=== PATIENT | female | born 1980 | race Caucasian/White ===

== ENCOUNTER 2018-07-27 07:30 | Outpatient (RCR) | payer MEDICARE, MEDICAID, SELFPAY ==
--- NOTE | 2018-05-10 16:03 | PT.OIE ---
Current Diagnoses Radiculopathy, site unspecified (05/05/18) Pain in left arm (05/05/18) Provider Visit Care Team Role Provider Type MYRNA Meeks Family Provider Advanced Practioner Clinician Primary Care Provider Specialty: Family Practice Address: [address] [place] [address], [id number] Email: [email or web address] Sarmiento Attending Provider Advanced Practioner Clinician Specialty: [facility] Practice Address: [address] [place] [address], [id number] Email: Physical Therapy Initial Evaluation PT-OP-A Visit Information Start: 05/05/18 07:25 Freq: Status: Active Protocol: Document 05/05/18 13:00 AMB (Rec: 05/07/18 07:21 AMB [email or web address]) Out-Patient Physical Therapy Visit Information Visit Information Visit Type Initial Evaluation Visit Start Time 13:00 Visit Stop Time 13:45 Total Visit Minutes 45 Visit Number 1 Evaluation Information Evaluation Date 05/17/18 PT-OP-B Current Condition Start: 05/05/18 07:25 Freq: Status: Active Protocol: Document 05/05/18 13:00 AMB (Rec: 05/05/18 13:58 AMB [id number]) Current Condition History of Current Condition Onset Date January 2018 History of Current Condition The patient reports left anterior and posterior upper arm pain that can radiate into the forearm. She is unsure exactly what causes it, but notices it most with sleeping and walking. She thinks that holding the arm into elbow flexion exacerbates the symptoms, it usually takes a few minutes for the symptoms to start. She is right hand dominant. Prior Treatments and Tests None per her report Developmental History Developmental History The patient was kicked by a horse as a young child and broke her arm but she is unsure which arm. Prior Functional Status Baseline Function- ADL's Independent Baseline Function- Mobility Independent Baseline Function- Work/School The patient does not work and lives with her mother, she does not drive. Current Functional Impairments (Reported) Functional Limitations- ADL's Difficulty sleeping - pain wakes her up but she is able to get back to sleep Personal Factors Other Personal Factors That May Effect Developmental disability Therapy/Recovery PT-OP-C Subjective Start: 05/05/18 07:25 Freq: Status: Active Protocol: Document 05/05/18 13:00 AMB (Rec: 05/10/18 06:46 AMB [email or web address]) OP-PT Subjective Patient Comments Patient Comments The patient denies any falls, or traumatic events in January when the pain started, but she is unable to sleep on her left side currently. She states the pain has been about the same. Patient Questionnaires Quick Dash- Upper Extremity Quick Dash UE Score 25 Quick Dash UE Impairment 20 to 39% Impaired (Score 20- 39) OP-PT Pain Assessment Pain Assessment Grid Paper Pain Assessment Grid Completed Yes Location Left Arm Intensity 4 Scale Used Numeric (1 - 10) Description Aching PT-OP-F Manual Assessment Start: 05/05/18 07:25 Freq: Status: Active Protocol: Document 05/05/18 13:00 AMB (Rec: 05/10/18 07:14 AMB [email or web address]) Manual Assessments Joint Mobility Assessment Joint Mobility Assessment Slightly hypermobile throughout UEs, tender to touch at distal bicep and medial and lateral epicondyles , denies tenderness at cervical spine PT-OP-J Posture/Palpation/Skin Start: 05/05/18 07:25 Freq: Status: Active Protocol: Document 05/05/18 13:00 AMB (Rec: 05/10/18 07:14 AMB [email or web address]) Posture Evaluation Comments Posture Comments Forward head, forward shoulders PT-OP-K Range of Motion Start: 05/05/18 07:25 Freq: Status: Active Protocol: Document 05/05/18 13:00 AMB (Rec: 05/10/18 07:09 AMB [email or web address]) Cervical Spine Range of Motion Cervical Spine Active Percentage Testing Position Sitting Comments all WFL no pain noted Elbow/Forearm Range of Motion Elbow/Forearm Measured in Degrees Left Active Elbow/Forearm ROM WFL Yes ROM Testing Position Sitting PT-OP-L Special Tests Start: 05/05/18 07:25 Freq: Status: Active Protocol: Document 05/05/18 13:00 AMB (Rec: 05/10/18 07:00 AMB [email or web address]) Special Tests Cervical Spine Special Tests Spurling's Test Test Results negative bilateral Shoulder Special Tests Empty Can Test Results positive for mild pain but not her pain Walker Stephen Impingement Test Results negative Elbow Special Tests Lateral Epicondylitis Extended Test Results mild reproduction of symptoms Comments resisted wrist extension with elbow flexion Vascular Special Tests Alyssa Test Test Results positive for pain Comments no n/t, but did reproduce pain PT-OP-M Strength Start: 05/05/18 07:25 Freq: Status: Active Protocol: Document 05/05/18 13:00 AMB (Rec: 05/10/18 07:08 AMB [email or web address]) Shoulder Strength Shoulder Manual Muscle Testing Right Flexion 4 Good Extension 4 Good Abduction (C5) 4 Good External Rotation 4 Good Internal Rotation 4 Good Left Flexion 4- Good- Extension 4- Good- Adduction 4- Good- External Rotation 4 Good Internal Rotation 4 Good Elbow/Forearm Strength Elbow and Forearm Manual Muscle Testing Right Flexion (C6) 4 Good Extension (C7) 4 Good Pronation 4 Good Supination 4 Good Left Flexion (C6) 4 Good Extension (C7) 4 Good Pronation 4- Good- Supination 4- Good- Hand Medical Coordinator Pesticide Use/Pinch Strength Hand Dominance Hand Dominance Right Hand Strength Right Medical Coordinator Pesticide Use (lbs) 43 Comments average Left Medical Coordinator Pesticide Use (lbs) 32 Comments average PT-OP-Q Treatments Start: 05/05/18 07:25 Freq: Status: Active Protocol: Document 05/05/18 13:00 AMB (Rec: 05/10/18 06:54 AMB [email or web address]) Therapeutic Exercises Standing Exercises 3 Standing Exercise Name triceps extension t band Equipment Used #2 latex free Reps/Minutes 10 2 Standing Exercise Name biceps curl t band Equipment Used #2 latex free Reps/Minutes 10 1 Standing Exercise Name rows t band Resistance #2 latex free Reps/Minutes 10 PT-OP-T Assessment and Plan Start: 05/05/18 07:25 Freq: Status: Active Protocol: Document 05/05/18 13:00 AMB (Rec: 05/10/18 07:27 AMB [email or web address]) Physical Therapy Assessment Rehab Potential Rehabilitation Potential Good Evaluation Complexity Number of Personal Factors/Comorbidities 1-2 Number of Body Systems Impaired 4 or More Clinical Presentation at Evaluation Evolving Impairments Impairments Functional Activities Pain Posture Strength Goals 3 Impairment Gait Undraped Artist Model Goal (LTG) The patient will walk with her mother for 30 minutes with appropriate arm swing without arm pain. 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 STG Duration 4 weeks Usp Goal (LTG) The patient will lift a bag of groceries without pain. LTG Duration 10 weeks 1 Impairment Sleep Short Term Goal (STG) The patient will sleep through the night without being woken secondary to her arm pain. STG Duration 4 weeks Usp Goal (LTG) The patient will be able to sleep on her left side without pain. LTG Duration 10 weeks Assessment Summary Assessment The patient presents with generalized pain throughout her left elbow. Pain is worst with elbow flexion, sleeping, and walking. Unable to reproduce pain with cervical ROM or testing. The patient is generally weak bilaterally, but worse on the left, full range of motion, generally hypermobile. She will benefit from stabilization exercises, and further evaluation based on her progression of her generalized pain. Physical Therapy Plan Frequency and Duration Frequency of Treatment 1x/Week Duration of Treatment 10 weeks Plan of Care Start Date 05/05/18 Plan of Care End Date 07/14/18 Therapeutic Interventions Therapeutic Interventions Aquatic Therapy Home Exercise Program Joint Mobilizations Manual Therapy Neuromuscular Re-education Self-Care/Home Management Soft Tissue Mobilization Taping Therapeutic Activities Therapeutic Exercises Modalities Cold Pack/Ice Massage Electric Stimulation Hot Packs Ultrasound Next Visit Focus/Plan Next Note Type Treatment Note Please Sign and Return: I have reviewed this Plan of Care and certify that the skilled therapy services above are required to meet the patient?s needs. Physician Signature Date Printed Name and Credentials Clinical Instructor Signature Printed Name and Credentials
--- NOTE | 2018-05-10 16:04 | PT.OPPOC ---
Current Diagnoses Radiculopathy, site unspecified (05/05/18) Pain in left arm (05/05/18) Provider Visit Care Team Role Provider Type MYRNA Meeks Family Provider Advanced Practioner Clinician Primary Care Provider Specialty: [facility] Practice Address: [address] [place] [address], [phone] Email: [email or web address] RODRÍGUEZ Sarmiento Attending Provider Advanced Practioner Clinician Specialty: [facility] Practice Address: [address] [place] [address], [phone] Email: Plan Of Care PT-OP-T Assessment and Plan Start: 05/05/18 07:25 Freq: Status: Active Protocol: Document 05/05/18 13:00 AMB (Rec: 05/10/18 07:27 AMB [email or web address]) Physical Therapy Assessment Rehab Potential Rehabilitation Potential Good Evaluation Complexity Number of Personal Factors/Comorbidities 1-2 Number of Body Systems Impaired 4 or More Clinical Presentation at Evaluation Evolving Impairments Impairments Functional Activities Pain Posture Strength Goals 3 Impairment Gait Garden Equipment Mechanic Goal (LTG) The patient will walk with her mother for 30 minutes with appropriate arm swing without arm pain. 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 STG Duration 4 weeks Garden Equipment Mechanic Goal (LTG) The patient will lift a bag of groceries without pain. LTG Duration 10 weeks 1 Impairment Sleep Short Term Goal (STG) The patient will sleep through the night without being woken secondary to her arm pain. STG Duration 4 weeks Garden Equipment Mechanic Goal (LTG) The patient will be able to sleep on her left side without pain. LTG Duration 10 weeks Assessment Summary Assessment The patient presents with generalized pain throughout her left elbow. Pain is worst with elbow flexion, sleeping, and walking. Unable to reproduce pain with cervical ROM or testing. The patient is generally weak bilaterally, but worse on the left, full range of motion, generally hypermobile. She will benefit from stabilization exercises, and further evaluation based on her progression of her generalized pain. Physical Therapy Plan Frequency and Duration Frequency of Treatment 1x/Week Duration of Treatment 10 weeks Plan of Care Start Date 05/05/18 Plan of Care End Date 07/14/18 Therapeutic Interventions Therapeutic Interventions Aquatic Therapy Home Exercise Program Joint Mobilizations Manual Therapy Neuromuscular Re-education Self-Care/Home Management Soft Tissue Mobilization Taping Therapeutic Activities Therapeutic Exercises Modalities Cold Pack/Ice Massage Electric Stimulation Hot Packs Ultrasound Next Visit Focus/Plan Next Note Type Treatment Note Plan of Care Dates Plan of Care Start Date 05/05/18 Plan of Care End Date 07/14/18 Please Sign and Return: I have reviewed this Plan of Care and certify that the skilled therapy services above are required to meet the patient?s needs. Physician Signature Date Printed Name and Credentials Clinical Instructor Signature Printed Name and Credentials
--- NOTE | 2018-05-28 14:50 | PT.OTN ---
Current Diagnoses Radiculopathy, site unspecified (05/28/18) Physical Therapy Treatment Note PT-OP-A Visit Information Start: 05/05/18 07:25 Freq: Status: Active Protocol: Document 05/28/18 11:15 AMB (Rec: 05/28/18 11:26 AMB [email or web address]) Out-Patient Physical Therapy Visit Information Visit Information Visit Type Treatment Note Visit Start Time 11:15 Visit Stop Time 12:00 Visit Number 2 Evaluation Information Evaluation Date 05/17/18 PT-OP-B Current Condition Start: 05/05/18 07:25 Freq: Status: Active Protocol: Document 05/05/18 13:00 AMB (Rec: 05/05/18 13:58 AMB [id number]) Current Condition History of Current Condition Onset Date January 2018 History of Current Condition The patient reports left anterior and posterior upper arm pain that can radiate into the forearm. She is unsure exactly what causes it, but notices it most with sleeping and walking. She thinks that holding the arm into elbow flexion exacerbates the symptoms, it usually takes a few minutes for the symptoms to start. She is right hand dominant. Prior Treatments and Tests None per her report Developmental History Developmental History The patient was kicked by a horse as a young child and broke her arm but she is unsure which arm. Prior Functional Status Baseline Function- ADL's Independent Baseline Function- Mobility Independent Baseline Function- Work/School The patient does not work and lives with her mother, she does not drive. Current Functional Impairments (Reported) Functional Limitations- ADL's Difficulty sleeping - pain wakes her up but she is able to get back to sleep Personal Factors Other Personal Factors That May Effect Developmental disability Therapy/Recovery PT-OP-C Subjective Start: 05/05/18 07:25 Freq: Status: Active Protocol: Document 05/28/18 11:15 AMB (Rec: 05/28/18 11:26 AMB [id number]) OP-PT Subjective Patient Comments Patient Comments The patient reports sx about the same, she is doing her exercises. PT-OP-F Manual Assessment Start: 05/05/18 07:25 Freq: Status: Active Protocol: Document 05/05/18 13:00 AMB (Rec: 05/10/18 07:14 AMB [email or web address]) Manual Assessments Joint Mobility Assessment Joint Mobility Assessment Slightly hypermobile throughout UEs, tender to touch at distal bicep and medial and lateral epicondyles , denies tenderness at cervical spine PT-OP-J Posture/Palpation/Skin Start: 05/05/18 07:25 Freq: Status: Active Protocol: Document 05/05/18 13:00 AMB (Rec: 05/10/18 07:14 AMB [email or web address]) Posture Evaluation Comments Posture Comments Forward head, forward shoulders PT-OP-K Range of Motion Start: 05/05/18 07:25 Freq: Status: Active Protocol: Document 05/05/18 13:00 AMB (Rec: 05/10/18 07:09 AMB [email or web address]) Cervical Spine Range of Motion Cervical Spine Active Percentage Testing Position Sitting Comments all WFL no pain noted Elbow/Forearm Range of Motion Elbow/Forearm Measured in Degrees Left Active Elbow/Forearm ROM WFL Yes ROM Testing Position Sitting PT-OP-L Special Tests Start: 05/05/18 07:25 Freq: Status: Active Protocol: Document 05/05/18 13:00 AMB (Rec: 05/10/18 07:00 AMB [email or web address]) Special Tests Cervical Spine Special Tests Spurling's Test Test Results negative bilateral Shoulder Special Tests Empty Can Test Results positive for mild pain but not her pain Walker Stephen Impingement Test Results negative Elbow Special Tests Lateral Epicondylitis Extended Test Results mild reproduction of symptoms Comments resisted wrist extension with elbow flexion Vascular Special Tests Alyssa Test Test Results positive for pain Comments no n/t, but did reproduce pain PT-OP-M Strength Start: 05/05/18 07:25 Freq: Status: Active Protocol: Document 05/05/18 13:00 AMB (Rec: 05/10/18 07:08 AMB [email or web address]) Shoulder Strength Shoulder Manual Muscle Testing Right Flexion 4 Good Extension 4 Good Abduction (C5) 4 Good External Rotation 4 Good Internal Rotation 4 Good Left Flexion 4- Good- Extension 4- Good- Adduction 4- Good- External Rotation 4 Good Internal Rotation 4 Good Elbow/Forearm Strength Elbow and Forearm Manual Muscle Testing Right Flexion (C6) 4 Good Extension (C7) 4 Good Pronation 4 Good Supination 4 Good Left Flexion (C6) 4 Good Extension (C7) 4 Good Pronation 4- Good- Supination 4- Good- Hand Medical Device Engineer/Pinch Strength Hand Dominance Hand Dominance Right Hand Strength Right Medical Device Engineer (lbs) 43 Comments average Left Medical Device Engineer (lbs) 32 Comments average PT-OP-Q Treatments Start: 05/05/18 07:25 Freq: Status: Active Protocol: Document 05/28/18 11:15 AMB (Rec: 05/28/18 14:50 AMB [email or web address]) Cardio Equipment Upper Body Ergometer (UBE) Duration (Minutes) 5 RPM 60 Other fwd bwd Therapeutic Exercises Supine Exercises 1 Supine Exercise Name tricep press Resistance 3# Reps/Minutes 2x10 Standing Exercises 6 Standing Exercise Name corner pec stretch Reps/Minutes 30x4 5 Standing Exercise Name IR t band Side left Resistance #3 Reps/Minutes 2x12 4 Standing Exercise Name ER t band Side left Resistance #3 Reps/Minutes 2x10 1 Standing Exercise Name rows t band Resistance #2 latex free Reps/Minutes 10 Manual Therapy Treatment Soft Tissue Mobilization 1 Body Location anterior shoulder into upper arm Mobilization Type Myofascial Release Rolling Nerve Glides 1 Nerve ulnar Details supine Body Position Hooklying Reps/Duration 15x5 PT-OP-T Assessment and Plan Start: 05/05/18 07:25 Freq: Status: Active Protocol: Document 05/28/18 11:15 AMB (Rec: 05/28/18 13:01 AMB [email or web address]) Physical Therapy Assessment Assessment Summary Assessment Pt tolerated exercises well, with some increase in pain with shoulder external rotation and pectoral and wrist stretching. Physical Therapy Plan Next Visit Focus/Plan Next Note Type Treatment Note Next Visit Plan Reassess pain, progress shoulder and elbow function
--- NOTE | 2018-06-04 14:47 | PT.OTN ---
Current Diagnoses Radiculopathy, site unspecified (06/04/18) Physical Therapy Treatment Note PT-OP-A Visit Information Start: 05/05/18 07:25 Freq: Status: Active Protocol: Document 06/04/18 09:45 AMB (Rec: 06/04/18 14:44 AMB [email or web address]) Out-Patient Physical Therapy Visit Information Visit Information Visit Type Treatment Note Visit Start Time 09:45 Visit Stop Time 10:30 Total Visit Minutes 45 Visit Number 3 Evaluation Information Evaluation Date 05/17/18 PT-OP-B Current Condition Start: 05/05/18 07:25 Freq: Status: Active Protocol: Document 05/05/18 13:00 AMB (Rec: 05/05/18 13:58 AMB [id number]) Current Condition History of Current Condition Onset Date January 2018 History of Current Condition The patient reports left anterior and posterior upper arm pain that can radiate into the forearm. She is unsure exactly what causes it, but notices it most with sleeping and walking. She thinks that holding the arm into elbow flexion exacerbates the symptoms, it usually takes a few minutes for the symptoms to start. She is right hand dominant. Prior Treatments and Tests None per her report Developmental History Developmental History The patient was kicked by a horse as a young child and broke her arm but she is unsure which arm. Prior Functional Status Baseline Function- ADL's Independent Baseline Function- Mobility Independent Baseline Function- Work/School The patient does not work and lives with her mother, she does not drive. Current Functional Impairments (Reported) Functional Limitations- ADL's Difficulty sleeping - pain wakes her up but she is able to get back to sleep Personal Factors Other Personal Factors That May Effect Developmental disability Therapy/Recovery PT-OP-C Subjective Start: 05/05/18 07:25 Freq: Status: Active Protocol: Document 06/04/18 09:45 AMB (Rec: 06/04/18 14:44 AMB [email or web address]) OP-PT Subjective Patient Comments Patient Comments Pt reports she is feeling better with walking, but she is noticing pain with putting her elbow on the table, mostly the medial elbow. PT-OP-F Manual Assessment Start: 05/05/18 07:25 Freq: Status: Active Protocol: Document 05/05/18 13:00 AMB (Rec: 05/10/18 07:14 AMB [email or web address]) Manual Assessments Joint Mobility Assessment Joint Mobility Assessment Slightly hypermobile throughout UEs, tender to touch at distal bicep and medial and lateral epicondyles , denies tenderness at cervical spine PT-OP-J Posture/Palpation/Skin Start: 05/05/18 07:25 Freq: Status: Active Protocol: Document 05/05/18 13:00 AMB (Rec: 05/10/18 07:14 AMB [email or web address]) Posture Evaluation Comments Posture Comments Forward head, forward shoulders PT-OP-K Range of Motion Start: 05/05/18 07:25 Freq: Status: Active Protocol: Document 05/05/18 13:00 AMB (Rec: 05/10/18 07:09 AMB [email or web address]) Cervical Spine Range of Motion Cervical Spine Active Percentage Testing Position Sitting Comments all WFL no pain noted Elbow/Forearm Range of Motion Elbow/Forearm Measured in Degrees Left Active Elbow/Forearm ROM WFL Yes ROM Testing Position Sitting PT-OP-L Special Tests Start: 05/05/18 07:25 Freq: Status: Active Protocol: Document 05/05/18 13:00 AMB (Rec: 05/10/18 07:00 AMB [email or web address]) Special Tests Cervical Spine Special Tests Spurling's Test Test Results negative bilateral Shoulder Special Tests Empty Can Test Results positive for mild pain but not her pain Walker Stephen Impingement Test Results negative Elbow Special Tests Lateral Epicondylitis Extended Test Results mild reproduction of symptoms Comments resisted wrist extension with elbow flexion Vascular Special Tests Alyssa Test Test Results positive for pain Comments no n/t, but did reproduce pain PT-OP-M Strength Start: 05/05/18 07:25 Freq: Status: Active Protocol: Document 05/05/18 13:00 AMB (Rec: 05/10/18 07:08 AMB [email or web address]) Shoulder Strength Shoulder Manual Muscle Testing Right Flexion 4 Good Extension 4 Good Abduction (C5) 4 Good External Rotation 4 Good Internal Rotation 4 Good Left Flexion 4- Good- Extension 4- Good- Adduction 4- Good- External Rotation 4 Good Internal Rotation 4 Good Elbow/Forearm Strength Elbow and Forearm Manual Muscle Testing Right Flexion (C6) 4 Good Extension (C7) 4 Good Pronation 4 Good Supination 4 Good Left Flexion (C6) 4 Good Extension (C7) 4 Good Pronation 4- Good- Supination 4- Good- Hand Hematologist/Pinch Strength Hand Dominance Hand Dominance Right Hand Strength Right Hematologist (lbs) 43 Comments average Left Hematologist (lbs) 32 Comments average PT-OP-Q Treatments Start: 05/05/18 07:25 Freq: Status: Active Protocol: Document 06/04/18 09:45 AMB (Rec: 06/04/18 14:44 AMB [email or web address]) Therapeutic Exercises Sitting Exercises 3 Sitting Exercise Name forearm pron/sup Resistance 2# Reps/Minutes 2x10 2 Sitting Exercise Name wrist extensor stretch Reps/Minutes 30x2 1 Sitting Exercise Name wrist flexor stretch Reps/Minutes 30x2 Standing Exercises 9 Standing Exercise Name body blade shoulder flexion Comments exacerbated sx after 2 min 8 Standing Exercise Name shoulder flexion Resistance 2# Reps/Minutes 2x10 Comments shoulder height 7 Standing Exercise Name scaption Reps/Minutes 2# Comments 2x10 Manual Therapy Treatment Soft Tissue Mobilization 2 Body Location medial elbow Mobilization Type Myofascial Release Intensity/Depth Moderate Body Position Supine Taping 1 Body Location medial elbow Type of Tape Kinesio Tape Comments with instruction in skin care PT-OP-R Modalities Start: 05/05/18 07:25 Freq: Status: Active Protocol: Document 06/04/18 09:45 AMB (Rec: 06/04/18 14:46 AMB [email or web address]) Ultrasound Therapy Treatment Left Elbow Treatment Duration (minutes) 7 Patient Position Supine Coupling Medium Ultrasound Gel Frequency Setting (mHz) 1 Mode Setting Continuous Intensity Setting (w/cm2) 1.3 PT-OP-T Assessment and Plan Start: 05/05/18 07:25 Freq: Status: Active Protocol: Document 06/04/18 09:45 AMB (Rec: 06/04/18 14:44 AMB [email or web address]) Physical Therapy Assessment Assessment Summary Assessment More localized sx today, encouraged pt to avoid positions that compress cubital tunnel as much as possible. Physical Therapy Plan Next Visit Focus/Plan Next Note Type Treatment Note Next Visit Plan Progress elbow/forearm function
--- NOTE | 2018-06-09 16:04 | PT.OTN ---
Current Diagnoses Radiculopathy, site unspecified (06/09/18) Physical Therapy Treatment Note PT-OP-A Visit Information Start: 05/05/18 07:25 Freq: Status: Active Protocol: Document 06/09/18 09:00 AMB (Rec: 06/09/18 10:16 AMB [email or web address]) Out-Patient Physical Therapy Visit Information Visit Information Visit Type Treatment Note Visit Start Time 09:00 Visit Stop Time 09:45 Total Visit Minutes 45 Visit Number 4 Evaluation Information Evaluation Date 05/17/18 PT-OP-B Current Condition Start: 05/05/18 07:25 Freq: Status: Active Protocol: Document 05/05/18 13:00 AMB (Rec: 05/05/18 13:58 AMB [id number]) Current Condition History of Current Condition Onset Date January 2018 History of Current Condition The patient reports left anterior and posterior upper arm pain that can radiate into the forearm. She is unsure exactly what causes it, but notices it most with sleeping and walking. She thinks that holding the arm into elbow flexion exacerbates the symptoms, it usually takes a few minutes for the symptoms to start. She is right hand dominant. Prior Treatments and Tests None per her report Developmental History Developmental History The patient was kicked by a horse as a young child and broke her arm but she is unsure which arm. Prior Functional Status Baseline Function- ADL's Independent Baseline Function- Mobility Independent Baseline Function- Work/School The patient does not work and lives with her mother, she does not drive. Current Functional Impairments (Reported) Functional Limitations- ADL's Difficulty sleeping - pain wakes her up but she is able to get back to sleep Personal Factors Other Personal Factors That May Effect Developmental disability Therapy/Recovery PT-OP-C Subjective Start: 05/05/18 07:25 Freq: Status: Active Protocol: Document 06/09/18 09:00 AMB (Rec: 06/09/18 10:16 AMB [email or web address]) OP-PT Subjective Patient Comments Patient Comments Pt reports she is feeling slightly better, but continues to have sx with sleeping on the arm. PT-OP-F Manual Assessment Start: 05/05/18 07:25 Freq: Status: Active Protocol: Document 05/05/18 13:00 AMB (Rec: 05/10/18 07:14 AMB [email or web address]) Manual Assessments Joint Mobility Assessment Joint Mobility Assessment Slightly hypermobile throughout UEs, tender to touch at distal bicep and medial and lateral epicondyles , denies tenderness at cervical spine PT-OP-J Posture/Palpation/Skin Start: 05/05/18 07:25 Freq: Status: Active Protocol: Document 05/05/18 13:00 AMB (Rec: 05/10/18 07:14 AMB [email or web address]) Posture Evaluation Comments Posture Comments Forward head, forward shoulders PT-OP-K Range of Motion Start: 05/05/18 07:25 Freq: Status: Active Protocol: Document 05/05/18 13:00 AMB (Rec: 05/10/18 07:09 AMB [email or web address]) Cervical Spine Range of Motion Cervical Spine Active Percentage Testing Position Sitting Comments all WFL no pain noted Elbow/Forearm Range of Motion Elbow/Forearm Measured in Degrees Left Active Elbow/Forearm ROM WFL Yes ROM Testing Position Sitting PT-OP-L Special Tests Start: 05/05/18 07:25 Freq: Status: Active Protocol: Document 05/05/18 13:00 AMB (Rec: 05/10/18 07:00 AMB [email or web address]) Special Tests Cervical Spine Special Tests Spurling's Test Test Results negative bilateral Shoulder Special Tests Empty Can Test Results positive for mild pain but not her pain Walker Stephen Impingement Test Results negative Elbow Special Tests Lateral Epicondylitis Extended Test Results mild reproduction of symptoms Comments resisted wrist extension with elbow flexion Vascular Special Tests Alyssa Test Test Results positive for pain Comments no n/t, but did reproduce pain PT-OP-M Strength Start: 05/05/18 07:25 Freq: Status: Active Protocol: Document 05/05/18 13:00 AMB (Rec: 05/10/18 07:08 AMB [email or web address]) Shoulder Strength Shoulder Manual Muscle Testing Right Flexion 4 Good Extension 4 Good Abduction (C5) 4 Good External Rotation 4 Good Internal Rotation 4 Good Left Flexion 4- Good- Extension 4- Good- Adduction 4- Good- External Rotation 4 Good Internal Rotation 4 Good Elbow/Forearm Strength Elbow and Forearm Manual Muscle Testing Right Flexion (C6) 4 Good Extension (C7) 4 Good Pronation 4 Good Supination 4 Good Left Flexion (C6) 4 Good Extension (C7) 4 Good Pronation 4- Good- Supination 4- Good- Hand Tool Or Die Drawing Checker/Pinch Strength Hand Dominance Hand Dominance Right Hand Strength Right Tool Or Die Drawing Checker (lbs) 43 Comments average Left Tool Or Die Drawing Checker (lbs) 32 Comments average PT-OP-Q Treatments Start: 05/05/18 07:25 Freq: Status: Active Protocol: Document 06/09/18 09:00 AMB (Rec: 06/09/18 16:02 AMB [email or web address]) Therapeutic Exercises Supine Exercises 1 Supine Exercise Name tricep press Resistance 3# Reps/Minutes 2x10 Sitting Exercises 3 Sitting Exercise Name forearm pron/sup Resistance 2# Reps/Minutes 2x10 2 Sitting Exercise Name wrist extensor stretch Reps/Minutes 30x2 1 Sitting Exercise Name wrist flexor stretch Reps/Minutes 30x2 Standing Exercises 8 Standing Exercise Name shoulder flexion Resistance 2# Reps/Minutes 2x10 Comments shoulder height 7 Standing Exercise Name scaption Reps/Minutes 2# Comments 2x10 6 Standing Exercise Name corner pec stretch Reps/Minutes 30x4 Manual Therapy Treatment Soft Tissue Mobilization 2 Body Location medial elbow Mobilization Type Myofascial Release Intensity/Depth Moderate Body Position Supine Nerve Glides 1 Nerve ulnar Details supine Body Position Hooklying Reps/Duration 15x5 PT-OP-R Modalities Start: 05/05/18 07:25 Freq: Status: Active Protocol: Document 06/09/18 09:00 AMB (Rec: 06/09/18 16:02 AMB [email or web address]) Ultrasound Therapy Treatment Left Elbow Treatment Duration (minutes) 7 Patient Position Supine Coupling Medium Ultrasound Gel Frequency Setting (mHz) 1 Mode Setting Continuous Intensity Setting (w/cm2) 1.3 PT-OP-T Assessment and Plan Start: 05/05/18 07:25 Freq: Status: Active Protocol: Document 06/09/18 09:00 AMB (Rec: 06/09/18 16:02 AMB [email or web address]) Physical Therapy Assessment Goals 3 Impairment Gait Long-Term Goal (LTG) The patient will walk with her mother for 30 minutes with appropriate arm swing without arm pain. LTG Duration 10 weeks 2 Impairment Strength Short Term Goal (STG) The patient will improve her seo team lead strength bilaterally to 50#. STG Duration 4 weeks Long-Term Goal (LTG) The patient will lift a bag of groceries without pain. LTG Duration 10 weeks 1 Impairment Sleep Short Term Goal (STG) The patient will sleep through the night without being woken secondary to her arm pain. STG Duration 4 weeks Long-Term Goal (LTG) The patient will be able to sleep on her left side without pain. LTG Duration 10 weeks Assessment Summary Assessment Pt without sx during manual therapy or ther ex, but pt did report nerve discomfort with tricep press at home (standing ) so gave her the supine variation. Physical Therapy Plan Frequency and Duration Frequency of Treatment 1x/Week Duration of Treatment 10 weeks Plan of Care Start Date 05/05/18 Plan of Care End Date 07/14/18 Next Visit Focus/Plan Next Note Type Treatment Note Next Visit Plan Progress elbow/forearm function
--- NOTE | 2018-06-16 12:55 | PT.OTN ---
Current Diagnoses Radiculopathy, site unspecified (06/16/18) Physical Therapy Treatment Note PT-OP-A Visit Information Start: 05/05/18 07:25 Freq: Status: Active Protocol: Document 06/16/18 09:00 AMB (Rec: 06/16/18 09:45 AMB [email or web address]) Out-Patient Physical Therapy Visit Information Visit Information Visit Type Treatment Note Visit Start Time 09:00 Visit Stop Time 09:45 Total Visit Minutes 45 Visit Number 5 PT-OP-B Current Condition Start: 05/05/18 07:25 Freq: Status: Active Protocol: Document 05/05/18 13:00 AMB (Rec: 05/05/18 13:58 AMB [id number]) Current Condition History of Current Condition Onset Date January 2018 History of Current Condition The patient reports left anterior and posterior upper arm pain that can radiate into the forearm. She is unsure exactly what causes it, but notices it most with sleeping and walking. She thinks that holding the arm into elbow flexion exacerbates the symptoms, it usually takes a few minutes for the symptoms to start. She is right hand dominant. Prior Treatments and Tests None per her report Developmental History Developmental History The patient was kicked by a horse as a young child and broke her arm but she is unsure which arm. Prior Functional Status Baseline Function- ADL's Independent Baseline Function- Mobility Independent Baseline Function- Work/School The patient does not work and lives with her mother, she does not drive. Current Functional Impairments (Reported) Functional Limitations- ADL's Difficulty sleeping - pain wakes her up but she is able to get back to sleep Personal Factors Other Personal Factors That May Effect Developmental disability Therapy/Recovery PT-OP-C Subjective Start: 05/05/18 07:25 Freq: Status: Active Protocol: Document 06/16/18 08:15 AMB (Rec: 06/16/18 12:07 AMB [email or web address]) OP-PT Subjective Patient Comments Patient Comments The patient reports that sitting is getting less painful with her back. She did sustain a fall (tripped over a mat on the floor) and hit her R shoulder on the cabinet, so now sleeping is even worse because she is a side sleeper and it hurts to sleep on the L hip and now the R shoulder. Her dizziness continues, seeing PCP next week. PT-OP-F Manual Assessment Start: 05/05/18 07:25 Freq: Status: Active Protocol: Document 05/05/18 13:00 AMB (Rec: 05/10/18 07:14 AMB [email or web address]) Manual Assessments Joint Mobility Assessment Joint Mobility Assessment Slightly hypermobile throughout UEs, tender to touch at distal bicep and medial and lateral epicondyles , denies tenderness at cervical spine PT-OP-J Posture/Palpation/Skin Start: 05/05/18 07:25 Freq: Status: Active Protocol: Document 05/05/18 13:00 AMB (Rec: 05/10/18 07:14 AMB [email or web address]) Posture Evaluation Comments Posture Comments Forward head, forward shoulders PT-OP-K Range of Motion Start: 05/05/18 07:25 Freq: Status: Active Protocol: Document 05/05/18 13:00 AMB (Rec: 05/10/18 07:09 AMB [email or web address]) Cervical Spine Range of Motion Cervical Spine Active Percentage Testing Position Sitting Comments all WFL no pain noted Elbow/Forearm Range of Motion Elbow/Forearm Measured in Degrees Left Active Elbow/Forearm ROM WFL Yes ROM Testing Position Sitting PT-OP-L Special Tests Start: 05/05/18 07:25 Freq: Status: Active Protocol: Document 05/05/18 13:00 AMB (Rec: 05/10/18 07:00 AMB [email or web address]) Special Tests Cervical Spine Special Tests Spurling's Test Test Results negative bilateral Shoulder Special Tests Empty Can Test Results positive for mild pain but not her pain Walker Stephen Impingement Test Results negative Elbow Special Tests Lateral Epicondylitis Extended Test Results mild reproduction of symptoms Comments resisted wrist extension with elbow flexion Vascular Special Tests Alyssa Test Test Results positive for pain Comments no n/t, but did reproduce pain PT-OP-M Strength Start: 05/05/18 07:25 Freq: Status: Active Protocol: Document 05/05/18 13:00 AMB (Rec: 05/10/18 07:08 AMB [email or web address]) Shoulder Strength Shoulder Manual Muscle Testing Right Flexion 4 Good Extension 4 Good Abduction (C5) 4 Good External Rotation 4 Good Internal Rotation 4 Good Left Flexion 4- Good- Extension 4- Good- Adduction 4- Good- External Rotation 4 Good Internal Rotation 4 Good Elbow/Forearm Strength Elbow and Forearm Manual Muscle Testing Right Flexion (C6) 4 Good Extension (C7) 4 Good Pronation 4 Good Supination 4 Good Left Flexion (C6) 4 Good Extension (C7) 4 Good Pronation 4- Good- Supination 4- Good- Hand Radio Communications Superintendent/Pinch Strength Hand Dominance Hand Dominance Right Hand Strength Right Radio Communications Superintendent (lbs) 43 Comments average Left Radio Communications Superintendent (lbs) 32 Comments average PT-OP-Q Treatments Start: 05/05/18 07:25 Freq: Status: Active Protocol: Document 06/16/18 09:00 AMB (Rec: 06/16/18 12:54 AMB [email or web address]) Cardio Equipment Upper Body Ergometer (UBE) Duration (Minutes) 5 RPM 60 Other fwd bwd Manual Therapy Treatment Soft Tissue Mobilization 2 Body Location medial elbow Mobilization Type Myofascial Release Intensity/Depth Moderate Body Position Supine Taping 1 Body Location medial elbow Type of Tape Kinesio Tape Comments with instruction in skin care, 2 Is, 2Ys Nerve Glides 1 Nerve ulnar Body Position Sitting Reps/Duration 7 options x 10 ea PT-OP-R Modalities Start: 05/05/18 07:25 Freq: Status: Active Protocol: Document 06/09/18 09:00 AMB (Rec: 06/09/18 16:02 AMB [email or web address]) Ultrasound Therapy Treatment Left Elbow Treatment Duration (minutes) 7 Patient Position Supine Coupling Medium Ultrasound Gel Frequency Setting (mHz) 1 Mode Setting Continuous Intensity Setting (w/cm2) 1.3 PT-OP-T Assessment and Plan Start: 05/05/18 07:25 Freq: Status: Active Protocol: Document 06/16/18 09:00 AMB (Rec: 06/16/18 12:50 AMB [email or web address]) Physical Therapy Assessment Assessment Summary Assessment The patient reports a plateau in progress (2 nights this past week has woken up with forearm/elbow pain). Ulnar nerve exercises did not exacerbate pain too much during the session. Physical Therapy Plan Next Visit Focus/Plan Next Note Type Treatment Note Next Visit Plan Follow up on ulnar nerve mobilizations at home
--- NOTE | 2018-06-24 16:17 | PT.OTN ---
Current Diagnoses Radiculopathy, site unspecified (06/24/18) Physical Therapy Treatment Note PT-OP-A Visit Information Start: 05/05/18 07:25 Freq: Status: Active Protocol: Document 06/24/18 09:45 AMB (Rec: 06/24/18 16:16 AMB [email or web address]) Out-Patient Physical Therapy Visit Information Visit Information Visit Type Treatment Note Visit Start Time 09:00 Visit Stop Time 09:45 Total Visit Minutes 45 Visit Number 6 Evaluation Information Evaluation Date 05/17/18 PT-OP-B Current Condition Start: 05/05/18 07:25 Freq: Status: Active Protocol: Document 05/05/18 13:00 AMB (Rec: 05/05/18 13:58 AMB [id number]) Current Condition History of Current Condition Onset Date January 2018 History of Current Condition The patient reports left anterior and posterior upper arm pain that can radiate into the forearm. She is unsure exactly what causes it, but notices it most with sleeping and walking. She thinks that holding the arm into elbow flexion exacerbates the symptoms, it usually takes a few minutes for the symptoms to start. She is right hand dominant. Prior Treatments and Tests None per her report Developmental History Developmental History The patient was kicked by a horse as a young child and broke her arm but she is unsure which arm. Prior Functional Status Baseline Function- ADL's Independent Baseline Function- Mobility Independent Baseline Function- Work/School The patient does not work and lives with her mother, she does not drive. Current Functional Impairments (Reported) Functional Limitations- ADL's Difficulty sleeping - pain wakes her up but she is able to get back to sleep Personal Factors Other Personal Factors That May Effect Developmental disability Therapy/Recovery PT-OP-C Subjective Start: 05/05/18 07:25 Freq: Status: Active Protocol: Document 06/24/18 09:45 AMB (Rec: 06/24/18 16:16 AMB [email or web address]) OP-PT Subjective Patient Comments Patient Comments Pt reports she continues to get elbow pain at night, when she is sleeping on the arm. She is woken up by the pain a few times a week. PT-OP-F Manual Assessment Start: 05/05/18 07:25 Freq: Status: Active Protocol: Document 05/05/18 13:00 AMB (Rec: 05/10/18 07:14 AMB [email or web address]) Manual Assessments Joint Mobility Assessment Joint Mobility Assessment Slightly hypermobile throughout UEs, tender to touch at distal bicep and medial and lateral epicondyles , denies tenderness at cervical spine PT-OP-J Posture/Palpation/Skin Start: 05/05/18 07:25 Freq: Status: Active Protocol: Document 05/05/18 13:00 AMB (Rec: 05/10/18 07:14 AMB [email or web address]) Posture Evaluation Comments Posture Comments Forward head, forward shoulders PT-OP-K Range of Motion Start: 05/05/18 07:25 Freq: Status: Active Protocol: Document 05/05/18 13:00 AMB (Rec: 05/10/18 07:09 AMB [email or web address]) Cervical Spine Range of Motion Cervical Spine Active Percentage Testing Position Sitting Comments all WFL no pain noted Elbow/Forearm Range of Motion Elbow/Forearm Measured in Degrees Left Active Elbow/Forearm ROM WFL Yes ROM Testing Position Sitting PT-OP-L Special Tests Start: 05/05/18 07:25 Freq: Status: Active Protocol: Document 05/05/18 13:00 AMB (Rec: 05/10/18 07:00 AMB [email or web address]) Special Tests Cervical Spine Special Tests Spurling's Test Test Results negative bilateral Shoulder Special Tests Empty Can Test Results positive for mild pain but not her pain Walker Stephen Impingement Test Results negative Elbow Special Tests Lateral Epicondylitis Extended Test Results mild reproduction of symptoms Comments resisted wrist extension with elbow flexion Vascular Special Tests Alyssa Test Test Results positive for pain Comments no n/t, but did reproduce pain PT-OP-M Strength Start: 05/05/18 07:25 Freq: Status: Active Protocol: Document 05/05/18 13:00 AMB (Rec: 05/10/18 07:08 AMB [email or web address]) Shoulder Strength Shoulder Manual Muscle Testing Right Flexion 4 Good Extension 4 Good Abduction (C5) 4 Good External Rotation 4 Good Internal Rotation 4 Good Left Flexion 4- Good- Extension 4- Good- Adduction 4- Good- External Rotation 4 Good Internal Rotation 4 Good Elbow/Forearm Strength Elbow and Forearm Manual Muscle Testing Right Flexion (C6) 4 Good Extension (C7) 4 Good Pronation 4 Good Supination 4 Good Left Flexion (C6) 4 Good Extension (C7) 4 Good Pronation 4- Good- Supination 4- Good- Hand [employer] [facility]/Pinch Strength Hand Dominance Hand Dominance Right Hand Strength Right [facility] (lbs) 43 Comments average Left [facility] (lbs) 32 Comments average PT-OP-Q Treatments Start: 05/05/18 07:25 Freq: Status: Active Protocol: Document 06/24/18 09:45 AMB (Rec: 06/24/18 16:16 AMB [email or web address]) Therapeutic Exercises Sitting Exercises 2 Sitting Exercise Name wrist extensor stretch Reps/Minutes 30x2 1 Sitting Exercise Name wrist flexor stretch Reps/Minutes 30x2 Manual Therapy Treatment Soft Tissue Mobilization 2 Body Location medial/ lateral elbow Mobilization Type Myofascial Release Intensity/Depth Moderate Body Position Supine Nerve Glides 1 Nerve ulnar Body Position Sitting Reps/Duration 7 options x 5 ea PT-OP-R Modalities Start: 05/05/18 07:25 Freq: Status: Active Protocol: Document 06/24/18 09:45 AMB (Rec: 06/24/18 16:16 AMB [email or web address]) Ultrasound Therapy Treatment Left Elbow Treatment Duration (minutes) 7 Patient Position Supine Coupling Medium Ultrasound Gel Frequency Setting (mHz) 1 Mode Setting Continuous Intensity Setting (w/cm2) 1.3 PT-OP-T Assessment and Plan Start: 05/05/18 07:25 Freq: Status: Active Protocol: Document 06/24/18 09:45 AMB (Rec: 06/24/18 16:16 AMB [email or web address]) Physical Therapy Assessment Assessment Summary Assessment Pt noted more lateral elbow pain today, not going down the arm as much. Physical Therapy Plan Frequency and Duration Frequency of Treatment 1x/Week Duration of Treatment 10 weeks Plan of Care Start Date 05/05/18 Plan of Care End Date 07/14/18 Next Visit Focus/Plan Next Note Type Treatment Note Next Visit Plan Follow up with more lateral symptoms
--- NOTE | 2018-06-30 16:25 | PT.OTN ---
Current Diagnoses Radiculopathy, site unspecified (06/30/18) Physical Therapy Treatment Note PT-OP-A Visit Information Start: 05/05/18 07:25 Freq: Status: Active Protocol: Document 06/30/18 07:30 AMB (Rec: 06/30/18 07:36 AMB [id number]) Out-Patient Physical Therapy Visit Information Visit Information Visit Type Treatment Note Visit Start Time 09:00 Visit Stop Time 09:45 Total Visit Minutes 45 Visit Number 6 Evaluation Information Evaluation Date 05/17/18 PT-OP-B Current Condition Start: 05/05/18 07:25 Freq: Status: Active Protocol: Document 05/05/18 13:00 AMB (Rec: 05/05/18 13:58 AMB [id number]) Current Condition History of Current Condition Onset Date January 2018 History of Current Condition The patient reports left anterior and posterior upper arm pain that can radiate into the forearm. She is unsure exactly what causes it, but notices it most with sleeping and walking. She thinks that holding the arm into elbow flexion exacerbates the symptoms, it usually takes a few minutes for the symptoms to start. She is right hand dominant. Prior Treatments and Tests None per her report Developmental History Developmental History The patient was kicked by a horse as a young child and broke her arm but she is unsure which arm. Prior Functional Status Baseline Function- ADL's Independent Baseline Function- Mobility Independent Baseline Function- Work/School The patient does not work and lives with her mother, she does not drive. Current Functional Impairments (Reported) Functional Limitations- ADL's Difficulty sleeping - pain wakes her up but she is able to get back to sleep Personal Factors Other Personal Factors That May Effect Developmental disability Therapy/Recovery PT-OP-C Subjective Start: 05/05/18 07:25 Freq: Status: Active Protocol: Document 06/30/18 07:30 AMB (Rec: 06/30/18 07:36 AMB [id number]) OP-PT Subjective Patient Comments Patient Comments Pt noting both medial and lateral elbow pain now. PT-OP-F Manual Assessment Start: 05/05/18 07:25 Freq: Status: Active Protocol: Document 05/05/18 13:00 AMB (Rec: 05/10/18 07:14 AMB [email or web address]) Manual Assessments Joint Mobility Assessment Joint Mobility Assessment Slightly hypermobile throughout UEs, tender to touch at distal bicep and medial and lateral epicondyles , denies tenderness at cervical spine PT-OP-J Posture/Palpation/Skin Start: 05/05/18 07:25 Freq: Status: Active Protocol: Document 05/05/18 13:00 AMB (Rec: 05/10/18 07:14 AMB [email or web address]) Posture Evaluation Comments Posture Comments Forward head, forward shoulders PT-OP-K Range of Motion Start: 05/05/18 07:25 Freq: Status: Active Protocol: Document 05/05/18 13:00 AMB (Rec: 05/10/18 07:09 AMB [email or web address]) Cervical Spine Range of Motion Cervical Spine Active Percentage Testing Position Sitting Comments all WFL no pain noted Elbow/Forearm Range of Motion Elbow/Forearm Measured in Degrees Left Active Elbow/Forearm ROM WFL Yes ROM Testing Position Sitting PT-OP-L Special Tests Start: 05/05/18 07:25 Freq: Status: Active Protocol: Document 05/05/18 13:00 AMB (Rec: 05/10/18 07:00 AMB [email or web address]) Special Tests Cervical Spine Special Tests Spurling's Test Test Results negative bilateral Shoulder Special Tests Empty Can Test Results positive for mild pain but not her pain Walker Stephen Impingement Test Results negative Elbow Special Tests Lateral Epicondylitis Extended Test Results mild reproduction of symptoms Comments resisted wrist extension with elbow flexion Vascular Special Tests Alyssa Test Test Results positive for pain Comments no n/t, but did reproduce pain PT-OP-M Strength Start: 05/05/18 07:25 Freq: Status: Active Protocol: Document 05/05/18 13:00 AMB (Rec: 05/10/18 07:08 AMB [email or web address]) Shoulder Strength Shoulder Manual Muscle Testing Right Flexion 4 Good Extension 4 Good Abduction (C5) 4 Good External Rotation 4 Good Internal Rotation 4 Good Left Flexion 4- Good- Extension 4- Good- Adduction 4- Good- External Rotation 4 Good Internal Rotation 4 Good Elbow/Forearm Strength Elbow and Forearm Manual Muscle Testing Right Flexion (C6) 4 Good Extension (C7) 4 Good Pronation 4 Good Supination 4 Good Left Flexion (C6) 4 Good Extension (C7) 4 Good Pronation 4- Good- Supination 4- Good- Hand Assessment Consultant/Pinch Strength Hand Dominance Hand Dominance Right Hand Strength Right Assessment Consultant (lbs) 43 Comments average Left Assessment Consultant (lbs) 32 Comments average PT-OP-Q Treatments Start: 05/05/18 07:25 Freq: Status: Active Protocol: Document 06/30/18 07:30 AMB (Rec: 06/30/18 09:05 AMB [id number]) Cardio Equipment Upper Body Ergometer (UBE) Duration (Minutes) 6 RPM 60 Other fwd bwd Therapeutic Exercises Prone Exercises 1 Prone Exercise Name quadruped weightbearing Reps/Minutes 2 min Sitting Exercises 4 Sitting Exercise Name wrist extension Resistance 2# Comments 2x10 2 Sitting Exercise Name wrist extensor stretch Reps/Minutes 30x2 Standing Exercises 10 Standing Exercise Name wall pushup Reps/Minutes 10 Manual Therapy Treatment Soft Tissue Mobilization 2 Body Location lateral elbow Mobilization Type Myofascial Release Intensity/Depth Moderate Body Position Supine Joint Mobilizations 2 Joint radioulnar Direction AP, PA Grade II PT-OP-R Modalities Start: 05/05/18 07:25 Freq: Status: Active Protocol: Document 06/30/18 07:30 AMB (Rec: 06/30/18 16:18 AMB [email or web address]) Ultrasound Therapy Treatment Left Elbow Treatment Duration (minutes) 7 Patient Position Supine Coupling Medium Ultrasound Gel Frequency Setting (mHz) 1 Mode Setting Continuous Intensity Setting (w/cm2) 1.3 PT-OP-T Assessment and Plan Start: 05/05/18 07:25 Freq: Status: Active Protocol: Document 06/30/18 07:30 AMB (Rec: 06/30/18 16:18 AMB [email or web address]) Physical Therapy Assessment Assessment Summary Assessment Pt tolerated weightbearing more, pain is beginning to centralize over lateral elbow rather than the whole arm. Physical Therapy Plan Next Visit Focus/Plan Next Note Type Treatment Note Next Visit Plan Progress weightbearing activities
--- NOTE | 2018-07-05 13:37 | PT.OTN ---
Current Diagnoses Radiculopathy, site unspecified (07/05/18) Physical Therapy Treatment Note PT-OP-A Visit Information Start: 05/05/18 07:25 Freq: Status: Active Protocol: Document 07/05/18 08:15 AMB (Rec: 07/05/18 08:23 AMB [id number]) Out-Patient Physical Therapy Visit Information Visit Information Visit Type Treatment Note Visit Start Time 08:15 Visit Stop Time 09:00 Total Visit Minutes 45 Visit Number 8 Evaluation Information Evaluation Date 05/17/18 PT-OP-B Current Condition Start: 05/05/18 07:25 Freq: Status: Active Protocol: Document 05/05/18 13:00 AMB (Rec: 05/05/18 13:58 AMB [id number]) Current Condition History of Current Condition Onset Date January 2018 History of Current Condition The patient reports left anterior and posterior upper arm pain that can radiate into the forearm. She is unsure exactly what causes it, but notices it most with sleeping and walking. She thinks that holding the arm into elbow flexion exacerbates the symptoms, it usually takes a few minutes for the symptoms to start. She is right hand dominant. Prior Treatments and Tests None per her report Developmental History Developmental History The patient was kicked by a horse as a young child and broke her arm but she is unsure which arm. Prior Functional Status Baseline Function- ADL's Independent Baseline Function- Mobility Independent Baseline Function- Work/School The patient does not work and lives with her mother, she does not drive. Current Functional Impairments (Reported) Functional Limitations- ADL's Difficulty sleeping - pain wakes her up but she is able to get back to sleep Personal Factors Other Personal Factors That May Effect Developmental disability Therapy/Recovery PT-OP-C Subjective Start: 05/05/18 07:25 Freq: Status: Active Protocol: Document 07/05/18 08:15 AMB (Rec: 07/05/18 08:23 AMB [id number]) OP-PT Subjective Patient Comments Patient Comments The patient reports the arm has not been hurting as much in the day, but is still bothersome at night. PT-OP-F Manual Assessment Start: 05/05/18 07:25 Freq: Status: Active Protocol: Document 05/05/18 13:00 AMB (Rec: 05/10/18 07:14 AMB [email or web address]) Manual Assessments Joint Mobility Assessment Joint Mobility Assessment Slightly hypermobile throughout UEs, tender to touch at distal bicep and medial and lateral epicondyles , denies tenderness at cervical spine PT-OP-J Posture/Palpation/Skin Start: 05/05/18 07:25 Freq: Status: Active Protocol: Document 05/05/18 13:00 AMB (Rec: 05/10/18 07:14 AMB [email or web address]) Posture Evaluation Comments Posture Comments Forward head, forward shoulders PT-OP-K Range of Motion Start: 05/05/18 07:25 Freq: Status: Active Protocol: Document 05/05/18 13:00 AMB (Rec: 05/10/18 07:09 AMB [email or web address]) Cervical Spine Range of Motion Cervical Spine Active Percentage Testing Position Sitting Comments all WFL no pain noted Elbow/Forearm Range of Motion Elbow/Forearm Measured in Degrees Left Active Elbow/Forearm ROM WFL Yes ROM Testing Position Sitting PT-OP-L Special Tests Start: 05/05/18 07:25 Freq: Status: Active Protocol: Document 05/05/18 13:00 AMB (Rec: 05/10/18 07:00 AMB [email or web address]) Special Tests Cervical Spine Special Tests Spurling's Test Test Results negative bilateral Shoulder Special Tests Empty Can Test Results positive for mild pain but not her pain Walker Stephen Impingement Test Results negative Elbow Special Tests Lateral Epicondylitis Extended Test Results mild reproduction of symptoms Comments resisted wrist extension with elbow flexion Vascular Special Tests Alyssa Test Test Results positive for pain Comments no n/t, but did reproduce pain PT-OP-M Strength Start: 05/05/18 07:25 Freq: Status: Active Protocol: Document 05/05/18 13:00 AMB (Rec: 05/10/18 07:08 AMB [email or web address]) Shoulder Strength Shoulder Manual Muscle Testing Right Flexion 4 Good Extension 4 Good Abduction (C5) 4 Good External Rotation 4 Good Internal Rotation 4 Good Left Flexion 4- Good- Extension 4- Good- Adduction 4- Good- External Rotation 4 Good Internal Rotation 4 Good Elbow/Forearm Strength Elbow and Forearm Manual Muscle Testing Right Flexion (C6) 4 Good Extension (C7) 4 Good Pronation 4 Good Supination 4 Good Left Flexion (C6) 4 Good Extension (C7) 4 Good Pronation 4- Good- Supination 4- Good- Hand Psychologist Research Assistant/Pinch Strength Hand Dominance Hand Dominance Right Hand Strength Right Psychologist Research Assistant (lbs) 43 Comments average Left Psychologist Research Assistant (lbs) 32 Comments average PT-OP-Q Treatments Start: 05/05/18 07:25 Freq: Status: Active Protocol: Document 07/05/18 08:15 AMB (Rec: 07/05/18 13:36 AMB [email or web address]) Cardio Equipment Upper Body Ergometer (UBE) Duration (Minutes) 6 RPM 60 Other fwd bwd Therapeutic Exercises Prone Exercises 2 Prone Exercise Name elizabeth pose Reps/Minutes 30x2 1 Prone Exercise Name quadruped weightbearing Reps/Minutes 2 min Sitting Exercises 3 Sitting Exercise Name forearm pron/sup Resistance 2# Reps/Minutes 2x10 2 Sitting Exercise Name wrist extensor stretch Reps/Minutes 30x2 Standing Exercises 10 Standing Exercise Name wall pushup Reps/Minutes 10 Manual Therapy Treatment Soft Tissue Mobilization 2 Body Location lateral elbow Mobilization Type Myofascial Release Intensity/Depth Moderate Body Position Supine Joint Mobilizations 2 Joint radioulnar Direction AP, PA Grade II PT-OP-R Modalities Start: 05/05/18 07:25 Freq: Status: Active Protocol: Document 07/05/18 08:15 AMB (Rec: 07/05/18 13:36 AMB [email or web address]) Hot Pack/Cold Pack Treatment Cold Pack Location elbow L Patient Position Supine Treatment Duration (minutes) 5 PT-OP-T Assessment and Plan Start: 05/05/18 07:25 Freq: Status: Active Protocol: Document 07/05/18 08:15 AMB (Rec: 07/05/18 13:36 AMB [email or web address]) Physical Therapy Assessment Goals 3 Impairment Gait Agricultural Service Worker Goal (LTG) The patient will walk with her mother for 30 minutes with appropriate arm swing without arm pain. LTG Duration 10 weeks 2 Impairment Strength Short Term Goal (STG) The patient will improve her cleat feeder strength bilaterally to 50#. STG Duration 4 weeks Shelter Goal (LTG) The patient will lift a bag of groceries without pain. LTG Duration 10 weeks 1 Impairment Sleep Short Term Goal (STG) The patient will sleep through the night without being woken secondary to her arm pain. STG Duration 4 weeks Agricultural Service Worker Goal (LTG) The patient will be able to sleep on her left side without pain. LTG Duration 10 weeks Assessment Summary Assessment lateral elbow pain only today Physical Therapy Plan Frequency and Duration Frequency of Treatment 1x/Week Duration of Treatment 10 weeks Plan of Care Start Date 05/05/18 Plan of Care End Date 07/14/18 Next Visit Focus/Plan Next Note Type Treatment Note Next Visit Plan Follow up on HEP
--- NOTE | 2018-07-14 10:12 | PT.OTN ---
Current Diagnoses Radiculopathy, site unspecified (07/14/18) Physical Therapy Treatment Note PT-OP-A Visit Information Start: 05/05/18 07:25 Freq: Status: Active Protocol: Document 07/14/18 09:00 AMB (Rec: 07/14/18 09:16 AMB [id number]) Out-Patient Physical Therapy Visit Information Visit Information Visit Type Progress Note Visit Start Time 09:00 Visit Stop Time 09:45 Total Visit Minutes 45 Visit Number 9 Evaluation Information Evaluation Date 05/17/18 PT-OP-B Current Condition Start: 05/05/18 07:25 Freq: Status: Active Protocol: Document 05/05/18 13:00 AMB (Rec: 05/05/18 13:58 AMB [id number]) Current Condition History of Current Condition Onset Date January 2018 History of Current Condition The patient reports left anterior and posterior upper arm pain that can radiate into the forearm. She is unsure exactly what causes it, but notices it most with sleeping and walking. She thinks that holding the arm into elbow flexion exacerbates the symptoms, it usually takes a few minutes for the symptoms to start. She is right hand dominant. Prior Treatments and Tests None per her report Developmental History Developmental History The patient was kicked by a horse as a young child and broke her arm but she is unsure which arm. Prior Functional Status Baseline Function- ADL's Independent Baseline Function- Mobility Independent Baseline Function- Work/School The patient does not work and lives with her mother, she does not drive. Current Functional Impairments (Reported) Functional Limitations- ADL's Difficulty sleeping - pain wakes her up but she is able to get back to sleep Personal Factors Other Personal Factors That May Effect Developmental disability Therapy/Recovery PT-OP-C Subjective Start: 05/05/18 07:25 Freq: Status: Active Protocol: Document 07/14/18 09:00 AMB (Rec: 07/14/18 09:16 AMB [id number]) OP-PT Subjective Patient Comments Patient Comments The patient reports last night her arm was really hurting PT-OP-F Manual Assessment Start: 05/05/18 07:25 Freq: Status: Active Protocol: Document 05/05/18 13:00 AMB (Rec: 05/10/18 07:14 AMB [email or web address]) Manual Assessments Joint Mobility Assessment Joint Mobility Assessment Slightly hypermobile throughout UEs, tender to touch at distal bicep and medial and lateral epicondyles , denies tenderness at cervical spine PT-OP-J Posture/Palpation/Skin Start: 05/05/18 07:25 Freq: Status: Active Protocol: Document 05/05/18 13:00 AMB (Rec: 05/10/18 07:14 AMB [email or web address]) Posture Evaluation Comments Posture Comments Forward head, forward shoulders PT-OP-K Range of Motion Start: 05/05/18 07:25 Freq: Status: Active Protocol: Document 05/05/18 13:00 AMB (Rec: 05/10/18 07:09 AMB [email or web address]) Cervical Spine Range of Motion Cervical Spine Active Percentage Testing Position Sitting Comments all WFL no pain noted Elbow/Forearm Range of Motion Elbow/Forearm Measured in Degrees Left Active Elbow/Forearm ROM WFL Yes ROM Testing Position Sitting PT-OP-L Special Tests Start: 05/05/18 07:25 Freq: Status: Active Protocol: Document 05/05/18 13:00 AMB (Rec: 05/10/18 07:00 AMB [email or web address]) Special Tests Cervical Spine Special Tests Spurling's Test Test Results negative bilateral Shoulder Special Tests Empty Can Test Results positive for mild pain but not her pain Walker Stephen Impingement Test Results negative Elbow Special Tests Lateral Epicondylitis Extended Test Results mild reproduction of symptoms Comments resisted wrist extension with elbow flexion Vascular Special Tests Alyssa Test Test Results positive for pain Comments no n/t, but did reproduce pain PT-OP-M Strength Start: 05/05/18 07:25 Freq: Status: Active Protocol: Document 05/05/18 13:00 AMB (Rec: 05/10/18 07:08 AMB [email or web address]) Shoulder Strength Shoulder Manual Muscle Testing Right Flexion 4 Good Extension 4 Good Abduction (C5) 4 Good External Rotation 4 Good Internal Rotation 4 Good Left Flexion 4- Good- Extension 4- Good- Adduction 4- Good- External Rotation 4 Good Internal Rotation 4 Good Elbow/Forearm Strength Elbow and Forearm Manual Muscle Testing Right Flexion (C6) 4 Good Extension (C7) 4 Good Pronation 4 Good Supination 4 Good Left Flexion (C6) 4 Good Extension (C7) 4 Good Pronation 4- Good- Supination 4- Good- Hand Parachute/Combatant Diver Officer/Pinch Strength Hand Dominance Hand Dominance Right Hand Strength Right Parachute/Combatant Diver Officer (lbs) 43 Comments average Left Parachute/Combatant Diver Officer (lbs) 32 Comments average PT-OP-Q Treatments Start: 05/05/18 07:25 Freq: Status: Active Protocol: Document 07/14/18 09:00 AMB (Rec: 07/14/18 10:10 AMB [email or web address]) Cardio Equipment Upper Body Ergometer (UBE) Duration (Minutes) 7 RPM 60 Therapeutic Exercises Prone Exercises 4 Prone Exercise Name kneeling plank Reps/Minutes 15x4 3 Prone Exercise Name kneeling pushup Reps/Minutes 10 2 Prone Exercise Name elizabeth pose Reps/Minutes 30x2 1 Prone Exercise Name quadruped weightbearing Reps/Minutes 2 min Sitting Exercises 4 Sitting Exercise Name wrist extension Resistance 4# Comments 2x10 3 Sitting Exercise Name forearm pron/sup Resistance 4# Reps/Minutes 2x10 2 Sitting Exercise Name wrist extensor stretch Reps/Minutes 30x2 Manual Therapy Treatment Soft Tissue Mobilization 2 Body Location lateral elbow Mobilization Type Myofascial Release Intensity/Depth Moderate Body Position Supine Joint Mobilizations 2 Joint radioulnar Direction AP, PA Grade II PT-OP-R Modalities Start: 05/05/18 07:25 Freq: Status: Active Protocol: Document 07/14/18 09:00 AMB (Rec: 07/14/18 10:10 AMB [email or web address]) Hot Pack/Cold Pack Treatment Cold Pack Location elbow L Patient Position Supine Treatment Duration (minutes) 8 PT-OP-T Assessment and Plan Start: 05/05/18 07:25 Freq: Status: Active Protocol: Document 07/14/18 09:00 AMB (Rec: 07/14/18 10:10 AMB [email or web address]) Physical Therapy Assessment Goals 3 Impairment Gait Taping Supervisor Goal (LTG) The patient will walk with her mother for 30 minutes with appropriate arm swing without arm pain. MET LTG Duration 10 weeks 2 Impairment Strength Short Term Goal (STG) The patient will improve her pattern lease inspector strength bilaterally to 50#. STG Duration 4 weeks Taping Supervisor Goal (LTG) The patient will lift a bag of groceries without pain. MET LTG Duration 10 weeks 1 Impairment Sleep Short Term Goal (STG) The patient will sleep through the night without being woken secondary to her arm pain. NOT MET STG Duration 4 weeks Taping Supervisor Goal (LTG) The patient will be able to sleep on her left side without pain. NOT MET LTG Duration 10 weeks Assessment Summary Assessment The patient's pain has centralized, but she continues to have lateral elbow pain at night. She is doing well with activities during the day . She will benefit from a short bout of PT to finalize her HEP, and will return to her physician if she continues to have pain at night, which has been the most resistant part of her pain to treatment so far. Physical Therapy Plan Frequency and Duration Frequency of Treatment 1x/Week Duration of Treatment 6 weeks Plan of Care Start Date 07/14/18 Plan of Care End Date 08/25/18 Therapeutic Interventions Therapeutic Interventions Home Exercise Program Joint Mobilizations Manual Therapy Neuromuscular Re-education Self-Care/Home Management Soft Tissue Mobilization Therapeutic Activities Therapeutic Exercises Modalities Cold Pack/Ice Massage Electric Stimulation Iontophoresis Ultrasound Next Visit Focus/Plan Next Note Type Treatment Note Next Visit Plan Progress weightbearing exercises
--- NOTE | 2018-07-14 10:21 | PT.OPPOC ---
Current Diagnoses Radiculopathy, site unspecified (07/14/18) Provider Visit Care Team Role Provider Type MYRNA Meeks Family Provider Advanced Manager Corporate Communications Primary Care Provider Specialty: Family Practice Address: [address] [place] [address], [phone] Email: [email or web address] RODRÍGUEZ Sarmiento Attending Provider Advanced Manager Corporate Communications Specialty: [facility] Address: [address] [place] [address], [id number] Email: Plan Of Care PT-OP-T Assessment and Plan Start: 05/05/18 07:25 Freq: Status: Active Protocol: Document 07/14/18 09:00 AMB (Rec: 07/14/18 10:10 AMB [email or web address]) Physical Therapy Assessment Goals 3 Impairment Gait Quality Management Nurse Goal (LTG) The patient will walk with her mother for 30 minutes with appropriate arm swing without arm pain. MET LTG Duration 10 weeks 2 Impairment Strength Short Term Goal (STG) The patient will improve her multilith operator strength bilaterally to 50#. STG Duration 4 weeks [facility] Goal (LTG) The patient will lift a bag of groceries without pain. MET LTG Duration 10 weeks 1 Impairment Sleep Short Term Goal (STG) The patient will sleep through the night without being woken secondary to her arm pain. NOT MET STG Duration 4 weeks Quality Management Nurse Goal (LTG) The patient will be able to sleep on her left side without pain. NOT MET LTG Duration 10 weeks Assessment Summary Assessment The patient's pain has centralized, but she continues to have lateral elbow pain at night. She is doing well with activities during the day . She will benefit from a short bout of PT to finalize her HEP, and will return to her physician if she continues to have pain at night, which has been the most resistant part of her pain to treatment so far. Physical Therapy Plan Frequency and Duration Frequency of Treatment 1x/Week Duration of Treatment 6 weeks Plan of Care Start Date 07/14/18 Plan of Care End Date 08/25/18 Therapeutic Interventions Therapeutic Interventions Home Exercise Program Joint Mobilizations Manual Therapy Neuromuscular Re-education Self-Care/Home Management Soft Tissue Mobilization Therapeutic Activities Therapeutic Exercises Modalities Cold Pack/Ice Massage Electric Stimulation Iontophoresis Ultrasound Next Visit Focus/Plan Next Note Type Treatment Note Next Visit Plan Progress weightbearing exercises Plan of Care Dates Plan of Care Start Date 07/14/18 Plan of Care End Date 08/25/18 Please Sign and Return: I have reviewed this Plan of Care and certify that the skilled therapy services above are required to meet the patient?s needs. Physician Signature Date Printed Name and Credentials Clinical Instructor Signature Printed Name and Credentials
--- NOTE | 2018-07-20 08:28 | PT.OTN ---
Current Diagnoses Radiculopathy, site unspecified (07/20/18) Physical Therapy Treatment Note PT-OP-A Visit Information Start: 05/05/18 07:25 Freq: Status: Active Protocol: Document 07/20/18 07:30 AMB (Rec: 07/20/18 07:53 AMB [id number]) Out-Patient Physical Therapy Visit Information Visit Information Visit Type Treatment Note Visit Start Time 07:30 Visit Stop Time 08:15 Total Visit Minutes 45 Visit Number 10 Evaluation Information Evaluation Date 05/17/18 PT-OP-B Current Condition Start: 05/05/18 07:25 Freq: Status: Active Protocol: Document 05/05/18 13:00 AMB (Rec: 05/05/18 13:58 AMB [id number]) Current Condition History of Current Condition Onset Date January 2018 History of Current Condition The patient reports left anterior and posterior upper arm pain that can radiate into the forearm. She is unsure exactly what causes it, but notices it most with sleeping and walking. She thinks that holding the arm into elbow flexion exacerbates the symptoms, it usually takes a few minutes for the symptoms to start. She is right hand dominant. Prior Treatments and Tests None per her report Developmental History Developmental History The patient was kicked by a horse as a young child and broke her arm but she is unsure which arm. Prior Functional Status Baseline Function- ADL's Independent Baseline Function- Mobility Independent Baseline Function- Work/School The patient does not work and lives with her mother, she does not drive. Current Functional Impairments (Reported) Functional Limitations- ADL's Difficulty sleeping - pain wakes her up but she is able to get back to sleep Personal Factors Other Personal Factors That May Effect Developmental disability Therapy/Recovery PT-OP-C Subjective Start: 05/05/18 07:25 Freq: Status: Active Protocol: Document 07/20/18 07:30 AMB (Rec: 07/20/18 07:53 AMB [id number]) OP-PT Subjective Patient Comments Patient Comments The patient reports overall she has been feeling a bit better, but she did notice the arm pain when lying on the ground with her cat. PT-OP-F Manual Assessment Start: 05/05/18 07:25 Freq: Status: Active Protocol: Document 05/05/18 13:00 AMB (Rec: 05/10/18 07:14 AMB [email or web address]) Manual Assessments Joint Mobility Assessment Joint Mobility Assessment Slightly hypermobile throughout UEs, tender to touch at distal bicep and medial and lateral epicondyles , denies tenderness at cervical spine PT-OP-J Posture/Palpation/Skin Start: 05/05/18 07:25 Freq: Status: Active Protocol: Document 05/05/18 13:00 AMB (Rec: 05/10/18 07:14 AMB [email or web address]) Posture Evaluation Comments Posture Comments Forward head, forward shoulders PT-OP-K Range of Motion Start: 05/05/18 07:25 Freq: Status: Active Protocol: Document 05/05/18 13:00 AMB (Rec: 05/10/18 07:09 AMB [email or web address]) Cervical Spine Range of Motion Cervical Spine Active Percentage Testing Position Sitting Comments all WFL no pain noted Elbow/Forearm Range of Motion Elbow/Forearm Measured in Degrees Left Active Elbow/Forearm ROM WFL Yes ROM Testing Position Sitting PT-OP-L Special Tests Start: 05/05/18 07:25 Freq: Status: Active Protocol: Document 05/05/18 13:00 AMB (Rec: 05/10/18 07:00 AMB [email or web address]) Special Tests Cervical Spine Special Tests Spurling's Test Test Results negative bilateral Shoulder Special Tests Empty Can Test Results positive for mild pain but not her pain Walker Stephen Impingement Test Results negative Elbow Special Tests Lateral Epicondylitis Extended Test Results mild reproduction of symptoms Comments resisted wrist extension with elbow flexion Vascular Special Tests Alyssa Test Test Results positive for pain Comments no n/t, but did reproduce pain PT-OP-M Strength Start: 05/05/18 07:25 Freq: Status: Active Protocol: Document 05/05/18 13:00 AMB (Rec: 05/10/18 07:08 AMB [email or web address]) Shoulder Strength Shoulder Manual Muscle Testing Right Flexion 4 Good Extension 4 Good Abduction (C5) 4 Good External Rotation 4 Good Internal Rotation 4 Good Left Flexion 4- Good- Extension 4- Good- Adduction 4- Good- External Rotation 4 Good Internal Rotation 4 Good Elbow/Forearm Strength Elbow and Forearm Manual Muscle Testing Right Flexion (C6) 4 Good Extension (C7) 4 Good Pronation 4 Good Supination 4 Good Left Flexion (C6) 4 Good Extension (C7) 4 Good Pronation 4- Good- Supination 4- Good- Hand Watch Assembler/Pinch Strength Hand Dominance Hand Dominance Right Hand Strength Right Watch Assembler (lbs) 43 Comments average Left Watch Assembler (lbs) 32 Comments average PT-OP-Q Treatments Start: 05/05/18 07:25 Freq: Status: Active Protocol: Document 07/20/18 07:30 AMB (Rec: 07/20/18 07:45 AMB [id number]) Therapeutic Exercises Prone Exercises 4 Prone Exercise Name kneeling plank Reps/Minutes 15x4 3 Prone Exercise Name kneeling pushup Reps/Minutes 10 2 Prone Exercise Name elizabeth pose Reps/Minutes 30x2 1 Prone Exercise Name quadruped weightbearing Reps/Minutes 2 min Sidelying Exercises 1 Sidelying Exercise Name kneeling side plank Side left Reps/Minutes 15x4 Sitting Exercises 5 Sitting Exercise Name tricep dip Reps/Minutes 10 4 Sitting Exercise Name wrist extension Resistance 5# Comments 2x10 3 Sitting Exercise Name forearm pron/sup Resistance 5# Reps/Minutes 2x10 2 Sitting Exercise Name wrist extensor stretch Reps/Minutes 30x2 Manual Therapy Treatment Soft Tissue Mobilization 2 Body Location medial/lateral elbow Mobilization Type Myofascial Release Intensity/Depth Moderate Body Position Supine Joint Mobilizations 2 Joint radioulnar Direction AP, PA Grade II PT-OP-R Modalities Start: 05/05/18 07:25 Freq: Status: Active Protocol: Document 07/14/18 09:00 AMB (Rec: 07/14/18 10:10 AMB [email or web address]) Hot Pack/Cold Pack Treatment Cold Pack Location elbow L Patient Position Supine Treatment Duration (minutes) 8 PT-OP-T Assessment and Plan Start: 05/05/18 07:25 Freq: Status: Active Protocol: Document 07/20/18 07:30 AMB (Rec: 07/20/18 08:25 AMB [email or web address]) Physical Therapy Assessment Assessment Summary Assessment Offered iontophoresis, but pt and her mom are a little hesitant. They can think about it, and if she is continuing to progress without it, there wouldn't be a need, if she plateau's we can think about it. No pain with PT today. Physical Therapy Plan Next Visit Focus/Plan Next Note Type Treatment Note Next Visit Plan Progress weightbearing exercises
--- NOTE | 2018-07-27 11:10 | PT.OTN ---
Current Diagnoses Radiculopathy, site unspecified (07/27/18) Physical Therapy Treatment Note PT-OP-A Visit Information Start: 05/05/18 07:25 Freq: Status: Active Protocol: Document 07/27/18 07:30 AMB (Rec: 07/27/18 07:31 AMB [id number]) Out-Patient Physical Therapy Visit Information Visit Information Visit Type Treatment Note Visit Note G code 01/09 Visit Start Time 07:30 Visit Stop Time 08:15 Total Visit Minutes 45 Visit Number 11 Evaluation Information Evaluation Date 05/17/18 PT-OP-B Current Condition Start: 05/05/18 07:25 Freq: Status: Active Protocol: Document 05/05/18 13:00 AMB (Rec: 05/05/18 13:58 AMB [id number]) Current Condition History of Current Condition Onset Date January 2018 History of Current Condition The patient reports left anterior and posterior upper arm pain that can radiate into the forearm. She is unsure exactly what causes it, but notices it most with sleeping and walking. She thinks that holding the arm into elbow flexion exacerbates the symptoms, it usually takes a few minutes for the symptoms to start. She is right hand dominant. Prior Treatments and Tests None per her report Developmental History Developmental History The patient was kicked by a horse as a young child and broke her arm but she is unsure which arm. Prior Functional Status Baseline Function- ADL's Independent Baseline Function- Mobility Independent Baseline Function- Work/School The patient does not work and lives with her mother, she does not drive. Current Functional Impairments (Reported) Functional Limitations- ADL's Difficulty sleeping - pain wakes her up but she is able to get back to sleep Personal Factors Other Personal Factors That May Effect Developmental disability Therapy/Recovery PT-OP-C Subjective Start: 05/05/18 07:25 Freq: Status: Active Protocol: Document 07/27/18 07:30 AMB (Rec: 07/27/18 07:41 AMB [id number]) OP-PT Subjective Patient Comments Patient Comments Pt states she is overall doing better, she has woken up once in the last week due to the pain, but does not report pain during the day. Patient Questionnaires Quick Dash- Upper Extremity Quick Dash UE Score 15 Quick Dash UE Impairment 1 to 19% Impaired (Score 1-19) PT-OP-F Manual Assessment Start: 05/05/18 07:25 Freq: Status: Active Protocol: Document 05/05/18 13:00 AMB (Rec: 05/10/18 07:14 AMB [email or web address]) Manual Assessments Joint Mobility Assessment Joint Mobility Assessment Slightly hypermobile throughout UEs, tender to touch at distal bicep and medial and lateral epicondyles , denies tenderness at cervical spine PT-OP-J Posture/Palpation/Skin Start: 05/05/18 07:25 Freq: Status: Active Protocol: Document 05/05/18 13:00 AMB (Rec: 05/10/18 07:14 AMB [email or web address]) Posture Evaluation Comments Posture Comments Forward head, forward shoulders PT-OP-K Range of Motion Start: 05/05/18 07:25 Freq: Status: Active Protocol: Document 05/05/18 13:00 AMB (Rec: 05/10/18 07:09 AMB [email or web address]) Cervical Spine Range of Motion Cervical Spine Active Percentage Testing Position Sitting Comments all WFL no pain noted Elbow/Forearm Range of Motion Elbow/Forearm Measured in Degrees Left Active Elbow/Forearm ROM WFL Yes ROM Testing Position Sitting PT-OP-L Special Tests Start: 05/05/18 07:25 Freq: Status: Active Protocol: Document 05/05/18 13:00 AMB (Rec: 05/10/18 07:00 AMB [email or web address]) Special Tests Cervical Spine Special Tests Spurling's Test Test Results negative bilateral Shoulder Special Tests Empty Can Test Results positive for mild pain but not her pain Walker Stephen Impingement Test Results negative Elbow Special Tests Lateral Epicondylitis Extended Test Results mild reproduction of symptoms Comments resisted wrist extension with elbow flexion Vascular Special Tests Alyssa Test Test Results positive for pain Comments no n/t, but did reproduce pain PT-OP-M Strength Start: 05/05/18 07:25 Freq: Status: Active Protocol: Document 05/05/18 13:00 AMB (Rec: 05/10/18 07:08 AMB [email or web address]) Shoulder Strength Shoulder Manual Muscle Testing Right Flexion 4 Good Extension 4 Good Abduction (C5) 4 Good External Rotation 4 Good Internal Rotation 4 Good Left Flexion 4- Good- Extension 4- Good- Adduction 4- Good- External Rotation 4 Good Internal Rotation 4 Good Elbow/Forearm Strength Elbow and Forearm Manual Muscle Testing Right Flexion (C6) 4 Good Extension (C7) 4 Good Pronation 4 Good Supination 4 Good Left Flexion (C6) 4 Good Extension (C7) 4 Good Pronation 4- Good- Supination 4- Good- Hand [employer]/Pinch Strength Hand Dominance Hand Dominance Right Hand Strength Right [employer] (lbs) 43 Comments average Left [employer] (lbs) 32 Comments average PT-OP-Q Treatments Start: 05/05/18 07:25 Freq: Status: Active Protocol: Document 07/27/18 07:30 AMB (Rec: 07/27/18 10:57 AMB [email or web address]) Cardio Equipment Upper Body Ergometer (UBE) Duration (Minutes) 6 RPM 60 Therapeutic Exercises Prone Exercises 4 Prone Exercise Name kneeling plank Reps/Minutes 15x4 3 Prone Exercise Name kneeling pushup Reps/Minutes 10 2 Prone Exercise Name elizabeth pose Reps/Minutes 30x2 1 Prone Exercise Name quadruped weightbearing Reps/Minutes 2 min Sidelying Exercises 1 Sidelying Exercise Name kneeling side plank Side left Reps/Minutes 15x4 Sitting Exercises 5 Sitting Exercise Name tricep dip Reps/Minutes 10 4 Sitting Exercise Name wrist extension Resistance 5# Comments 2x10 3 Sitting Exercise Name forearm pron/sup Resistance 5# Reps/Minutes 2x10 2 Sitting Exercise Name wrist extensor stretch Reps/Minutes 30x2 Manual Therapy Treatment Joint Mobilizations 2 Joint radioulnar Direction AP, PA Grade II PT-OP-R Modalities Start: 05/05/18 07:25 Freq: Status: Active Protocol: Document 07/14/18 09:00 AMB (Rec: 07/14/18 10:10 AMB [email or web address]) Hot Pack/Cold Pack Treatment Cold Pack Location elbow L Patient Position Supine Treatment Duration (minutes) 8 PT-OP-T Assessment and Plan Start: 05/05/18 07:25 Freq: Status: Active Protocol: Document 07/27/18 07:30 AMB (Rec: 07/27/18 08:16 AMB [email or web address]) Physical Therapy Assessment Goals 3 Impairment Gait Installer Interior Assemblies Goal (LTG) The patient will walk with her mother for 30 minutes with appropriate arm swing without arm pain. MET LTG Duration 10 weeks 2 Impairment Strength Short Term Goal (STG) The patient will improve her button puncher strength bilaterally to 50#. NOT MET STG Duration 4 weeks Installer Interior Assemblies Goal (LTG) The patient will lift a bag of groceries without pain. MET LTG Duration 10 weeks 1 Impairment Sleep Short Term Goal (STG) The patient will sleep through the night without being woken secondary to her arm pain. PROGRESS MADE- 1x pain in 1 week STG Duration 4 weeks Shelter Goal (LTG) The patient will be able to sleep on her left side without pain. MET LTG Duration 10 weeks Assessment Summary Assessment The patient's pain has reduced , and she has been excellent with her home exercise program . She should be able to continue to progress indepedently at this time. She continues to have mild pain that comes on intermittently, but overall she feels improved. Physical Therapy Plan Discharge Physical Therapy Discharge Reasons Goals Met
--- NOTE | 2018-07-27 14:49 | PT.OPDS ---
Current Diagnoses Radiculopathy, site unspecified (07/27/18) Provider Visit Care Team Role Provider Type MYRNA Meeks Family Provider Advanced Bleach Tester Primary Care Provider Specialty: [facility] Practice Address: [address] [place] [address], [id number] Email: [email or web address] GEOVANNY Sarmiento- Attending Provider Advanced Bleach Tester Specialty: [facility] Address: [address] [place] [address], [phone] Email: Visit Number Visit Number 11 Discharge Summary PT-OP-B Current Condition Start: 05/05/18 07:25 Freq: Status: Active Protocol: Document 05/05/18 13:00 AMB (Rec: 05/05/18 13:58 AMB [id number]) Current Condition History of Current Condition Onset Date January 2018 History of Current Condition The patient reports left anterior and posterior upper arm pain that can radiate into the forearm. She is unsure exactly what causes it, but notices it most with sleeping and walking. She thinks that holding the arm into elbow flexion exacerbates the symptoms, it usually takes a few minutes for the symptoms to start. She is right hand dominant. Prior Treatments and Tests None per her report Developmental History Developmental History The patient was kicked by a horse as a young child and broke her arm but she is unsure which arm. Prior Functional Status Baseline Function- ADL's Independent Baseline Function- Mobility Independent Baseline Function- Work/School The patient does not work and lives with her mother, she does not drive. Current Functional Impairments (Reported) Functional Limitations- ADL's Difficulty sleeping - pain wakes her up but she is able to get back to sleep Personal Factors Other Personal Factors That May Effect Developmental disability Therapy/Recovery PT-OP-C Subjective Start: 05/05/18 07:25 Freq: Status: Active Protocol: Document 07/27/18 07:30 AMB (Rec: 07/27/18 07:41 AMB [id number]) OP-PT Subjective Patient Comments Patient Comments Pt states she is overall doing better, she has woken up once in the last week due to the pain, but does not report pain during the day. Patient Questionnaires Quick Dash- Upper Extremity Quick Dash UE Score 15 Quick Dash UE Impairment 1 to 19% Impaired (Score 1-19) PT-OP-F Manual Assessment Start: 05/05/18 07:25 Freq: Status: Active Protocol: Document 05/05/18 13:00 AMB (Rec: 05/10/18 07:14 AMB [email or web address]) Manual Assessments Joint Mobility Assessment Joint Mobility Assessment Slightly hypermobile throughout UEs, tender to touch at distal bicep and medial and lateral epicondyles , denies tenderness at cervical spine PT-OP-J Posture/Palpation/Skin Start: 05/05/18 07:25 Freq: Status: Active Protocol: Document 05/05/18 13:00 AMB (Rec: 05/10/18 07:14 AMB [email or web address]) Posture Evaluation Comments Posture Comments Forward head, forward shoulders PT-OP-K Range of Motion Start: 05/05/18 07:25 Freq: Status: Active Protocol: Document 05/05/18 13:00 AMB (Rec: 05/10/18 07:09 AMB [email or web address]) Cervical Spine Range of Motion Cervical Spine Active Percentage Testing Position Sitting Comments all WFL no pain noted Elbow/Forearm Range of Motion Elbow/Forearm Measured in Degrees Left Active Elbow/Forearm ROM WFL Yes ROM Testing Position Sitting PT-OP-L Special Tests Start: 05/05/18 07:25 Freq: Status: Active Protocol: Document 05/05/18 13:00 AMB (Rec: 05/10/18 07:00 AMB [email or web address]) Special Tests Cervical Spine Special Tests Spurling's Test Test Results negative bilateral Shoulder Special Tests Empty Can Test Results positive for mild pain but not her pain Walker Stephen Impingement Test Results negative Elbow Special Tests Lateral Epicondylitis Extended Test Results mild reproduction of symptoms Comments resisted wrist extension with elbow flexion Vascular Special Tests Alyssa Test Test Results positive for pain Comments no n/t, but did reproduce pain PT-OP-M Strength Start: 05/05/18 07:25 Freq: Status: Active Protocol: Document 05/05/18 13:00 AMB (Rec: 05/10/18 07:08 AMB [email or web address]) Shoulder Strength Shoulder Manual Muscle Testing Right Flexion 4 Good Extension 4 Good Abduction (C5) 4 Good External Rotation 4 Good Internal Rotation 4 Good Left Flexion 4- Good- Extension 4- Good- Adduction 4- Good- External Rotation 4 Good Internal Rotation 4 Good Elbow/Forearm Strength Elbow and Forearm Manual Muscle Testing Right Flexion (C6) 4 Good Extension (C7) 4 Good Pronation 4 Good Supination 4 Good Left Flexion (C6) 4 Good Extension (C7) 4 Good Pronation 4- Good- Supination 4- Good- Hand Admin Dir/Pinch Strength Hand Dominance Hand Dominance Right Hand Strength Right Admin Dir (lbs) 43 Comments average Left Admin Dir (lbs) 32 Comments average PT-OP-T Assessment and Plan Start: 05/05/18 07:25 Freq: Status: Active Protocol: Document 07/27/18 07:30 AMB (Rec: 07/27/18 08:16 AMB [email or web address]) Physical Therapy Assessment Goals 3 Impairment Gait Regional Agronomist Goal (LTG) The patient will walk with her mother for 30 minutes with appropriate arm swing without arm pain. MET LTG Duration 10 weeks 2 Impairment Strength Short Term Goal (STG) The patient will improve her senior information security engineer strength bilaterally to 50#. NOT MET STG Duration 4 weeks Regional Agronomist Goal (LTG) The patient will lift a bag of groceries without pain. MET LTG Duration 10 weeks 1 Impairment Sleep Short Term Goal (STG) The patient will sleep through the night without being woken secondary to her arm pain. PROGRESS MADE- 1x pain in 1 week STG Duration 4 weeks Intermediate Goal (LTG) The patient will be able to sleep on her left side without pain. MET LTG Duration 10 weeks Assessment Summary Assessment The patient's pain has reduced , and she has been excellent with her home exercise program . She should be able to continue to progress independently at this time. She continues to have mild pain that comes on intermittently, but overall she feels improved. Physical Therapy Plan Discharge Physical Therapy Discharge Reasons Goals Met
== END 2018-10-29 14:24 ==
LOC: PHYS 07:30
PROVIDERS: Family Provider Internal Medicine; PCP Internal Medicine; Visit Provider Nurse Practitioner Family
DX: M54.10 Radiculopathy, site unspecified (principal)
CPT/HCPCS: 97010; 97035; 97110; 97140; 97162

== ENCOUNTER → 2018-08-14 08:14 | Outpatient (CLI) | payer MEDICARE, MEDICAID, SELFPAY ==
[2018-08-14 08:53] LABS: Add Manual Diff / Slide Review NO; Basophils Percent Auto 0.3 % (0-2); Eosinophils Percent Auto 2.7 % (2-4); Hematocrit 38.7 % (36-46); Hemoglobin 13.7 g/dL (12.0-16.0); Lymphocytes Percent Auto 25.2 % (25-40); Mean Corpuscular HGB Conc 35.4 % (30-36); Mean Corpuscular Hemoglobin 30.5 PG (26-34); Mean Corpuscular Volume 86.4 fL (80-100); Monocytes Percent Auto 8.4 % (3-14); Neutrophils Absolute Auto 3900 /uL (3000-5900); Neutrophils Percent Auto 63.4 % (50-75); Platelet Count 251 X10^3/uL (150-400); Red Blood Cell Count 4.49 X10^6/uL (4.0-5.2); Red Cell Distribution Width 13.4 % (11.6-14.8); White Blood Cell Count 6.1 X10^3/uL (4.5-11.0)
[2018-08-14 08:57] LABS: Alanine Aminotransferase 25 IU/L (9-52); Albumin Globulin Ratio 1.5 (1.0-2.8); Alkaline Phosphatase 62 U/L (38-126); Aspartate Aminotransferase 23 IU/L (14-36); Bilirubin Total 0.7 mg/dL (0.2-1.3); Blood Urea Nitrogen 18 mg/dL (7-17); Carbon Dioxide 25 mmol/L (22-32); Chloride 105 mmol/L (98-107); Cholesterol 165 mg/dL (140-199); Estimated Glomerular Filt Rate > 60.0 mL/min (>60); Globulin 3.3 g/dL (1.7-4.1); Glucose 102 mg/dL (70-100); HDL Cholesterol 28 mg/dL (40-60); HEMOLYSIS < 15 (0-50); LDL Cholesterol Calculated 95 mg/dL (<100); Potassium 4.3 mmol/L (3.4-5.1); Sodium 143 mmol/L (137-145); Total Protein 8.3 g/dL (6.3-8.2); Triglycerides 208 mg/dL (35-150)
[2018-08-14 09:34] LABS: Thyroid Stimulating Hormone 2.72 uIU/mL (0.47-4.68)
== END ==
PROVIDERS: Family Provider Internal Medicine; PCP Internal Medicine; Visit Provider Internal Medicine
DX: E78.1 Pure hyperglyceridemia (principal); E83.52 Hypercalcemia; I10 Essential (primary) hypertension
CPT/HCPCS: 36415; 80053; 80061; 84443; 85025

== ENCOUNTER → 2019-07-19 12:44 | Outpatient (CLI) | payer MEDICARE, MEDICAID, OTHER, SELFPAY ==
--- NOTE | 2019-07-19 | DI.RAD.S_ITS ---
PROCEDURE: XR KNEE LT 3V INDICATIONS: LEFT KNEE PAIN TECHNIQUE: 3 views of the knee were acquired. COMPARISON: None. FINDINGS: Bones: No fractures or dislocations. No suspicious bony lesions. Soft tissues: Prepatellar soft tissue swelling IMPRESSION: Prepatellar soft tissue swelling. If the patient's pain or other symptoms persist, consider further evaluation with MRI Dictated by: Joseph Shay M.D. on 07/19/2019 at 14:28 Approved by: Joseph Shay M.D. on 07/19/2019 at 14:29
== END ==
PROVIDERS: PCP Internal Medicine; Visit Provider Internal Medicine
DX: M25.562 Pain in left knee (principal)
CPT/HCPCS: 73562

== ENCOUNTER 2019-07-29 10:30 | Outpatient (RCR) | payer MEDICARE, MEDICAID, OTHER, SELFPAY ==
--- NOTE | 2019-06-21 16:41 | PT.OIE ---
Current Diagnoses Pain in left knee (06/21/19) Past Medical History (Last Updated 08/16/18 @ 19:25 by Brittni Gordon) Hypertriglyceridemia (Chronic) Mental retardation (Chronic) Painful menstrual periods (Chronic) Seasonal allergies (Chronic) Past Surgical History (Last Updated 08/16/18 @ 19:25 by Brittni Gordon) History of skin surgery (Resolved ~04/04/15) Provider Visit Care Team Role Provider Type MYRNA Meeks Attending Provider Advanced Horse Racing Manager Family Provider Primary Care Provider Specialty: Family Practice Address: [address] [place] [address], [facility] Email: [email or web address] Initial Evaluation PT-OP-A Visit Information Start: 06/21/19 06:51 Freq: Status: Active Protocol: Document 06/21/19 08:15 AMB (Rec: 06/21/19 13:06 AMB [id number]) Out-Patient Physical Therapy Visit Information Visit Information Visit Type Initial Evaluation Visit Start Time 08:15 Visit Stop Time 09:00 Total Visit Minutes 45 Visit Number 1 PT-OP-B Current Condition Start: 06/21/19 06:51 Freq: Status: Active Protocol: Document 06/21/19 08:15 AMB (Rec: 06/21/19 16:13 AMB [email or web address]) Current Condition History of Current Condition Onset Date a couple months ago Current Complaints L knee pain History of Current Condition Roseanna knelt on a cat toy a few months ago and heard a pop. She has noticed pain since then, mostly located at the patellar tendon and the medial joint line, worst with sleeping on her side, and walking. The pain has been staying the same, although it is better with a knee brace which she has just recently been wearing. She has also been trying to lose weight and has been riding her bike, and states that the pain isn't too bad with that. The pain is disrupting her sleep. Roseanna was seen for arm pain at this clinic about a year ago, she attends with her mom. Roseanna does have a developmental disability and lives with her mom in a single level home and does not work. Treatment Goals Patient/Caregiver Goals Reduce pain in knee, walking without pain, sleep without knee pain Prior Functional Status Baseline Function- ADL's Independent Baseline Function- Mobility Independent Current Functional Impairments (Reported) Functional Limitations- ADL's Difficulty sleeping and walking due to left knee pain Personal Factors Other Personal Factors That May Effect Pt's mom is concerned that pt' Therapy/Recovery s grandpa had RA. Pt does have a developmental disability. PT-OP-C Subjective Start: 06/21/19 06:51 Freq: Status: Active Protocol: Document 06/21/19 08:15 AMB (Rec: 06/21/19 16:13 AMB [email or web address]) Patient Questionnaires Lower Extremity Functional Scale LEFS Score 37 LEFS Impairment 40 to 59% Impaired (Score 32- 47) OP-PT Pain Assessment Location Left Knee Pain Location Details patellar tendon and medial joint line Intensity 7 Scale Used Numeric (1 - 10) Pain Aggravating Factors Walking PT-OP-G Mobility & Gait Start: 06/21/19 06:51 Freq: Status: Active Protocol: Document 06/21/19 08:15 AMB (Rec: 06/21/19 16:13 AMB [email or web address]) OP Gait Assessment Comments Gait Comments Roseanna walks with increased lateral shift and reduce trunk rotation, tends to go into genu recurvatum PT-OP-J Posture/Palpation/Skin Start: 06/21/19 06:51 Freq: Status: Active Protocol: Document 06/21/19 08:15 AMB (Rec: 06/21/19 16:19 AMB [email or web address]) Posture Evaluation Comments Posture Comments Pt with increased genu valgus and recurvatum, tends to over pronate. Palpation Assessment Location One Palpation Location L knee Palpation Details Pt denies tenderness over IT band or lateral knee, does have discomfort with deep palpation of patellar tendon. PT-OP-K Range of Motion Start: 06/21/19 06:51 Freq: Status: Active Protocol: Document 06/21/19 08:15 AMB (Rec: 06/21/19 16:13 AMB [email or web address]) Knee Goniometric Range of Motion Knee Right Flexion Passive (degrees) 125 Hyper-Extension Active 10 Left Flexion Passive (degrees) 125 Hyper-Extension Active 25 Knee ROM Limitations Comments valgus knee posture L: 15, R 10. PT-OP-L Special Tests Start: 06/21/19 06:51 Freq: Status: Active Protocol: Document 06/21/19 08:15 AMB (Rec: 06/21/19 16:13 AMB [email or web address]) Special Tests Knee Special Tests Patellar Grind Test Test Results increase pain on L Chris Test Test Results negative Posterior Draw Test Results negative Anterior Draw Test Results negative PT-OP-M Strength Start: 06/21/19 06:51 Freq: Status: Active Protocol: Document 06/21/19 08:15 AMB (Rec: 06/21/19 16:13 AMB [email or web address]) Hip Strength Hip Manual Muscle Testing Right Flexion (L2) 4+ Good+ Abduction 4+ Good+ Left Flexion (L2) 4 Good Abduction 4 Good Knee Strength Knee Manual Muscle Testing Right Flexion (S2) 5 Normal Extension (L3) 5 Normal Left Flexion (S2) 4+ Good+ Extension (L3) 4+ Good+ PT-OP-Q Treatments Start: 06/21/19 06:51 Freq: Status: Active Protocol: Document 06/21/19 08:15 AMB (Rec: 06/21/19 16:40 AMB [email or web address]) Therapeutic Exercises Supine Exercises 2 Supine Exercise Name hip abduction Reps/Minutes 10 1 Supine Exercise Name SLR Reps/Minutes 10 PT-OP-T Assessment and Plan Start: 06/21/19 06:51 Freq: Status: Active Protocol: Document 06/21/19 08:15 AMB (Rec: 06/21/19 16:40 AMB [email or web address]) Physical Therapy Assessment Rehab Potential Rehabilitation Potential Good Evaluation Complexity Number of Personal Factors/Comorbidities 1-2 Number of Body Systems Impaired 3 Clinical Presentation at Evaluation Stable Impairments Impairments Pain Posture Strength Goals 3 Impairment Strength Short Term Goal (STG) Roseanna will improve her hip and knee strength to 5/5 in all planes. STG Duration [address] Goal (LTG) Roseanna will increase hip and knee strength so that she can perform a full squat without knee pain. LTG Duration 8 weeks 2 Impairment Walking Short Term Goal (STG) Roseanna will walk 2 blocks with knee pain of 4/10 or less. STG Duration 4 weeks Fdc Goal (LTG) Roseanna will walk on uneven terrain for 5 minutes with knee pain of 3/10 or less. Assessment Summary Assessment Roseanna presents with lingering knee pain s/p irritating it with kneeling on a object. She denies any continued popping after the first pop that she noticed when she did that. She presents with ligamentous laxity, genu recurvatum, and genu valgus that are continuing to irritate the knee. Unlikely that she has any ligamentous tears from a kneeling injury, but more likely a patellofemoral/ patellar tendon injury that is not healing quickly to the previously described biomechanical impairments. Roseanna will benefit from knee and hip stabilization and manual therapy to reduce her knee inflammation and pain. Physical Therapy Plan Frequency and Duration Frequency of Treatment 2x/Week Duration of Treatment 8 weeks Plan of Care Start Date 06/21/19 Plan of Care End Date 08/16/19 Therapeutic Interventions Therapeutic Interventions Aquatic Therapy Gait Training Home Exercise Program Joint Mobilizations Manual Therapy Neuromuscular Re-education Self-Care/Home Management Therapeutic Activities Therapeutic Exercises Modalities Cold Pack/Ice Massage Electric Stimulation Ultrasound Next Visit Focus/Plan Next Note Type Treatment Note Next Visit Plan Hip, knee, and foot stabilization with modalities/ manual therapy as needed for pain relief
--- NOTE | 2019-06-21 16:42 | PT.OPPOC ---
Current Diagnoses Pain in left knee (06/21/19) Provider Visit Care Team Role Provider Type MYRNA Meeks Attending Provider Advanced Import Export Coordinator Family Provider Primary Care Provider Specialty: Family Practice Address: [address] [place] [address], [facility] [place], [employer] Email: [email or web address] Plan Of Care PT-OP-T Assessment and Plan Start: 06/21/19 06:51 Freq: Status: Active Protocol: Document 06/21/19 08:15 AMB (Rec: 06/21/19 16:40 AMB [email or web address]) Physical Therapy Assessment Rehab Potential Rehabilitation Potential Good Evaluation Complexity Number of Personal Factors/Comorbidities 1-2 Number of Body Systems Impaired 3 Clinical Presentation at Evaluation Stable Impairments Impairments Pain Posture Strength Goals 3 Impairment Strength Short Term Goal (STG) Roseanna will improve her hip and knee strength to 5/5 in all planes. STG Duration 4 weeks [employer] Goal (LTG) Roseanna will increase hip and knee strength so that she can perform a full squat without knee pain. LTG Duration 8 weeks 2 Impairment Walking Short Term Goal (STG) Roseanna will walk 2 blocks with knee pain of 4/10 or less. STG Duration 4 weeks Shelter Goal (LTG) Roseanna will walk on uneven terrain for 5 minutes with knee pain of 3/10 or less. Assessment Summary Assessment Roseanna presents with lingering knee pain s/p irritating it with kneeling on a object. She denies any continued popping after the first pop that she noticed when she did that. She presents with ligamentous laxity, genu recurvatum, and genu valgus that are continuing to irritate the knee. Unlikely that she has any ligamentous tears from a kneeling injury, but more likely a patellofemoral/ patellar tendon injury that is not healing quickly to the previously described biomechanical impairments. Roseanna will benefit from knee and hip stabilization and manual therapy to reduce her knee inflammation and pain. Physical Therapy Plan Frequency and Duration Frequency of Treatment 2x/Week Duration of Treatment 8 weeks Plan of Care Start Date 06/21/19 Plan of Care End Date 08/16/19 Therapeutic Interventions Therapeutic Interventions Aquatic Therapy Gait Training Home Exercise Program Joint Mobilizations Manual Therapy Neuromuscular Re-education Self-Care/Home Management Therapeutic Activities Therapeutic Exercises Modalities Cold Pack/Ice Massage Electric Stimulation Ultrasound Next Visit Focus/Plan Next Note Type Treatment Note Next Visit Plan Hip, knee, and foot stabilization with modalities/ manual therapy as needed for pain relief Plan of Care Dates Plan of Care Start Date 06/21/19 Plan of Care End Date 08/16/19 Please Sign and Return: I have reviewed this Plan of Care and certify that the skilled therapy services above are required to meet the patient?s needs. Physician Signature Date Printed Name and Credentials Clinical Instructor Signature Printed Name and Credentials
--- NOTE | 2019-06-23 11:37 | PT.OTN ---
Current Diagnoses Pain in left knee (06/23/19) Physical Therapy Treatment Note PT-OP-A Visit Information Start: 06/21/19 06:51 Freq: Status: Active Protocol: Document 06/23/19 09:45 AMB (Rec: 06/23/19 09:58 AMB [id number]) Out-Patient Physical Therapy Visit Information Visit Information Visit Type Treatment Note Visit Start Time 09:45 Visit Stop Time 10:30 Total Visit Minutes 45 Visit Number 2 PT-OP-B Current Condition Start: 06/21/19 06:51 Freq: Status: Active Protocol: Document 06/21/19 08:15 AMB (Rec: 06/21/19 16:13 AMB [email or web address]) Current Condition History of Current Condition Onset Date a couple months ago Current Complaints L knee pain History of Current Condition Roseanna knelt on a cat toy a few months ago and heard a pop. She has noticed pain since then, mostly located at the patellar tendon and the medial joint line, worst with sleeping on her side, and walking. The pain has been staying the same, although it is better with a knee brace which she has just recently been wearing. She has also been trying to lose weight and has been riding her bike, and states that the pain isn't too bad with that. The pain is distrupting her sleep. Roseanna was seen for arm pain at this clinic about a year ago, she attends with her mom. Roseanna does have a developmental disability and lives with her mom in a single level home and does not work. Treatment Goals Patient/Caregiver Goals Reduce pain in knee, walking without pain, sleep without knee pain Prior Functional Status Baseline Function- ADL's Independent Baseline Function- Mobility Independent Current Functional Impairments (Reported) Functional Limitations- ADL's Difficulty sleeping and walking due to left knee pain Personal Factors Other Personal Factors That May Effect Pt's mom is concerned that pt' Therapy/Recovery s grandpa had RA. Pt does have a developmental disability. PT-OP-C Subjective Start: 06/21/19 06:51 Freq: Status: Active Protocol: Document 06/23/19 09:45 AMB (Rec: 06/23/19 09:58 AMB [id number]) OP-PT Subjective Patient Comments Patient Comments Roseanna reports she was a bit sore after last visit. She continues to be woken up by the pain and it lasts about a minute. Denies back pain, describes pain as stabbing. PT-OP-G Mobility & Gait Start: 06/21/19 06:51 Freq: Status: Active Protocol: Document 06/21/19 08:15 AMB (Rec: 06/21/19 16:13 AMB [email or web address]) OP Gait Assessment Comments Gait Comments Roseanna walks with increased lateral shift and reduce trunk rotation, tends to go into genu recurvatum PT-OP-J Posture/Palpation/Skin Start: 06/21/19 06:51 Freq: Status: Active Protocol: Document 06/21/19 08:15 AMB (Rec: 06/21/19 16:19 AMB [email or web address]) Posture Evaluation Comments Posture Comments Pt with increased genu valgus and recurvatum, tends to over pronate. Palpation Assessment Location One Palpation Location L knee Palpation Details Pt denies tenderness over IT band or lateral knee, does have discomfort with deep palpation of patellar tendon. PT-OP-K Range of Motion Start: 06/21/19 06:51 Freq: Status: Active Protocol: Document 06/21/19 08:15 AMB (Rec: 06/21/19 16:13 AMB [email or web address]) Knee Goniometric Range of Motion Knee Right Flexion Passive (degrees) 125 Hyper-Extension Active 10 Left Flexion Passive (degrees) 125 Hyper-Extension Active 25 Knee ROM Limitations Comments valgus knee posture L: 15, R 10. PT-OP-L Special Tests Start: 06/21/19 06:51 Freq: Status: Active Protocol: Document 06/21/19 08:15 AMB (Rec: 06/21/19 16:13 AMB [email or web address]) Special Tests Knee Special Tests Patellar Grind Test Test Results increase pain on L Chris Test Test Results negative Posterior Draw Test Results negative Anterior Draw Test Results negative PT-OP-M Strength Start: 06/21/19 06:51 Freq: Status: Active Protocol: Document 06/21/19 08:15 AMB (Rec: 06/21/19 16:13 AMB [email or web address]) Hip Strength Hip Manual Muscle Testing Right Flexion (L2) 4+ Good+ Abduction 4+ Good+ Left Flexion (L2) 4 Good Abduction 4 Good Knee Strength Knee Manual Muscle Testing Right Flexion (S2) 5 Normal Extension (L3) 5 Normal Left Flexion (S2) 4+ Good+ Extension (L3) 4+ Good+ PT-OP-Q Treatments Start: 06/21/19 06:51 Freq: Status: Active Protocol: Document 06/23/19 09:45 AMB (Rec: 06/23/19 11:37 AMB [email or web address]) Cardio Equipment Recumbent Bicycle Duration (Minutes) 5 Resistance 5 Seat Position 02 Gym Equipment Shuttle Recovery Bilateral Squats Resistance 87 Shuttle Recovery Platform Stable Reps/Time 2x15 Therapeutic Exercises Supine Exercises 4 Supine Exercise Name hip flexor stretch Reps/Minutes 30x2 3 Supine Exercise Name roll in roll out Reps/Minutes #2 t band, 10x2 2 Supine Exercise Name hip abduction Reps/Minutes 10 1 Supine Exercise Name SLR Reps/Minutes 10 Standing Exercises 10 Standing Exercise Name sidestepping squats Resistance #2 T band Reps/Minutes 8'x4 9 Standing Exercise Name forward lunges Reps/Minutes 8'x6 Comments vc form PT-OP-R Modalities Start: 06/21/19 06:51 Freq: Status: Active Protocol: Document 06/23/19 09:45 AMB (Rec: 06/23/19 11:37 AMB [email or web address]) Hot Pack/Cold Pack Treatment Cold Pack Location L knee Patient Position Hooklying Treatment Duration (minutes) 10 PT-OP-T Assessment and Plan Start: 06/21/19 06:51 Freq: Status: Active Protocol: Document 06/23/19 09:45 AMB (Rec: 06/23/19 11:37 AMB [email or web address]) Physical Therapy Assessment Assessment Summary Assessment Roseanna did well with all exercise, no pain with exercises. Good form with cueing. Physical Therapy Plan Next Visit Focus/Plan Next Note Type Treatment Note Next Visit Plan Hip, knee, and foot stabilization with modalities/ manual therapy as needed for pain relief
--- NOTE | 2019-06-30 16:00 | PT.OTN ---
Current Diagnoses Pain in left knee (06/30/19) Physical Therapy Treatment Note PT-OP-A Visit Information Start: 06/21/19 06:51 Freq: Status: Active Protocol: Document 06/30/19 13:45 AMB (Rec: 06/30/19 13:52 AMB [id number]) Out-Patient Physical Therapy Visit Information Visit Information Visit Type Treatment Note Visit Start Time 13:45 Visit Stop Time 14:30 Total Visit Minutes 45 Visit Number 3 PT-OP-B Current Condition Start: 06/21/19 06:51 Freq: Status: Active Protocol: Document 06/21/19 08:15 AMB (Rec: 06/21/19 16:13 AMB [email or web address]) Current Condition History of Current Condition Onset Date a couple months ago Current Complaints L knee pain History of Current Condition Roseanna knelt on a cat toy a few months ago and heard a pop. She has noticed pain since then, mostly located at the patellar tendon and the medial joint line, worst with sleeping on her side, and walking. The pain has been staying the same, although it is better with a knee brace which she has just recently been wearing. She has also been trying to lose weight and has been riding her bike, and states that the pain isn't too bad with that. The pain is distrupting her sleep. Roseanna was seen for arm pain at this clinic about a year ago, she attends with her mom. Roseanna does have a developmental disability and lives with her mom in a single level home and does not work. Treatment Goals Patient/Caregiver Goals Reduce pain in knee, walking without pain, sleep without knee pain Prior Functional Status Baseline Function- ADL's Independent Baseline Function- Mobility Independent Current Functional Impairments (Reported) Functional Limitations- ADL's Difficulty sleeping and walking due to left knee pain Personal Factors Other Personal Factors That May Effect Pt's mom is concerned that pt' Therapy/Recovery s grandpa had RA. Pt does have a developmental disability. PT-OP-C Subjective Start: 06/21/19 06:51 Freq: Status: Active Protocol: Document 06/30/19 13:45 AMB (Rec: 06/30/19 13:52 AMB [id number]) OP-PT Subjective Patient Comments Patient Comments Roseanna reports pain is about the same, she has been doing her exercises. PT-OP-G Mobility & Gait Start: 06/21/19 06:51 Freq: Status: Active Protocol: Document 06/21/19 08:15 AMB (Rec: 06/21/19 16:13 AMB [email or web address]) OP Gait Assessment Comments Gait Comments Roseanna walks with increased lateral shift and reduce trunk rotation, tends to go into genu recurvatum PT-OP-J Posture/Palpation/Skin Start: 06/21/19 06:51 Freq: Status: Active Protocol: Document 06/21/19 08:15 AMB (Rec: 06/21/19 16:19 AMB [email or web address]) Posture Evaluation Comments Posture Comments Pt with increased genu valgus and recurvatum, tends to over pronate. Palpation Assessment Location One Palpation Location L knee Palpation Details Pt denies tenderness over IT band or lateral knee, does have discomfort with deep palpation of patellar tendon. PT-OP-K Range of Motion Start: 06/21/19 06:51 Freq: Status: Active Protocol: Document 06/21/19 08:15 AMB (Rec: 06/21/19 16:13 AMB [email or web address]) Knee Goniometric Range of Motion Knee Right Flexion Passive (degrees) 125 Hyper-Extension Active 10 Left Flexion Passive (degrees) 125 Hyper-Extension Active 25 Knee ROM Limitations Comments valgus knee posture L: 15, R 10. PT-OP-L Special Tests Start: 06/21/19 06:51 Freq: Status: Active Protocol: Document 06/21/19 08:15 AMB (Rec: 06/21/19 16:13 AMB [email or web address]) Special Tests Knee Special Tests Patellar Grind Test Test Results increase pain on L Chris Test Test Results negative Posterior Draw Test Results negative Anterior Draw Test Results negative PT-OP-M Strength Start: 06/21/19 06:51 Freq: Status: Active Protocol: Document 06/21/19 08:15 AMB (Rec: 06/21/19 16:13 AMB [email or web address]) Hip Strength Hip Manual Muscle Testing Right Flexion (L2) 4+ Good+ Abduction 4+ Good+ Left Flexion (L2) 4 Good Abduction 4 Good Knee Strength Knee Manual Muscle Testing Right Flexion (S2) 5 Normal Extension (L3) 5 Normal Left Flexion (S2) 4+ Good+ Extension (L3) 4+ Good+ PT-OP-Q Treatments Start: 06/21/19 06:51 Freq: Status: Active Protocol: Document 06/30/19 13:45 AMB (Rec: 07/06/19 07:46 AMB [email or web address]) Cardio Equipment Recumbent Bicycle Duration (Minutes) 5 Resistance 7 Seat Position 02 Gym Equipment Shuttle Recovery Bilateral Squats Resistance 87 Shuttle Recovery Platform Stable Reps/Time 3x15 Therapeutic Exercises Supine Exercises 5 Supine Exercise Name hamstring/ IT band stretch Reps/Minutes 30x2 Comments with strap 4 Supine Exercise Name hip flexor stretch Reps/Minutes 30x2 2 Supine Exercise Name hip abduction Reps/Minutes 10 1 Supine Exercise Name SLR Reps/Minutes 10 Standing Exercises 10 Standing Exercise Name sidestepping squats Resistance #2 T band Reps/Minutes 8'x4 9 Standing Exercise Name forward lunges Reps/Minutes 8'x6 Comments vc form PT-OP-R Modalities Start: 06/21/19 06:51 Freq: Status: Active Protocol: Document 06/30/19 13:45 AMB (Rec: 07/06/19 07:46 AMB [email or web address]) Hot Pack/Cold Pack Treatment Cold Pack Location L knee Patient Position Hooklying Treatment Duration (minutes) 10 PT-OP-T Assessment and Plan Start: 06/21/19 06:51 Freq: Status: Active Protocol: Document 06/30/19 13:45 AMB (Rec: 07/06/19 07:46 AMB [email or web address]) Physical Therapy Assessment Assessment Summary Assessment Roseanna has not noticed pain changes yet, with the most pain at night with sleeping on her side. Physical Therapy Plan Next Visit Focus/Plan Next Note Type Treatment Note Next Visit Plan Hip, knee, and foot stabilization with modalities/ manual therapy as needed for pain relief
--- NOTE | 2019-07-19 13:00 | PT.OTN ---
Current Diagnoses Pain in left knee (07/19/19) Physical Therapy Treatment Note PT-OP-A Visit Information Start: 06/21/19 06:51 Freq: Status: Active Protocol: Document 07/19/19 10:30 AMB (Rec: 07/19/19 10:41 AMB [email or web address]) Out-Patient Physical Therapy Visit Information Visit Information Visit Type Treatment Note Visit Start Time 10:30 Visit Stop Time 11:15 Total Visit Minutes 45 Visit Number 4 PT-OP-B Current Condition Start: 06/21/19 06:51 Freq: Status: Active Protocol: Document 06/21/19 08:15 AMB (Rec: 06/21/19 16:13 AMB [email or web address]) Current Condition History of Current Condition Onset Date a couple months ago Current Complaints L knee pain History of Current Condition Roseanna knelt on a cat toy a few months ago and heard a pop. She has noticed pain since then, mostly located at the patellar tendon and the medial joint line, worst with sleeping on her side, and walking. The pain has been staying the same, although it is better with a knee brace which she has just recently been wearing. She has also been trying to lose weight and has been riding her bike, and states that the pain isn't too bad with that. The pain is distrupting her sleep. Roseanna was seen for arm pain at this clinic about a year ago, she attends with her mom. Roseanna does have a developmental disability and lives with her mom in a single level home and does not work. Treatment Goals Patient/Caregiver Goals Reduce pain in knee, walking without pain, sleep without knee pain Prior Functional Status Baseline Function- ADL's Independent Baseline Function- Mobility Independent Current Functional Impairments (Reported) Functional Limitations- ADL's Difficulty sleeping and walking due to left knee pain Personal Factors Other Personal Factors That May Effect Pt's mom is concerned that pt' Therapy/Recovery s grandpa had RA. Pt does have a developmental disability. PT-OP-C Subjective Start: 06/21/19 06:51 Freq: Status: Active Protocol: Document 07/19/19 10:30 AMB (Rec: 07/19/19 10:41 AMB [id number]) OP-PT Subjective Patient Comments Patient Comments Roseanna and her mom report that they are going to see their [employer]AL [employer]SF[employer]ER today to discuss her knee . They feel that she hasn't gotten worse but she is still having pain right under her patella while sleeping at night. PT-OP-G Mobility & Gait Start: 06/21/19 06:51 Freq: Status: Active Protocol: Document 06/21/19 08:15 AMB (Rec: 06/21/19 16:13 AMB [email or web address]) OP Gait Assessment Comments Gait Comments Roseanna walks with increased lateral shift and reduce trunk rotation, tends to go into genu recurvatum PT-OP-J Posture/Palpation/Skin Start: 06/21/19 06:51 Freq: Status: Active Protocol: Document 06/21/19 08:15 AMB (Rec: 06/21/19 16:19 AMB [email or web address]) Posture Evaluation Comments Posture Comments Pt with increased genu valgus and recurvatum, tends to over pronate. Palpation Assessment Location One Palpation Location L knee Palpation Details Pt denies tenderness over IT band or lateral knee, does have discomfort with deep palpation of patellar tendon. PT-OP-K Range of Motion Start: 06/21/19 06:51 Freq: Status: Active Protocol: Document 06/21/19 08:15 AMB (Rec: 06/21/19 16:13 AMB [email or web address]) Knee Goniometric Range of Motion Knee Right Flexion Passive (degrees) 125 Hyper-Extension Active 10 Left Flexion Passive (degrees) 125 Hyper-Extension Active 25 Knee ROM Limitations Comments valgus knee posture L: 15, R 10. PT-OP-L Special Tests Start: 06/21/19 06:51 Freq: Status: Active Protocol: Document 06/21/19 08:15 AMB (Rec: 06/21/19 16:13 AMB [email or web address]) Special Tests Knee Special Tests Patellar Grind Test Test Results increase pain on L Chris Test Test Results negative Posterior Draw Test Results negative Anterior Draw Test Results negative PT-OP-M Strength Start: 06/21/19 06:51 Freq: Status: Active Protocol: Document 06/21/19 08:15 AMB (Rec: 06/21/19 16:13 AMB [email or web address]) Hip Strength Hip Manual Muscle Testing Right Flexion (L2) 4+ Good+ Abduction 4+ Good+ Left Flexion (L2) 4 Good Abduction 4 Good Knee Strength Knee Manual Muscle Testing Right Flexion (S2) 5 Normal Extension (L3) 5 Normal Left Flexion (S2) 4+ Good+ Extension (L3) 4+ Good+ PT-OP-Q Treatments Start: 06/21/19 06:51 Freq: Status: Active Protocol: Document 07/19/19 10:30 AMB (Rec: 07/19/19 12:59 AMB [email or web address]) Cardio Equipment Recumbent Bicycle Duration (Minutes) 5 Resistance 7 Seat Position 02 Gym Equipment Shuttle Recovery Unilateral Squats Resistance 62 Shuttle Recovery Platform Stable Reps/Time 3x15 Bilateral Squats Resistance 100 Shuttle Recovery Platform Stable Reps/Time 3x15 Therapeutic Exercises Supine Exercises 5 Supine Exercise Name hamstring/ IT band stretch Reps/Minutes 30x2 Comments with strap 4 Supine Exercise Name hip flexor stretch Reps/Minutes 30x2 2 Supine Exercise Name hip abduction Reps/Minutes 2x10 1 Supine Exercise Name SLR Reps/Minutes 2x10 Standing Exercises 10 Standing Exercise Name sidestepping squats Resistance #2 T band Reps/Minutes 8'x4 9 Standing Exercise Name forward and lunges Reps/Minutes 8'x6 Comments vc form Manual Therapy Treatment Soft Tissue Mobilization 2 Body Location patellar tendon Mobilization Type Cross-Friction 1 Body Location IT band Mobilization Type Myofascial Release Sustained Pressure PT-OP-R Modalities Start: 06/21/19 06:51 Freq: Status: Active Protocol: Document 07/19/19 10:30 AMB (Rec: 07/19/19 12:59 AMB [email or web address]) Hot Pack/Cold Pack Treatment Cold Pack Location L knee Patient Position Hooklying Treatment Duration (minutes) 8 PT-OP-T Assessment and Plan Start: 06/21/19 06:51 Freq: Status: Active Protocol: Document 07/19/19 10:30 AMB (Rec: 07/19/19 12:59 AMB [email or web address]) Physical Therapy Assessment Assessment Summary Assessment Roseanna has no pain with exercises, but continues to describe patellar tendon pain with sleeping on her left side . Encouraged her in pillow usage to prop during sleep. Physical Therapy Plan Next Visit Focus/Plan Next Note Type Treatment Note Next Visit Plan Hip, knee, and foot stabilization with modalities/ manual therapy as needed for pain relief
--- NOTE | 2019-07-21 12:00 | PT.OTN ---
Current Diagnoses Pain in left knee (07/21/19) Physical Therapy Treatment Note PT-OP-A Visit Information Start: 06/21/19 06:51 Freq: Status: Active Protocol: Document 07/21/19 10:30 AMB (Rec: 07/21/19 13:01 AMB [email or web address]) Out-Patient Physical Therapy Visit Information Visit Information Visit Type Treatment Note Visit Start Time 10:30 Visit Stop Time 11:15 Total Visit Minutes 45 Visit Number 5 PT-OP-B Current Condition Start: 06/21/19 06:51 Freq: Status: Active Protocol: Document 06/21/19 08:15 AMB (Rec: 06/21/19 16:13 AMB [email or web address]) Current Condition History of Current Condition Onset Date a couple months ago Current Complaints L knee pain History of Current Condition Roseanna knelt on a cat toy a few months ago and heard a pop. She has noticed pain since then, mostly located at the patellar tendon and the medial joint line, worst with sleeping on her side, and walking. The pain has been staying the same, although it is better with a knee brace which she has just recently been wearing. She has also been trying to lose weight and has been riding her bike, and states that the pain isn't too bad with that. The pain is distrupting her sleep. Roseanna was seen for arm pain at this clinic about a year ago, she attends with her mom. Roseanna does have a developmental disability and lives with her mom in a single level home and does not work. Treatment Goals Patient/Caregiver Goals Reduce pain in knee, walking without pain, sleep without knee pain Prior Functional Status Baseline Function- ADL's Independent Baseline Function- Mobility Independent Current Functional Impairments (Reported) Functional Limitations- ADL's Difficulty sleeping and walking due to left knee pain Personal Factors Other Personal Factors That May Effect Pt's mom is concerned that pt' Therapy/Recovery s grandpa had RA. Pt does have a developmental disability. PT-OP-C Subjective Start: 06/21/19 06:51 Freq: Status: Active Protocol: Document 07/21/19 10:30 AMB (Rec: 07/21/19 13:01 AMB [email or web address]) OP-PT Subjective Patient Comments Patient Comments Roseanna and her mom report she had an X-ray which shows prepatellar soft tissue swelling. She only has 2 more appointments scheduled PT-OP-G Mobility & Gait Start: 06/21/19 06:51 Freq: Status: Active Protocol: Document 06/21/19 08:15 AMB (Rec: 06/21/19 16:13 AMB [email or web address]) OP Gait Assessment Comments Gait Comments Roseanna walks with increased lateral shift and reduce trunk rotation, tends to go into genu recurvatum PT-OP-J Posture/Palpation/Skin Start: 06/21/19 06:51 Freq: Status: Active Protocol: Document 06/21/19 08:15 AMB (Rec: 06/21/19 16:19 AMB [email or web address]) Posture Evaluation Comments Posture Comments Pt with increased genu valgus and recurvatum, tends to over pronate. Palpation Assessment Location One Palpation Location L knee Palpation Details Pt denies tenderness over IT band or lateral knee, does have discomfort with deep palpation of patellar tendon. PT-OP-K Range of Motion Start: 06/21/19 06:51 Freq: Status: Active Protocol: Document 06/21/19 08:15 AMB (Rec: 06/21/19 16:13 AMB [email or web address]) Knee Goniometric Range of Motion Knee Right Flexion Passive (degrees) 125 Hyper-Extension Active 10 Left Flexion Passive (degrees) 125 Hyper-Extension Active 25 Knee ROM Limitations Comments valgus knee posture L: 15, R 10. PT-OP-L Special Tests Start: 06/21/19 06:51 Freq: Status: Active Protocol: Document 06/21/19 08:15 AMB (Rec: 06/21/19 16:13 AMB [email or web address]) Special Tests Knee Special Tests Patellar Grind Test Test Results increase pain on L Chris Test Test Results negative Posterior Draw Test Results negative Anterior Draw Test Results negative PT-OP-M Strength Start: 06/21/19 06:51 Freq: Status: Active Protocol: Document 06/21/19 08:15 AMB (Rec: 06/21/19 16:13 AMB [email or web address]) Hip Strength Hip Manual Muscle Testing Right Flexion (L2) 4+ Good+ Abduction 4+ Good+ Left Flexion (L2) 4 Good Abduction 4 Good Knee Strength Knee Manual Muscle Testing Right Flexion (S2) 5 Normal Extension (L3) 5 Normal Left Flexion (S2) 4+ Good+ Extension (L3) 4+ Good+ PT-OP-Q Treatments Start: 06/21/19 06:51 Freq: Status: Active Protocol: Document 07/21/19 10:30 AMB (Rec: 07/24/19 09:12 AMB [email or web address]) Cardio Equipment Recumbent Bicycle Duration (Minutes) 7 Resistance 7 Seat Position 02 Therapeutic Exercises Supine Exercises 5 Supine Exercise Name hamstring/ IT band stretch Reps/Minutes 30x2 Comments with strap 1 Supine Exercise Name SLR Reps/Minutes 2x10 Standing Exercises 10 Standing Exercise Name sidestepping squats Resistance #2 T band Reps/Minutes 8'x4 9 Standing Exercise Name forward and lateral lunges Reps/Minutes 8'x6 Comments vc form Manual Therapy Treatment Soft Tissue Mobilization 2 Body Location patellar tendon Mobilization Type Cross-Friction 1 Body Location IT band Mobilization Type Myofascial Release Sustained Pressure PT-OP-R Modalities Start: 06/21/19 06:51 Freq: Status: Active Protocol: Document 07/21/19 10:30 AMB (Rec: 07/24/19 09:12 AMB [email or web address]) Hot Pack/Cold Pack Treatment Cold Pack Location L knee Patient Position Hooklying Treatment Duration (minutes) 8 Ultrasound Therapy Treatment Left Knee Treatment Duration (minutes) 8 Patient Position Hooklying Frequency Setting (mHz) 1 Mode Setting Pulsed Duty Cycle 50 Intensity Setting (w/cm2) 1.2 PT-OP-T Assessment and Plan Start: 06/21/19 06:51 Freq: Status: Active Protocol: Document 07/21/19 10:30 AMB (Rec: 07/22/19 13:48 AMB [email or web address]) Physical Therapy Assessment Assessment Summary Assessment Roseanna continues to have pain with sleeping. But did not have pain with manual therapy or exercise today. Physical Therapy Plan Next Visit Focus/Plan Next Note Type Treatment Note Next Visit Plan 2 more visits until pt's mom goes back to work and it would be difficult to get Roseanna to PT.
--- NOTE | 2019-07-26 16:30 | PT.OTN ---
Current Diagnoses Pain in left knee (07/26/19) Physical Therapy Treatment Note PT-OP-A Visit Information Start: 06/21/19 06:51 Freq: Status: Active Protocol: Document 07/26/19 10:30 AMB (Rec: 07/26/19 10:41 AMB [id number]) Out-Patient Physical Therapy Visit Information Visit Information Visit Type Treatment Note Visit Start Time 10:30 Visit Stop Time 11:15 Total Visit Minutes 50 Visit Number 6 PT-OP-B Current Condition Start: 06/21/19 06:51 Freq: Status: Active Protocol: Document 06/21/19 08:15 AMB (Rec: 06/21/19 16:13 AMB [email or web address]) Current Condition History of Current Condition Onset Date a couple months ago Current Complaints L knee pain History of Current Condition Roseanna knelt on a cat toy a few months ago and heard a pop. She has noticed pain since then, mostly located at the patellar tendon and the medial joint line, worst with sleeping on her side, and walking. The pain has been staying the same, although it is better with a knee brace which she has just recently been wearing. She has also been trying to lose weight and has been riding her bike, and states that the pain isn't too bad with that. The pain is distrupting her sleep. Roseanna was seen for arm pain at this clinic about a year ago, she attends with her mom. Roseanna does have a developmental disability and lives with her mom in a single level home and does not work. Treatment Goals Patient/Caregiver Goals Reduce pain in knee, walking without pain, sleep without knee pain Prior Functional Status Baseline Function- ADL's Independent Baseline Function- Mobility Independent Current Functional Impairments (Reported) Functional Limitations- ADL's Difficulty sleeping and walking due to left knee pain Personal Factors Other Personal Factors That May Effect Pt's mom is concerned that pt' Therapy/Recovery s grandpa had RA. Pt does have a developmental disability. PT-OP-C Subjective Start: 06/21/19 06:51 Freq: Status: Active Protocol: Document 07/26/19 10:30 AMB (Rec: 07/26/19 10:41 AMB [id number]) OP-PT Subjective Patient Comments Patient Comments Pt reports knee pain is about the same. PT-OP-G Mobility & Gait Start: 06/21/19 06:51 Freq: Status: Active Protocol: Document 06/21/19 08:15 AMB (Rec: 06/21/19 16:13 AMB [email or web address]) OP Gait Assessment Comments Gait Comments Roseanna walks with increased lateral shift and reduce trunk rotation, tends to go into genu recurvatum PT-OP-J Posture/Palpation/Skin Start: 06/21/19 06:51 Freq: Status: Active Protocol: Document 06/21/19 08:15 AMB (Rec: 06/21/19 16:19 AMB [email or web address]) Posture Evaluation Comments Posture Comments Pt with increased genu valgus and recurvatum, tends to over pronate. Palpation Assessment Location One Palpation Location L knee Palpation Details Pt denies tenderness over IT band or lateral knee, does have discomfort with deep palpation of patellar tendon. PT-OP-K Range of Motion Start: 06/21/19 06:51 Freq: Status: Active Protocol: Document 06/21/19 08:15 AMB (Rec: 06/21/19 16:13 AMB [email or web address]) Knee Goniometric Range of Motion Knee Right Flexion Passive (degrees) 125 Hyper-Extension Active 10 Left Flexion Passive (degrees) 125 Hyper-Extension Active 25 Knee ROM Limitations Comments valgus knee posture L: 15, R 10. PT-OP-L Special Tests Start: 06/21/19 06:51 Freq: Status: Active Protocol: Document 06/21/19 08:15 AMB (Rec: 06/21/19 16:13 AMB [email or web address]) Special Tests Knee Special Tests Patellar Grind Test Test Results increase pain on L Chris Test Test Results negative Posterior Draw Test Results negative Anterior Draw Test Results negative PT-OP-M Strength Start: 06/21/19 06:51 Freq: Status: Active Protocol: Document 06/21/19 08:15 AMB (Rec: 06/21/19 16:13 AMB [email or web address]) Hip Strength Hip Manual Muscle Testing Right Flexion (L2) 4+ Good+ Abduction 4+ Good+ Left Flexion (L2) 4 Good Abduction 4 Good Knee Strength Knee Manual Muscle Testing Right Flexion (S2) 5 Normal Extension (L3) 5 Normal Left Flexion (S2) 4+ Good+ Extension (L3) 4+ Good+ PT-OP-Q Treatments Start: 06/21/19 06:51 Freq: Status: Active Protocol: Document 07/26/19 10:30 AMB (Rec: 08/27/19 10:41 AMB [id number]) Cardio Equipment Recumbent Bicycle Duration (Minutes) 7 Resistance 7 Seat Position 02 Therapeutic Exercises Standing Exercises 10 Standing Exercise Name sidestepping squats Resistance #2 T band Reps/Minutes 8'x4 9 Standing Exercise Name forward and lateral lunges Reps/Minutes 8'x6 Comments vc form Manual Therapy Treatment Soft Tissue Mobilization 2 Body Location patellar tendon Mobilization Type Cross-Friction 1 Body Location IT band Mobilization Type Myofascial Release Sustained Pressure PT-OP-R Modalities Start: 06/21/19 06:51 Freq: Status: Active Protocol: Document 07/26/19 10:30 AMB (Rec: 07/26/19 16:27 AMB [email or web address]) Hot Pack/Cold Pack Treatment Cold Pack Location L knee Patient Position Hooklying Treatment Duration (minutes) 8 Ultrasound Therapy Treatment Left Knee Treatment Duration (minutes) 8 Patient Position Hooklying Frequency Setting (mHz) 1 Mode Setting Pulsed Duty Cycle 50 Intensity Setting (w/cm2) 1.2 PT-OP-T Assessment and Plan Start: 06/21/19 06:51 Freq: Status: Active Protocol: Document 07/26/19 10:30 AMB (Rec: 07/26/19 10:41 AMB [id number]) Physical Therapy Assessment Assessment Summary Assessment Reviewed HEP and modified lunge as Roseanna was having pain with forward lunge, but was letting knee go past toes. Removed SLR from HEP as it was painful to fully extend knee. Physical Therapy Plan Next Visit Focus/Plan Next Visit Plan Probable d/c next visit due to transportation
--- NOTE | 2019-07-29 16:00 | PT.OTN ---
Current Diagnoses Pain in left knee (07/29/19) Physical Therapy Treatment Note PT-OP-A Visit Information Start: 06/21/19 06:51 Freq: Status: Active Protocol: Document 07/29/19 10:30 AMB (Rec: 07/29/19 10:54 AMB [id number]) Out-Patient Physical Therapy Visit Information Visit Information Visit Type Treatment Note Visit Start Time 10:30 Visit Stop Time 11:20 Total Visit Minutes 50 Visit Number 7 PT-OP-B Current Condition Start: 06/21/19 06:51 Freq: Status: Active Protocol: Document 06/21/19 08:15 AMB (Rec: 06/21/19 16:13 AMB [email or web address]) Current Condition History of Current Condition Onset Date a couple months ago Current Complaints L knee pain History of Current Condition Roseanna knelt on a cat toy a few months ago and heard a pop. She has noticed pain since then, mostly located at the patellar tendon and the medial joint line, worst with sleeping on her side, and walking. The pain has been staying the same, although it is better with a knee brace which she has just recently been wearing. She has also been trying to lose weight and has been riding her bike, and states that the pain isn't too bad with that. The pain is distrupting her sleep. Roseanna was seen for arm pain at this clinic about a year ago, she attends with her mom. Roseanna does have a developmental disability and lives with her mom in a single level home and does not work. Treatment Goals Patient/Caregiver Goals Reduce pain in knee, walking without pain, sleep without knee pain Prior Functional Status Baseline Function- ADL's Independent Baseline Function- Mobility Independent Current Functional Impairments (Reported) Functional Limitations- ADL's Difficulty sleeping and walking due to left knee pain Personal Factors Other Personal Factors That May Effect Pt's mom is concerned that pt' Therapy/Recovery s grandpa had RA. Pt does have a developmental disability. PT-OP-C Subjective Start: 06/21/19 06:51 Freq: Status: Active Protocol: Document 07/29/19 10:30 AMB (Rec: 07/29/19 10:54 AMB [id number]) OP-PT Subjective Patient Comments Patient Comments Pt and pt's mom feel that pain is about the same, still waking her up at night. PT-OP-G Mobility & Gait Start: 06/21/19 06:51 Freq: Status: Active Protocol: Document 06/21/19 08:15 AMB (Rec: 06/21/19 16:13 AMB [email or web address]) OP Gait Assessment Comments Gait Comments Roseanna walks with increased lateral shift and reduce trunk rotation, tends to go into genu recurvatum PT-OP-J Posture/Palpation/Skin Start: 06/21/19 06:51 Freq: Status: Active Protocol: Document 06/21/19 08:15 AMB (Rec: 06/21/19 16:19 AMB [email or web address]) Posture Evaluation Comments Posture Comments Pt with increased genu valgus and recurvatum, tends to over pronate. Palpation Assessment Location One Palpation Location L knee Palpation Details Pt denies tenderness over IT band or lateral knee, does have discomfort with deep palpation of patellar tendon. PT-OP-K Range of Motion Start: 06/21/19 06:51 Freq: Status: Active Protocol: Document 06/21/19 08:15 AMB (Rec: 06/21/19 16:13 AMB [email or web address]) Knee Goniometric Range of Motion Knee Right Flexion Passive (degrees) 125 Hyper-Extension Active 10 Left Flexion Passive (degrees) 125 Hyper-Extension Active 25 Knee ROM Limitations Comments valgus knee posture L: 15, R 10. PT-OP-L Special Tests Start: 06/21/19 06:51 Freq: Status: Active Protocol: Document 06/21/19 08:15 AMB (Rec: 06/21/19 16:13 AMB [email or web address]) Special Tests Knee Special Tests Patellar Grind Test Test Results increase pain on L Chris Test Test Results negative Posterior Draw Test Results negative Anterior Draw Test Results negative PT-OP-M Strength Start: 06/21/19 06:51 Freq: Status: Active Protocol: Document 06/21/19 08:15 AMB (Rec: 06/21/19 16:13 AMB [email or web address]) Hip Strength Hip Manual Muscle Testing Right Flexion (L2) 4+ Good+ Abduction 4+ Good+ Left Flexion (L2) 4 Good Abduction 4 Good Knee Strength Knee Manual Muscle Testing Right Flexion (S2) 5 Normal Extension (L3) 5 Normal Left Flexion (S2) 4+ Good+ Extension (L3) 4+ Good+ PT-OP-Q Treatments Start: 06/21/19 06:51 Freq: Status: Active Protocol: Document 07/29/19 10:30 AMB (Rec: 07/29/19 10:54 AMB [id number]) Cardio Equipment Recumbent Bicycle Duration (Minutes) 7 Resistance 7 Seat Position 02 Therapeutic Exercises Sidelying Exercises 2 Sidelying Exercise Name clamshell Reps/Minutes 2x10 1 Sidelying Exercise Name hip abduction SLR Reps/Minutes 2x10 Standing Exercises 9 Standing Exercise Name forward and lateral lunges Reps/Minutes 8'x6 Comments vc form Manual Therapy Treatment Soft Tissue Mobilization 2 Body Location patellar tendon Mobilization Type Cross-Friction 1 Body Location IT band Mobilization Type Myofascial Release,Sustained Pressure PT-OP-R Modalities Start: 06/21/19 06:51 Freq: Status: Active Protocol: Document 07/29/19 10:30 AMB (Rec: 07/30/19 10:24 AMB [email or web address]) Hot Pack/Cold Pack Treatment Cold Pack Location L knee Patient Position Hooklying Treatment Duration (minutes) 10 Ultrasound Therapy Treatment Left Knee Treatment Duration (minutes) 8 Patient Position Hooklying Frequency Setting (mHz) 1 Mode Setting Pulsed Duty Cycle 50 Intensity Setting (w/cm2) 1.2 PT-OP-T Assessment and Plan Start: 06/21/19 06:51 Freq: Status: Active Protocol: Document 07/29/19 10:30 AMB (Rec: 07/30/19 10:24 AMB [email or web address]) Physical Therapy Assessment Assessment Summary Assessment Roseanna denies any pain with current HEP. She continues to get pain with sleeping and when she is up and about. Mostly around patellar tendon. Continued to encourage her in icing and HEP focused on hip stabilization. Physical Therapy Plan Hold Physical Therapy Reason For Hold Pt on hold due to mom's work schedule. They are going to work on HEP for next month and then if not better consider MRI. Pt could theoretically come to PT after mom's work but that would need to be with another therapist due to scheduling.
--- NOTE | 2019-09-30 09:29 | PT.OPDS ---
Current Diagnoses Pain in left knee (07/29/19) Visit Care Team Role Provider Type MYRAN Meeks Attending Provider Advanced Underwriting Specialist Family Provider Primary Care Provider Specialty: Family Practice Address: [address] [place] [address], [facility] [place], [facility] Email: [email or web address] Visit Number Visit Number 7 Discharge Summary PT-OP-B Current Condition Start: 06/21/19 06:51 Freq: Status: Active Protocol: Document 06/21/19 08:15 AMB (Rec: 06/21/19 16:13 AMB [email or web address]) Current Condition History of Current Condition Onset Date a couple months ago Current Complaints L knee pain History of Current Condition Roseanna knelt on a cat toy a few months ago and heard a pop. She has noticed pain since then, mostly located at the patellar tendon and the medial joint line, worst with sleeping on her side, and walking. The pain has been staying the same, although it is better with a knee brace which she has just recently been wearing. She has also been trying to lose weight and has been riding her bike, and states that the pain isn't too bad with that. The pain is distrupting her sleep. Roseanna was seen for arm pain at this clinic about a year ago, she attends with her mom. Roseanna does have a developmental disability and lives with her mom in a single level home and does not work. Treatment Goals Patient/Caregiver Goals Reduce pain in knee, walking without pain, sleep without knee pain Prior Functional Status Baseline Function- ADL's Independent Baseline Function- Mobility Independent Current Functional Impairments (Reported) Functional Limitations- ADL's Difficulty sleeping and walking due to left knee pain Personal Factors Other Personal Factors That May Effect Pt's mom is concerned that pt' Therapy/Recovery s grandpa had RA. Pt does have a developmental disability. PT-OP-C Subjective Start: 06/21/19 06:51 Freq: Status: Active Protocol: Document 07/29/19 10:30 AMB (Rec: 07/29/19 10:54 AMB [id number]) OP-PT Subjective Patient Comments Patient Comments Pt and pt's mom feel that pain is about the same, still waking her up at night. PT-OP-G Mobility & Gait Start: 06/21/19 06:51 Freq: Status: Active Protocol: Document 06/21/19 08:15 AMB (Rec: 06/21/19 16:13 AMB [email or web address]) OP Gait Assessment Comments Gait Comments Roseanna walks with increased lateral shift and reduce trunk rotation, tends to go into genu recurvatum PT-OP-J Posture/Palpation/Skin Start: 06/21/19 06:51 Freq: Status: Active Protocol: Document 06/21/19 08:15 AMB (Rec: 06/21/19 16:19 AMB [email or web address]) Posture Evaluation Comments Posture Comments Pt with increased genu valgus and recurvatum, tends to over pronate. Palpation Assessment Location One Palpation Location L knee Palpation Details Pt denies tenderness over IT band or lateral knee, does have discomfort with deep palpation of patellar tendon. PT-OP-K Range of Motion Start: 06/21/19 06:51 Freq: Status: Active Protocol: Document 06/21/19 08:15 AMB (Rec: 06/21/19 16:13 AMB [email or web address]) Knee Goniometric Range of Motion Knee Right Flexion Passive (degrees) 125 Hyper-Extension Active 10 Left Flexion Passive (degrees) 125 Hyper-Extension Active 25 Knee ROM Limitations Comments valgus knee posture L: 15, R 10. PT-OP-L Special Tests Start: 06/21/19 06:51 Freq: Status: Active Protocol: Document 06/21/19 08:15 AMB (Rec: 06/21/19 16:13 AMB [email or web address]) Special Tests Knee Special Tests Patellar Grind Test Test Results increase pain on L Chris Test Test Results negative Posterior Draw Test Results negative Anterior Draw Test Results negative PT-OP-M Strength Start: 06/21/19 06:51 Freq: Status: Active Protocol: Document 06/21/19 08:15 AMB (Rec: 06/21/19 16:13 AMB [email or web address]) Hip Strength Hip Manual Muscle Testing Right Flexion (L2) 4+ Good+ Abduction 4+ Good+ Left Flexion (L2) 4 Good Abduction 4 Good Knee Strength Knee Manual Muscle Testing Right Flexion (S2) 5 Normal Extension (L3) 5 Normal Left Flexion (S2) 4+ Good+ Extension (L3) 4+ Good+ PT-OP-T Assessment and Plan Start: 06/21/19 06:51 Freq: Status: Active Protocol: Document 09/30/19 09:21 AMB (Rec: 09/30/19 09:29 AMB [email or web address]) Physical Therapy Assessment Goals 3 Impairment Strength Short Term Goal (STG) Roseanna will improve her hip and knee strength to 5/5 in all planes. STG Duration NOT MET Property Insurance Claims Examiner Goal (LTG) Roseanna will increase hip and knee strength so that she can perform a full squat without knee pain. LTG Duration NOT MET 2 Impairment Walking Short Term Goal (STG) Roseanna will walk 2 blocks with knee pain of 4/10 or less. STG Duration MET Property Insurance Claims Examiner Goal (LTG) Roseanna will walk on uneven terrain for 5 minutes with knee pain of 3/10 or less. LTG Duration NOT MET 1 Impairment Sleep Short Term Goal (STG) The patient will sleep through the night without being woken secondary to her arm pain. PROGRESS MADE- 1x pain in 1 week STG Duration 4 weeks Property Insurance Claims Examiner Goal (LTG) The patient will be able to sleep on her left side without pain. LTG Duration MET Assessment Summary Assessment Roseanna had made some improvements in physical therapy, but continued to have pain, especially with sleeping at her patellar tendon. Hopefully with her home exercise program which she is very consistent with, and icing, over time her knee will heal. Physical Therapy Plan Discharge Physical Therapy Discharge Reasons No Longer Attending PT Discharge Comments Roseanna's mom is back at work and so Roseanna can't come back to PT due to not having transportation, therefore she is discharged at this time
== END 2019-07-29 11:30 ==
LOC: PHYS 10:30
PROVIDERS: Family Provider Internal Medicine; PCP Internal Medicine; Visit Provider Internal Medicine
DX: M25.562 Pain in left knee (principal)
CPT/HCPCS: 97010; 97035; 97110; 97140; 97161

== ENCOUNTER → 2019-09-05 13:45 | Outpatient (CLI) | payer MEDICARE, OTHER, MEDICAID, SELFPAY ==
--- NOTE | 2019-09-05 | DI.MRI.S_ITS ---
PROCEDURE: MR KNEE LT WO/W CON INDICATIONS: Prepatellar bursitis, left knee TECHNIQUE: Noncontrast sagittal PD fast spin echo and T2 fast spin echo with fat saturation, sagittal 3-D FLASH with fat saturation; coronal T1 spin echo and PD fast spin echo with fat saturation, and axial T1 spin echo and PD fast spin echo with fat saturation through the knee. Post-contrast axial, coronal, and sagittal T1 spin echo with fat saturation through the knee. COMPARISON: None. FINDINGS: Image quality: Excellent. Menisci: The medial and lateral menisci demonstrate normal morphology and internal signal. The meniscal root ligaments appear intact. Cruciate ligaments: The anterior and posterior cruciate ligaments appear intact. Medial structures: The medial collateral ligament appears intact. The posterior oblique ligament, semimembranosus tendon insertions, and oblique popliteal liagment, and meniscocapsular junction appear intact. Visualized portions of the pes anserinus tendons appear normal. No abnormal bursal fluid. Lateral structures: The lateral collateral ligament, long and short heads of the biceps femoris tendon appear intact. The popliteus tendon appears normal; the popliteofibular ligament appears intact. The posterosuperior and anteroinferior popliteomeniscal fascicles appear intact. The arcuate and fabellofibular ligaments appear intact, around the lateral inferior geniculate artery. Iliotibial band appears normal. Anterior structures: The quadriceps and patellar tendons appear intact. Superficial infrapatellar and pretibial subcutaneous edema. Thickening and intrasubstance T2 hyperintensity involving the patellar attachment of the lateral patellofemoral ligament although technically age-indeterminate. Patellar alignment is normal. No femoral trochlear dysplasia or ventral trochlear prominence. No edema in the infrapatellar fat pad. Bones and cartilage: No suspicious osseous enhancement. No bone marrow contusions or fractures. The cartilage of the medial and lateral femorotibial compartments, as well as the patellofemoral compartment, appears normal in thickness. Joint space: There is physiologic knee joint fluid. No Cowart's cyst. Normal appearing synovial plicae are incidentally noted. No suspicious soft tissue enhancement. IMPRESSION: Sprain of the lateral patellofemoral ligament, technically age-indeterminate Mild superficial infrapatellar and pretibial subcutaneous edema. No definite focal or rim-enhancing fluid collection Elsewhere, no internal derangement. Dictated by: Joseph Shay M.D. on 09/05/2019 at 15:13 Approved by: Joseph Shay M.D. on 09/05/2019 at 15:19
== END ==
PROVIDERS: PCP Internal Medicine; Visit Provider Internal Medicine
DX: M70.42 Prepatellar bursitis, left knee (principal); S76.112A Strain of left quadriceps muscle, fascia and tendon, initial encounter
CPT/HCPCS: 73723

== ENCOUNTER → 2019-09-24 09:25 | Outpatient (CLI) | payer MEDICARE, MEDICAID, SELFPAY ==
[2019-09-24 10:11] LABS: Add Manual Diff / Slide Review NO; Basophils Absolute Auto 0 /uL (0-100); Basophils Percent Auto 0.6 % (0-2); Eosinophils Absolute Auto 100 /uL (0-450); Eosinophils Percent Auto 2.2 % (2-4); Hematocrit 38.2 % (36-46); Hemoglobin 13.4 g/dL (12.0-16.0); Lymphocytes Absolute Auto 1400 /uL (1100-4500); Lymphocytes Percent Auto 25.1 % (25-40); Mean Corpuscular Hemoglobin 30.7 PG (26-34); Mean Corpuscular Volume 87.5 fL (80-100); Monocytes Absolute Auto 500 /uL (0-900); Monocytes Percent Auto 8.3 % (3-14); Neutrophils Absolute Auto 3500 /uL (1500-7000); Neutrophils Percent Auto 63.8 % (50-75); Platelet Count 265 X10^3/uL (150-400); Red Blood Cell Count 4.36 X10^6/uL (4.0-5.2); Red Cell Distribution Width 13.2 % (11.6-14.8); White Blood Cell Count 5.5 X10^3/uL (4.5-11.0)
[2019-09-24 10:23] LABS: Alanine Aminotransferase 19 IU/L (9-52); Albumin 5.2 g/dL (3.5-5.0); Albumin Globulin Ratio 1.6 (1.0-2.8); Alkaline Phosphatase 64 U/L (38-126); Aspartate Aminotransferase 26 IU/L (14-36); BUN Creatinine Ratio 16.7 (6-22); Bilirubin Total 0.9 mg/dL (0.2-1.3); Blood Urea Nitrogen 15 mg/dL (7-17); Calcium 10.4 mg/dL (8.4-10.2); Carbon Dioxide 24 mmol/L (22-32); Chloride 102 mmol/L (98-107); Cholesterol 171 mg/dL (140-199); Estimated Glomerular Filt Rate > 60.0 mL/min (>60); Globulin 3.3 g/dL (1.7-4.1); Glucose 108 mg/dL (70-100); HDL Cholesterol 25 mg/dL (40-60); HEMOLYSIS < 15 (0-50); LDL Cholesterol Calculated 98 mg/dL (<100); Potassium 4.2 mmol/L (3.4-5.1); Sodium 140 mmol/L (137-145); Total Protein 8.5 g/dL (6.3-8.2); Triglycerides 238 mg/dL (35-150); VLDL Cholesterol Calculated 48 mg/dL (2-30)
[2019-09-24 10:49] LABS: TSH w/ Reflex to FT4 2.09 uIU/mL (0.47-4.68)
== END ==
PROVIDERS: PCP Internal Medicine; Visit Provider Internal Medicine
DX: Z13.0 Encounter for screening for diseases of the blood and blood-forming organs and certain disorders involving the immune mechanism (principal); Z79.899 Other long term (current) drug therapy; E78.1 Pure hyperglyceridemia
CPT/HCPCS: 36415; 80053; 80061; 84443; 85025

== ENCOUNTER → 2019-11-14 14:39 | Outpatient (CLI) | payer MEDICARE, MEDICAID, SELFPAY ==
--- NOTE | 2019-11-14 16:40 | DIET.PN ---
Nutrition Initial Assessment:? ASSESS:???Miss Barry is a 39 yof with history of obesity, hypertriglyceridemia, and metabolic syndrome. She lives at home with her mother. She does not work, and generally is home alone most of the day. She began making dietary changes in September after recent labs indicating elevated fasting blood sugar and triglycerides. She is not currently active due to a knee injury, which she attend physical therapy. She is not able to drive and must rely on her mother for transportation. She has been keeping a food journal of her intake since making dietary changes. ? LABS: Per pt report:? FBS: 108 TC: 171 Tri LDL: 98 HDL: 25 ? MEDS:?? n/a ? DIET: Per 24-hour recall:? B: Shredded wheat w/ milk L: tuna sandwich (whole wheat sandwich thin) w/ patrick and relish, 2 small sugar free cookies D: brown rice, veggies, cheese or egg sandwich Sn: apple w/ pb, chips, sometimes an extra cup of milk ? Weight: 210 lb Ht:? 64.5 in BMI: 35.4 ? Exercise:? none at this time. Has a treadmill and weights but does not use. NUTRITION DX 1. Altered Nutrition related labs related to impaired glucose metabolism, lack of previous exposure to accurate nutrition information as evidenced by pt report, elevated blood glucose, elevated triglycerides, previous diet high in refined carbohydrates, lack of physical activity.? 2. Overweight/Obesity related to , lack of previous exposure to accurate nutrition information as evidenced by pt report, previous diet high in refined carbohydrates, lack of physical activity. INTERVENTION(s): 1. Discussed pathophysiology of diabetes/hyperglycemia and impact of nutrition/diet on blood sugar control.? 2. Discussed the effect of carbohydrates/protein/fat on blood sugar control.? Stressed importance of consistent carbohydrate intake at each meal and provided instructions for recommended servings/portions of carbohydrates/protein per meal. Provided pt with educational material. 3. Discussed the difference between simple versus complex carbohydrates and the effect of fiber on blood sugar control.? Discussed various methods to increase fiber content in diet. 4. Stressed importance of meal timing and not going >4-5 hours between meals. Encouraged adding protein to snacks to support glucose control and prevent hunger. Discussed various snack options. 5. Provided a 5 day meal plan for suggested portions at each meal. 6. Discussed importance of food preparation to encourage healthy eating, portion control, and prevent hunger/over snacking. Compiled a list of foods for breakfast and snack ideas. 7. Reviewed the ?Hunger Scale? and listening to your body to avoid over eating. 8. Provided a list of ?choose this not that? snack ideas 9. Discussed healthy weight loss goals of 1-2lbs per week through diet and exercise.? Pt agreeable to keeping a daily food record including portions. 10. Suggested patient begin exercising including resistance training 30 min, 3x/wk. Suggested using [employer] videos for structured workout routines incorporating upper body and core strengthening activities until instructed by PT to begin a leg routine. Goals: 1. Pt would like to lose 10 lbs (~5%) body weight in the next 1-2 months through dietary changes. 2. Pt agreed to keep a food record to discuss with RD at follow up appt. EER: 1500 lu (500 lu deficit for 1 lb/wk weight loss) MONITOR/EVALUATE: Anticipate excellent compliance.? Nutrition follow-up scheduled for 1 mo to review food record, monitor weight, and discuss physical activity plan. Plans to have f/u labs in Dec.
== END ==
PROVIDERS: PCP Internal Medicine; Visit Provider Internal Medicine
DX: E66.9 Obesity, unspecified (principal); Z68.35 Body mass index [BMI] 35.0-35.9, adult; Z71.3 Dietary counseling and surveillance; E78.1 Pure hyperglyceridemia; E88.81 Metabolic syndrome and other insulin resistance
CPT/HCPCS: 97802

== ENCOUNTER 2019-12-15 17:30 | Outpatient (RCR) | payer MEDICARE, MEDICAID, SELFPAY ==
--- NOTE | 2019-11-02 19:00 | PT.OIE ---
Current Diagnoses Pain in left knee (11/02/19) Prepatellar bursitis, left knee (11/02/19) Past Medical History (Last Updated 08/16/18 @ 19:25 by Brittni Gordon) Hypertriglyceridemia (Chronic) Mental retardation (Chronic) Painful menstrual periods (Chronic) Seasonal allergies (Chronic) Past Surgical History (Last Updated 08/16/18 @ 19:25 by Brittni Gordon) History of skin surgery (Resolved ~04/04/15) Visit Care Team Role Provider Type MYRNA Meeks Attending Provider Advanced Manual Arts Teacher Primary Care Provider Specialty: Family Practice Address: [address] [place] [address], [facility] Email: [email or web address] Initial Evaluation PT-OP-A Visit Information Start: 11/02/19 12:25 Freq: Status: Active Protocol: Document 11/02/19 17:36 HH (Rec: 11/02/19 18:50 [id number]) Out-Patient Physical Therapy Visit Information Visit Information Visit Type Initial Evaluation Visit Note IE led by DORCAS Rdz Visit Start Time 17:36 Visit Stop Time 18:15 Total Visit Minutes 39 Visit Number 1 Number of BRUSHER Visits 0 Evaluation Information Evaluation Date 11/02/19 PT-OP-B Current Condition Start: 11/02/19 12:25 Freq: Status: Active Protocol: Document 11/02/19 17:36 HH (Rec: 11/02/19 18:50 [id number]) Current Condition History of Current Condition Onset Date Several months ago Current Complaints L ant knee pain History of Current Condition Pt presents to PT with primary c/o L ant knee pain with activity and sleeping. Pt has difficulty describing her pain but notes that it sometimes feels sharp, especially when walking or sleeping. She notes that she uses a pillow under her knee when sleeping which sometimes provides relief. Self massage and change of position tends to relieve her knee pain. Pt also wears a knee brace (min support) for long distance walking such as grocery shopping which provides her with some relief. Pt was attending PT in June for the same complaint but had to stop attending d/t scheduling issues. Pt was provided with HEP, which she said helped for a while but then the exercises such as the banded squat started to increase her knee pain. Overall pt says that her pain has stayed about the same since June. Pt had an MRI on her knee which showed a lateral patellofemoral ligament sprain . Prior Treatments and Tests Had PT at June 2019 MRI August 2019 showed lateral patellofemoral ligament sprain, mild edema Treatment Goals Patient/Caregiver Goals 1. Sleep without knee pain 2. Be able to walk without pain 3. Increase activity level Personal Factors Other Personal Factors That May Effect Pt has a developmental Therapy/Recovery disability and is unable to drive herself to appointments (notes that her mother should be able to drive her to her appointments after work) PT-OP-C Subjective Start: 11/02/19 12:25 Freq: Status: Active Protocol: Document 11/02/19 17:36 HH (Rec: 11/02/19 18:50 [id number]) OP-PT Subjective Patient Comments Patient Comments I don't really feel like things have changed in my knee since June. It is tough to describe my knee pain. Patient Questionnaires Lower Extremity Functional Scale LEFS Score 49 LEFS Impairment 20 to 39% Impaired (Score 48- 62) OP-PT Pain Assessment Location Left Knee Pain Location Details Ant knee below patella Intensity 7 Scale Used Numeric (1 - 10) Description Aching,Sharp,With Movement Frequency Daily Pain Aggravating Factors Position,Exercise,Walking, Stair Climbing Pain Alleviating Factors Position,Massage PT-OP-D Balance Start: 11/02/19 12:25 Freq: Status: Active Protocol: Document 11/02/19 17:36 HH (Rec: 11/02/19 18:50 [id number]) Balance Tests Single Limb Standing Single Limb- Right 8s Single Limb- Left 17s PT-OP-F Manual Assessment Start: 11/02/19 12:25 Freq: Status: Active Protocol: Document 11/02/19 17:36 HH (Rec: 11/02/19 18:50 [id number]) Manual Assessments Joint Mobility Assessment Joint Mobility Assessment excessive B patellar lateral shift with B knee extension PT-OP-G Mobility & Gait Start: 11/02/19 12:25 Freq: Status: Active Protocol: Document 11/02/19 17:36 HH (Rec: 11/02/19 18:50 [id number]) OP Gait Assessment Comments Gait Comments L LE early heel rise, scissoring gait pattern B excess trunk rotation, genu valgum PT-OP-H Neuro Start: 11/02/19 12:25 Freq: Status: Active Protocol: Document 11/02/19 17:36 HH (Rec: 11/02/19 18:50 [id number]) Sensation Evaluation Gross Sensation Gross Sensation WNL Deep Tendon Reflex & Clonus Assessment Deep Tendon Reflex Bilateral Achilles Deep Tendon Reflex 2+ Normal Bilateral Patellar Deep Tendon Reflex 1+ Diminished PT-OP-J Posture/Palpation/Skin Start: 11/02/19 12:25 Freq: Status: Active Protocol: Document 11/02/19 17:36 HH (Rec: 11/02/19 18:50 [id number]) Posture Evaluation Position Standing Evaluation View Lateral L-Spine Posture Increased Lordosis Pelvis Posture Anteriorly Tilted Weight Distribution Weight Shifted Right Knee Posture (R) Genu Valgus,(R) Genu Recurvatum Ankle/Foot Posture (L) Pronated,(R) Pronated Foot Arch (L) Low Arch,(R) Low Arch PT-OP-L Special Tests Start: 11/02/19 12:25 Freq: Status: Active Protocol: Document 11/02/19 17:36 HH (Rec: 11/02/19 18:50 [id number]) Special Tests Knee Special Tests Nigel Test Results +ve Comments L rectus femoris 40 dg knee flexion, IT band 25 dg abd R rectus femoris 50 dg knee flexion, IT band 20 dg abd Sea's Test Test Results +ve Connor's Compression Test Results -ve John's Sign Test Results -ve Varus- 25 Degrees Test Results -ve Varus- 0 Degrees Test Results -ve Valgus- 25 Degrees Test Results -ve Valgus- 0 Degrees Test Results -ve Patellar Grind Test Test Results -ve Chris Test Test Results -ve Posterior Draw Test Results -ve Anterior Draw Test Results -ve Other Special Tests Special Tests ant reach test L 21 with dynamic valgus, R 23 +ve sx reproduction with stair descending, dynamic valgus PT-OP-M Strength Start: 11/02/19 12:25 Freq: Status: Active Protocol: Document 11/02/19 17:36 HH (Rec: 11/02/19 18:50 [id number]) Hip Strength Hip Manual Muscle Testing Right Flexion (L2) 4 Good Abduction 4 Good Left Flexion (L2) 4 Good Abduction 3+ Fair+ Knee Strength Knee Manual Muscle Testing Right Flexion (S2) 5 Normal Extension (L3) 5 Normal Left Flexion (S2) 4 Good Extension (L3) 4 Good Comments pain for resisted long arc extension PT-OP-T Assessment and Plan Start: 11/02/19 12:25 Freq: Status: Active Protocol: Document 11/02/19 17:36 HH (Rec: 11/02/19 18:50 HH [id number]) Physical Therapy Assessment Rehab Potential Rehabilitation Potential Excellent Evaluation Complexity Number of Personal Factors/Comorbidities 1-2 Number of Body Systems Impaired 1-2 Impairments Impairments Activity Tolerance,Balance, Functional Activities, Functional Mobility,Gait,Pain, Posture,ROM,Soft Tissue Mobility,Strength Goals Ant reach test Impairment Pt demonstrates abnormal asymmetry with ant reach test Short Term Goal (STG) Pt will demonstrate <1.5 difference during ant reach test STG Duration 4 weeks Half-Way Goal (LTG) Pt will demonstrate <1 difference during ant reach test to reduce risk of reinjury LTG Duration 8 weeks 3 Impairment Pt scores 49/80 on LEFS Short Term Goal (STG) Pt will improve LEFS to 58/80 to reflect improved activity limitations and participation restrictions STG Duration 4 weeks Half-Way Goal (LTG) Pt will improve LEFS to 67/80 to reflect improved activity limitations and participation restrictions LTG Duration 8 weeks 2 Impairment Pt reports pain with walking Short Term Goal (STG) Pt will be able to walk >10 min without pain exacerbation to improve activity tolerance STG Duration 4 weeks Half-Way Goal (LTG) Pt will be able to walk >20 min without pain exacerbation to improve activity tolerance LTG Duration 8 weeks 1 Impairment Pt demonstrates impaired B SL balance Short Term Goal (STG) Pt will inc SL stance time by 10 to improve single leg strength and stability STG Duration 4 weeks Half-Way Goal (LTG) Pt will inc SL stance time by 20 to improve single leg strength and stability LTG Duration 8 weeks Assessment Summary Assessment Pt is low complexity 39 yo female presenting to PT with complaints of L ant knee pain. Pt attempted PT several months ago but it was unsuccessful d/t scheduling issues. Pt demonstrate sx reproduction with walking, stair descending, and resisted knee extension arc. Pt also reports pain with palpation of patellar tendon and attachment to patella. Pt demonstrates limited passive and standing knee extension on L LE, which is also present during gait. Pt also demonstrates excess lateral patellar tracking B and tissue extensibility limitations in quad and IT band. Pt's signs and sx consistent with mild patellar tendonitis. Pt will beneft from skilled therapy to address tissue limitations and improve LE strength/ balance Physical Therapy Plan Frequency and Duration Frequency of Treatment 2x/Week Duration of Treatment 8 weeks Plan of Care Start Date 11/02/19 Plan of Care End Date 12/28/19 Therapeutic Interventions Therapeutic Interventions Balance Training,Gait Training ,Home Exercise Program,Joint Mobilizations,Manual Therapy, Neuromuscular Re-education, Patient/Caregiver Education, Self-Care/Home Management,Soft Tissue Mobilization, Therapeutic Activities, Therapeutic Exercises Modalities Cold Pack/Ice Massage,Electric Stimulation,Hot Packs, Ultrasound Next Visit Focus/Plan Next Note Type Treatment Note Next Visit Plan MT quads, IT band Patellar taping Standing TKE Core/LE strengthening (gravity reduced) Hip dominant movement strategies
--- NOTE | 2019-11-03 08:23 | PT.OIE ---
Current Diagnoses Pain in left knee (11/02/19) Prepatellar bursitis, left knee (11/02/19) Past Medical History (Last Updated 08/16/18 @ 19:25 by Brittni Gordon) Hypertriglyceridemia (Chronic) Mental retardation (Chronic) Painful menstrual periods (Chronic) Seasonal allergies (Chronic) Past Surgical History (Last Updated 08/16/18 @ 19:25 by Brittni Gordon) History of skin surgery (Resolved ~04/04/15) Visit Care Team Role Provider Type MYRNA Meeks Attending Provider Advanced Flattening Machine Operator Primary Care Provider Specialty: Family Practice Address: [address] [place] [address], [facility] Email: [email or web address] Physical Therapy Initial Evaluation PT-OP-A Visit Information Start: 11/02/19 12:25 Freq: Status: Active Protocol: Document 11/02/19 17:36 HH (Rec: 11/02/19 18:50 [id number]) Out-Patient Physical Therapy Visit Information Visit Information Visit Type Initial Evaluation Visit Note IE led by DORCAS Rdz Visit Start Time 17:36 Visit Stop Time 18:15 Total Visit Minutes 39 Visit Number 1 Number of CODING ASSISTANT Visits 0 Evaluation Information Evaluation Date 11/02/19 PT-OP-B Current Condition Start: 11/02/19 12:25 Freq: Status: Active Protocol: Document 11/02/19 17:36 HH (Rec: 11/02/19 18:50 [id number]) Current Condition History of Current Condition Onset Date Several months ago Current Complaints L ant knee pain History of Current Condition Pt presents to PT with primary c/o L ant knee pain with activity and sleeping. Pt has difficulty describing her pain but notes that it sometimes feels sharp, especially when walking or sleeping. She notes that she uses a pillow under her knee when sleeping which sometimes provides relief. Self massage and change of position tends to relieve her knee pain. Pt also wears a knee brace (min support) for long distance walking such as grocery shopping which provides her with some relief. Pt was attending PT in June for the same complaint but had to stop attending d/t scheduling issues. Pt was provided with HEP, which she said helped for a while but then the exercises such as the banded squat started to increase her knee pain. Overall pt says that her pain has stayed about the same since June. Pt had an MRI on her knee which showed a lateral patellofemoral ligament sprain . Prior Treatments and Tests Had PT at June 2019 MRI August 2019 showed lateral patellofemoral ligament sprain, mild edema Treatment Goals Patient/Caregiver Goals 1. Sleep without knee pain 2. Be able to walk without pain 3. Increase activity level Personal Factors Other Personal Factors That May Effect Pt has a developmental Therapy/Recovery disability and is unable to drive herself to appointments (notes that her mother should be able to drive her to her appointments after work) PT-OP-C Subjective Start: 11/02/19 12:25 Freq: Status: Active Protocol: Document 11/02/19 17:36 HH (Rec: 11/02/19 18:50 [id number]) OP-PT Subjective Patient Comments Patient Comments I don't really feel like things have changed in my knee since June. It is tough to describe my knee pain. Patient Questionnaires Lower Extremity Functional Scale LEFS Score 49 LEFS Impairment 20 to 39% Impaired (Score 48- 62) OP-PT Pain Assessment Location Left Knee Pain Location Details Ant knee below patella Intensity 7 Scale Used Numeric (1 - 10) Description Aching,Sharp,With Movement Frequency Daily Pain Aggravating Factors Position,Exercise,Walking, Stair Climbing Pain Alleviating Factors Position,Massage PT-OP-D Balance Start: 11/02/19 12:25 Freq: Status: Active Protocol: Document 11/02/19 17:36 HH (Rec: 11/02/19 18:50 [id number]) Balance Tests Single Limb Standing Single Limb- Right 8s Single Limb- Left 17s PT-OP-F Manual Assessment Start: 11/02/19 12:25 Freq: Status: Active Protocol: Document 11/02/19 17:36 HH (Rec: 11/02/19 18:50 [id number]) Manual Assessments Joint Mobility Assessment Joint Mobility Assessment excessive B patellar lateral shift with B knee extension PT-OP-G Mobility & Gait Start: 11/02/19 12:25 Freq: Status: Active Protocol: Document 11/02/19 17:36 HH (Rec: 11/02/19 18:50 [id number]) OP Gait Assessment Comments Gait Comments L LE early heel rise, scissoring gait pattern B excess trunk rotation, genu valgum PT-OP-H Neuro Start: 11/02/19 12:25 Freq: Status: Active Protocol: Document 11/02/19 17:36 HH (Rec: 11/02/19 18:50 [id number]) Sensation Evaluation Gross Sensation Gross Sensation WNL Deep Tendon Reflex & Clonus Assessment Deep Tendon Reflex Bilateral Achilles Deep Tendon Reflex 2+ Normal Bilateral Patellar Deep Tendon Reflex 1+ Diminished PT-OP-J Posture/Palpation/Skin Start: 11/02/19 12:25 Freq: Status: Active Protocol: Document 11/02/19 17:36 HH (Rec: 11/02/19 18:50 [id number]) Posture Evaluation Position Standing Evaluation View Lateral L-Spine Posture Increased Lordosis Pelvis Posture Anteriorly Tilted Weight Distribution Weight Shifted Right Knee Posture (R) Genu Valgus,(R) Genu Recurvatum Ankle/Foot Posture (L) Pronated,(R) Pronated Foot Arch (L) Low Arch,(R) Low Arch PT-OP-L Special Tests Start: 11/02/19 12:25 Freq: Status: Active Protocol: Document 11/02/19 17:36 HH (Rec: 11/02/19 18:50 [id number]) Special Tests Knee Special Tests Nigel Test Results +ve Comments L rectus femoris 40 dg knee flexion, IT band 25 dg abd R rectus femoris 50 dg knee flexion, IT band 20 dg abd Sea's Test Test Results +ve Connor's Compression Test Results -ve John's Sign Test Results -ve Varus- 25 Degrees Test Results -ve Varus- 0 Degrees Test Results -ve Valgus- 25 Degrees Test Results -ve Valgus- 0 Degrees Test Results -ve Patellar Grind Test Test Results -ve Chris Test Test Results -ve Posterior Draw Test Results -ve Anterior Draw Test Results -ve Other Special Tests Special Tests ant reach test L 21 with dynamic valgus, R 23 +ve sx reproduction with stair descending, dynamic valgus PT-OP-M Strength Start: 11/02/19 12:25 Freq: Status: Active Protocol: Document 11/02/19 17:36 HH (Rec: 11/02/19 18:50 [id number]) Hip Strength Hip Manual Muscle Testing Right Flexion (L2) 4 Good Abduction 4 Good Left Flexion (L2) 4 Good Abduction 3+ Fair+ Knee Strength Knee Manual Muscle Testing Right Flexion (S2) 5 Normal Extension (L3) 5 Normal Left Flexion (S2) 4 Good Extension (L3) 4 Good Comments pain for resisted long arc extension PT-OP-T Assessment and Plan Start: 11/02/19 12:25 Freq: Status: Active Protocol: Document 11/02/19 17:36 HH (Rec: 11/02/19 18:50 HH [id number]) Physical Therapy Assessment Rehab Potential Rehabilitation Potential Excellent Evaluation Complexity Number of Personal Factors/Comorbidities 1-2 Number of Body Systems Impaired 1-2 Impairments Impairments Activity Tolerance,Balance, Functional Activities, Functional Mobility,Gait,Pain, Posture,ROM,Soft Tissue Mobility,Strength Goals Ant reach test Impairment Pt demonstrates abnormal asymmetry with ant reach test Short Term Goal (STG) Pt will demonstrate <1.5 difference during ant reach test STG Duration 4 weeks Intermediate Goal (LTG) Pt will demonstrate <1 difference during ant reach test to reduce risk of reinjury LTG Duration 8 weeks 3 Impairment Pt scores 49/80 on LEFS Short Term Goal (STG) Pt will improve LEFS to 58/80 to reflect improved activity limitations and participation restrictions STG Duration 4 weeks Intermediate Goal (LTG) Pt will improve LEFS to 67/80 to reflect improved activity limitations and participation restrictions LTG Duration 8 weeks 2 Impairment Pt reports pain with walking Short Term Goal (STG) Pt will be able to walk >10 min without pain exacerbation to improve activity tolerance STG Duration 4 weeks Intermediate Goal (LTG) Pt will be able to walk >20 min without pain exacerbation to improve activity tolerance LTG Duration 8 weeks 1 Impairment Pt demonstrates impaired B SL balance Short Term Goal (STG) Pt will inc SL stance time by 10 to improve single leg strength and stability STG Duration 4 weeks Intermediate Goal (LTG) Pt will inc SL stance time by 20 to improve single leg strength and stability LTG Duration 8 weeks Assessment Summary Assessment Pt is low complexity 39 yo female presenting to PT with complaints of L ant knee pain. Pt attempted PT several months ago but it was unsuccessful d/t scheduling issues. Pt demonstrate sx reproduction with walking, stair descending, and resisted knee extension arc. Pt also reports pain with palpation of patellar tendon and attachment to patella. Pt demonstrates limited passive and standing knee extension on L LE, which is also present during gait. Pt also demonstrates excess lateral patellar tracking B and tissue extensibility limitations in quad and IT band. Pt's signs and sx consistent with mild patellar tendonitis. Pt will beneft from skilled therapy to address tissue limitations and improve LE strength/ balance Physical Therapy Plan Frequency and Duration Frequency of Treatment 2x/Week Duration of Treatment 8 weeks Plan of Care Start Date 11/02/19 Plan of Care End Date 12/28/19 Therapeutic Interventions Therapeutic Interventions Balance Training,Gait Training ,Home Exercise Program,Joint Mobilizations,Manual Therapy, Neuromuscular Re-education, Patient/Caregiver Education, Self-Care/Home Management,Soft Tissue Mobilization, Therapeutic Activities, Therapeutic Exercises Modalities Cold Pack/Ice Massage,Electric Stimulation,Hot Packs, Ultrasound Next Visit Focus/Plan Next Note Type Treatment Note Next Visit Plan MT quads, IT band Patellar taping Standing TKE Core/LE strengthening (gravity reduced) Hip dominant movement strategies
--- NOTE | 2019-11-08 18:34 | PT.OTN ---
Current Diagnoses Pain in left knee (11/08/19) Prepatellar bursitis, left knee (11/08/19) Physical Therapy Treatment Note PT-OP-A Visit Information Start: 11/02/19 12:25 Freq: Status: Active Protocol: Document 11/08/19 17:30 HH (Rec: 11/08/19 18:34 HH [id number]) Out-Patient Physical Therapy Visit Information Visit Information Visit Type Initial Evaluation Visit Note tx led by SPT Kajal Visit Start Time 17:30 Visit Stop Time 18:14 Total Visit Minutes 44 Visit Number 2 Number of GAMING DIRECTOR Visits 0 PT-OP-B Current Condition Start: 11/02/19 12:25 Freq: Status: Active Protocol: Document 11/02/19 17:36 HH (Rec: 11/02/19 18:50 HH [id number]) Current Condition History of Current Condition Onset Date Several months ago Current Complaints L ant knee pain History of Current Condition Pt presents to PT with primary c/o L ant knee pain with activity and sleeping. Pt has difficulty describing her pain but notes that it sometimes feels sharp, especially when walking or sleeping. She notes that she uses a pillow under her knee when sleeping which sometimes provides relief. Self massage and change of position tends to relieve her knee pain. Pt also wears a knee brace (min support) for long distance walking such as grocery shopping which provides her with some relief. Pt was attending PT in June for the same complaint but had to stop attending d/t scheduling issues. Pt was provided with HEP, which she said helped for a while but then the exercises such as the banded squat started to increase her knee pain. Overall pt says that her pain has stayed about the same since June. Pt had an MRI on her knee which showed a lateral patellofemoral ligament sprain . Prior Treatments and Tests Had PT at June 2019 MRI August 2019 showed lateral patellofemoral ligament sprain, mild edema Treatment Goals Patient/Caregiver Goals 1. Sleep without knee pain 2. Be able to walk without pain 3. Increase activity level Personal Factors Other Personal Factors That May Effect Pt has a developmental Therapy/Recovery disability and is unable to drive herself to appointments (notes that her mother should be able to drive her to her appointments after work) PT-OP-C Subjective Start: 11/02/19 12:25 Freq: Status: Active Protocol: Document 11/08/19 17:30 HH (Rec: 11/08/19 18:34 HH [id number]) OP-PT Subjective Patient Comments Patient Comments I am doing okay today and there's no much change since last time. PT-OP-D Balance Start: 11/02/19 12:25 Freq: Status: Active Protocol: Document 11/02/19 17:36 HH (Rec: 11/02/19 18:50 [id number]) Balance Tests Single Limb Standing Single Limb- Right 8s Single Limb- Left 17s PT-OP-F Manual Assessment Start: 11/02/19 12:25 Freq: Status: Active Protocol: Document 11/02/19 17:36 HH (Rec: 11/02/19 18:50 [id number]) Manual Assessments Joint Mobility Assessment Joint Mobility Assessment excessive B patellar lateral shift with B knee extension PT-OP-G Mobility & Gait Start: 11/02/19 12:25 Freq: Status: Active Protocol: Document 11/02/19 17:36 HH (Rec: 11/02/19 18:50 [id number]) OP Gait Assessment Comments Gait Comments L LE early heel rise, scissoring gait pattern B excess trunk rotation, genu valgum PT-OP-H Neuro Start: 11/02/19 12:25 Freq: Status: Active Protocol: Document 11/02/19 17:36 HH (Rec: 11/02/19 18:50 [id number]) Sensation Evaluation Gross Sensation Gross Sensation WNL Deep Tendon Reflex & Clonus Assessment Deep Tendon Reflex Bilateral Achilles Deep Tendon Reflex 2+ Normal Bilateral Patellar Deep Tendon Reflex 1+ Diminished PT-OP-J Posture/Palpation/Skin Start: 11/02/19 12:25 Freq: Status: Active Protocol: Document 11/02/19 17:36 HH (Rec: 11/02/19 18:50 [id number]) Posture Evaluation Position Standing Evaluation View Lateral L-Spine Posture Increased Lordosis Pelvis Posture Anteriorly Tilted Weight Distribution Weight Shifted Right Knee Posture (R) Genu Valgus,(R) Genu Recurvatum Ankle/Foot Posture (L) Pronated,(R) Pronated Foot Arch (L) Low Arch,(R) Low Arch PT-OP-L Special Tests Start: 11/02/19 12:25 Freq: Status: Active Protocol: Document 11/02/19 17:36 HH (Rec: 11/02/19 18:50 [id number]) Special Tests Knee Special Tests Nigel Test Results +ve Comments L rectus femoris 40 dg knee flexion, IT band 25 dg abd R rectus femoris 50 dg knee flexion, IT band 20 dg abd Sea's Test Test Results +ve Connor's Compression Test Results -ve John's Sign Test Results -ve Varus- 25 Degrees Test Results -ve Varus- 0 Degrees Test Results -ve Valgus- 25 Degrees Test Results -ve Valgus- 0 Degrees Test Results -ve Patellar Grind Test Test Results -ve Chris Test Test Results -ve Posterior Draw Test Results -ve Anterior Draw Test Results -ve Other Special Tests Special Tests ant reach test L 21 with dynamic valgus, R 23 +ve sx reproduction with stair descending, dynamic valgus PT-OP-M Strength Start: 11/02/19 12:25 Freq: Status: Active Protocol: Document 11/02/19 17:36 (Rec: 11/02/19 18:50 [id number]) Hip Strength Hip Manual Muscle Testing Right Flexion (L2) 4 Good Abduction 4 Good Left Flexion (L2) 4 Good Abduction 3+ Fair+ Knee Strength Knee Manual Muscle Testing Right Flexion (S2) 5 Normal Extension (L3) 5 Normal Left Flexion (S2) 4 Good Extension (L3) 4 Good Comments pain for resisted long arc extension PT-OP-Q Treatments Start: 11/02/19 12:25 Freq: Status: Active Protocol: Document 11/08/19 17:30 (Rec: 11/08/19 18:34 [id number]) Cardio Equipment Recumbent Bicycle Duration (Minutes) 6 Resistance 1 Gym Equipment Shuttle Recovery Unilateral Squats Details SL squat Resistance #50-62 Shuttle Recovery Platform Stable Reps/Time 10 x 3 Therapeutic Exercises Supine Exercises supine TKE Supine Exercise Name L TKE Side left Resistance pillow underneath ankle Reps/Minutes 5secs hold x 5 Standing Exercises hip hinge Side bilateral Equipment Used grab bar Reps/Minutes 10 x2 Comments cues on hip dominant movement. Standing TKE Side left Resistance Level 1 and 2 TB Reps/Minutes 10 mins Comments standing TKE f/b single leg stance on L Manual Therapy Treatment Soft Tissue Mobilization quads Body Location L quads (lateral > medial) Mobilization Type Rolling Intensity/Depth Moderate Body Position Supine Comments quad release. patella tendon Body Location L Mobilization Type Sustained Pressure,Trigger Point Release Intensity/Depth Moderate Body Position Supine Taping patella Body Location L knee Treatment Focus improved medial tracking patella. Type of Tape Kinesio Tape Comments I strip from lateral quad to medial joint line Orthotic/Prosthetic Management and Training Treatment Details of Training Added 0.25 cm cork layer x 4 for shoe insert in R shoe PT-OP-T Assessment and Plan Start: 11/02/19 12:25 Freq: Status: Active Protocol: Document 11/08/19 17:30 HH (Rec: 11/08/19 18:34 [id number]) Physical Therapy Assessment Goals Ant reach test Impairment Pt demonstrates abnormal asymmetry with ant reach test Short Term Goal (STG) Pt will demonstrate <1.5 difference during ant reach test STG Duration 4 weeks Cobol Engineer Goal (LTG) Pt will demonstrate <1 difference during ant reach test to reduce risk of reinjury LTG Duration 8 weeks 3 Impairment Pt scores 49/80 on LEFS Short Term Goal (STG) Pt will improve LEFS to 58/80 to reflect improved activity limitations and participation restrictions STG Duration 4 weeks Cobol Engineer Goal (LTG) Pt will improve LEFS to 67/80 to reflect improved activity limitations and participation restrictions LTG Duration 8 weeks 2 Impairment Pt reports pain with walking Short Term Goal (STG) Pt will be able to walk >10 min without pain exacerbation to improve activity tolerance STG Duration 4 weeks Cobol Engineer Goal (LTG) Pt will be able to walk >20 min without pain exacerbation to improve activity tolerance LTG Duration 8 weeks 1 Impairment Pt demonstrates impaired B SL balance Short Term Goal (STG) Pt will inc SL stance time by 10 to improve single leg strength and stability STG Duration 4 weeks Retirement Goal (LTG) Pt will inc SL stance time by 20 to improve single leg strength and stability LTG Duration 8 weeks Assessment Summary Assessment Further assessment performed today. There's noticeable true LLD: R LE (ASIS to Tib tub 53 cm; ASIS to med maleoli = 84. 5cm) , LLE (ASIS to tib tub 55cm; ASIS to med maleoli = 86cm) Added approx 1cm of cork layers into pt's R shoe. Will reassess pt's symptoms next visit. Physical Therapy Plan Next Visit Focus/Plan Next Note Type Treatment Note Next Visit Plan Reassess shoe insert tolerance MT quads, IT band Patellar taping Standing TKE Core/LE strengthening (gravity reduced) Hip dominant movement strategies
--- NOTE | 2019-11-10 18:12 | PT.OTN ---
Current Diagnoses Pain in left knee (11/10/19) Prepatellar bursitis, left knee (11/10/19) Physical Therapy Treatment Note PT-OP-A Visit Information Start: 11/02/19 12:25 Freq: Status: Active Protocol: Document 11/10/19 17:32 HH (Rec: 11/10/19 18:12 [id number]) Out-Patient Physical Therapy Visit Information Visit Information Visit Type Treatment Note Visit Note tx led by DORCAS Rdz Visit Start Time 17:32 Visit Stop Time 18:14 Total Visit Minutes 42 Visit Number 3 Number of WET FINISHER WOOL Visits 0 PT-OP-B Current Condition Start: 11/02/19 12:25 Freq: Status: Active Protocol: Document 11/02/19 17:36 HH (Rec: 11/02/19 18:50 [id number]) Current Condition History of Current Condition Onset Date Several months ago Current Complaints L ant knee pain History of Current Condition Pt presents to PT with primary c/o L ant knee pain with activity and sleeping. Pt has difficulty describing her pain but notes that it sometimes feels sharp, especially when walking or sleeping. She notes that she uses a pillow under her knee when sleeping which sometimes provides relief. Self massage and change of position tends to relieve her knee pain. Pt also wears a knee brace (min support) for long distance walking such as grocery shopping which provides her with some relief. Pt was attending PT in June for the same complaint but had to stop attending d/t scheduling issues. Pt was provided with HEP, which she said helped for a while but then the exercises such as the banded squat started to increase her knee pain. Overall pt says that her pain has stayed about the same since June. Pt had an MRI on her knee which showed a lateral patellofemoral ligament sprain . Prior Treatments and Tests Had PT at June 2019 MRI August 2019 showed lateral patellofemoral ligament sprain, mild edema Treatment Goals Patient/Caregiver Goals 1. Sleep without knee pain 2. Be able to walk without pain 3. Increase activity level Personal Factors Other Personal Factors That May Effect Pt has a developmental Therapy/Recovery disability and is unable to drive herself to appointments (notes that her mother should be able to drive her to her appointments after work) PT-OP-C Subjective Start: 11/02/19 12:25 Freq: Status: Active Protocol: Document 11/10/19 17:32 HH (Rec: 11/10/19 18:12 [id number]) OP-PT Subjective Patient Comments Patient Comments The standing knee extension hurts me a lot and i dont know why. The shoe lift from last time hasnt bothered me at all. PT-OP-D Balance Start: 11/02/19 12:25 Freq: Status: Active Protocol: Document 11/02/19 17:36 HH (Rec: 11/02/19 18:50 [id number]) Balance Tests Single Limb Standing Single Limb- Right 8s Single Limb- Left 17s PT-OP-F Manual Assessment Start: 11/02/19 12:25 Freq: Status: Active Protocol: Document 11/02/19 17:36 HH (Rec: 11/02/19 18:50 [id number]) Manual Assessments Joint Mobility Assessment Joint Mobility Assessment excessive B patellar lateral shift with B knee extension PT-OP-G Mobility & Gait Start: 11/02/19 12:25 Freq: Status: Active Protocol: Document 11/02/19 17:36 HH (Rec: 11/02/19 18:50 [id number]) OP Gait Assessment Comments Gait Comments L LE early heel rise, scissoring gait pattern B excess trunk rotation, genu valgum PT-OP-H Neuro Start: 11/02/19 12:25 Freq: Status: Active Protocol: Document 11/02/19 17:36 HH (Rec: 11/02/19 18:50 [id number]) Sensation Evaluation Gross Sensation Gross Sensation WNL Deep Tendon Reflex & Clonus Assessment Deep Tendon Reflex Bilateral Achilles Deep Tendon Reflex 2+ Normal Bilateral Patellar Deep Tendon Reflex 1+ Diminished PT-OP-J Posture/Palpation/Skin Start: 11/02/19 12:25 Freq: Status: Active Protocol: Document 11/02/19 17:36 HH (Rec: 11/02/19 18:50 [id number]) Posture Evaluation Position Standing Evaluation View Lateral L-Spine Posture Increased Lordosis Pelvis Posture Anteriorly Tilted Weight Distribution Weight Shifted Right Knee Posture (R) Genu Valgus,(R) Genu Recurvatum Ankle/Foot Posture (L) Pronated,(R) Pronated Foot Arch (L) Low Arch,(R) Low Arch PT-OP-L Special Tests Start: 11/02/19 12:25 Freq: Status: Active Protocol: Document 11/02/19 17:36 HH (Rec: 11/02/19 18:50 [id number]) Special Tests Knee Special Tests Nigel Test Results +ve Comments L rectus femoris 40 dg knee flexion, IT band 25 dg abd R rectus femoris 50 dg knee flexion, IT band 20 dg abd Sea's Test Test Results +ve Connor's Compression Test Results -ve John's Sign Test Results -ve Varus- 25 Degrees Test Results -ve Varus- 0 Degrees Test Results -ve Valgus- 25 Degrees Test Results -ve Valgus- 0 Degrees Test Results -ve Patellar Grind Test Test Results -ve Chris Test Test Results -ve Posterior Draw Test Results -ve Anterior Draw Test Results -ve Other Special Tests Special Tests ant reach test L 21 with dynamic valgus, R 23 +ve sx reproduction with stair descending, dynamic valgus PT-OP-M Strength Start: 11/02/19 12:25 Freq: Status: Active Protocol: Document 11/02/19 17:36 HH (Rec: 11/02/19 18:50 [id number]) Hip Strength Hip Manual Muscle Testing Right Flexion (L2) 4 Good Abduction 4 Good Left Flexion (L2) 4 Good Abduction 3+ Fair+ Knee Strength Knee Manual Muscle Testing Right Flexion (S2) 5 Normal Extension (L3) 5 Normal Left Flexion (S2) 4 Good Extension (L3) 4 Good Comments pain for resisted long arc extension PT-OP-Q Treatments Start: 11/02/19 12:25 Freq: Status: Active Protocol: Document 11/10/19 17:32 HH (Rec: 11/10/19 18:12 [id number]) Cardio Equipment Recumbent Bicycle Duration (Minutes) 7 Resistance 1 Gym Equipment Shuttle Recovery heel raise Resistance #50lbs Shuttle Recovery Platform Stable Reps/Time 12 x 2 Unilateral Squats Details SL squat Resistance #50-62 Shuttle Recovery Platform Stable Reps/Time 10 x 3 Bilateral Squats Details with level 1 abd band Resistance #75 Shuttle Recovery Platform Stable Reps/Time 10 x 2 Therapeutic Exercises Supine Exercises supine bridging Supine Exercise Name with level 1 band Side bilateral Reps/Minutes 8 x2 Comments with isometric hip abd supine hip abd Supine Exercise Name with level 1 band Side bilateral Reps/Minutes 8 x 2 supine TKE Supine Exercise Name L TKE Side left Resistance pillow underneath ankle Reps/Minutes 5secs hold x 5 Standing Exercises hip hinge Side bilateral Equipment Used grab bar Reps/Minutes 10 x2 Comments cues on hip dominant movement. Standing TKE Standing Exercise Name shorter distance from anchor point Side left Resistance Level 1 and 2 TB Reps/Minutes 10 mins Comments standing TKE f/b single leg stance on L Manual Therapy Treatment Soft Tissue Mobilization quads Body Location L quads (lateral > medial) Mobilization Type Rolling Intensity/Depth Moderate Body Position Supine Comments quad release. patella tendon Body Location L Mobilization Type Sustained Pressure,Trigger Point Release Intensity/Depth Moderate Body Position Supine Taping patella Body Location L knee Treatment Focus improved medial tracking patella. Type of Tape Kinesio Tape Comments 2 I strip from lateral and medial quad to medial joint line and lateral joint line. PT-OP-T Assessment and Plan Start: 11/02/19 12:25 Freq: Status: Active Protocol: Document 11/10/19 17:32 (Rec: 11/10/19 18:12 [id number]) Physical Therapy Assessment Goals Ant reach test Impairment Pt demonstrates abnormal asymmetry with ant reach test Short Term Goal (STG) Pt will demonstrate <1.5 difference during ant reach test STG Duration 4 weeks Prison Goal (LTG) Pt will demonstrate <1 difference during ant reach test to reduce risk of reinjury LTG Duration 8 weeks 3 Impairment Pt scores 49/80 on LEFS Short Term Goal (STG) Pt will improve LEFS to 58/80 to reflect improved activity limitations and participation restrictions STG Duration 4 weeks Cloth Bleaching Range Operator Chief Goal (LTG) Pt will improve LEFS to 67/80 to reflect improved activity limitations and participation restrictions LTG Duration 8 weeks 2 Impairment Pt reports pain with walking Short Term Goal (STG) Pt will be able to walk >10 min without pain exacerbation to improve activity tolerance STG Duration 4 weeks Cloth Bleaching Range Operator Chief Goal (LTG) Pt will be able to walk >20 min without pain exacerbation to improve activity tolerance LTG Duration 8 weeks 1 Impairment Pt demonstrates impaired B SL balance Short Term Goal (STG) Pt will inc SL stance time by 10 to improve single leg strength and stability STG Duration 4 weeks Cloth Bleaching Range Operator Chief Goal (LTG) Pt will inc SL stance time by 20 to improve single leg strength and stability LTG Duration 8 weeks Assessment Summary Assessment Pt cont to have pain with L knee flexion <0. Modified her standing TKE by reducing distance from anchor point. Introduced hip dominant movements today and pt denies discomfort. Physical Therapy Plan Next Visit Focus/Plan Next Note Type Treatment Note Next Visit Plan Reassess shoe insert tolerance MT quads, IT band Patellar taping hip dominant mvmt Core/LE strengthening (gravity reduced) Hip dominant movement strategies
--- NOTE | 2019-11-15 18:17 | PT.OTN ---
Current Diagnoses Pain in left knee (11/15/19) Prepatellar bursitis, left knee (11/15/19) Physical Therapy Treatment Note PT-OP-A Visit Information Start: 11/02/19 12:25 Freq: Status: Active Protocol: Document 11/15/19 17:31 HH (Rec: 11/15/19 18:15 [id number]) Out-Patient Physical Therapy Visit Information Visit Information Visit Type Treatment Note Visit Note tx led by DORCAS Rdz Visit Start Time 17:31 Visit Stop Time 18:15 Total Visit Minutes 44 Visit Number 4 Number of CHEESEMAKER Visits 0 PT-OP-B Current Condition Start: 11/02/19 12:25 Freq: Status: Active Protocol: Document 11/02/19 17:36 HH (Rec: 11/02/19 18:50 HH [id number]) Current Condition History of Current Condition Onset Date Several months ago Current Complaints L ant knee pain History of Current Condition Pt presents to PT with primary c/o L ant knee pain with activity and sleeping. Pt has difficulty describing her pain but notes that it sometimes feels sharp, especially when walking or sleeping. She notes that she uses a pillow under her knee when sleeping which sometimes provides relief. Self massage and change of position tends to relieve her knee pain. Pt also wears a knee brace (min support) for long distance walking such as grocery shopping which provides her with some relief. Pt was attending PT in June for the same complaint but had to stop attending d/t scheduling issues. Pt was provided with HEP, which she said helped for a while but then the exercises such as the banded squat started to increase her knee pain. Overall pt says that her pain has stayed about the same since June. Pt had an MRI on her knee which showed a lateral patellofemoral ligament sprain . Prior Treatments and Tests Had PT at June 2019 MRI August 2019 showed lateral patellofemoral ligament sprain, mild edema Treatment Goals Patient/Caregiver Goals 1. Sleep without knee pain 2. Be able to walk without pain 3. Increase activity level Personal Factors Other Personal Factors That May Effect Pt has a developmental Therapy/Recovery disability and is unable to drive herself to appointments (notes that her mother should be able to drive her to her appointments after work) PT-OP-C Subjective Start: 11/02/19 12:25 Freq: Status: Active Protocol: Document 11/15/19 17:31 HH (Rec: 11/15/19 18:15 HH [id number]) OP-PT Subjective Patient Comments Patient Comments My exercises didnt hurt my knee anymore. Walking doesnt hurt either with my shoe lift. I was wondering if i could cont walking. However, its still hurting while sleeping and woke me up every couple hours. Patient Reported Progress Improving PT-OP-D Balance Start: 11/02/19 12:25 Freq: Status: Active Protocol: Document 11/02/19 17:36 HH (Rec: 11/02/19 18:50 [id number]) Balance Tests Single Limb Standing Single Limb- Right 8s Single Limb- Left 17s PT-OP-F Manual Assessment Start: 11/02/19 12:25 Freq: Status: Active Protocol: Document 11/02/19 17:36 HH (Rec: 11/02/19 18:50 [id number]) Manual Assessments Joint Mobility Assessment Joint Mobility Assessment excessive B patellar lateral shift with B knee extension PT-OP-G Mobility & Gait Start: 11/02/19 12:25 Freq: Status: Active Protocol: Document 11/02/19 17:36 HH (Rec: 11/02/19 18:50 [id number]) OP Gait Assessment Comments Gait Comments L LE early heel rise, scissoring gait pattern B excess trunk rotation, genu valgum PT-OP-H Neuro Start: 11/02/19 12:25 Freq: Status: Active Protocol: Document 11/02/19 17:36 HH (Rec: 11/02/19 18:50 [id number]) Sensation Evaluation Gross Sensation Gross Sensation WNL Deep Tendon Reflex & Clonus Assessment Deep Tendon Reflex Bilateral Achilles Deep Tendon Reflex 2+ Normal Bilateral Patellar Deep Tendon Reflex 1+ Diminished PT-OP-J Posture/Palpation/Skin Start: 11/02/19 12:25 Freq: Status: Active Protocol: Document 11/02/19 17:36 HH (Rec: 11/02/19 18:50 [id number]) Posture Evaluation Position Standing Evaluation View Lateral L-Spine Posture Increased Lordosis Pelvis Posture Anteriorly Tilted Weight Distribution Weight Shifted Right Knee Posture (R) Genu Valgus,(R) Genu Recurvatum Ankle/Foot Posture (L) Pronated,(R) Pronated Foot Arch (L) Low Arch,(R) Low Arch PT-OP-L Special Tests Start: 11/02/19 12:25 Freq: Status: Active Protocol: Document 11/02/19 17:36 HH (Rec: 11/02/19 18:50 [id number]) Special Tests Knee Special Tests Nigel Test Results +ve Comments L rectus femoris 40 dg knee flexion, IT band 25 dg abd R rectus femoris 50 dg knee flexion, IT band 20 dg abd Sea's Test Test Results +ve Connor's Compression Test Results -ve John's Sign Test Results -ve Varus- 25 Degrees Test Results -ve Varus- 0 Degrees Test Results -ve Valgus- 25 Degrees Test Results -ve Valgus- 0 Degrees Test Results -ve Patellar Grind Test Test Results -ve hCris Test Test Results -ve Posterior Draw Test Results -ve Anterior Draw Test Results -ve Other Special Tests Special Tests ant reach test L 21 with dynamic valgus, R 23 +ve sx reproduction with stair descending, dynamic valgus PT-OP-M Strength Start: 11/02/19 12:25 Freq: Status: Active Protocol: Document 11/02/19 17:36 HH (Rec: 11/02/19 18:50 [id number]) Hip Strength Hip Manual Muscle Testing Right Flexion (L2) 4 Good Abduction 4 Good Left Flexion (L2) 4 Good Abduction 3+ Fair+ Knee Strength Knee Manual Muscle Testing Right Flexion (S2) 5 Normal Extension (L3) 5 Normal Left Flexion (S2) 4 Good Extension (L3) 4 Good Comments pain for resisted long arc extension PT-OP-Q Treatments Start: 11/02/19 12:25 Freq: Status: Active Protocol: Document 11/15/19 17:31 HH (Rec: 11/15/19 18:15 [id number]) Cardio Equipment Recumbent Bicycle Duration (Minutes) 7 Resistance 1 Gym Equipment Shuttle Recovery heel raise Resistance #50lbs Shuttle Recovery Platform Stable Reps/Time 12 x 2 Unilateral Squats Details SL squat Resistance #50-62 Shuttle Recovery Platform Stable Reps/Time 10 x 3 Bilateral Squats Details with level 1 abd band Resistance #75 Shuttle Recovery Platform Stable Reps/Time 10 x 2 Therapeutic Exercises Supine Exercises supine unilateral fall out Supine Exercise Name unilateral hip abd Equipment Used level 1 band Reps/Minutes 8x2 supine bridging Supine Exercise Name with level 1 band Side bilateral Reps/Minutes 8 x2 Comments with isometric hip abd Standing Exercises heel toe gait Side bilateral Reps/Minutes 20 ft x 2 hip hinge Side bilateral Equipment Used grab bar Reps/Minutes 10 x2 Comments cues on heel push off Manual Therapy Treatment Soft Tissue Mobilization hamstrings Body Location L Mobilization Type Sustained Pressure,Trigger Point Release Intensity/Depth Moderate Body Position Prone quads Body Location L quads (lateral > medial) Mobilization Type Rolling Intensity/Depth Moderate Body Position Supine Comments quad release. patella tendon Body Location L Mobilization Type Sustained Pressure,Trigger Point Release Intensity/Depth Moderate Body Position Supine PT-OP-T Assessment and Plan Start: 11/02/19 12:25 Freq: Status: Active Protocol: Document 11/15/19 17:31 HH (Rec: 11/15/19 18:15 [id number]) Physical Therapy Assessment Goals Ant reach test Impairment Pt demonstrates abnormal asymmetry with ant reach test Short Term Goal (STG) Pt will demonstrate <1.5 difference during ant reach test STG Duration 4 weeks [facility] Goal (LTG) Pt will demonstrate <1 difference during ant reach test to reduce risk of reinjury LTG Duration 8 weeks 3 Impairment Pt scores 49/80 on LEFS Short Term Goal (STG) Pt will improve LEFS to 58/80 to reflect improved activity limitations and participation restrictions STG Duration 4 weeks [facility] Goal (LTG) Pt will improve LEFS to 67/80 to reflect improved activity limitations and participation restrictions LTG Duration 8 weeks 2 Impairment Pt reports pain with walking Short Term Goal (STG) Pt will be able to walk >10 min without pain exacerbation to improve activity tolerance STG Duration 4 weeks [facility] Goal (LTG) Pt will be able to walk >20 min without pain exacerbation to improve activity tolerance LTG Duration 8 weeks 1 Impairment Pt demonstrates impaired B SL balance Short Term Goal (STG) Pt will inc SL stance time by 10 to improve single leg strength and stability STG Duration 4 weeks Jewelry Facer Goal (LTG) Pt will inc SL stance time by 20 to improve single leg strength and stability LTG Duration 8 weeks Assessment Summary Assessment Pt has reduced pain during HEP and daily activities since last session. Pt cont to demonstrate limited L knee extension in stance and supine . At start of treatment pt lacking 10 dg extension, after MT pt lacking 5 dg extension. Pt demonstrates difficulty with hip dominant movement patterns and cont to rely on quad/knee dominant movements. Gait improving after cuing to keep L knee straight when WBing. Physical Therapy Plan Next Visit Focus/Plan Next Note Type Treatment Note Next Visit Plan Reassess shoe insert tolerance Patellar taping hip dominant mvmt Core/LE strengthening (gravity reduced) Hip dominant movement strategies
--- NOTE | 2019-11-17 18:24 | PT.OTN ---
Current Diagnoses Pain in left knee (11/17/19) Prepatellar bursitis, left knee (11/17/19) Physical Therapy Treatment Note PT-OP-A Visit Information Start: 11/02/19 12:25 Freq: Status: Active Protocol: Document 11/17/19 17:32 HH (Rec: 11/17/19 18:18 [id number]) Out-Patient Physical Therapy Visit Information Visit Information Visit Type Treatment Note Visit Note tx led by DORCAS Rdz Visit Start Time 17:32 Visit Stop Time 18:15 Total Visit Minutes 43 Visit Number 5 Number of LEAD PASTOR Visits 0 PT-OP-B Current Condition Start: 11/02/19 12:25 Freq: Status: Active Protocol: Document 11/02/19 17:36 HH (Rec: 11/02/19 18:50 HH [id number]) Current Condition History of Current Condition Onset Date Several months ago Current Complaints L ant knee pain History of Current Condition Pt presents to PT with primary c/o L ant knee pain with activity and sleeping. Pt has difficulty describing her pain but notes that it sometimes feels sharp, especially when walking or sleeping. She notes that she uses a pillow under her knee when sleeping which sometimes provides relief. Self massage and change of position tends to relieve her knee pain. Pt also wears a knee brace (min support) for long distance walking such as grocery shopping which provides her with some relief. Pt was attending PT in June for the same complaint but had to stop attending d/t scheduling issues. Pt was provided with HEP, which she said helped for a while but then the exercises such as the banded squat started to increase her knee pain. Overall pt says that her pain has stayed about the same since June. Pt had an MRI on her knee which showed a lateral patellofemoral ligament sprain . Prior Treatments and Tests Had PT at June 2019 MRI August 2019 showed lateral patellofemoral ligament sprain, mild edema Treatment Goals Patient/Caregiver Goals 1. Sleep without knee pain 2. Be able to walk without pain 3. Increase activity level Personal Factors Other Personal Factors That May Effect Pt has a developmental Therapy/Recovery disability and is unable to drive herself to appointments (notes that her mother should be able to drive her to her appointments after work) PT-OP-C Subjective Start: 11/02/19 12:25 Freq: Status: Active Protocol: Document 11/17/19 17:32 HH (Rec: 11/17/19 18:18 [id number]) OP-PT Subjective Patient Comments Patient Comments I dont know why my knee hurts a bit more now but doing home exercises didnt bother me at all. PT-OP-D Balance Start: 11/02/19 12:25 Freq: Status: Active Protocol: Document 11/02/19 17:36 HH (Rec: 11/02/19 18:50 [id number]) Balance Tests Single Limb Standing Single Limb- Right 8s Single Limb- Left 17s PT-OP-F Manual Assessment Start: 11/02/19 12:25 Freq: Status: Active Protocol: Document 11/02/19 17:36 HH (Rec: 11/02/19 18:50 [id number]) Manual Assessments Joint Mobility Assessment Joint Mobility Assessment excessive B patellar lateral shift with B knee extension PT-OP-G Mobility & Gait Start: 11/02/19 12:25 Freq: Status: Active Protocol: Document 11/02/19 17:36 HH (Rec: 11/02/19 18:50 [id number]) OP Gait Assessment Comments Gait Comments L LE early heel rise, scissoring gait pattern B excess trunk rotation, genu valgum PT-OP-H Neuro Start: 11/02/19 12:25 Freq: Status: Active Protocol: Document 11/02/19 17:36 HH (Rec: 11/02/19 18:50 [id number]) Sensation Evaluation Gross Sensation Gross Sensation WNL Deep Tendon Reflex & Clonus Assessment Deep Tendon Reflex Bilateral Achilles Deep Tendon Reflex 2+ Normal Bilateral Patellar Deep Tendon Reflex 1+ Diminished PT-OP-J Posture/Palpation/Skin Start: 11/02/19 12:25 Freq: Status: Active Protocol: Document 11/02/19 17:36 HH (Rec: 11/02/19 18:50 [id number]) Posture Evaluation Position Standing Evaluation View Lateral L-Spine Posture Increased Lordosis Pelvis Posture Anteriorly Tilted Weight Distribution Weight Shifted Right Knee Posture (R) Genu Valgus,(R) Genu Recurvatum Ankle/Foot Posture (L) Pronated,(R) Pronated Foot Arch (L) Low Arch,(R) Low Arch PT-OP-L Special Tests Start: 11/02/19 12:25 Freq: Status: Active Protocol: Document 11/02/19 17:36 HH (Rec: 11/02/19 18:50 [id number]) Special Tests Knee Special Tests Nigel Test Results +ve Comments L rectus femoris 40 dg knee flexion, IT band 25 dg abd R rectus femoris 50 dg knee flexion, IT band 20 dg abd Sea's Test Test Results +ve Connor's Compression Test Results -ve John's Sign Test Results -ve Varus- 25 Degrees Test Results -ve Varus- 0 Degrees Test Results -ve Valgus- 25 Degrees Test Results -ve Valgus- 0 Degrees Test Results -ve Patellar Grind Test Test Results -ve Chris Test Test Results -ve Posterior Draw Test Results -ve Anterior Draw Test Results -ve Other Special Tests Special Tests ant reach test L 21 with dynamic valgus, R 23 +ve sx reproduction with stair descending, dynamic valgus PT-OP-M Strength Start: 11/02/19 12:25 Freq: Status: Active Protocol: Document 11/02/19 17:36 (Rec: 11/02/19 18:50 [id number]) Hip Strength Hip Manual Muscle Testing Right Flexion (L2) 4 Good Abduction 4 Good Left Flexion (L2) 4 Good Abduction 3+ Fair+ Knee Strength Knee Manual Muscle Testing Right Flexion (S2) 5 Normal Extension (L3) 5 Normal Left Flexion (S2) 4 Good Extension (L3) 4 Good Comments pain for resisted long arc extension PT-OP-Q Treatments Start: 11/02/19 12:25 Freq: Status: Active Protocol: Document 11/17/19 17:32 (Rec: 11/17/19 18:18 [id number]) Gym Equipment Shuttle Recovery heel raise Resistance #75lbs Shuttle Recovery Platform Stable Reps/Time 12 x 2 Unilateral Squats Details SL squat Resistance #50-62 Shuttle Recovery Platform Stable Reps/Time 10 x 3 Therapeutic Exercises Supine Exercises supine bridging Supine Exercise Name with level 1 band Side bilateral Reps/Minutes 8 x2 Comments with isometric hip abd Standing Exercises heel toe gait Side left Reps/Minutes 10 ft x 3 Comments rocking f/b stepping over yrn hip hinge Side bilateral Equipment Used chair behind for cuing Reps/Minutes 10 x3 Comments cues on post weight shift; normal hip hinge f/b 5 pause at bottom Manual Therapy Treatment Soft Tissue Mobilization hamstrings Body Location L Mobilization Type Sustained Pressure,Trigger Point Release Intensity/Depth Moderate Body Position Prone quads Body Location L quads (lateral > medial) Mobilization Type Rolling Intensity/Depth Moderate Body Position Supine Comments quad release. patella tendon Body Location L Mobilization Type Sustained Pressure,Trigger Point Release Intensity/Depth Moderate Body Position Supine PT-OP-T Assessment and Plan Start: 11/02/19 12:25 Freq: Status: Active Protocol: Document 11/17/19 17:32 HH (Rec: 11/17/19 18:18 [id number]) Physical Therapy Assessment Goals Ant reach test Impairment Pt demonstrates abnormal asymmetry with ant reach test Short Term Goal (STG) Pt will demonstrate <1.5 difference during ant reach test STG Duration 4 weeks Quality Assurance Assessor Goal (LTG) Pt will demonstrate <1 difference during ant reach test to reduce risk of reinjury LTG Duration 8 weeks 3 Impairment Pt scores 49/80 on LEFS Short Term Goal (STG) Pt will improve LEFS to 58/80 to reflect improved activity limitations and participation restrictions STG Duration 4 weeks Quality Assurance Assessor Goal (LTG) Pt will improve LEFS to 67/80 to reflect improved activity limitations and participation restrictions LTG Duration 8 weeks 2 Impairment Pt reports pain with walking Short Term Goal (STG) Pt will be able to walk >10 min without pain exacerbation to improve activity tolerance STG Duration 4 weeks Fpc Goal (LTG) Pt will be able to walk >20 min without pain exacerbation to improve activity tolerance LTG Duration 8 weeks 1 Impairment Pt demonstrates impaired B SL balance Short Term Goal (STG) Pt will inc SL stance time by 10 to improve single leg strength and stability STG Duration 4 weeks Fpc Goal (LTG) Pt will inc SL stance time by 20 to improve single leg strength and stability LTG Duration 8 weeks Assessment Summary Assessment Pt cont denies any discomfort/ pain during session. Pt cont to demonstrate limited passive knee extension but improved after MT and pt demonstrates improved TKE during stance and gait after ther ex. Pt demonstrates improving hip dominant movement strategies. Disc attempting to use firm pillow between legs at night to improve sleep. Physical Therapy Plan Next Visit Focus/Plan Next Note Type Treatment Note Next Visit Plan Reassess shoe insert tolerance Patellar taping hip dominant mvmt Core/LE strengthening (gravity reduced) Hip dominant movement strategies
--- NOTE | 2019-12-01 17:41 | PT.OTN ---
Current Diagnoses Pain in left knee (12/01/19) Prepatellar bursitis, left knee (12/01/19) Physical Therapy Treatment Note PT-OP-A Visit Information Start: 11/02/19 12:25 Freq: Status: Active Protocol: Document 12/01/19 16:48 HH (Rec: 12/01/19 17:39 HH [id number]) Out-Patient Physical Therapy Visit Information Visit Information Visit Type Treatment Note Visit Start Time 16:48 Visit Stop Time 17:30 Total Visit Minutes 42 Visit Number 6 Number of DRUM SANDER SETTER Visits 0 PT-OP-B Current Condition Start: 11/02/19 12:25 Freq: Status: Active Protocol: Document 11/02/19 17:36 HH (Rec: 11/02/19 18:50 HH [id number]) Current Condition History of Current Condition Onset Date Several months ago Current Complaints L ant knee pain History of Current Condition Pt presents to PT with primary c/o L ant knee pain with activity and sleeping. Pt has difficulty describing her pain but notes that it sometimes feels sharp, especially when walking or sleeping. She notes that she uses a pillow under her knee when sleeping which sometimes provides relief. Self massage and change of position tends to relieve her knee pain. Pt also wears a knee brace (min support) for long distance walking such as grocery shopping which provides her with some relief. Pt was attending PT in June for the same complaint but had to stop attending d/t scheduling issues. Pt was provided with HEP, which she said helped for a while but then the exercises such as the banded squat started to increase her knee pain. Overall pt says that her pain has stayed about the same since June. Pt had an MRI on her knee which showed a lateral patellofemoral ligament sprain . Prior Treatments and Tests Had PT at June 2019 MRI August 2019 showed lateral patellofemoral ligament sprain, mild edema Treatment Goals Patient/Caregiver Goals 1. Sleep without knee pain 2. Be able to walk without pain 3. Increase activity level Personal Factors Other Personal Factors That May Effect Pt has a developmental Therapy/Recovery disability and is unable to drive herself to appointments (notes that her mother should be able to drive her to her appointments after work) PT-OP-C Subjective Start: 11/02/19 12:25 Freq: Status: Active Protocol: Document 12/01/19 16:48 HH (Rec: 12/01/19 17:39 HH [id number]) OP-PT Subjective Patient Comments Patient Comments My L knee is still hurting especially at night. standing/ supine knee extension seems to make it worse. I also got a new knee brace that seems to help. Patient Reported Progress Same PT-OP-D Balance Start: 11/02/19 12:25 Freq: Status: Active Protocol: Document 11/02/19 17:36 HH (Rec: 11/02/19 18:50 [id number]) Balance Tests Single Limb Standing Single Limb- Right 8s Single Limb- Left 17s PT-OP-F Manual Assessment Start: 11/02/19 12:25 Freq: Status: Active Protocol: Document 11/02/19 17:36 HH (Rec: 11/02/19 18:50 [id number]) Manual Assessments Joint Mobility Assessment Joint Mobility Assessment excessive B patellar lateral shift with B knee extension PT-OP-G Mobility & Gait Start: 11/02/19 12:25 Freq: Status: Active Protocol: Document 11/02/19 17:36 HH (Rec: 11/02/19 18:50 [id number]) OP Gait Assessment Comments Gait Comments L LE early heel rise, scissoring gait pattern B excess trunk rotation, genu valgum PT-OP-H Neuro Start: 11/02/19 12:25 Freq: Status: Active Protocol: Document 11/02/19 17:36 HH (Rec: 11/02/19 18:50 [id number]) Sensation Evaluation Gross Sensation Gross Sensation WNL Deep Tendon Reflex & Clonus Assessment Deep Tendon Reflex Bilateral Achilles Deep Tendon Reflex 2+ Normal Bilateral Patellar Deep Tendon Reflex 1+ Diminished PT-OP-J Posture/Palpation/Skin Start: 11/02/19 12:25 Freq: Status: Active Protocol: Document 11/02/19 17:36 HH (Rec: 11/02/19 18:50 [id number]) Posture Evaluation Position Standing Evaluation View Lateral L-Spine Posture Increased Lordosis Pelvis Posture Anteriorly Tilted Weight Distribution Weight Shifted Right Knee Posture (R) Genu Valgus,(R) Genu Recurvatum Ankle/Foot Posture (L) Pronated,(R) Pronated Foot Arch (L) Low Arch,(R) Low Arch PT-OP-L Special Tests Start: 11/02/19 12:25 Freq: Status: Active Protocol: Document 11/02/19 17:36 HH (Rec: 11/02/19 18:50 [id number]) Special Tests Knee Special Tests Nigel Test Results +ve Comments L rectus femoris 40 dg knee flexion, IT band 25 dg abd R rectus femoris 50 dg knee flexion, IT band 20 dg abd Sea's Test Test Results +ve Connor's Compression Test Results -ve John's Sign Test Results -ve Varus- 25 Degrees Test Results -ve Varus- 0 Degrees Test Results -ve Valgus- 25 Degrees Test Results -ve Valgus- 0 Degrees Test Results -ve Patellar Grind Test Test Results -ve Chris Test Test Results -ve Posterior Draw Test Results -ve Anterior Draw Test Results -ve Other Special Tests Special Tests ant reach test L 21 with dynamic valgus, R 23 +ve sx reproduction with stair descending, dynamic valgus PT-OP-M Strength Start: 11/02/19 12:25 Freq: Status: Active Protocol: Document 11/02/19 17:36 HH (Rec: 11/02/19 18:50 [id number]) Hip Strength Hip Manual Muscle Testing Right Flexion (L2) 4 Good Abduction 4 Good Left Flexion (L2) 4 Good Abduction 3+ Fair+ Knee Strength Knee Manual Muscle Testing Right Flexion (S2) 5 Normal Extension (L3) 5 Normal Left Flexion (S2) 4 Good Extension (L3) 4 Good Comments pain for resisted long arc extension PT-OP-Q Treatments Start: 11/02/19 12:25 Freq: Status: Active Protocol: Document 12/01/19 16:48 HH (Rec: 12/01/19 17:39 [id number]) Cardio Equipment Recumbent Bicycle Duration (Minutes) 7 Resistance 5 Therapeutic Exercises Supine Exercises quad+ hip flexor mob Supine Exercise Name L quad and hip Side left Equipment Used with gait belt to assist. Reps/Minutes 30 sec x 5 Comments nigel test position SLR Supine Exercise Name foot turn machine operator Side left Reps/Minutes 8 x2 Comments pt denies discomfort supine bridging Supine Exercise Name with level 1 band Side bilateral Reps/Minutes 8 x2 Comments with isometric hip abd Sitting Exercises marching Sitting Exercise Name 3 secs hold for SLS Side bilateral Reps/Minutes 3 secs hold x 15 x 2 Standing Exercises step up Equipment Used 6 inch box Reps/Minutes 8 x 2 Comments c/o knee discomfort for 8 inch step crab walk Side bilateral Equipment Used yellow band Reps/Minutes 10 ft x 6 Comments hip hinge pattern Manual Therapy Treatment Soft Tissue Mobilization quads Body Location L quads (lateral > medial) Mobilization Type Rolling Intensity/Depth Moderate Body Position Supine Comments quad release. patella tendon Body Location L Mobilization Type Sustained Pressure,Trigger Point Release Intensity/Depth Moderate Body Position Supine PT-OP-T Assessment and Plan Start: 11/02/19 12:25 Freq: Status: Active Protocol: Document 12/01/19 16:48 HH (Rec: 12/01/19 17:39 HH [id number]) Physical Therapy Assessment Goals Ant reach test Impairment Pt demonstrates abnormal asymmetry with ant reach test Short Term Goal (STG) Pt will demonstrate <1.5 difference during ant reach test STG Duration 4 weeks Vascular Technologist Goal (LTG) Pt will demonstrate <1 difference during ant reach test to reduce risk of reinjury LTG Duration 8 weeks 3 Impairment Pt scores 49/80 on LEFS Short Term Goal (STG) Pt will improve LEFS to 58/80 to reflect improved activity limitations and participation restrictions STG Duration 4 weeks Vascular Technologist Goal (LTG) Pt will improve LEFS to 67/80 to reflect improved activity limitations and participation restrictions LTG Duration 8 weeks 2 Impairment Pt reports pain with walking Short Term Goal (STG) Pt will be able to walk >10 min without pain exacerbation to improve activity tolerance STG Duration 4 weeks Vascular Technologist Goal (LTG) Pt will be able to walk >20 min without pain exacerbation to improve activity tolerance LTG Duration 8 weeks 1 Impairment Pt demonstrates impaired B SL balance Short Term Goal (STG) Pt will inc SL stance time by 10 to improve single leg strength and stability STG Duration 4 weeks Assisted Goal (LTG) Pt will inc SL stance time by 20 to improve single leg strength and stability LTG Duration 8 weeks Assessment Summary Assessment Pt cont to have ongoing L knee pain seems to be irritated by supine/ standing TKE. She denies pain with SLR. Tx focused on STM on L quad and patellar tendon, added stretching at nigel test position. Physical Therapy Plan Next Visit Focus/Plan Next Note Type Treatment Note Next Visit Plan check post tx symptoms Patellar taping hip dominant mvmt Core/LE strengthening (gravity reduced) Hip dominant movement strategies
--- NOTE | 2019-12-06 18:25 | PT.OTN ---
Current Diagnoses Pain in left knee (12/06/19) Prepatellar bursitis, left knee (12/06/19) Physical Therapy Treatment Note PT-OP-A Visit Information Start: 11/02/19 12:25 Freq: Status: Active Protocol: Document 12/06/19 17:30 HH (Rec: 12/06/19 18:24 HH [id number]) Out-Patient Physical Therapy Visit Information Visit Information Visit Type Treatment Note Visit Start Time 17:30 Visit Stop Time 18:15 Total Visit Minutes 45 Visit Number 7 Number of HUMANE AGENT Visits 0 PT-OP-B Current Condition Start: 11/02/19 12:25 Freq: Status: Active Protocol: Document 11/02/19 17:36 HH (Rec: 11/02/19 18:50 HH [id number]) Current Condition History of Current Condition Onset Date Several months ago Current Complaints L ant knee pain History of Current Condition Pt presents to PT with primary c/o L ant knee pain with activity and sleeping. Pt has difficulty describing her pain but notes that it sometimes feels sharp, especially when walking or sleeping. She notes that she uses a pillow under her knee when sleeping which sometimes provides relief. Self massage and change of position tends to relieve her knee pain. Pt also wears a knee brace (min support) for long distance walking such as grocery shopping which provides her with some relief. Pt was attending PT in June for the same complaint but had to stop attending d/t scheduling issues. Pt was provided with HEP, which she said helped for a while but then the exercises such as the banded squat started to increase her knee pain. Overall pt says that her pain has stayed about the same since June. Pt had an MRI on her knee which showed a lateral patellofemoral ligament sprain . Prior Treatments and Tests Had PT at June 2019 MRI August 2019 showed lateral patellofemoral ligament sprain, mild edema Treatment Goals Patient/Caregiver Goals 1. Sleep without knee pain 2. Be able to walk without pain 3. Increase activity level Personal Factors Other Personal Factors That May Effect Pt has a developmental Therapy/Recovery disability and is unable to drive herself to appointments (notes that her mother should be able to drive her to her appointments after work) PT-OP-C Subjective Start: 11/02/19 12:25 Freq: Status: Active Protocol: Document 12/06/19 17:30 HH (Rec: 12/06/19 18:24 HH [id number]) OP-PT Subjective Patient Comments Patient Comments My L knee pain didnt get worse but i dont really have pain in the daytime except when im sleeping on my L side seems to wake me up d/t pain. I've been doing my exercises. Patient Reported Progress Same PT-OP-D Balance Start: 11/02/19 12:25 Freq: Status: Active Protocol: Document 11/02/19 17:36 HH (Rec: 11/02/19 18:50 [id number]) Balance Tests Single Limb Standing Single Limb- Right 8s Single Limb- Left 17s PT-OP-F Manual Assessment Start: 11/02/19 12:25 Freq: Status: Active Protocol: Document 11/02/19 17:36 HH (Rec: 11/02/19 18:50 [id number]) Manual Assessments Joint Mobility Assessment Joint Mobility Assessment excessive B patellar lateral shift with B knee extension PT-OP-G Mobility & Gait Start: 11/02/19 12:25 Freq: Status: Active Protocol: Document 11/02/19 17:36 HH (Rec: 11/02/19 18:50 [id number]) OP Gait Assessment Comments Gait Comments L LE early heel rise, scissoring gait pattern B excess trunk rotation, genu valgum PT-OP-H Neuro Start: 11/02/19 12:25 Freq: Status: Active Protocol: Document 11/02/19 17:36 HH (Rec: 11/02/19 18:50 [id number]) Sensation Evaluation Gross Sensation Gross Sensation WNL Deep Tendon Reflex & Clonus Assessment Deep Tendon Reflex Bilateral Achilles Deep Tendon Reflex 2+ Normal Bilateral Patellar Deep Tendon Reflex 1+ Diminished PT-OP-J Posture/Palpation/Skin Start: 11/02/19 12:25 Freq: Status: Active Protocol: Document 11/02/19 17:36 HH (Rec: 11/02/19 18:50 [id number]) Posture Evaluation Position Standing Evaluation View Lateral L-Spine Posture Increased Lordosis Pelvis Posture Anteriorly Tilted Weight Distribution Weight Shifted Right Knee Posture (R) Genu Valgus,(R) Genu Recurvatum Ankle/Foot Posture (L) Pronated,(R) Pronated Foot Arch (L) Low Arch,(R) Low Arch PT-OP-L Special Tests Start: 11/02/19 12:25 Freq: Status: Active Protocol: Document 11/02/19 17:36 HH (Rec: 11/02/19 18:50 [id number]) Special Tests Knee Special Tests Nigel Test Results +ve Comments L rectus femoris 40 dg knee flexion, IT band 25 dg abd R rectus femoris 50 dg knee flexion, IT band 20 dg abd Sea's Test Test Results +ve Connor's Compression Test Results -ve John's Sign Test Results -ve Varus- 25 Degrees Test Results -ve Varus- 0 Degrees Test Results -ve Valgus- 25 Degrees Test Results -ve Valgus- 0 Degrees Test Results -ve Patellar Grind Test Test Results -ve Chris Test Test Results -ve Posterior Draw Test Results -ve Anterior Draw Test Results -ve Other Special Tests Special Tests ant reach test L 21 with dynamic valgus, R 23 +ve sx reproduction with stair descending, dynamic valgus PT-OP-M Strength Start: 11/02/19 12:25 Freq: Status: Active Protocol: Document 11/02/19 17:36 HH (Rec: 11/02/19 18:50 [id number]) Hip Strength Hip Manual Muscle Testing Right Flexion (L2) 4 Good Abduction 4 Good Left Flexion (L2) 4 Good Abduction 3+ Fair+ Knee Strength Knee Manual Muscle Testing Right Flexion (S2) 5 Normal Extension (L3) 5 Normal Left Flexion (S2) 4 Good Extension (L3) 4 Good Comments pain for resisted long arc extension PT-OP-Q Treatments Start: 11/02/19 12:25 Freq: Status: Active Protocol: Document 12/06/19 17:30 HH (Rec: 12/06/19 18:24 [id number]) Cardio Equipment Recumbent Bicycle Duration (Minutes) 4 Resistance 5 Therapeutic Exercises Supine Exercises quad+ hip flexor mob Supine Exercise Name L quad and hip Side left Equipment Used with gait belt to assist. Reps/Minutes 30 sec x 5 Comments nigel test position SLR Supine Exercise Name foot heel turner Side left Reps/Minutes 8 x2 Comments pt denies discomfort supine unilateral fall out Side left Equipment Used yellow loop band Reps/Minutes 8 x3 Comments cues on L hip ER Manual Therapy Treatment Soft Tissue Mobilization L knee joint line Body Location L Mobilization Type Sustained Pressure,Trigger Point Release Intensity/Depth Moderate Body Position Supine Comments medial joint line quads Body Location L quads ( medial) Mobilization Type Rolling Intensity/Depth Moderate Body Position Supine Comments quad release. patella tendon Body Location L Mobilization Type Sustained Pressure,Trigger Point Release Intensity/Depth Moderate Body Position Supine Joint Mobilizations distraction Joint femoral tibial joint Direction inferior Grade III Body Position Sitting Reps/Duration 10 secs x 8 PT-OP-T Assessment and Plan Start: 11/02/19 12:25 Freq: Status: Active Protocol: Document 12/06/19 17:30 HH (Rec: 12/06/19 18:24 HH [id number]) Physical Therapy Assessment Goals Ant reach test Impairment Pt demonstrates abnormal asymmetry with ant reach test Short Term Goal (STG) Pt will demonstrate <1.5 difference during ant reach test STG Duration 4 weeks 3D Technologist Goal (LTG) Pt will demonstrate <1 difference during ant reach test to reduce risk of reinjury LTG Duration 8 weeks 3 Impairment Pt scores 49/80 on LEFS Short Term Goal (STG) Pt will improve LEFS to 58/80 to reflect improved activity limitations and participation restrictions STG Duration 4 weeks Alf Goal (LTG) Pt will improve LEFS to 67/80 to reflect improved activity limitations and participation restrictions LTG Duration 8 weeks 2 Impairment Pt reports pain with walking Short Term Goal (STG) Pt will be able to walk >10 min without pain exacerbation to improve activity tolerance STG Duration 4 weeks Alf Goal (LTG) Pt will be able to walk >20 min without pain exacerbation to improve activity tolerance LTG Duration 8 weeks 1 Impairment Pt demonstrates impaired B SL balance Short Term Goal (STG) Pt will inc SL stance time by 10 to improve single leg strength and stability STG Duration 4 weeks Alf Goal (LTG) Pt will inc SL stance time by 20 to improve single leg strength and stability LTG Duration 8 weeks Assessment Summary Assessment Pt cont to have nighttime pain while sleeping on her L side. Pt reports her pain is primarily on L knee joint line and noticed pt tends to amb with a valgus knee thrust and hip IR which possibly increases L knee joint line pressure. Pt reports of relief after manual therapy and no discomfort during stair climbing and resisted knee ext /flex. Physical Therapy Plan Next Visit Focus/Plan Next Note Type Treatment Note Next Visit Plan check hip fall out ex L hip external rotation AROM/ strengthening L hip stability cont manual therapy as jayesh
--- NOTE | 2019-12-15 18:34 | PT.OTN ---
Current Diagnoses Pain in left knee (12/15/19) Prepatellar bursitis, left knee (12/15/19) Physical Therapy Treatment Note PT-OP-A Visit Information Start: 11/02/19 12:25 Freq: Status: Active Protocol: Document 12/15/19 17:38 HH (Rec: 12/15/19 18:33 HH [id number]) Out-Patient Physical Therapy Visit Information Visit Information Visit Type Treatment Note Visit Start Time 17:38 Visit Stop Time 18:15 Total Visit Minutes 42 Visit Number 8 Number of BALL MACHINE OPERATOR Visits 0 PT-OP-B Current Condition Start: 11/02/19 12:25 Freq: Status: Active Protocol: Document 11/02/19 17:36 HH (Rec: 11/02/19 18:50 HH [id number]) Current Condition History of Current Condition Onset Date Several months ago Current Complaints L ant knee pain History of Current Condition Pt presents to PT with primary c/o L ant knee pain with activity and sleeping. Pt has difficulty describing her pain but notes that it sometimes feels sharp, especially when walking or sleeping. She notes that she uses a pillow under her knee when sleeping which sometimes provides relief. Self massage and change of position tends to relieve her knee pain. Pt also wears a knee brace (min support) for long distance walking such as grocery shopping which provides her with some relief. Pt was attending PT in June for the same complaint but had to stop attending d/t scheduling issues. Pt was provided with HEP, which she said helped for a while but then the exercises such as the banded squat started to increase her knee pain. Overall pt says that her pain has stayed about the same since June. Pt had an MRI on her knee which showed a lateral patellofemoral ligament sprain . Prior Treatments and Tests Had PT at June 2019 MRI August 2019 showed lateral patellofemoral ligament sprain, mild edema Treatment Goals Patient/Caregiver Goals 1. Sleep without knee pain 2. Be able to walk without pain 3. Increase activity level Personal Factors Other Personal Factors That May Effect Pt has a developmental Therapy/Recovery disability and is unable to drive herself to appointments (notes that her mother should be able to drive her to her appointments after work) PT-OP-C Subjective Start: 11/02/19 12:25 Freq: Status: Active Protocol: Document 12/15/19 17:38 HH (Rec: 12/15/19 18:33 HH [id number]) OP-PT Subjective Patient Comments Patient Comments I still feel the same and seems like twisting movements bother me only. Meenu been doing my exercises and it didnt bother me. Patient Reported Progress Same PT-OP-D Balance Start: 11/02/19 12:25 Freq: Status: Active Protocol: Document 11/02/19 17:36 HH (Rec: 11/02/19 18:50 [id number]) Balance Tests Single Limb Standing Single Limb- Right 8s Single Limb- Left 17s PT-OP-F Manual Assessment Start: 11/02/19 12:25 Freq: Status: Active Protocol: Document 11/02/19 17:36 HH (Rec: 11/02/19 18:50 [id number]) Manual Assessments Joint Mobility Assessment Joint Mobility Assessment excessive B patellar lateral shift with B knee extension PT-OP-G Mobility & Gait Start: 11/02/19 12:25 Freq: Status: Active Protocol: Document 11/02/19 17:36 HH (Rec: 11/02/19 18:50 [id number]) OP Gait Assessment Comments Gait Comments L LE early heel rise, scissoring gait pattern B excess trunk rotation, genu valgum PT-OP-H Neuro Start: 11/02/19 12:25 Freq: Status: Active Protocol: Document 11/02/19 17:36 HH (Rec: 11/02/19 18:50 [id number]) Sensation Evaluation Gross Sensation Gross Sensation WNL Deep Tendon Reflex & Clonus Assessment Deep Tendon Reflex Bilateral Achilles Deep Tendon Reflex 2+ Normal Bilateral Patellar Deep Tendon Reflex 1+ Diminished PT-OP-J Posture/Palpation/Skin Start: 11/02/19 12:25 Freq: Status: Active Protocol: Document 11/02/19 17:36 HH (Rec: 11/02/19 18:50 [id number]) Posture Evaluation Position Standing Evaluation View Lateral L-Spine Posture Increased Lordosis Pelvis Posture Anteriorly Tilted Weight Distribution Weight Shifted Right Knee Posture (R) Genu Valgus,(R) Genu Recurvatum Ankle/Foot Posture (L) Pronated,(R) Pronated Foot Arch (L) Low Arch,(R) Low Arch PT-OP-L Special Tests Start: 11/02/19 12:25 Freq: Status: Active Protocol: Document 11/02/19 17:36 (Rec: 11/02/19 18:50 [id number]) Special Tests Knee Special Tests Nigel Test Results +ve Comments L rectus femoris 40 dg knee flexion, IT band 25 dg abd R rectus femoris 50 dg knee flexion, IT band 20 dg abd Sea's Test Test Results +ve Connor's Compression Test Results -ve John's Sign Test Results -ve Varus- 25 Degrees Test Results -ve Varus- 0 Degrees Test Results -ve Valgus- 25 Degrees Test Results -ve Valgus- 0 Degrees Test Results -ve Patellar Grind Test Test Results -ve Chris Test Test Results -ve Posterior Draw Test Results -ve Anterior Draw Test Results -ve Other Special Tests Special Tests ant reach test L 21 with dynamic valgus, R 23 +ve sx reproduction with stair descending, dynamic valgus PT-OP-M Strength Start: 11/02/19 12:25 Freq: Status: Active Protocol: Document 11/02/19 17:36 (Rec: 11/02/19 18:50 [id number]) Hip Strength Hip Manual Muscle Testing Right Flexion (L2) 4 Good Abduction 4 Good Left Flexion (L2) 4 Good Abduction 3+ Fair+ Knee Strength Knee Manual Muscle Testing Right Flexion (S2) 5 Normal Extension (L3) 5 Normal Left Flexion (S2) 4 Good Extension (L3) 4 Good Comments pain for resisted long arc extension PT-OP-Q Treatments Start: 11/02/19 12:25 Freq: Status: Active Protocol: Document 12/15/19 17:38 (Rec: 12/15/19 18:33 [id number]) Cardio Equipment Recumbent Bicycle Duration (Minutes) 7 Resistance 5 Therapeutic Exercises Standing Exercises RDL Standing Exercise Name cone tap with hands Side bilateral Reps/Minutes 8 mins SLS Standing Exercise Name green foam f/b blue foam Reps/Minutes 4 mins Comments next to grab bar star foot tap Side bilateral Equipment Used cones Reps/Minutes 4 mins step up Standing Exercise Name 12 inch step f/b bosu ball Equipment Used 6 inch box Reps/Minutes 8 x 2 Comments c/o knee discomfort for 8 inch step PT-OP-T Assessment and Plan Start: 11/02/19 12:25 Freq: Status: Active Protocol: Document 12/15/19 17:38 (Rec: 12/15/19 18:33 [id number]) Physical Therapy Assessment Goals Ant reach test Impairment Pt demonstrates abnormal asymmetry with ant reach test Short Term Goal (STG) Pt will demonstrate <1.5 difference during ant reach test STG Duration 4 weeks Autom[employer] Fuel Systems Converter Goal (LTG) Pt will demonstrate <1 difference during ant reach test to reduce risk of reinjury LTG Duration 8 weeks 3 Impairment Pt scores 49/80 on LEFS Short Term Goal (STG) Pt will improve LEFS to 58/80 to reflect improved activity limitations and participation restrictions STG Duration 4 weeks Skilled Nursing Goal (LTG) Pt will improve LEFS to 67/80 to reflect improved activity limitations and participation restrictions LTG Duration 8 weeks 2 Impairment Pt reports pain with walking Short Term Goal (STG) Pt will be able to walk >10 min without pain exacerbation to improve activity tolerance STG Duration 4 weeks Automotive Fuel [employer] Converter Goal (LTG) Pt will be able to walk >20 min without pain exacerbation to improve activity tolerance LTG Duration 8 weeks 1 Impairment Pt demonstrates impaired B SL balance Short Term Goal (STG) Pt will inc SL stance time by 10 to improve single leg strength and stability STG Duration 4 weeks Skilled Nursing Goal (LTG) Pt will inc SL stance time by 20 to improve single leg strength and stability LTG Duration 8 weeks Assessment Summary Assessment Pt cont to have pain during sleep and rotational movements . Focused on dynamic stability with rotational trunk movements such as RDL, star tap to improve neuromuscular control of WB position. Dis with pt and her mother to hold PT first due to plateau progress but will check on pt 2-3 weeks after.
--- NOTE | 2020-02-09 11:15 | PT-OP ANOTE ---
Pt hasnt progressed since evaluation. Discussed with pt and her mother regarding no improvements noted and recommended them to seek for 2nd opinion or therapy service that is closer to her home.
== END 2020-02-10 08:48 ==
LOC: PHYS 17:30
PROVIDERS: PCP Internal Medicine; Visit Provider Internal Medicine
DX: M70.42 Prepatellar bursitis, left knee (principal); M25.562 Pain in left knee
CPT/HCPCS: 97110; 97140; 97161; 97535; 97760

== ENCOUNTER → 2019-12-31 07:55 | Outpatient (CLI) | payer MEDICARE, MEDICAID, SELFPAY ==
[2019-12-31 09:28] LABS: Alanine Aminotransferase 24 IU/L (<35); Albumin 4.9 g/dL (3.5-5.0); Albumin Globulin Ratio 1.6 (1.0-2.8); Alkaline Phosphatase 65 U/L (38-126); Aspartate Aminotransferase 27 IU/L (14-36); BUN Creatinine Ratio 21.1 (6-22); Bilirubin Total 0.7 mg/dL (0.2-1.3); Blood Urea Nitrogen 19 mg/dL (7-17); Calcium 10.2 mg/dL (8.4-10.2); Carbon Dioxide 23 mmol/L (22-32); Chloride 103 mmol/L (98-107); Cholesterol 169 mg/dL (140-199); Estimated Glomerular Filt Rate > 60.0 mL/min (>60); Glucose 91 mg/dL (70-100); HDL Cholesterol 29 mg/dL (40-60); HEMOLYSIS < 15 (0-50); LDL Cholesterol Calculated 99 mg/dL (<100); Sodium 139 mmol/L (137-145); Total Protein 7.9 g/dL (6.3-8.2); Triglycerides 205 mg/dL (35-150); VLDL Cholesterol Calculated 41 mg/dL (2-30)
== END ==
PROVIDERS: PCP Internal Medicine; Referring Provider Internal Medicine; Visit Provider Internal Medicine
DX: E83.52 Hypercalcemia (principal); E88.81 Metabolic syndrome and other insulin resistance; E66.9 Obesity, unspecified; Z79.899 Other long term (current) drug therapy
CPT/HCPCS: 36415; 80053; 80061

== ENCOUNTER → 2020-09-10 10:33 | Outpatient (CLI) | payer MEDICARE, MEDICAID, SELFPAY ==
--- NOTE | 2020-09-10 | DI.US.S_ITS ---
PROCEDURE: US PELVIC COMPLETE INDICATIONS: Periumbilical pain TECHNIQUE: Real-time scanning was performed of the pelvic organs, with image documentation. Additional endovaginal scanning was necessary due to incomplete visualization of the adnexal and endometrial structures by transabdominal scanning. COMPARISON: None. FINDINGS: Transabdominal scanning: Limited scanning through the left shows no hydronephrosis. No pathologic free abdominal or pelvic fluid. 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 The endometrium measures 5.0 mm in combined thickness. 21 mm anterior intramural fibroid. Ovaries: Ovaries normal in size measuring 2.6 x 0.9 x 1.4 cm on the right and 4.7 x 2.8 x 4.3 cm on the left. Left ovarian cyst measuring 3.1 x 2.3 x 3.0 cm. Intrinsic ovarian blood flow present. IMPRESSION: 1. 3 cm left ovarian cyst. 2. 21 mm anterior intramural fibroid. Dictated by: Srinivasa Cantu [facility] Interpreted: Munir Peoples MD on 09/10/2020 at 17:35 Approved by: Munir Peoples M.D. on 09/10/2020 at 18:12
--- NOTE | 2020-09-10 | DI.US.S_ITS ---
PROCEDURE: US ABDOMEN COMPLETE INDICATIONS: Periumbilical pain TECHNIQUE: Real-time scanning was performed of the abdominal and retroperitoneal organs, with image documentation. COMPARISON: [facility], US, US PELVIC COMPLETE, 09/10/2020, 11:40. FINDINGS: Liver: Liver is normal in size and homogeneous in echotexture. Gallbladder: There are gallstones. No gallbladder wall thickening, pericholecystic fluid or sonographic Gurrola's sign. Biliary ducts: Intrahepatic bile ducts are non-dilated. Extrahepatic bile duct caliber measures 2.2 mm. Normal is 6-7 mm or less in diameter, or 10 mm or less post-cholecystectomy. Pancreas: Visualized portions of the pancreas are sonographically normal. Spleen: Spleen is normal in size and homogeneous in echotexture. Kidneys: Right kidney is not visualized. The left kidney measures 14.3 cm long. No hydronephrosis or nephrolithiasis. No solid masses. Aorta: Visualized aorta is normal in caliber at less than 3 cm. Iliacs: Proximal common iliac arteries are normal in caliber at less than 2.5 cm. IVC: Intrahepatic inferior vena cava is patent. Miscellaneous: No free abdominal fluid. IMPRESSION: 1. Cholelithiasis. No ultrasound findings to suggest acute cholecystitis. 2. Right kidney is not visualized on ultrasound. Left kidney is enlarged, probably secondary to compensatory hypertrophy. Dictated by: Alicia Polanco M.D. on 09/10/2020 at 14:55 Approved by: Alicia Polanco M.D. on 09/10/2020 at 14:59
== END ==
PROVIDERS: PCP Internal Medicine; Referring Provider Internal Medicine; Visit Provider Internal Medicine
DX: R10.33 Periumbilical pain (principal); K80.20 Calculus of gallbladder without cholecystitis without obstruction; N28.81 Hypertrophy of kidney; D25.1 Intramural leiomyoma of uterus; N83.202 Unspecified ovarian cyst, left side
CPT/HCPCS: 76700; 76856

== ENCOUNTER → 2020-09-28 13:34 | Outpatient (CLI) | payer MEDICARE, MEDICAID, SELFPAY ==
--- NOTE | 2020-09-28 | DI.CT.S_ITS ---
PROCEDURE: CT ABDOMEN PELVIS WO CON INDICATIONS: Periumbilical pain,Calculus of gallbladder TECHNIQUE: Noncontrast 5 mm thick sections acquired from the diaphragms to the symphysis. 5 mm coronal and sagittal reformats were then performed. For radiation dose reduction, the following was used: automated exposure control, adjustment of mA and/or kV according to patient size. COMPARISON: None. FINDINGS: Image quality: Excellent. ABDOMEN: Lung bases: Lung bases are clear. Heart size is normal. Solid organs: Liver is normal in size. Sludge or stones are located in the gallbladder fundus. No gallbladder wall thickening or pericholecystic fluid. Pancreas is normal in contours. Spleen is normal in size. No adrenal nodules. The right kidney is atrophic. A probable renal cyst is noted off the midpole of the right kidney. A 3 mm calculus is present within the superior aspect of the right ureter (series 2/image 48). Peritoneum and bowel: Unenhanced bowel loops demonstrate normal wall thickness and caliber. The appendix is thin walled and gas filled. No free fluid or air. Nodes and vessels: No retroperitoneal or mesenteric adenopathy by size criteria. Aorta and inferior vena cava are normal in caliber. Miscellaneous: No ventral hernias. PELVIS: Genitourinary: Bladder wall thickness is normal. Miscellaneous: No inguinal hernias or adenopathy. Bones: No suspicious bony lesions. No vertebral body compression fractures. A probable 4 mm bone island is present within the right sacrum. IMPRESSION: 1. No acute intra-abdominal findings. Normal appendix. 2. Atrophic right kidney. 3. Right ureterolithiasis. Clinical significance of this finding is unclear given the marked right renal atrophy. 4. Cholelithiasis or gallbladder sludge. No findings to suggest acute cholecystitis or choledocholithiasis. Dictated by: Chrissy Clark M.D. on 09/28/2020 at 14:18 Approved by: Chrissy Clark M.D. on 09/28/2020 at 14:30
== END ==
PROVIDERS: PCP Internal Medicine; Referring Provider Internal Medicine; Visit Provider Internal Medicine
DX: R10.33 Periumbilical pain (principal); K80.20 Calculus of gallbladder without cholecystitis without obstruction; N20.1 Calculus of ureter; N26.1 Atrophy of kidney (terminal)
CPT/HCPCS: 74176

== ENCOUNTER → 2020-10-03 10:52 | Outpatient (CLI) | payer MEDICARE, MEDICAID, SELFPAY ==
--- NOTE | 2020-10-03 | DI.MRI.S_ITS ---
PROCEDURE: MR KNEE LT WO CON INDICATIONS: Unspecified internal derangement of left knee TECHNIQUE: Noncontrast sagittal PD fast spin echo and T2 fast spin echo with fat saturation, sagittal 3-D FLASH with fat saturation; coronal T1 spin echo and PD fast spin echo with fat saturation, and axial PD fast spin echo with fat saturation through the knee. COMPARISON: None. FINDINGS: Image quality: Excellent. Menisci: Medial meniscus intact. Lateral meniscus intact. Cruciate ligaments: Anterior cruciate ligament appears intact. Posterior cruciate ligament appears intact. Medial structures: The medial collateral ligament appears intact. Semimembranosus tendon appears intact. Visualized portions of the pes anserinus tendons appear normal. No abnormal bursal fluid. Lateral structures: The lateral collateral ligament intact. Biceps femoris tendon appears intact. Popliteus tendon grossly unremarkable. Iliotibial band appears intact. Anterior structures: Quadriceps tendon intact. Medial and lateral patellofemoral ligaments intact. Mild patellar tendinopathy. Hoffa's fat pad unremarkable. There is mild deep infrapatellar bursal fluid. Bones and cartilage: No focal marrow contusion or discrete low signal fracture line. Within the medial compartment, no focal cartilage defect. Within the lateral compartment, no focal cartilage defect. Within the patellofemoral compartment, diffuse surface fraying of the patellar and femoral trochlear cartilage. Joint space: No joint effusion. No Cowart's cyst. No specific evidence of intra-articular loose body. IMPRESSION: Mild patellar tendinopathy. Mild patellofemoral chondromalacia Minimal deep infrapatellar bursal fluid , raising the possibility of low-grade bursitis. Dictated by: Joseph Shay M.D. on 10/03/2020 at 12:06 Approved by: Joseph Shay M.D. on 10/03/2020 at 12:14
== END ==
PROVIDERS: PCP Internal Medicine; Referring Provider Internal Medicine; Visit Provider Orthopaedic Surgery
DX: M23.92 Unspecified internal derangement of left knee (principal); M22.42 Chondromalacia patellae, left knee
CPT/HCPCS: 73721

== ENCOUNTER 2020-10-24 09:00 | Outpatient (RCR) | payer MEDICARE, MEDICAID, SELFPAY ==
--- NOTE | 2020-10-19 16:00 | PT.OPPOC ---
Physical, Occupational & Speech Therapy At [facility] Current Diagnoses Other specified joint disorders, left knee (10/19/20) Patellar tendinitis, left knee (10/19/20) Visit Care Team Role Provider Type MYRNA Meeks Primary Care Provider Advanced Electric Shipyard Operator Specialty: Family Practice Address: [address] [place] [address], [facility] [place], [address] Email: [email or web address] Lam Martinez MD Attending Provider Physician Referring Provider Specialty: Orthopedic Surgery Address: [address] [place] [address], [place], [address] Email: [email or web address] Plan Of Care PT-OP-T Assessment and Plan Start: 10/19/20 12:42 Freq: Status: Active Protocol: Document 10/19/20 12:45 AMB (Rec: 10/20/20 12:07 AMB [email or web address]) Physical Therapy Assessment Rehab Potential Rehabilitation Potential Fair Evaluation Complexity Number of Personal Factors/Comorbidities 1-2 Number of Body Systems Impaired 4 or More Clinical Presentation at Evaluation Stable Impairments Impairments Functional Activities, Functional Mobility,Gait,Pain, Posture,ROM,Strength Goals 3 Impairment Sleep Short Term Goal (STG) Roseanna will sleep for 4 hours without being woken by knee pain. STG Duration 4 weeks 2 Impairment Pt reports pain with walking Short Term Goal (STG) Pt will be able to walk >10 min without pain exacerbation to improve activity tolerance STG Duration 4 weeks Newspaper Managing Editor Goal (LTG) Pt will be able to walk >20 min without pain exacerbation to improve activity tolerance LTG Duration 6 weeks 1 Impairment HEP Short Term Goal (STG) Roseanna will be independent and consistent with a HEP for her hip/knee strength and mobility . STG Duration 4 weeks Assessment Summary Assessment Roseanna returns to physical therapy with continued left anterior knee pain. While she does have pain over her patellar tendon, she did not have pain with palpation. She does show mild quad weakness and tendency to hyperextend the knee significantly. She will benenfit from a brief session of physical therapy for instruct in a HEP as she had previously stopped doing her exercises, but given that two previous bouts of physical therapy and a steroid injection have not improve her symptoms, we will keep this bout short and work on exercises she can be independent with. Physical Therapy Plan Frequency and Duration Frequency of Treatment 1x/Week Duration of Treatment 6 weeks Plan of Care Start Date 10/19/20 Plan of Care End Date 11/30/20 Therapeutic Interventions Therapeutic Interventions Gait Training,Home Exercise Program,Manual Therapy, Neuromuscular Re-education, Self-Care/Home Management, Taping,Therapeutic Activities, Therapeutic Exercises Modalities Cold Pack/Ice Massage Next Visit Focus/Plan Next Note Type Treatment Note Next Visit Plan Check in with HEP, progress as able Plan of Care Dates Plan of Care Start Date 10/19/20 Plan of Care End Date 11/30/20 Electronically Signed by: Patricia Castillo, PT 10/20/20 0512 Please Sign and Return: I have reviewed this Plan of Care and certify that the skilled therapy services above are required to meet the patient?s needs. Physician Signature Date Printed Name and Credentials Clinical Instructor Signature Printed Name and Credentials
--- NOTE | 2020-10-19 16:00 | PT.OIE ---
Current Diagnoses Other specified joint disorders, left knee (10/19/20) Patellar tendinitis, left knee (10/19/20) Past Medical History (Last Updated 08/16/18 @ 19:25 by Brittni Gordon) Hypertriglyceridemia Mental retardation Painful menstrual periods Seasonal allergies Past Surgical History (Last Updated 08/16/18 @ 19:25 by Brittni Gordon) History of skin surgery (~04/04/15) Visit Care Team Role Provider Type MYRNA Meeks Primary Care Provider Advanced Director Of Radio Services Specialty: Family Practice Address: [address] [place] [address], [facility] [place], [address] Email: [email or web address] Lam Martinez MD Attending Provider Physician Referring Provider Specialty: Orthopedic Surgery Address: [address] [place] [address], [address] Email: [email or web address] Physical Therapy Initial Evaluation PT-OP-A Visit Information Start: 10/19/20 12:42 Freq: Status: Active Protocol: Document 10/19/20 12:45 AMB (Rec: 10/19/20 13:32 AMB [id number]) Out-Patient Physical Therapy Visit Information Visit Information Visit Type Initial Evaluation Visit Start Time 12:45 Visit Stop Time 13:30 Total Visit Minutes 45 Visit Number 1 PT-OP-B Current Condition Start: 10/19/20 12:42 Freq: Status: Active Protocol: Document 10/19/20 12:44 AMB (Rec: 10/19/20 12:58 AMB [id number]) Current Condition History of Current Condition Onset Date 2018 Current Complaints L ant knee pain History of Current Condition Roseanna returns for her third bout of physical therapy due to left knee pain that began after kneeling and has persisted despite previous physical therapy, knee braces, and steroid injection. She reports her knee is painful at night, painful with walking, tries to walk about 30 minutes and pain increases with that. Denies pain at rest. Prior Treatments and Tests Had PT at June 2019 MRI August 2019 showed lateral patellofemoral ligament sprain, mild edema Previous steroid injection, pt did not notice a change MRI September 2020 mild patellar tendinopathy, mild chondromalacia patella, possible low grade bursitis Prior Functional Status Baseline Function- ADL's Independent Baseline Function- Mobility Independent Current Functional Impairments (Reported) Functional Limitations- ADL's Avoids walking, wakes at night due to pain. Generally a side sleeper. Personal Factors Other Personal Factors That May Effect Mild developmental disability Therapy/Recovery PT-OP-C Subjective Start: 10/19/20 12:42 Freq: Status: Active Protocol: Document 10/19/20 12:45 AMB (Rec: 10/20/20 12:07 AMB [email or web address]) Patient Questionnaires Lower Extremity Functional Scale LEFS Score 33 LEFS Impairment 40 to 59% Impaired (Score 32- 47) OP-PT Pain Assessment Pain Assessment Grid Paper Pain Assessment Grid Completed Yes Location Left Knee Pain Location Details anterior knee Intensity 6 PT-OP-F Manual Assessment Start: 10/19/20 12:42 Freq: Status: Active Protocol: Document 10/19/20 12:45 AMB (Rec: 10/20/20 12:07 AMB [email or web address]) Manual Assessments Soft Tissue Assessment Soft Tissue Mobility Assessment No tenderness palpable with moderate palpation over patellar tendon, although pt does report this is where her pain is when she gets it. Joint Mobility Assessment Joint Mobility Assessment General hypermobility PT-OP-G Mobility & Gait Start: 10/19/20 12:42 Freq: Status: Active Protocol: Document 10/19/20 12:45 AMB (Rec: 10/20/20 12:07 AMB [email or web address]) OP Gait Assessment Comments Gait Comments Pt with significant genu recurvatum L>R PT-OP-K Range of Motion Start: 10/19/20 12:42 Freq: Status: Active Protocol: Document 10/19/20 13:00 AMB (Rec: 10/19/20 13:07 AMB [id number]) Knee Goniometric Range of Motion Knee Right Flexion Passive (degrees) 125 Hyper-Extension Active 12 Left Flexion Passive (degrees) 125 Hyper-Extension Active 15 PT-OP-M Strength Start: 10/19/20 12:42 Freq: Status: Active Protocol: Document 10/19/20 12:45 AMB (Rec: 10/20/20 12:07 AMB [email or web address]) Hip Strength Hip Manual Muscle Testing Right Flexion (L2) 4+ Good+ Extension (S1) 4 Good Abduction 4 Good Left Flexion (L2) 4+ Good+ Extension (S1) 4 Good Abduction 4 Good Knee Strength Knee Manual Muscle Testing Right Flexion (S2) 5 Normal Extension (L3) 5 Normal Left Flexion (S2) 5 Normal Extension (L3) 4 Good PT-OP-Q Treatments Start: 10/19/20 12:42 Freq: Status: Active Protocol: Document 10/19/20 12:45 AMB (Rec: 10/20/20 12:07 AMB [email or web address]) Therapeutic Exercises Supine Exercises 1 Supine Exercise Name IT band stretch Reps/Minutes 30x3 Prone Exercises 1 Prone Exercise Name quad stretch Comments with band Sitting Exercises 3 Sitting Exercise Name SAQ Reps/Minutes 10 Standing Exercises 1 Standing Exercise Name wall squat Reps/Minutes 10 PT-OP-T Assessment and Plan Start: 10/19/20 12:42 Freq: Status: Active Protocol: Document 10/19/20 12:45 AMB (Rec: 10/20/20 12:07 AMB [email or web address]) Physical Therapy Assessment Rehab Potential Rehabilitation Potential Fair Evaluation Complexity Number of Personal Factors/Comorbidities 1-2 Number of Body Systems Impaired 4 or More Clinical Presentation at Evaluation Stable Impairments Impairments Functional Activities, Functional Mobility,Gait,Pain, Posture,ROM,Strength Goals 3 Impairment Sleep Short Term Goal (STG) Roseanna will sleep for 4 hours without being woken by knee pain. STG Duration 4 weeks 2 Impairment Pt reports pain with walking Short Term Goal (STG) Pt will be able to walk >10 min without pain exacerbation to improve activity tolerance STG Duration 4 weeks Dough Molder Hand Goal (LTG) Pt will be able to walk >20 min without pain exacerbation to improve activity tolerance LTG Duration 6 weeks 1 Impairment HEP Short Term Goal (STG) Roseanna will be independent and consistent with a HEP for her hip/knee strength and mobility . STG Duration 4 weeks Assessment Summary Assessment Roseanna returns to physical therapy with continued left anterior knee pain. While she does have pain over her patellar tendon, she did not have pain with palpation. She does show mild quad weakness and tendency to hyperextend the knee significantly. She will benenfit from a brief session of physical therapy for instruct in a HEP as she had previously stopped doing her exercises, but given that two previous bouts of physical therapy and a steroid injection have not improve her symptoms, we will keep this bout short and work on exercises she can be independent with. Physical Therapy Plan Frequency and Duration Frequency of Treatment 1x/Week Duration of Treatment 6 weeks Plan of Care Start Date 10/19/20 Plan of Care End Date 11/30/20 Therapeutic Interventions Therapeutic Interventions Gait Training,Home Exercise Program,Manual Therapy, Neuromuscular Re-education, Self-Care/Home Management, Taping,Therapeutic Activities, Therapeutic Exercises Modalities Cold Pack/Ice Massage Next Visit Focus/Plan Next Note Type Treatment Note Next Visit Plan Check in with HEP, progress as able
--- NOTE | 2020-10-24 10:16 | PT.OTN ---
Current Diagnoses Other specified joint disorders, left knee (10/24/20) Patellar tendinitis, left knee (10/24/20) Physical Therapy Treatment Note PT-OP-A Visit Information Start: 10/19/20 12:42 Freq: Status: Active Protocol: Document 10/24/20 09:00 AMB (Rec: 10/24/20 10:16 AMB [id number]) Out-Patient Physical Therapy Visit Information Visit Information Visit Type Treatment Note Visit Start Time 09:00 Visit Stop Time 09:45 Total Visit Minutes 45 Visit Number 2 PT-OP-B Current Condition Start: 10/19/20 12:42 Freq: Status: Active Protocol: Document 10/19/20 12:44 AMB (Rec: 10/19/20 12:58 AMB [id number]) Current Condition History of Current Condition Onset Date 2018 Current Complaints L ant knee pain History of Current Condition Roseanna returns for her third bout of physical therapy due to left knee pain that began after kneeling and has persisted despite previous physical therapy, knee braces, and steroid injection. She reports her knee is painful at night, painful with walking, tries to walk about 30 minutes and pain increases with that. Denies pain at rest. Prior Treatments and Tests Had PT at June 2019 MRI August 2019 showed lateral patellofemoral ligament sprain, mild edema Previous steroid injection, pt did not notice a change MRI September 2020 mild patellar tendinopathy, mild chondromalacia patella, possible low grade bursitis Prior Functional Status Baseline Function- ADL's Independent Baseline Function- Mobility Independent Current Functional Impairments (Reported) Functional Limitations- ADL's Avoids walking, wakes at night due to pain. Generally a side sleeper. Personal Factors Other Personal Factors That May Effect Mild developmental disability Therapy/Recovery PT-OP-C Subjective Start: 10/19/20 12:42 Freq: Status: Active Protocol: Document 10/24/20 09:00 AMB (Rec: 10/24/20 10:16 AMB [id number]) OP-PT Subjective Patient Comments Patient Comments Pt states prone quad stretch and wall squat are a bit painful. Comes in wearing brace, but hasn't been using it at home, wondering if it is the most beneficial. PT-OP-F Manual Assessment Start: 10/19/20 12:42 Freq: Status: Active Protocol: Document 10/19/20 12:45 AMB (Rec: 10/20/20 12:07 AMB [email or web address]) Manual Assessments Soft Tissue Assessment Soft Tissue Mobility Assessment No tenderness palpable with moderate palpation over patellar tendon, although pt does report this is where her pain is when she gets it. Joint Mobility Assessment Joint Mobility Assessment General hypermobility PT-OP-G Mobility & Gait Start: 10/19/20 12:42 Freq: Status: Active Protocol: Document 10/19/20 12:45 AMB (Rec: 10/20/20 12:07 AMB [email or web address]) OP Gait Assessment Comments Gait Comments Pt with significant genu recurvatum L>R PT-OP-K Range of Motion Start: 10/19/20 12:42 Freq: Status: Active Protocol: Document 10/19/20 13:00 AMB (Rec: 10/19/20 13:07 AMB [id number]) Knee Goniometric Range of Motion Knee Right Flexion Passive (degrees) 125 Hyper-Extension Active 12 Left Flexion Passive (degrees) 125 Hyper-Extension Active 15 PT-OP-M Strength Start: 10/19/20 12:42 Freq: Status: Active Protocol: Document 10/19/20 12:45 AMB (Rec: 10/20/20 12:07 AMB [email or web address]) Hip Strength Hip Manual Muscle Testing Right Flexion (L2) 4+ Good+ Extension (S1) 4 Good Abduction 4 Good Left Flexion (L2) 4+ Good+ Extension (S1) 4 Good Abduction 4 Good Knee Strength Knee Manual Muscle Testing Right Flexion (S2) 5 Normal Extension (L3) 5 Normal Left Flexion (S2) 5 Normal Extension (L3) 4 Good PT-OP-Q Treatments Start: 10/19/20 12:42 Freq: Status: Active Protocol: Document 10/24/20 09:00 AMB (Rec: 10/24/20 10:16 AMB [id number]) Therapeutic Exercises Supine Exercises 1 Supine Exercise Name IT band stretch Reps/Minutes 30x3 Prone Exercises 1 Prone Exercise Name quad stretch Reps/Minutes 30x3 Comments with band, and put pillow under thigh or do in standing to reduce pain Sitting Exercises 1 Sitting Exercise Name sit to stand Reps/Minutes 2x10 4 Sitting Exercise Name LAQ Equipment Used 4# ankle weight Reps/Minutes 2x10 PT-OP-T Assessment and Plan Start: 10/19/20 12:42 Freq: Status: Active Protocol: Document 10/24/20 09:00 AMB (Rec: 10/24/20 10:16 AMB [id number]) Physical Therapy Assessment Assessment Summary Assessment Roseanna will be seen in 1 month to give her a chance to do the exercises and progress with them, told to call clinic if pain increases during that time and we will get her in sooner. Otherwise continue with HEP: LAQ, quad/it band stretch, sit to stand. Physical Therapy Plan Next Visit Focus/Plan Next Note Type Treatment Note Next Visit Plan Check in with HEP, progress as able
--- NOTE | 2021-01-07 10:59 | PT.OPDS ---
Current Diagnoses Other specified joint disorders, left knee (10/24/20) Patellar tendinitis, left knee (10/24/20) Visit Care Team Role Provider Type MYRNA Meeks Primary Care Provider Advanced Forging Dies Final Finisher Specialty: Family Practice Address: [address] [place] [address], [place], [address] Email: [email or web address] Lam Martinez MD Attending Provider Physician Referring Provider Specialty: Orthopedic Surgery Address: [address] [place] [address], [address] Email: [email or web address] Visit Number Visit Number 2 Discharge Summary PT-OP-B Current Condition Start: 10/19/20 12:42 Freq: Status: Active Protocol: Document 10/19/20 12:44 AMB (Rec: 10/19/20 12:58 AMB [id number]) Current Condition History of Current Condition Onset Date 2018 Current Complaints L ant knee pain History of Current Condition Roseanna returns for her third bout of physical therapy due to left knee pain that began after kneeling and has persisted despite previous physical therapy, knee braces, and steroid injection. She reports her knee is painful at night, painful with walking, tries to walk about 30 minutes and pain increases with that. Denies pain at rest. Prior Treatments and Tests Had PT at June 2019 MRI August 2019 showed lateral patellofemoral ligament sprain, mild edema Previous steroid injection, pt did not notice a change MRI September 2020 mild patellar tendinopathy, mild chondromalacia patella, possible low grade bursitis Prior Functional Status Baseline Function- ADL's Independent Baseline Function- Mobility Independent Current Functional Impairments (Reported) Functional Limitations- ADL's Avoids walking, wakes at night due to pain. Generally a side sleeper. Personal Factors Other Personal Factors That May Effect Mild developmental disability Therapy/Recovery PT-OP-C Subjective Start: 10/19/20 12:42 Freq: Status: Active Protocol: Document 10/24/20 09:00 AMB (Rec: 10/24/20 10:16 AMB [id number]) OP-PT Subjective Patient Comments Patient Comments Pt states prone quad stretch and wall squat are a bit painful. Comes in wearing brace, but hasn't been using it at home, wondering if it is the most beneficial. PT-OP-F Manual Assessment Start: 10/19/20 12:42 Freq: Status: Active Protocol: Document 10/19/20 12:45 AMB (Rec: 10/20/20 12:07 AMB [email or web address]) Manual Assessments Soft Tissue Assessment Soft Tissue Mobility Assessment No tenderness palpable with moderate palpation over patellar tendon, although pt does report this is where her pain is when she gets it. Joint Mobility Assessment Joint Mobility Assessment General hypermobility PT-OP-G Mobility & Gait Start: 10/19/20 12:42 Freq: Status: Active Protocol: Document 10/19/20 12:45 AMB (Rec: 10/20/20 12:07 AMB [email or web address]) OP Gait Assessment Comments Gait Comments Pt with significant genu recurvatum L>R PT-OP-K Range of Motion Start: 10/19/20 12:42 Freq: Status: Active Protocol: Document 10/19/20 13:00 AMB (Rec: 10/19/20 13:07 AMB [id number]) Knee Goniometric Range of Motion Knee Right Flexion Passive (degrees) 125 Hyper-Extension Active 12 Left Flexion Passive (degrees) 125 Hyper-Extension Active 15 PT-OP-M Strength Start: 10/19/20 12:42 Freq: Status: Active Protocol: Document 10/19/20 12:45 AMB (Rec: 10/20/20 12:07 AMB [email or web address]) Hip Strength Hip Manual Muscle Testing Right Flexion (L2) 4+ Good+ Extension (S1) 4 Good Abduction 4 Good Left Flexion (L2) 4+ Good+ Extension (S1) 4 Good Abduction 4 Good Knee Strength Knee Manual Muscle Testing Right Flexion (S2) 5 Normal Extension (L3) 5 Normal Left Flexion (S2) 5 Normal Extension (L3) 4 Good PT-OP-T Assessment and Plan Start: 10/19/20 12:42 Freq: Status: Active Protocol: Document 01/07/21 10:57 AMB (Rec: 01/07/21 10:59 AMB [email or web address]) Physical Therapy Assessment Assessment Summary Assessment Roseanna canceled her last remaining appointment multiple times and then did not reschedule, she is discharged at this time. She was seen for one follow up appointment, and continued to have knee pain at that time. Physical Therapy Plan Discharge Physical Therapy Discharge Reasons No Longer Attending PT
== END 2021-01-07 14:19 ==
LOC: PHYS 09:00
PROVIDERS: PCP Internal Medicine; Referring Provider Orthopaedic Surgery; Visit Provider Orthopaedic Surgery
DX: M25.862 Other specified joint disorders, left knee (principal); M76.52 Patellar tendinitis, left knee
CPT/HCPCS: 97110; 97161

== ENCOUNTER → 2021-02-01 07:36 | Outpatient (CLI) | payer MEDICARE, MEDICAID, SELFPAY ==
--- NOTE | 2021-02-01 | DI.NM.S_ITS ---
PROCEDURE: NM HIDA WITH CCK PHARMACEUTICAL: 5.4 mCi Tc-99m mebrofenin IV; 1.95 mcg CCK IV. INDICATIONS: Calculus of gallbladder without cholecystitis with TECHNIQUE: Following intravenous administration of Tc-99m mebrofenin, sequential anterior abdominal images were obtained. To evaluate the contractile response of the gallbladder in response to Cholecystokinin (CCK), sincalide (0.02 ?g/kg) was administered by slow intravenous infusion approximately 60 minutes after the administration of the radiopharmaceutical. Sequential imaging was continued for 30 minutes after the start of CCK infusion. Gallbladder ejection fraction was calculated. COMPARISON: None. FINDINGS: Biliary scan: There is normal tracer uptake and excretion by the liver. There is normal visualization of the intrahepatic ducts, common bile duct, and gallbladder. There is normal tracer transit into the duodenum. CCK stimulation: There is normal contractile response of the gallbladder to CCK infusion. The calculated gallbladder ejection fraction is 53%; normal values are above 35%. It has been shown that any patient abdominal pain after CCK administration is related to the rate of CCK injection, rather than to any underlying gallbladder disease (Clinical Nuclear Medicine 2012; 37: 63-70. Journal of Nuclear Medicine 2014; 55: 1-9). IMPRESSION: Normal hepatobiliary uptake and scan. Normal gallbladder ejection fraction. Dictated by: Ephraim Cerda M.D. on 02/01/2021 at 11:45 Approved by: Ephraim Cerda M.D. on 02/01/2021 at 11:45
== END ==
PROVIDERS: PCP Internal Medicine; Referring Provider Internal Medicine; Visit Provider Internal Medicine
DX: R10.33 Periumbilical pain (principal); K80.20 Calculus of gallbladder without cholecystitis without obstruction
CPT/HCPCS: 78227; A9537; J2805

== ENCOUNTER → 2021-02-07 11:19 | Outpatient (CLI) | payer MEDICARE, MEDICAID, SELFPAY ==
--- NOTE | 2021-02-07 12:24 | DI.CT.S_ITS ---
PROCEDURE: CT ABDOMEN PELVIS W CON INDICATIONS: Periumbilical pain TECHNIQUE: After the administration of oral and intravenous contrast, 5 mm thick sections acquired from the diaphragms to the symphysis. 5 mm thick coronal and sagittal reformats were performed. For radiation dose reduction, the following was used: automated exposure control, adjustment of mA and/or kV according to patient size. COMPARISON: [facility], CT, CT ABDOMEN PELVIS WO [facility], 09/28/2020, 14:19. FINDINGS: Image quality: Excellent. ABDOMEN: Lung bases: Lung bases are clear. Heart size is normal. Solid organs: Liver is normal in size and enhancement. Gallbladder demonstrates a phyrgian cap, and otherwise is within normal limits. Biliary system is non-dilated. Pancreas enhances normally. Spleen is normal in size and enhancement. No adrenal nodules. Severe right renal atrophy is present, as before. Left kidney is within normal limits. 5 mm calcification within the right proximal ureter. 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 Peritoneum and bowel: Stomach, small bowel, and colon loops are normal in caliber and wall thickness. No free fluid or air. Normal appendix. Nodes and vessels: No retroperitoneal or mesenteric adenopathy. Aorta and inferior vena cava are normal in caliber. Miscellaneous: No ventral hernias. PELVIS: Genitourinary: Bladder wall thickness is normal. Miscellaneous: No inguinal hernias or adenopathy. Bones: No suspicious bony lesions. No vertebral body compression fractures. IMPRESSION: 1. No acute process. 2. Normal appendix. 3. No change in severe right renal atrophy and proximal right ureteral calculus. Dictated by: Kathrine Smith M.D. on 02/07/2021 at 13:24 Approved by: Kathrine Smith M.D. on 02/07/2021 at 13:26
== END ==
PROVIDERS: PCP Internal Medicine; Referring Provider Internal Medicine; Visit Provider Internal Medicine
DX: R10.33 Periumbilical pain (principal); K80.20 Calculus of gallbladder without cholecystitis without obstruction; N20.1 Calculus of ureter
CPT/HCPCS: 74177

== ENCOUNTER → 2021-02-19 09:35 | Outpatient (CLI) | payer MEDICARE, MEDICAID, SELFPAY ==
[2021-02-19] MEDS: COVID-19 VACC #1, MRNA(MOD) 100 MCG/0.5 ML VIAL IM (09:42)
== END ==
PROVIDERS: PCP Internal Medicine; Visit Provider Internal Medicine
DX: Z23 Encounter for immunization (principal)
CPT/HCPCS: 0011A; 91301

== ENCOUNTER → 2021-03-20 09:07 | Outpatient (CLI) | payer MEDICARE, MEDICAID, SELFPAY ==
[2021-03-20] MEDS: COVID-19 VACC #2, MRNA(MOD) 100 MCG/0.5 ML VIAL IM (09:16)
== END ==
PROVIDERS: PCP Internal Medicine; Visit Provider Internal Medicine
DX: Z23 Encounter for immunization (principal)
CPT/HCPCS: 0012A; 91301

== ENCOUNTER → 2021-05-15 11:03 | Outpatient (CLI) | payer MEDICARE, MEDICAID, SELFPAY ==
--- NOTE | 2021-05-15 | DI.US.S_ITS ---
PROCEDURE: US PELVIC COMPLETE INDICATIONS: IRREGULAR MENSTRATION TECHNIQUE: Real-time scanning was performed of the pelvic organs, with image documentation. Additional endovaginal scanning was necessary due to incomplete visualization of the adnexal and endometrial structures by transabdominal scanning. COMPARISON: [facility], CT, CT ABDOMEN PELVIS W CON, 02/07/2021, 12:27. [facility], US, US PELVIC COMPLETE, 09/10/2020, 11:40. FINDINGS: Uterus: Uterus is anteverted and normal in size at 4.0 x 5.1 x 8.5 cm. The endometrium measures 5.0 mm in combined thickness. Morphology of the scanning suggests arcuate morphology of the uterine fundus. Ovaries: Not well seen on the right and normal on the left measuring 3.2 x 2.1 x 2.3 cm. There is a left ovarian cyst measuring up to 2.4 cm in maximal dimension. The wall of this cyst is perceptible. Other: No pathologic free abdominal or pelvic fluid. IMPRESSION: Anteverted uterus, normal endometrial lining thickness. As discussed above the fundal portion of the uterus as an arcuate morphology but bicornuate uterus is not suspected at this time. Nonvisualization of the right ovary. Left ovary is normal in size and contains a 2.4 cm maximal dimension cyst with perceptible wall. No mural nodularity is associated. Etiology of dysmenorrhea is not identified. Dictated by: Jhon Ramon M.D. on 05/15/2021 at 12:37 Approved by: Jhon Ramon M.D. on 05/15/2021 at 12:42
== END ==
PROVIDERS: PCP Internal Medicine; Referring Provider Internal Medicine; Visit Provider Internal Medicine
DX: N92.6 Irregular menstruation, unspecified (principal); N83.202 Unspecified ovarian cyst, left side; N85.4 Malposition of uterus
CPT/HCPCS: 76830; 76856

== ENCOUNTER → 2021-06-27 10:30 | Outpatient (CLI) | payer MEDICARE, MEDICAID, SELFPAY ==
--- NOTE | 2021-06-27 10:31 | DI.US.S_ITS ---
PROCEDURE: US PELVIC COMPLETE INDICATIONS: FOLLOW UP LEFT OVARIAN CYST TECHNIQUE: Real-time scanning was performed of the pelvic organs, with image documentation. Additional endovaginal scanning was necessary due to incomplete visualization of the adnexal and endometrial structures by transabdominal scanning. COMPARISON: [facility], , US PELVIC COMPLETE, 05/15/2021, 11:33. [facility], , US PELVIC COMPLETE, 09/10/2020, 11:40. FINDINGS: Uterus: Uterus is anteverted and normal in size at 3.9 x 4.7 x 8.3 cm. The endometrium thickness is difficult to accurately with the right-sided endometrial lining measuring up to 8.1 mm and that on the left measuring up to 7.7 mm. There is a left anterior intramural 1.8 cm maximal dimension uterine fibroid. . Ovaries: The right ovary could not be well seen, the left ovary measures 2.3 x 1.7 x 1.7 cm. Other: No pathologic free abdominal or pelvic fluid. IMPRESSION: Arcuate morphology of the fundal portion of the endometrial lining, without evidence of endometrial mass or abnormal fluid collection. Normal appearing left ovary. Right ovary was poorly seen. Dictated by: Jhon Ramon M.D. on 06/27/2021 at 14:31 Approved by: Jhon Ramon M.D. on 06/27/2021 at 14:34
== END ==
PROVIDERS: PCP Internal Medicine; Referring Provider Obstetrics & Gynecology; Visit Provider Obstetrics & Gynecology
DX: N83.202 Unspecified ovarian cyst, left side (principal); D25.1 Intramural leiomyoma of uterus
CPT/HCPCS: 76830; 76856

== ENCOUNTER → 2021-10-04 10:47 | Outpatient (CLI) | payer MEDICARE, MEDICAID, SELFPAY ==
[2021-10-04] MEDS: COVID-19 VACC #3, MRNA(MOD) 50 MCG/0.25 ML VIAL IM (10:58)
== END ==
PROVIDERS: PCP Internal Medicine; Visit Provider Internal Medicine
DX: Z23 Encounter for immunization (principal)
CPT/HCPCS: 0013A; 91301

== ENCOUNTER → 2022-08-19 10:59 | Outpatient (CLI) | payer MEDICARE, MEDICAID, SELFPAY ==
--- NOTE | 2022-08-19 | DI.MG.S_ITS ---
BILATERAL DIGITAL SCREENING MAMMOGRAM 3D/2D WITH CAD: 08/19/2022 CLINICAL: Routine screening. Baseline exam. No prior exams were available for comparison. There are scattered areas of fibroglandular density in both breasts (category b / 25%-50% glandular tissue). Current study was also evaluated with a Computer Aided Detection (CAD) system. No significant masses, calcifications, or other findings are seen in either breast. IMPRESSION: NEGATIVE There is no mammographic evidence of malignancy. A 1 year screening mammogram is recommended. Based on the Tyrer Cuzick model (a risk assessment model) the patient's lifetime risk is 9.5% and her 10 year risk is 1.2%. According to the ACR, ACS, and NCCN guidelines, an annual breast MRI exam along with mammogram is recommended if the patient's lifetime risk is 20% or greater. This exam was interpreted at Station ID: [id number]. NOTE: For mammograms, a report in lay terms will be sent to the patient. Approximately 15% of breast malignancies will not be visualized mammographically. In the management of a palpable breast mass, a negative mammogram must not discourage biopsy of a clinically suspicious lesion. Electronically Signed By: Norbert [email or web address]/kim:08/19/2022 18:01:01 letter sent: Normal Exam ACR BI-RADS Category 1: Negative [id number]
== END ==
PROVIDERS: PCP Internal Medicine; Referring Provider Internal Medicine; Visit Provider Internal Medicine
DX: Z12.31 Encounter for screening mammogram for malignant neoplasm of breast (principal)
CPT/HCPCS: 77063; 77067

== ENCOUNTER 2023-05-26 09:00 | Outpatient (RCR) | payer MEDICARE, MEDICAID, SELFPAY ==
--- NOTE | 2023-01-27 12:00 | PT.OIE ---
Current Diagnoses Chondromalacia patellae, left knee (01/27/23) Prepatellar bursitis, left knee (01/27/23) Past Medical History (Last Updated 07/02/21 @ 09:06 by Brandyn Choudhury MD) Hypertriglyceridemia Mental retardation Painful menstrual periods Personal history of ovarian cyst Seasonal allergies Past Surgical History (Last Reviewed 07/02/21 @ 08:57 by Brandyn Choudhury MD) History of skin surgery (~04/04/15) Visit Care Team Role Provider Type MYRNA Meeks Attending Provider Advanced Research Worker Encyclopedia Family Provider Primary Care Provider Referring Provider Specialty: Family Practice Address: [address] [place] [address], [facility] Email: [email or web address] Physical Therapy Initial Evaluation PT-OP-A Visit Information Start: 01/23/23 15:01 Freq: Status: Active Protocol: Document 01/27/23 10:31 AMB (Rec: 01/27/23 11:22 AMB [id number]) Out-Patient Physical Therapy Visit Information Visit Information Visit Type Initial Evaluation Visit Start Time 10:30 Visit Stop Time 11:15 Total Visit Minutes 45 Visit Number 1 PT-OP-B Current Condition Start: 01/23/23 15:01 Freq: Status: Active Protocol: Document 01/27/23 10:31 AMB (Rec: 01/27/23 11:22 AMB [id number]) Current Condition History of Current Condition Onset Date 2+years L knee pain Current Complaints L knee History of Current Condition Roseanna reports that over 2 years ago she was kneeling and felt a pop in her knee. She has tried multiple attempts at PT. She continues to have pain. She describes it as sharp pain with extended sitting, walking especially on uneven surfaces, standing in the kitchen can be painful. Medial and patellar knee pain. Difficulty walking on the beach, not doing prior PT exercises as they increased pain. Prior Treatments and Tests 09/2020: MRI mild patellar tendonopathy, mild chondromalacia patella, minimal bursal fluid--possible mild bursitis. Reports got an inject at ortho that did not help. Prior PT. Personal Factors Other Personal Factors That May Effect Developmental disability, Therapy/Recovery lives with mom PT-OP-C Subjective Start: 01/23/23 15:01 Freq: Status: Active Protocol: Document 01/27/23 16:02 AMB (Rec: 01/27/23 16:04 AMB [id number]) OP-PT Subjective Patient Comments Patient Comments 6/10 medial patellar pain on the left Patient Questionnaires Lower Extremity Functional Scale LEFS Score 16 LEFS Impairment 60 to 79% Impaired (Score 17- 31) PT-OP-J Posture/Palpation/Skin Start: 01/23/23 15:01 Freq: Status: Active Protocol: Document 01/27/23 10:30 AMB (Rec: 01/28/23 16:26 AMB [id number]) Posture Evaluation Comments Posture Comments Flat feet, tends to toe on in the left Palpation Assessment Location L knee Palpation Details Pain at medial patellar tendon PT-OP-K Range of Motion Start: 01/23/23 15:01 Freq: Status: Active Protocol: Document 01/27/23 10:30 AMB (Rec: 01/28/23 16:26 AMB [id number]) Knee Goniometric Range of Motion Knee Left Knee ROM WFL Yes Comments pt tends to be hypermobile PT-OP-M Strength Start: 01/23/23 15:01 Freq: Status: Active Protocol: Document 01/27/23 10:30 AMB (Rec: 01/28/23 16:26 AMB [id number]) Hip Strength Hip Manual Muscle Testing Right Flexion (L2) 4+ Good+ Extension (S1) 4+ Good+ Abduction 4+ Good+ Adduction 4+ Good+ Left Flexion (L2) 4+ Good+ Extension (S1) 4+ Good+ Abduction 4+ Good+ Adduction 4+ Good+ Knee Strength Knee Manual Muscle Testing Right Flexion (S2) 4+ Good+ Extension (L3) 4+ Good+ Left Flexion (S2) 4 Good Extension (L3) 4 Good PT-OP-Q Treatments Start: 01/23/23 15:01 Freq: Status: Active Protocol: Document 01/27/23 10:30 AMB (Rec: 01/31/23 08:46 AMB [id number]) Therapeutic Exercises Sidelying Exercises clam Side left Reps/Minutes 2x10 PT-OP-T Assessment and Plan Start: 01/23/23 15:01 Freq: Status: Active Protocol: Document 01/27/23 10:30 AMB (Rec: 01/31/23 08:46 AMB [id number] Physical Therapy Assessment Rehab Potential Rehabilitation Potential Good Evaluation Complexity Number of Personal Factors/Comorbidities 1-2 Number of Body Systems Impaired 4 or More Clinical Presentation at Evaluation Stable Impairments Impairments Functional Activities,Gait, Pain,Strength Goals Two Impairment Pain Short Term Goal (STG) Roseanna will sit for 1 hour without knee pain. STG Duration 5 weeks Plant Operations Worker Goal (LTG) Roseanna will ascend and descend a flight of stairs without knee pain. LTG Duration 10 weeks One Impairment Strength Short Term Goal (STG) Roseanna will be independent for a HEP for LE strengthening. STG Duration 5 weeks Prison Goal (LTG) Roseanna will show improved LE strength by performing a full squat without an increase in knee pain. LTG Duration 10 weeks Assessment Summary Assessment Roseanna presents to physical therapy with chronic left chondromalacia patella sx that have likely progressed to patellar bursitis/tendonopathy . While her hip strength is well maintained, she has reduced quad strength and significant internal rotation so that she tends to toe in more on the left. Positionally her patella does appear to be more laterally positioned on the left than the right. Roseanna will benefit from Physical Therapy Plan Frequency and Duration Frequency of Treatment 2x/Week Duration of treatment (weeks) 10 Plan of Care Start Date 01/27/23 Plan of Care End Date 04/07/23 Therapeutic Interventions Therapeutic Interventions Gait Training,Home Exercise Program,Joint Mobilizations, Manual Therapy,Neuromuscular Re-education,Self-Care/Home Management,Taping,Therapeutic Activities,Therapeutic Exercises Modalities Cold Pack/Ice Massage,Electric Stimulation,Hot Packs Next Visit Focus/Plan Next Note Type Treatment Note Next Visit Plan k tape, orthotics for arch support, HEP for patellar positioning
--- NOTE | 2023-01-27 12:00 | PT.OPPOC ---
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) Prepatellar bursitis, left knee (01/27/23) Visit Care Team Role Provider Type MYRNA Meeks Attending Provider Advanced Barrel Header Family Provider Primary Care Provider Referring Provider Specialty: Family Practice Address: [address] [place] [address] [place], [facility] Email: [email or web address] Plan Of Care PT-OP-T Assessment and Plan Start: 01/23/23 15:01 Freq: Status: Active Protocol: Document 01/27/23 10:30 AMB (Rec: 01/31/23 08:46 AMB [id number]) Physical Therapy Assessment Rehab Potential Rehabilitation Potential Good Evaluation Complexity Number of Personal Factors/Comorbidities 1-2 Number of Body Systems Impaired 4 or More Clinical Presentation at Evaluation Stable Impairments Impairments Functional Activities,Gait, Pain,Strength Goals Two Impairment Pain Short Term Goal (STG) Roseanna will sit for 1 hour without knee pain. STG Duration 5 weeks Usp Goal (LTG) Roseanna will ascend and descend a flight of stairs without knee pain. LTG Duration 10 weeks One Impairment Strength Short Term Goal (STG) Roseanna will be independent for a HEP for LE strengthening. STG Duration 5 weeks Neuropathologist Goal (LTG) Roseanna will show improved LE strength by performing a full squat without an increase in knee pain. LTG Duration 10 weeks Assessment Summary Assessment Roseanna presents to physical therapy with chronic left chondromalacia patella sx that have likely progressed to patellar bursitis/tendonopathy . While her hip strength is well maintained, she has reduced quad strength and significant internal rotation so that she tends to toe in more on the left. Positionally her patella does appear to be more laterally positioned on the left than the right. Roseanna will benefit from Physical Therapy Plan Frequency and Duration Frequency of Treatment 2x/Week Duration of treatment (weeks) 10 Plan of Care Start Date 01/27/23 Plan of Care End Date 04/07/23 Therapeutic Interventions Therapeutic Interventions Gait Training,Home Exercise Program,Joint Mobilizations, Manual Therapy,Neuromuscular Re-education,Self-Care/Home Management,Taping,Therapeutic Activities,Therapeutic Exercises Modalities Cold Pack/Ice Massage,Electric Stimulation,Hot Packs Next Visit Focus/Plan Next Note Type Treatment Note Next Visit Plan k tape, orthotics for arch support, HEP for patellar positioning Plan of Care Dates Plan of Care Start Date 01/27/23 Plan of Care End Date 04/07/23 Electronically Signed by: Patricia Castillo, PT 01/31/23 0849 If you are in agreement with this Plan of Care, please return a signed and dated copy. I have reviewed this Plan of Care and certify that the skilled therapy services above are required to meet the patient?s needs. Physician Signature Date Printed Name and Credentials Clinical Instructor Signature Printed Name and Credentials
--- NOTE | 2023-02-02 15:28 | PT.OTN ---
Current Diagnoses Chondromalacia patellae, left knee (02/02/23) Prepatellar bursitis, left knee (02/02/23) Physical Therapy Treatment Note PT-OP-A Visit Information Start: 01/23/23 15:01 Freq: Status: Active Protocol: Document 02/02/23 10:32 AMB (Rec: 02/02/23 12:17 AMB [id number]) Out-Patient Physical Therapy Visit Information Visit Information Visit Type Treatment Note Visit Start Time 10:30 Visit Stop Time 11:15 Total Visit Minutes 45 Visit Number 2 PT-OP-B Current Condition Start: 01/23/23 15:01 Freq: Status: Active Protocol: Document 01/27/23 10:31 AMB (Rec: 01/27/23 11:22 AMB [id number]) Current Condition History of Current Condition Onset Date 2+years L knee pain Current Complaints L knee History of Current Condition Roseanna reports that over 2 years ago she was kneeling and felt a pop in her knee. She has tried multiple attempts at PT. She continues to have pain. She describes it as sharp pain with extended sitting, walking especially on uneven surfaces, standing in the kitchen can be painful. Medial and patellar knee pain. Difficulty walking on the beach, not doing prior PT exercises as they increased pain. Prior Treatments and Tests 09/2020: MRI mild patellar tendonopathy, mild chondromalacia patella, minimal bursal fluid--possible mild bursitis. Reports got an inject at ortho that did not help. Prior PT. Personal Factors Other Personal Factors That May Effect Developmental disability, Therapy/Recovery lives with mom PT-OP-C Subjective Start: 01/23/23 15:01 Freq: Status: Active Protocol: Document 02/02/23 10:32 AMB (Rec: 02/02/23 12:17 AMB [id number]) OP-PT Subjective Patient Comments Patient Comments Pain is about the same. PT-OP-J Posture/Palpation/Skin Start: 01/23/23 15:01 Freq: Status: Active Protocol: Document 01/27/23 10:30 AMB (Rec: 01/28/23 16:26 AMB [id number]) Posture Evaluation Comments Posture Comments Flat feet, tends to toe on in the left Palpation Assessment Location L knee Palpation Details Pain at medial patellar tendon PT-OP-K Range of Motion Start: 01/23/23 15:01 Freq: Status: Active Protocol: Document 01/27/23 10:30 AMB (Rec: 01/28/23 16:26 AMB [id number]) Knee Goniometric Range of Motion Knee Left Knee ROM WFL Yes Comments pt tends to be hypermobile PT-OP-M Strength Start: 01/23/23 15:01 Freq: Status: Active Protocol: Document 01/27/23 10:30 AMB (Rec: 01/28/23 16:26 AMB [id number]) Hip Strength Hip Manual Muscle Testing Right Flexion (L2) 4+ Good+ Extension (S1) 4+ Good+ Abduction 4+ Good+ Adduction 4+ Good+ Left Flexion (L2) 4+ Good+ Extension (S1) 4+ Good+ Abduction 4+ Good+ Adduction 4+ Good+ Knee Strength Knee Manual Muscle Testing Right Flexion (S2) 4+ Good+ Extension (L3) 4+ Good+ Left Flexion (S2) 4 Good Extension (L3) 4 Good PT-OP-Q Treatments Start: 01/23/23 15:01 Freq: Status: Active Protocol: Document 02/02/23 15:10 AMB (Rec: 02/02/23 15:22 AMB [id number]) Therapeutic Exercises Supine Exercises bridge Supine Exercise Name wiht #2 t band Reps/Minutes 2x20 Sidelying Exercises clam Sidelying Exercise Name with #2 t band Side left Reps/Minutes 2x10 Manual Therapy Treatment Joint Mobilizations patellar mob Direction medial Grade III Body Position Supine Taping kinesiotap Type of Tape Kinesio Tape Comments 3 Ys Self-Care/Home Management Treatment Education Other Education problem solving arch support after trialling different options chose braden super feet PT-OP-T Assessment and Plan Start: 01/23/23 15:01 Freq: Status: Active Protocol: Document 02/02/23 10:32 AMB (Rec: 02/02/23 12:17 AMB [id number]) Physical Therapy Assessment Goals Two Impairment Pain Short Term Goal (STG) Roseanna will sit for 1 hour without knee pain. STG Duration 5 weeks Band Sawing Machine Operator Goal (LTG) Roseanna will ascend and descend a flight of stairs without knee pain. LTG Duration 10 weeks One Impairment Strength Short Term Goal (STG) Roseanna will be independent for a HEP for LE strengthening. STG Duration 5 weeks Mcfp Goal (LTG) Roseanna will show improved LE strength by performing a full squat without an increase in knee pain. LTG Duration 10 weeks Assessment Summary Assessment Pt did well with strengthening , orthotics and taping, continue to work on hip abductor strengthening. Physical Therapy Plan Frequency and Duration Frequency of Treatment 2x/Week Duration of treatment (weeks) 10 Plan of Care Start Date 01/27/23 Plan of Care End Date 04/07/23 Therapeutic Interventions Therapeutic Interventions Gait Training,Home Exercise Program,Joint Mobilizations, Manual Therapy,Neuromuscular Re-education,Self-Care/Home Management,Taping,Therapeutic Activities,Therapeutic Exercises Modalities Cold Pack/Ice Massage,Electric Stimulation,Hot Packs Next Visit Focus/Plan Next Note Type Treatment Note Next Visit Plan k tape, orthotics for arch support, HEP for patellar positioning
--- NOTE | 2023-02-04 12:53 | PT.OTN ---
Current Diagnoses Chondromalacia patellae, left knee (02/04/23) Prepatellar bursitis, left knee (02/04/23) Physical Therapy Treatment Note PT-OP-A Visit Information Start: 01/23/23 15:01 Freq: Status: Active Protocol: Document 02/04/23 10:32 AMB (Rec: 02/04/23 11:21 AMB [id number]) Out-Patient Physical Therapy Visit Information Visit Information Visit Type Treatment Note Visit Start Time 10:30 Visit Stop Time 11:15 Total Visit Minutes 45 Visit Number 3 PT-OP-B Current Condition Start: 01/23/23 15:01 Freq: Status: Active Protocol: Document 01/27/23 10:31 AMB (Rec: 01/27/23 11:22 AMB [id number]) Current Condition History of Current Condition Onset Date 2+years L knee pain Current Complaints L knee History of Current Condition Roseanna reports that over 2 years ago she was kneeling and felt a pop in her knee. She has tried multiple attempts at PT. She continues to have pain. She describes it as sharp pain with extended sitting, walking especially on uneven surfaces, standing in the kitchen can be painful. Medial and patellar knee pain. Difficulty walking on the beach, not doing prior PT exercises as they increased pain. Prior Treatments and Tests 09/2020: MRI mild patellar tendonopathy, mild chondromalacia patella, minimal bursal fluid--possible mild bursitis. Reports got an inject at ortho that did not help. Prior PT. Personal Factors Other Personal Factors That May Effect Developmental disability, Therapy/Recovery lives with mom PT-OP-C Subjective Start: 01/23/23 15:01 Freq: Status: Active Protocol: Document 02/04/23 10:32 AMB (Rec: 02/04/23 11:21 AMB [id number]) OP-PT Subjective Patient Comments Patient Comments Pt reports increased pain at night. Stiffness. PT-OP-J Posture/Palpation/Skin Start: 01/23/23 15:01 Freq: Status: Active Protocol: Document 01/27/23 10:30 AMB (Rec: 01/28/23 16:26 AMB [id number]) Posture Evaluation Comments Posture Comments Flat feet, tends to toe on in the left Palpation Assessment Location L knee Palpation Details Pain at medial patellar tendon PT-OP-K Range of Motion Start: 01/23/23 15:01 Freq: Status: Active Protocol: Document 01/27/23 10:30 AMB (Rec: 01/28/23 16:26 AMB [id number]) Knee Goniometric Range of Motion Knee Left Knee ROM WFL Yes Comments pt tends to be hypermobile PT-OP-M Strength Start: 01/23/23 15:01 Freq: Status: Active Protocol: Document 01/27/23 10:30 AMB (Rec: 01/28/23 16:26 AMB [id number]) Hip Strength Hip Manual Muscle Testing Right Flexion (L2) 4+ Good+ Extension (S1) 4+ Good+ Abduction 4+ Good+ Adduction 4+ Good+ Left Flexion (L2) 4+ Good+ Extension (S1) 4+ Good+ Abduction 4+ Good+ Adduction 4+ Good+ Knee Strength Knee Manual Muscle Testing Right Flexion (S2) 4+ Good+ Extension (L3) 4+ Good+ Left Flexion (S2) 4 Good Extension (L3) 4 Good PT-OP-Q Treatments Start: 01/23/23 15:01 Freq: Status: Active Protocol: Document 02/04/23 10:32 AMB (Rec: 02/04/23 11:21 AMB [id number]) Cardio Equipment Bicycle (Upright) Duration (Minutes) 7 Resistance 5 Therapeutic Exercises Supine Exercises SLR Reps/Minutes 2x10 Comments fatiguing bridge Supine Exercise Name latex free green band Reps/Minutes 2x20 Sidelying Exercises clam Sidelying Exercise Name with #2 t band Side left Reps/Minutes 2x10 Comments cues to avoid rotation Standing Exercises sit to stand Standing Exercise Name with t band around thighs Reps/Minutes 2x10 Manual Therapy Treatment Joint Mobilizations patellar mob Direction medial Grade III Body Position Supine PT-OP-T Assessment and Plan Start: 01/23/23 15:01 Freq: Status: Active Protocol: Document 02/04/23 10:32 AMB (Rec: 02/04/23 11:21 AMB [id number]) Physical Therapy Assessment Goals Two Impairment Pain Short Term Goal (STG) Roseanna will sit for 1 hour without knee pain. STG Duration 5 weeks Correction Goal (LTG) Roseanna will ascend and descend a flight of stairs without knee pain. LTG Duration 10 weeks One Impairment Strength Short Term Goal (STG) Roseanna will be independent for a [facility] for LE strengthening. STG Duration 5 weeks Atomic Fuel Assembler Goal (LTG) Roseanna will show improved LE strength by performing a full squat without an increase in knee pain. LTG Duration 10 weeks Assessment Summary Assessment Pt reports increased pain last night when sleeping on the side. No pain right now. cues for alignment with sit to stand and bridges. Physical Therapy Plan Frequency and Duration Frequency of Treatment 2x/Week Duration of treatment (weeks) 10 Plan of Care Start Date 01/27/23 Plan of Care End Date 04/07/23 Therapeutic Interventions Therapeutic Interventions Gait Training,Home Exercise Program,Joint Mobilizations, Manual Therapy,Neuromuscular Re-education,Self-Care/Home Management,Taping,Therapeutic Activities,Therapeutic Exercises Modalities Cold Pack/Ice Massage,Electric Stimulation,Hot Packs Next Visit Focus/Plan Next Note Type Treatment Note Next Visit Plan HEP for patellar positioning
--- NOTE | 2023-02-09 11:15 | PT.OTN ---
Current Diagnoses Chondromalacia patellae, left knee (02/09/23) Prepatellar bursitis, left knee (02/09/23) Physical Therapy Treatment Note PT-OP-A Visit Information Start: 01/23/23 15:01 Freq: Status: Active Protocol: Document 02/09/23 10:32 SP (Rec: 02/09/23 11:28 SP [id number]) Out-Patient Physical Therapy Visit Information Visit Information Visit Type Treatment Note Visit Note *Mom attended to tx to learn cuing and allow for carryover compliance and form at home. Visit Start Time 10:32 Visit Stop Time 11:15 Total Visit Minutes 43 Visit Number 4 Number of MINERAL ORE PROCESSING LABOURER Visits 1 Precautions Precautions *latex PT-OP-B Current Condition Start: 01/23/23 15:01 Freq: Status: Active Protocol: Document 01/27/23 10:31 AMB (Rec: 01/27/23 11:22 AMB [id number]) Current Condition History of Current Condition Onset Date 2+years L knee pain Current Complaints L knee History of Current Condition Roseanna reports that over 2 years ago she was kneeling and felt a pop in her knee. She has tried multiple attempts at PT. She continues to have pain. She describes it as sharp pain with extended sitting, walking especially on uneven surfaces, standing in the kitchen can be painful. Medial and patellar knee pain. [place]y [place] the beach, not doing prior PT exercises as they increased pain. Prior Treatments and Tests 09/2020: MRI mild patellar tendonopathy, mild chondromalacia patella, minimal bursal fluid--possible mild bursitis. Reports got an inject at ortho that did not help. Prior PT. Personal Factors Other Personal Factors That May Effect Developmental disability, Therapy/Recovery lives with mom PT-OP-C Subjective Start: 01/23/23 15:01 Freq: Status: Active Protocol: Document 02/09/23 10:32 SP (Rec: 02/09/23 11:28 SP [id number]) OP-PT Subjective Patient Comments Patient Comments Pt stated didn't see a difference with Ktaping vs not , removed Fri. PT-OP-J Posture/Palpation/Skin Start: 01/23/23 15:01 Freq: Status: Active Protocol: Document 01/27/23 10:30 AMB (Rec: 01/28/23 16:26 AMB [id number]) Posture Evaluation Comments Posture Comments Flat feet, tends to toe on in the left Palpation Assessment Location L knee Palpation Details Pain at medial patellar tendon PT-OP-K Range of Motion Start: 01/23/23 15:01 Freq: Status: Active Protocol: Document 01/27/23 10:30 AMB (Rec: 01/28/23 16:26 AMB [id number]) Knee Goniometric Range of Motion Knee Left Knee ROM WFL Yes Comments pt tends to be hypermobile PT-OP-M Strength Start: 01/23/23 15:01 Freq: Status: Active Protocol: Document 01/27/23 10:30 AMB (Rec: 01/28/23 16:26 AMB [id number]) Hip Strength Hip Manual Muscle Testing Right Flexion (L2) 4+ Good+ Extension (S1) 4+ Good+ Abduction 4+ Good+ Adduction 4+ Good+ Left Flexion (L2) 4+ Good+ Extension (S1) 4+ Good+ Abduction 4+ Good+ Adduction 4+ Good+ Knee Strength Knee Manual Muscle Testing Right Flexion (S2) 4+ Good+ Extension (L3) 4+ Good+ Left Flexion (S2) 4 Good Extension (L3) 4 Good PT-OP-Q Treatments Start: 01/23/23 15:01 Freq: Status: Active Protocol: Document 02/09/23 10:32 SP (Rec: 02/09/23 11:28 SP [id number]) Therapeutic Exercises Supine Exercises SLR Supine Exercise Name HEP reviewed Side left Reps/Minutes 2x10 Comments good fatiguing, cued try not allow hyperextension bridge Supine Exercise Name added for HEP, gave HO 02/09 Side bilateral Resistance latex free green band around thighs Reps/Minutes 2x20 Comments cued feet // (tends turn in) Sidelying Exercises clam Sidelying Exercise Name HEP reviewed Side left Resistance latex free green band around thighs Reps/Minutes 2x10 Comments cues to avoid LS rotation, TA, knees bent 90 deg, DF 90 deg Sitting Exercises HS curl Sitting Exercise Name added to HEP Side left Resistance latex free pink band around ankle/anchor low door Reps/Minutes 2x10 Comments cued slow con/ecc- painfree Standing Exercises TKE Standing Exercise Name added to HEP Resistance large:latex free green band around thigh/ door above knee Reps/Minutes 2x10- little achiness patellar tendon. Comments cued slow flex/ext, no end range hyperextension, keep knee down sit to stand Standing Exercise Name HEP reviewed Resistance latex free green band around thighs Equipment Used cable bench seat Reps/Minutes 2x10 Comments no UEs, cued hip hinge slow descent Manual Therapy Treatment Joint Mobilizations patellar mob Direction medial, tilting posterior Grade II Body Position Supine Reps/Duration 2 min total Comments good feedback response PT-OP-T Assessment and Plan Start: 01/23/23 15:01 Freq: Status: Active Protocol: Document 02/09/23 10:32 SP (Rec: 02/09/23 11:28 SP [id number]) Physical Therapy Assessment Goals Two Impairment Pain Short Term Goal (STG) Roseanna will sit for 1 hour without knee pain. STG Duration 5 weeks Mill Operator Goal (LTG) Roseanna will ascend and descend a flight of stairs without knee pain. LTG Duration 10 weeks One Impairment Strength Short Term Goal (STG) Roseanna will be independent for a HEP for LE strengthening. 02/09/23: HEP reviewed: side clamshell GTB, supine: bridge GTB, SLR, stand: TKE GTB, STS GTB, seated HS curl PinkTB. STG Duration 5 weeks progressin02/09/23 Mill Operator Goal (LTG) Roseanna will show improved LE strength by performing a full squat without an increase in knee pain. LTG Duration 10 weeks Assessment Summary Assessment Pt good feedback response to HEP, added resisted TKE and HS curl, cued set up, slow con/ eccentric directioning, feet / /. Noted little L patellar tendon achiness post TKE but states no pain (last ex), understands if uncomfortable to stop and let therapist know . Pt reports feels good muscle work today, L knee painfree. Good carryover corrections post cues. Mother heard cues given and wrote into HOs given today. Physical Therapy Plan Frequency and Duration Frequency of Treatment 2x/Week Duration of treatment (weeks) 10 Plan of Care Start Date 01/27/23 Plan of Care End Date 04/07/23 Therapeutic Interventions Therapeutic Interventions Gait Training,Home Exercise Program,Joint Mobilizations, Manual Therapy,Neuromuscular Re-education,Self-Care/Home Management,Taping,Therapeutic Activities,Therapeutic Exercises Modalities Cold Pack/Ice Massage,Electric Stimulation,Hot Packs Next Visit Focus/Plan Next Note Type Treatment Note Next Visit Plan REcheck HEP (asked to bring in HOs to write cues needed and condense if needed) POC: HEP for patellar positioning
--- NOTE | 2023-02-11 10:08 | PT.OTN ---
Current Diagnoses Chondromalacia patellae, left knee (02/11/23) Prepatellar bursitis, left knee (02/11/23) Physical Therapy Treatment Note PT-OP-A Visit Information Start: 01/23/23 15:01 Freq: Status: Active Protocol: Document 02/11/23 09:25 SP (Rec: 02/11/23 10:19 SP [id number]) Out-Patient Physical Therapy Visit Information Visit Information Visit Type Treatment Note Visit Note *Mom attended to tx to learn cuing and allow for carryover compliance and form at home. Visit Start Time 09:25 Visit Stop Time 10:08 Total Visit Minutes 43 Visit Number 5 Number of GIS PHYSICAL SCIENTIST Visits 2 Precautions Precautions *latex sensitivities with some adhesives. PT-OP-B Current Condition Start: 01/23/23 15:01 Freq: Status: Active Protocol: Document 01/27/23 10:31 AMB (Rec: 01/27/23 11:22 AMB [id number]) Current Condition History of Current Condition Onset Date 2+years L knee pain Current Complaints L knee History of Current Condition Roseanna reports that over 2 years ago she was kneeling and felt a pop in her knee. She has tried multiple attempts at PT. She continues to have pain. She describes it as sharp pain with extended sitting, walking especially on uneven surfaces, standing in the kitchen can be painful. Medial and patellar knee pain. Difficulty walking on the beach, not doing prior PT exercises as they increased pain. Prior Treatments and Tests 09/2020: MRI mild patellar tendonopathy, mild chondromalacia patella, minimal bursal fluid--possible mild bursitis. Reports got an inject at ortho that did not help. Prior PT. Personal Factors Other Personal Factors That May Effect Developmental disability, Therapy/Recovery lives with mom PT-OP-C Subjective Start: 01/23/23 15:01 Freq: Status: Active Protocol: Document 02/11/23 09:25 SP (Rec: 02/11/23 10:19 SP [id number]) OP-PT Subjective Patient Comments Patient Comments Pt reports her B hip flexors/ quads were sore after last tx and thinks crossing her arm over chest during STS is to hard and muscles sore. PT-OP-J Posture/Palpation/Skin Start: 01/23/23 15:01 Freq: Status: Active Protocol: Document 01/27/23 10:30 AMB (Rec: 01/28/23 16:26 AMB [id number]) Posture Evaluation Comments Posture Comments Flat feet, tends to toe on in the left Palpation Assessment Location L knee Palpation Details Pain at medial patellar tendon PT-OP-K Range of Motion Start: 01/23/23 15:01 Freq: Status: Active Protocol: Document 01/27/23 10:30 AMB (Rec: 01/28/23 16:26 AMB [id number]) Knee Goniometric Range of Motion Knee Left Knee ROM WFL Yes Comments pt tends to be hypermobile PT-OP-M Strength Start: 01/23/23 15:01 Freq: Status: Active Protocol: Document 01/27/23 10:30 AMB (Rec: 01/28/23 16:26 AMB [id number]) Hip Strength Hip Manual Muscle Testing Right Flexion (L2) 4+ Good+ Extension (S1) 4+ Good+ Abduction 4+ Good+ Adduction 4+ Good+ Left Flexion (L2) 4+ Good+ Extension (S1) 4+ Good+ Abduction 4+ Good+ Adduction 4+ Good+ Knee Strength Knee Manual Muscle Testing Right Flexion (S2) 4+ Good+ Extension (L3) 4+ Good+ Left Flexion (S2) 4 Good Extension (L3) 4 Good PT-OP-Q Treatments Start: 01/23/23 15:01 Freq: Status: Active Protocol: Document 02/11/23 09:25 SP (Rec: 02/11/23 10:19 SP [id number]) Therapeutic Exercises Supine Exercises SLR Supine Exercise Name HEP reviewed Side left Reps/Minutes 2x10 Comments good fatiguing, cued soft knee /no hyperextension and neutral ankle Sitting Exercises stretching Sitting Exercise Name added to HEP: HS, piriformis Side bilateral Reps/Minutes 30 x2 Comments good feedback self STMs Sitting Exercise Name quad, HS, calf, ITB, adductors Side bilateral Equipment Used rolling pin Reps/Minutes 1min total Comments good feedback massage HS curl Sitting Exercise Name added to HEP Side left Resistance latex free pink band around ankle/anchor low door Equipment Used Latex free TB #2 (pink)> #3 ( blue) Reps/Minutes 2x10 Comments cued slow con/ecc- painfree Standing Exercises calf stretch Standing Exercise Name added to HEP Side bilateral Equipment Used facing counter, rolled towel under forefoot Reps/Minutes 20SH Comments cued slow ease into stretch- good response TKE Standing Exercise Name HEP (around thigh/ door above knee) Resistance Large loop: latex #2 Green> #3 blue Reps/Minutes 2x10 Comments cued slow flex/ext, no end range hyperextension, keep knee down sit to stand Standing Exercise Name HEP reviewed- arms front and discussed full sit/stand- was eccentric taps Resistance latex free green band around thighs Equipment Used cable bench seat Reps/Minutes 2x10 Comments no UEs, cued hip hinge slow descent PT-OP-T Assessment and Plan Start: 01/23/23 15:01 Freq: Status: Active Protocol: Document 02/11/23 09:25 SP (Rec: 02/11/23 10:19 SP [id number]) Physical Therapy Assessment Goals Two Impairment Pain Short Term Goal (STG) Roseanna will sit for 1 hour without knee pain. STG Duration 5 weeks Shelter Goal (LTG) Roseanna will ascend and descend a flight of stairs without knee pain. LTG Duration 10 weeks One Impairment Strength Short Term Goal (STG) Roseanna will be independent for a HEP for LE strengthening. 02/09/23: HEP reviewed: side clamshell GTB, supine: bridge GTB, SLR, stand: TKE GTB, STS GTB, seated HS curl PinkTB. 02/11/23: increased resistance #3 TB blue TKE and HS curl. Added HS, piriformis, calf stretching and use rolling pin quad. STG Duration 5 weeks progressin02/11/23 Interim Controller Goal (LTG) Roseanna will show improved LE strength by performing a full squat without an increase in knee pain. LTG Duration 10 weeks Assessment Summary Assessment Pt good response to added self STMs use of rolling pin to quad for self massage and understanding proper use. Pt able to increased resistance to to TKE and HS curl this tx with no adverse affects. Initated stretching for recovery of soreness with strengthening HEP with good feedback. Provided HOs for support set up and form. Physical Therapy Plan Frequency and Duration Frequency of Treatment 2x/Week Duration of treatment (weeks) 10 Plan of Care Start Date 01/27/23 Plan of Care End Date 04/07/23 Therapeutic Interventions Therapeutic Interventions Gait Training,Home Exercise Program,Joint Mobilizations, Manual Therapy,Neuromuscular Re-education,Self-Care/Home Management,Taping,Therapeutic Activities,Therapeutic Exercises Modalities Cold Pack/Ice Massage,Electric Stimulation,Hot Packs Next Visit Focus/Plan Next Note Type Treatment Note Next Visit Plan Recheck HEP (asked to bring in HOs and latex bands to write cues needed and condense if needed) POC: HEP for patellar positioning
--- NOTE | 2023-02-16 12:52 | PT.OTN ---
Current Diagnoses Chondromalacia patellae, left knee (02/16/23) Prepatellar bursitis, left knee (02/16/23) Physical Therapy Treatment Note PT-OP-A Visit Information Start: 01/23/23 15:01 Freq: Status: Active Protocol: Document 02/16/23 11:20 AMB (Rec: 02/16/23 12:08 AMB [id number]) Out-Patient Physical Therapy Visit Information Visit Information Visit Type Treatment Note Visit Note *Mom attended to tx to learn cuing and allow for carryover compliance and form at home. Visit Start Time 11:15 Visit Stop Time 12:00 Total Visit Minutes 45 Visit Number 6 Number of IT INTERN Visits 0 PT-OP-B Current Condition Start: 01/23/23 15:01 Freq: Status: Active Protocol: Document 01/27/23 10:31 AMB (Rec: 01/27/23 11:22 AMB [id number]) Current Condition History of Current Condition Onset Date 2+years L knee pain Current Complaints L knee History of Current Condition Roseanna reports that over 2 years ago she was kneeling and felt a pop in her knee. She has tried multiple attempts at PT. She continues to have pain. She describes it as sharp pain with extended sitting, walking especially on uneven surfaces, standing in the kitchen can be painful. Medial and patellar knee pain. [place]y walking [place] the beach, not doing prior PT exercises as they increased pain. Prior Treatments and Tests 09/2020: MRI mild patellar tendonopathy, mild chondromalacia patella, minimal bursal fluid--possible mild bursitis. Reports got an inject at ortho that did not help. Prior PT. Personal Factors Other Personal Factors That May Effect Developmental disability, Therapy/Recovery lives with mom PT-OP-C Subjective Start: 01/23/23 15:01 Freq: Status: Active Protocol: Document 02/16/23 11:20 AMB (Rec: 02/16/23 12:08 AMB [id number]) OP-PT Subjective Patient Comments Patient Comments Feelign like the knee is around the same PT-OP-J Posture/Palpation/Skin Start: 01/23/23 15:01 Freq: Status: Active Protocol: Document 01/27/23 10:30 AMB (Rec: 01/28/23 16:26 AMB [id number]) Posture Evaluation Comments Posture Comments Flat feet, tends to toe on in the left Palpation Assessment Location L knee Palpation Details Pain at medial patellar tendon PT-OP-K Range of Motion Start: 01/23/23 15:01 Freq: Status: Active Protocol: Document 01/27/23 10:30 AMB (Rec: 01/28/23 16:26 AMB [id number]) Knee Goniometric Range of Motion Knee Left Knee ROM WFL Yes Comments pt tends to be hypermobile PT-OP-M Strength Start: 01/23/23 15:01 Freq: Status: Active Protocol: Document 01/27/23 10:30 AMB (Rec: 01/28/23 16:26 AMB [id number]) Hip Strength Hip Manual Muscle Testing Right Flexion (L2) 4+ Good+ Extension (S1) 4+ Good+ Abduction 4+ Good+ Adduction 4+ Good+ Left Flexion (L2) 4+ Good+ Extension (S1) 4+ Good+ Abduction 4+ Good+ Adduction 4+ Good+ Knee Strength Knee Manual Muscle Testing Right Flexion (S2) 4+ Good+ Extension (L3) 4+ Good+ Left Flexion (S2) 4 Good Extension (L3) 4 Good PT-OP-Q Treatments Start: 01/23/23 15:01 Freq: Status: Active Protocol: Document 02/16/23 11:20 AMB (Rec: 02/16/23 12:08 AMB [id number]) Cardio Equipment Treadmill Duration (Minutes) 5 Speed 1.8 Incline 0 Therapeutic Exercises Supine Exercises 2 Supine Exercise Name active hamstring stretch Reps/Minutes 10x5 1 Supine Exercise Name single knee to chest Reps/Minutes 30x2 SLR Supine Exercise Name HEP reviewed Side left Reps/Minutes 2x10 Comments good fatiguing, cued soft knee /no hyperextension and neutral ankle bridge Supine Exercise Name added for HEP, gave HO 3/13 Side bilateral Resistance latex free green band around thighs Reps/Minutes 2x20 Comments cued feet // (tends turn in) Sidelying Exercises IT band stretch Reps/Minutes 30'x2 clam Sidelying Exercise Name HEP reviewed Side left Resistance latex free green band around thighs Reps/Minutes 2x10 Comments cues to avoid LS rotation, TA, knees bent 90 deg, DF 90 deg Standing Exercises sit to stand Standing Exercise Name HEP reviewed- arms front and discussed full sit/stand- was eccentric taps Resistance latex free green band around thighs Equipment Used cable bench seat Reps/Minutes 2x10 Comments no UEs, cued hip hinge slow descent PT-OP-T Assessment and Plan Start: 01/23/23 15:01 Freq: Status: Active Protocol: Document 02/16/23 11:20 AMB (Rec: 02/16/23 12:08 AMB [id number]) Physical Therapy Assessment Goals Two Impairment Pain Short Term Goal (STG) Roseanna will sit for 1 hour without knee pain. STG Duration 5 weeks Heel Packer Goal (LTG) Roseanna will ascend and descend a flight of stairs without knee pain. LTG Duration 10 weeks One Impairment Strength Short Term Goal (STG) Roseanna will be independent for a HEP for LE strengthening. 02/09/23: HEP reviewed: side clamshell GTB, supine: bridge GTB, SLR, stand: TKE GTB, STS GTB, seated HS curl PinkTB. 02/11/23: increased resistance #3 TB blue TKE and HS curl. Added HS, piriformis, calf stretching and use rolling pin quad. STG Duration 5 weeks progressin02/11/23 Heel Packer Goal (LTG) Roseanna will show improved LE strength by performing a full squat without an increase in knee pain. LTG Duration 10 weeks Assessment Summary Assessment Encouraged Roseanna in her treadmill walking, start with 5 minutes. Her knee gets stiff at night is still problematic. Given stretches to try at night to work on that stiffness. Physical Therapy Plan Frequency and Duration Frequency of Treatment 2x/Week Duration of treatment (weeks) 10 Plan of Care Start Date 01/27/23 Plan of Care End Date 04/07/23 Therapeutic Interventions Therapeutic Interventions Gait Training,Home Exercise Program,Joint Mobilizations, Manual Therapy,Neuromuscular Re-education,Self-Care/Home Management,Taping,Therapeutic Activities,Therapeutic Exercises Modalities Cold Pack/Ice Massage,Electric Stimulation,Hot Packs Next Visit Focus/Plan Next Note Type Treatment Note Next Visit Plan Recheck HEP (asked to bring in HOs and latex bands to write cues needed and condense if needed) POC: HEP for patellar positioning
--- NOTE | 2023-02-18 09:30 | PT.OTN ---
Current Diagnoses Chondromalacia patellae, left knee (02/18/23) Prepatellar bursitis, left knee (02/18/23) Physical Therapy Treatment Note PT-OP-A Visit Information Start: 01/23/23 15:01 Freq: Status: Active Protocol: Document 02/18/23 08:45 SP (Rec: 02/18/23 09:42 SP [id number]) Out-Patient Physical Therapy Visit Information Visit Information Visit Type Treatment Note Visit Note *Mom attended to tx to learn cuing and allow for carryover compliance and form at home. Visit Start Time 08:45 Visit Stop Time 09:30 Total Visit Minutes 45 Visit Number 7 Number of LEGAL ADVISOR Visits 1 Precautions Precautions *latex sensitivities with some adhesives. PT-OP-B Current Condition Start: 01/23/23 15:01 Freq: Status: Active Protocol: Document 01/27/23 10:31 AMB (Rec: 01/27/23 11:22 AMB [id number]) Current Condition History of Current Condition Onset Date 2+years L knee pain Current Complaints L knee History of Current Condition Roseanna reports that over 2 years ago she was kneeling and felt a pop in her knee. She has tried multiple attempts at PT. She continues to have pain. She describes it as sharp pain with extended sitting, walking especially on uneven surfaces, standing in the kitchen can be painful. Medial and patellar knee pain. [place]y walking [place] the beach, not doing prior PT exercises as they increased pain. Prior Treatments and Tests 09/2020: MRI mild patellar tendonopathy, mild chondromalacia patella, minimal bursal fluid--possible mild bursitis. Reports got an inject at ortho that did not help. Prior PT. Personal Factors Other Personal Factors That May Effect Developmental disability, Therapy/Recovery lives with mom PT-OP-C Subjective Start: 01/23/23 15:01 Freq: Status: Active Protocol: Document 02/18/23 08:45 SP (Rec: 02/18/23 09:42 SP [id number]) OP-PT Subjective Patient Comments Patient Comments Pt reports thinks her knee was achy after TM last tx but knows it is new. She feels the exercises are helping, not noticing as much pain in knees , compliant with HEP. Mother states helps to give her cues as needed for proper form and sees pt is doing well at home with self corrections. PT-OP-J Posture/Palpation/Skin Start: 02/24/23 15:01 Freq: Status: Active Protocol: Document 01/27/23 10:30 AMB (Rec: 01/28/23 16:26 AMB [id number]) Posture Evaluation Comments Posture Comments Flat feet, tends to toe on in the left Palpation Assessment Location L knee Palpation Details Pain at medial patellar tendon PT-OP-K Range of Motion Start: 01/23/23 15:01 Freq: Status: Active Protocol: Document 01/27/23 10:30 AMB (Rec: 01/28/23 16:26 AMB [id number]) Knee Goniometric Range of Motion Knee Left Knee ROM WFL Yes Comments pt tends to be hypermobile PT-OP-M Strength Start: 01/23/23 15:01 Freq: Status: Active Protocol: Document 01/27/23 10:30 AMB (Rec: 01/28/23 16:26 AMB [id number]) Hip Strength Hip Manual Muscle Testing Right Flexion (L2) 4+ Good+ Extension (S1) 4+ Good+ Abduction 4+ Good+ Adduction 4+ Good+ Left Flexion (L2) 4+ Good+ Extension (S1) 4+ Good+ Abduction 4+ Good+ Adduction 4+ Good+ Knee Strength Knee Manual Muscle Testing Right Flexion (S2) 4+ Good+ Extension (L3) 4+ Good+ Left Flexion (S2) 4 Good Extension (L3) 4 Good PT-OP-Q Treatments Start: 01/23/23 15:01 Freq: Status: Active Protocol: Document 02/18/23 08:45 SP (Rec: 02/18/23 09:42 SP [id number]) Cardio Equipment Treadmill Duration (Minutes) 6 Speed 1.8>2.1 Incline 0 Other cued arm swing, L foot Ev neutral and foot clearance Gym Equipment Shuttle Recovery Unilateral Squats Details SL squat- cue knee alignment/ mid foot heel press post chain fac Resistance #50-62 Shuttle Recovery Platform Stable Reps/Time 10 x 3 Bilateral Squats Details with level 1 abd band Resistance #75 Shuttle Recovery Platform Stable Reps/Time 10 x 2 Therapeutic Exercises Supine Exercises SLR Supine Exercise Name HEP reviewed Side left Reps/Minutes 2x10 Comments good fatiguing, cued soft knee /no hyperextension and neutral ankle bridge Supine Exercise Name reviewed HEP Side bilateral Resistance latex free green band around thighs Reps/Minutes 2x20 Comments cued feet // (tends turn in) Sidelying Exercises clam Sidelying Exercise Name HEP reviewed Side left Resistance latex free green band around thighs Reps/Minutes 2x12 Comments good back alignment, cued ankle DF neutral Sitting Exercises stretching Sitting Exercise Name reviewed HEP: HS, piriformis Side bilateral Reps/Minutes 30 Comments good feedback HS curl Sitting Exercise Name reviewed HEP Side left Resistance latex free pink band around ankle/anchor low door Equipment Used Latex free TB #2 (pink)> #3 ( blue) Reps/Minutes 2x10 Comments cued slow con/ecc- painfree Standing Exercises step ups Standing Exercise Name initiated in PT: repeated single leg Side bilateral Equipment Used light contact rail Reps/Minutes x10 Comments good knee with toes eccentric flexion, not need cuing calf stretch Standing Exercise Name reviewed HEP Side bilateral Equipment Used facing counter, rolled towel under forefoot Reps/Minutes 20SH Comments cued slow ease into stretch- good response TKE Standing Exercise Name HEP (around thigh/ door above knee) Resistance Large loop: latex free #3 blue Reps/Minutes 2x10 Comments good hyperextension, keep heel down sit to stand Standing Exercise Name HEP reviewed- arms front and discussed full sit/stand- was eccentric taps Resistance latex free green band around thighs Equipment Used cable bench seat Reps/Minutes 2x10 Comments no UEs, cued hip hinge slow descent PT-OP-T Assessment and Plan Start: 01/23/23 15:01 Freq: Status: Active Protocol: Document 02/18/23 08:45 SP (Rec: 02/18/23 09:42 SP [id number]) Physical Therapy Assessment Goals Two Impairment Pain Short Term Goal (STG) Roseanna will sit for 1 hour without knee pain. 02/18/23: pt stated hasn;t noticed but the ride here takes about 45min -1 hr and didn't to her her knees. WIll pay attention and report next tx. STG Duration 5 weeks progressing 02/18/23 Truckload Owner Operator Goal (LTG) Roseanna will ascend and descend a flight of stairs without knee pain. LTG Duration 10 weeks One Impairment Strength Short Term Goal (STG) Roseanna will be independent for a HEP for LE strengthening. 02/09/23: HEP reviewed: side clamshell GTB, supine: bridge GTB, SLR, stand: TKE GTB, STS GTB, seated HS curl PinkTB. 02/11/23: increased resistance #3 TB blue TKE and HS curl. Added HS, piriformis, calf stretching and use rolling pin quad. STG Duration 5 weeks progressin02/11/23 Truckload Owner Operator Goal (LTG) Roseanna will show improved LE strength by performing a full squat without an increase in knee pain. LTG Duration 10 weeks Assessment Summary Assessment Pt good feedback to ther ex and stretching. Cues for ankle /foot alignment DF or EV neutral positioning which decreased knee medial drift. Physical Therapy Plan Frequency and Duration Frequency of Treatment 2x/Week Duration of treatment (weeks) 10 Plan of Care Start Date 01/27/23 Plan of Care End Date 04/07/23 Therapeutic Interventions Therapeutic Interventions Gait Training,Home Exercise Program,Joint Mobilizations, Manual Therapy,Neuromuscular Re-education,Self-Care/Home Management,Taping,Therapeutic Activities,Therapeutic Exercises Modalities Cold Pack/Ice Massage,Electric Stimulation,Hot Packs Next Visit Focus/Plan Next Note Type Treatment Note Next Visit Plan Recheck HEP (bringing band from home for use). Check response to step ups and shuttle recovery initiated last tx. Check if can add as HEP. start hurdles, uneven surface. POC: HEP for patellar positioning
--- NOTE | 2023-02-23 11:14 | PT.OTN ---
Current Diagnoses Chondromalacia patellae, left knee (02/23/23) Prepatellar bursitis, left knee (02/23/23) Physical Therapy Treatment Note PT-OP-A Visit Information Start: 01/23/23 15:01 Freq: Status: Active Protocol: Document 02/23/23 10:39 AMB (Rec: 02/23/23 11:14 AMB [id number]) Out-Patient Physical Therapy Visit Information Visit Information Visit Type Treatment Note Visit Note *Mom attended to tx to learn cuing and allow for carryover compliance and form at home. Visit Start Time 10:30 Visit Stop Time 11:15 Total Visit Minutes 45 Visit Number 8 PT-OP-B Current Condition Start: 01/23/23 15:01 Freq: Status: Active Protocol: Document 01/27/23 10:31 AMB (Rec: 01/27/23 11:22 AMB [id number]) Current Condition History of Current Condition Onset Date 2+years L knee pain Current Complaints L knee History of Current Condition Roseanna reports that over 2 years ago she was kneeling and felt a pop in her knee. She has tried multiple attempts at PT. She continues to have pain. She describes it as sharp pain with extended sitting, walking especially on uneven surfaces, standing in the kitchen can be painful. Medial and patellar knee pain. Difficulty walking on the beach, not doing prior PT exercises as they increased pain. Prior Treatments and Tests 09/2020: MRI mild patellar tendonopathy, mild chondromalacia patella, minimal bursal fluid--possible mild bursitis. Reports got an inject at ortho that did not help. Prior PT. Personal Factors Other Personal Factors That May Effect Developmental disability, Therapy/Recovery lives with mom PT-OP-C Subjective Start: 01/23/23 15:01 Freq: Status: Active Protocol: Document 02/23/23 10:39 AMB (Rec: 02/23/23 11:14 AMB [id number]) OP-PT Subjective Patient Comments Patient Comments Throbbing pain at night and while sitting and sharp pain sometime, aching after treadmill. PT-OP-J Posture/Palpation/Skin Start: 01/23/23 15:01 Freq: Status: Active Protocol: Document 01/27/23 10:30 AMB (Rec: 01/28/23 16:26 AMB [id number]) Posture Evaluation Comments Posture Comments Flat feet, tends to toe on in the left Palpation Assessment Location L knee Palpation Details Pain at medial patellar tendon PT-OP-K Range of Motion Start: 01/23/23 15:01 Freq: Status: Active Protocol: Document 01/27/23 10:30 AMB (Rec: 01/28/23 16:26 AMB [id number]) Knee Goniometric Range of Motion Knee Left Knee ROM WFL Yes Comments pt tends to be hypermobile PT-OP-M Strength Start: 01/23/23 15:01 Freq: Status: Active Protocol: Document 01/27/23 10:30 AMB (Rec: 01/28/23 16:26 AMB [id number]) Hip Strength Hip Manual Muscle Testing Right Flexion (L2) 4+ Good+ Extension (S1) 4+ Good+ Abduction 4+ Good+ Adduction 4+ Good+ Left Flexion (L2) 4+ Good+ Extension (S1) 4+ Good+ Abduction 4+ Good+ Adduction 4+ Good+ Knee Strength Knee Manual Muscle Testing Right Flexion (S2) 4+ Good+ Extension (L3) 4+ Good+ Left Flexion (S2) 4 Good Extension (L3) 4 Good PT-OP-Q Treatments Start: 01/23/23 15:01 Freq: Status: Active Protocol: Document 02/23/23 10:39 AMB (Rec: 02/23/23 11:14 AMB [id number]) Gym Equipment Shuttle Recovery Bilateral Squats Details with level 1 abd band Resistance #75 Shuttle Recovery Platform Stable Reps/Time 10 x 2 Therapeutic Exercises Supine Exercises 2 Supine Exercise Name active hamstring stretch Reps/Minutes 10x5 SLR Supine Exercise Name HEP reviewed Side left Reps/Minutes 2x10 Comments good fatiguing, cued soft knee /no hyperextension and neutral ankle Sidelying Exercises clam Sidelying Exercise Name HEP reviewed Side left Resistance latex free green band around thighs Reps/Minutes 2x12 Comments good back alignment, cued ankle DF neutral Standing Exercises step ups Standing Exercise Name initiated in PT: repeated single leg Side bilateral Equipment Used light contact rail Reps/Minutes x10 Comments good knee with toes eccentric flexion, not need cuing calf stretch Standing Exercise Name reviewed HEP Side bilateral Equipment Used facing counter, rolled towel under forefoot Reps/Minutes 20SH Comments cued slow ease into stretch- good response PT-OP-T Assessment and Plan Start: 01/23/23 15:01 Freq: Status: Active Protocol: Document 02/23/23 10:39 AMB (Rec: 02/23/23 11:14 AMB [id number]) Physical Therapy Assessment Goals Two Impairment Pain Short Term Goal (STG) Roseanna will sit for 1 hour without knee pain. 02/18/23: pt stated hasn;t noticed but the ride here takes about 45min -1 hr and didn't to her her knees. WIll pay attention and report next tx. STG Duration 5 weeks progressing 02/18/23 Steeping Press Operator Goal (LTG) Roseanna will ascend and descend a flight of stairs without knee pain. LTG Duration 10 weeks One Impairment Strength Short Term Goal (STG) Roseanna will be independent for a HEP for LE strengthening. 02/09/23: HEP reviewed: side clamshell GTB, supine: bridge GTB, SLR, stand: TKE GTB, STS GTB, seated HS curl PinkTB. 02/11/23: increased resistance #3 TB blue TKE and HS curl. Added HS, piriformis, calf stretching and use rolling pin quad. STG Duration 5 weeks progressin02/11/23 Steeping Press Operator Goal (LTG) Roseanna will show improved LE strength by performing a full squat without an increase in knee pain. LTG Duration 10 weeks Assessment Summary Assessment Pt doign well with shuttle recovery. Pt is noticing aching when sendentary. Encouraged stretching or getting up and moving if continues. Physical Therapy Plan Frequency and Duration Frequency of Treatment 2x/Week Duration of treatment (weeks) 10 Plan of Care Start Date 01/27/23 Plan of Care End Date 04/07/23 Therapeutic Interventions Therapeutic Interventions Gait Training,Home Exercise Program,Joint Mobilizations, Manual Therapy,Neuromuscular Re-education,Self-Care/Home Management,Taping,Therapeutic Activities,Therapeutic Exercises Modalities Cold Pack/Ice Massage,Electric Stimulation,Hot Packs Next Visit Focus/Plan Next Note Type Treatment Note Next Visit Plan Recheck HEP (bringing band from home for use). Check response to step ups and shuttle recovery initiated last tx. Check if can add as HEP. start hurdles, uneven surface. POC: HEP for patellar positioning
--- NOTE | 2023-02-25 10:33 | PT.OTN ---
Current Diagnoses Chondromalacia patellae, left knee (02/25/23) Prepatellar bursitis, left knee (02/25/23) Physical Therapy Treatment Note PT-OP-A Visit Information Start: 01/23/23 15:01 Freq: Status: Active Protocol: Document 02/25/23 09:59 SP (Rec: 02/25/23 10:34 SP [id number]) Out-Patient Physical Therapy Visit Information Visit Information Visit Type Treatment Note Visit Note *Mom attended to tx to learn cuing and allow for carryover compliance and form at home. Visit Start Time 09:55 Visit Stop Time 10:33 Total Visit Minutes 38 Visit Number 9 Number of INDUSTRIAL SALES ENGINEER Visits 1 Precautions Precautions *latex sensitivities with some adhesives. PT-OP-B Current Condition Start: 01/23/23 15:01 Freq: Status: Active Protocol: Document 01/27/23 10:31 AMB (Rec: 01/27/23 11:22 AMB [id number]) Current Condition History of Current Condition Onset Date 2+years L knee pain Current Complaints L knee History of Current Condition Roseanna reports that over 2 years ago she was kneeling and felt a pop in her knee. She has tried multiple attempts at PT. She continues to have pain. She describes it as sharp pain with extended sitting, walking especially on uneven surfaces, standing in the kitchen can be painful. Medial and patellar knee pain. [place]y [place] the beach, not doing prior PT exercises as they increased pain. Prior Treatments and Tests 09/2020: MRI mild patellar tendonopathy, mild chondromalacia patella, minimal bursal fluid--possible mild bursitis. Reports got an inject at ortho that did not help. Prior PT. Personal Factors Other Personal Factors That May Effect Developmental disability, Therapy/Recovery lives with mom PT-OP-C Subjective Start: 01/23/23 15:01 Freq: Status: Active Protocol: Document 02/25/23 09:59 SP (Rec: 02/25/23 10:34 SP [id number]) OP-PT Subjective Patient Comments Patient Comments Pt reports sub patella still achy with walking in and outdoors. She stated thinks sore after shuttle recovery, wants stretch prior before use today. PT-OP-J Posture/Palpation/Skin Start: 01/23/23 15:01 Freq: Status: Active Protocol: Document 01/27/23 10:30 AMB (Rec: 01/28/23 16:26 AMB [id number]) Posture Evaluation Comments Posture Comments Flat feet, tends to toe on in the left Palpation Assessment Location L knee Palpation Details Pain at medial patellar tendon PT-OP-K Range of Motion Start: 01/23/23 15:01 Freq: Status: Active Protocol: Document 01/27/23 10:30 AMB (Rec: 01/28/23 16:26 AMB [id number]) Knee Goniometric Range of Motion Knee Left Knee ROM WFL Yes Comments pt tends to be hypermobile PT-OP-M Strength Start: 01/23/23 15:01 Freq: Status: Active Protocol: Document 01/27/23 10:30 AMB (Rec: 01/28/23 16:26 AMB [id number]) Hip Strength Hip Manual Muscle Testing Right Flexion (L2) 4+ Good+ Extension (S1) 4+ Good+ Abduction 4+ Good+ Adduction 4+ Good+ Left Flexion (L2) 4+ Good+ Extension (S1) 4+ Good+ Abduction 4+ Good+ Adduction 4+ Good+ Knee Strength Knee Manual Muscle Testing Right Flexion (S2) 4+ Good+ Extension (L3) 4+ Good+ Left Flexion (S2) 4 Good Extension (L3) 4 Good PT-OP-Q Treatments Start: 01/23/23 15:01 Freq: Status: Active Protocol: Document 02/25/23 09:59 SP (Rec: 02/25/23 10:34 SP [id number]) Therapeutic Exercises Supine Exercises SLR Supine Exercise Name HEP reviewed Side left Reps/Minutes 2x15 Comments good fatiguing, cued soft knee /no hyperextension and neutral ankle bridge Supine Exercise Name reviewed HEP Side bilateral Resistance latex free green band around thighs Reps/Minutes 2x20 Comments cued feet // (tends turn in) Sitting Exercises HS curl Sitting Exercise Name reviewed HEP Side left Resistance latex free pink band around ankle/anchor low door Equipment Used Latex free TB #2 (pink)> #3 ( blue) Reps/Minutes 2x10 Comments cued slow con/ecc- painfree Standing Exercises wall slides Standing Exercise Name HEP review Reps/Minutes 10SH x5 reps Comments good quad fac,cued glut fac if needed able last 10 sec, painfree step ups Standing Exercise Name repeated single leg fwd up/ bwd down Side bilateral Equipment Used no HR required (no step at home) Reps/Minutes x10 each LE Comments good knee with toes eccentric flexion, cuing only for which leg leading sit to stand Standing Exercise Name HEP reviewed- arms front and discussed full sit/stand- was eccentric taps Equipment Used cable bench seat Reps/Minutes 1 reps with Ktaping painfree Comments good form Manual Therapy Treatment Joint Mobilizations patellar mob Direction medial, tilting posterior Grade II Body Position Supine Reps/Duration 2 min total Comments good feedback response Taping kinesiotap Type of Tape Kinesio Tape Comments 1-2 strips lateral to medial glide and 2nd strip anterior tib lateral patella to medial quad superior patella PT-OP-T Assessment and Plan Start: 01/23/23 15:01 Freq: Status: Active Protocol: Document 02/25/23 09:59 SP (Rec: 02/25/23 10:34 SP [id number]) Physical Therapy Assessment Goals Two Impairment Pain Short Term Goal (STG) Roseanna will sit for 1 hour without knee pain. 02/18/23: pt stated hasn;t noticed but the ride here takes about 45min -1 hr and didn't to her her knees. WIll pay attention and report next tx. STG Duration 5 weeks progressing 02/18/23 Nightman Goal (LTG) Roseanna will ascend and descend a flight of stairs without knee pain. LTG Duration 10 weeks One Impairment Strength Short Term Goal (STG) Roseanna will be independent for a HEP for LE strengthening. 02/09/23: HEP reviewed: side clamshell GTB, supine: bridge GTB, SLR, stand: TKE GTB, STS GTB, seated HS curl PinkTB. 02/11/23: increased resistance #3 TB blue TKE and HS curl. Added HS, piriformis, calf stretching and use rolling pin quad. STG Duration 5 weeks progressin02/11/23 Retirement Goal (LTG) Roseanna will show improved LE strength by performing a full squat without an increase in knee pain. LTG Duration 10 weeks Assessment Summary Assessment Pt good feedback response to K taping, good understanding adverse affects, mom as well. Pt reported painfree today. Pt able to complete step ups repeated without UE support good form, mom stated will try outside step at home. Physical Therapy Plan Frequency and Duration Frequency of Treatment 2x/Week Duration of treatment (weeks) 10 Plan of Care Start Date 01/27/23 Plan of Care End Date 04/07/23 Therapeutic Interventions Therapeutic Interventions Gait Training,Home Exercise Program,Joint Mobilizations, Manual Therapy,Neuromuscular Re-education,Self-Care/Home Management,Taping,Therapeutic Activities,Therapeutic Exercises Modalities Cold Pack/Ice Massage,Electric Stimulation,Hot Packs Next Visit Focus/Plan Next Note Type Progress Note Next Visit Plan PN next tx 10th visit. Next add hurdles, uneven surface gait. REcheck to add more appts. POC: Recheck HEP (bringing band from home for use). Check response to step ups and shuttle recovery initiated last tx. Check if can add as HEP. start hurdles, uneven surface. POC: HEP for patellar positioning
--- NOTE | 2023-03-04 20:50 | PT.OTN ---
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) Prepatellar bursitis, left knee (03/04/23) Physical Therapy Treatment Note PT-OP-A Visit Information Start: 01/23/23 15:01 Freq: Status: Active Protocol: Document 03/04/23 11:16 AMB (Rec: 03/04/23 12:42 AMB [id number]) Out-Patient Physical Therapy Visit Information Visit Information Visit Type Progress Note Visit Start Time 11:15 Visit Stop Time 12:00 Total Visit Minutes 45 Visit Number 10 PT-OP-B Current Condition Start: 01/23/23 15:01 Freq: Status: Active Protocol: Document 01/27/23 10:31 AMB (Rec: 01/27/23 11:22 AMB [id number]) Current Condition History of Current Condition Onset Date 2+years L knee pain Current Complaints L knee History of Current Condition Roseanna reports that over 2 years ago she was kneeling and felt a pop in her knee. She has tried multiple attempts at PT. She continues to have pain. She describes it as sharp pain with extended sitting, walking especially on uneven surfaces, standing in the kitchen can be painful. Medial and patellar knee pain. [place]y [place] the beach, not doing prior PT exercises as they increased pain. Prior Treatments and Tests 09/2020: MRI mild patellar tendonopathy, mild chondromalacia patella, minimal bursal fluid--possible mild bursitis. Reports got an inject at ortho that did not help. Prior PT. Personal Factors Other Personal Factors That May Effect Developmental disability, Therapy/Recovery lives with mom PT-OP-C Subjective Start: 01/23/23 15:01 Freq: Status: Active Protocol: Document 03/04/23 11:16 AMB (Rec: 03/04/23 12:42 AMB [id number]) OP-PT Subjective Patient Comments Patient Comments Pt reports pain with hamstring exercises. Feeling like getting knee pain for about an hour after exercises. Hasn't been doing treadmill walking too much at home, not really painful just wasn't into it. Patient Questionnaires Lower Extremity Functional Scale LEFS Score 33 LEFS Impairment 40 to 59% Impaired (Score 32- 47) PT-OP-J Posture/Palpation/Skin Start: 01/23/23 15:01 Freq: Status: Active Protocol: Document 01/27/23 10:30 AMB (Rec: 01/28/23 16:26 AMB [id number]) Posture Evaluation Comments Posture Comments Flat feet, tends to toe on in the left Palpation Assessment Location L knee Palpation Details Pain at medial patellar tendon PT-OP-K Range of Motion Start: 01/23/23 15:01 Freq: Status: Active Protocol: Document 01/27/23 10:30 AMB (Rec: 01/28/23 16:26 AMB [id number]) Knee Goniometric Range of Motion Knee Left Knee ROM WFL Yes Comments pt tends to be hypermobile PT-OP-M Strength Start: 01/23/23 15:01 Freq: Status: Active Protocol: Document 01/27/23 10:30 AMB (Rec: 01/28/23 16:26 AMB [id number]) Hip Strength Hip Manual Muscle Testing Right Flexion (L2) 4+ Good+ Extension (S1) 4+ Good+ Abduction 4+ Good+ Adduction 4+ Good+ Left Flexion (L2) 4+ Good+ Extension (S1) 4+ Good+ Abduction 4+ Good+ Adduction 4+ Good+ Knee Strength Knee Manual Muscle Testing Right Flexion (S2) 4+ Good+ Extension (L3) 4+ Good+ Left Flexion (S2) 4 Good Extension (L3) 4 Good PT-OP-Q Treatments Start: 01/23/23 15:01 Freq: Status: Active Protocol: Document 03/04/23 11:15 AMB (Rec: 03/04/23 20:39 AMB [id number]) Cardio Equipment Treadmill Duration (Minutes) 7 Speed 1.8>2.0 Incline 0 Other cued arm swing, L foot Ev neutral and foot clearance Therapeutic Exercises Supine Exercises SLR Supine Exercise Name HEP reviewed Side left Reps/Minutes 2x15 Comments cued quad control, not hyperextension but quad set first Sitting Exercises HS curl Sitting Exercise Name reviewed HEP Side left Resistance latex free pink band around ankle/anchor low door Equipment Used latex free green Reps/Minutes 2x10 Comments cued slow con/ecc- painfree Standing Exercises TKE Standing Exercise Name HEP (around thigh/ door above knee) Resistance Large loop: latex free green Reps/Minutes 2x10 Comments cued not to go into hyperextension just to neutral PT-OP-T Assessment and Plan Start: 01/23/23 15:01 Freq: Status: Active Protocol: Document 03/04/23 11:16 AMB (Rec: 04/05/23 12:42 AMB [id number]) Physical Therapy Assessment Goals Two Impairment Pain Short Term Goal (STG) Roseanna will sit for 1 hour without knee pain. 02/18/23: pt stated hasn;t noticed but the ride here takes about 45min -1 hr and didn't to her her knees. WIll pay attention and report next tx. STG Duration 5 weeks progressing 02/18/23 Snf Goal (LTG) Roseanna will ascend and descend a flight of stairs without knee pain. Apr 5: tends to have delayed pain onset LTG Duration 10 weeks One Impairment Strength Short Term Goal (STG) Roseanna will be independent for a HEP for LE strengthening. 02/09/23: HEP reviewed: side clamshell GTB, supine: bridge GTB, SLR, stand: TKE GTB, STS GTB, seated HS curl PinkTB. 02/11/23: increased resistance #3 TB blue TKE and HS curl. Added HS, piriformis, calf stretching and use rolling pin quad. STG Duration 5 weeks progressin02/11/23 Membership Solicitor Goal (LTG) Roseanna will show improved LE strength by performing a full squat without an increase in knee pain. Apr 5: not necessarily painful during, but increases pain aferward LTG Duration 10 weeks Assessment Summary Assessment Pt noticing increased pain with some exercises. Not when she is doing the exercises, but afterwards for about an hour. Pt is a little unsure. Pt's mom helps her explain. Overall she is showing progress, improved LEFS score and better able to tolerate gait and stairs but then has increased pain following activity and continues to have times at night when the pain is problematic for her. Roseanna does need consistent cues for form, but is very motivated and consistent with her exercises. Spent time today discussing joint pain vs muscle soreness but it does sound like she is getting joint soreness post exercise. Her mother stats she had knee pain with standing at [employer] for maybe 30 minutes, so that she had to go sit down. Roseanna will continue to benefit from physical therapy to progress HEP and follow closely for increasing pain when increasing frequency/duration or additional exercises. Physical Therapy Plan Frequency and Duration Frequency of Treatment 2x/Week Duration of treatment (weeks) 10 Plan of Care Start Date 01/27/23 Plan of Care End Date 04/07/23 Therapeutic Interventions Therapeutic Interventions Gait Training,Home Exercise Program,Joint Mobilizations, Manual Therapy,Neuromuscular Re-education,Self-Care/Home Management,Taping,Therapeutic Activities,Therapeutic Exercises Modalities Cold Pack/Ice Massage,Electric Stimulation,Hot Packs Next Visit Focus/Plan Next Note Type Treatment Note Next Visit Plan Next add hurdles, uneven surface gait. Review HEP especially making sure pt has good quad activation. POC: Recheck HEP (bringing band from home for use). Check response to step ups and shuttle recovery initiated last tx. Check if can add as HEP. start hurdles, uneven surface. POC: HEP for patellar positioning
--- NOTE | 2023-03-04 20:50 | PT.OPPOC ---
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) Prepatellar bursitis, left knee (03/04/23) Visit Care Team Role Provider Type MYRNA Meeks Attending Provider Advanced Foaming Machine Operator Family Provider Primary Care Provider Referring Provider Specialty: Family Practice Address: [address] [place] [address], [facility] [place], [place], [facility] Email: [email or web address] Plan Of Care PT-OP-T Assessment and Plan Start: 01/23/23 15:01 Freq: Status: Active Protocol: Document 03/04/23 11:16 AMB (Rec: 03/04/23 12:42 AMB [id number]) Physical Therapy Assessment Goals Two Impairment Pain Short Term Goal (STG) Roseanna will sit for 1 hour without knee pain. 02/18/23: pt stated hasn;t noticed but the ride here takes about 45min -1 hr and didn't to her her knees. WIll pay attention and report next tx. STG Duration 5 weeks progressing 02/18/23 Claim Administrator Goal (LTG) Roseanna will ascend and descend a flight of stairs without knee pain. Apr 5: tends to have delayed pain onset LTG Duration 10 weeks One Impairment Strength Short Term Goal (STG) Roseanna will be independent for a HEP for LE strengthening. 02/09/23: HEP reviewed: side clamshell GTB, supine: bridge GTB, SLR, stand: TKE GTB, STS GTB, seated HS curl PinkTB. 02/11/23: increased resistance #3 TB blue TKE and HS curl. Added HS, piriformis, calf stretching and use rolling pin quad. STG Duration 5 weeks progressin02/11/23 Claim Administrator Goal (LTG) Roseanna will show improved LE strength by performing a full squat without an increase in knee pain. Apr 5: not necessarily painful during, but increases pain aferward LTG Duration 10 weeks Assessment Summary Assessment Pt noticing increased pain with some exercises. Not when she is doing the exercises, but afterwards for about an hour. Pt is a little unsure. Pt's mom helps her explain. Overall she is showing progress, improved LEFS score and better able to tolerate gait and stairs but then has increased pain following activity and continues to have times at night when the pain is problematic for her. Roseanna does need consistent cues for form, but is very motivated and consistent with her exercises. Spent time today discussing joint pain vs muscle soreness but it does sound like she is getting joint soreness post exercise. Her mother stats she had knee pain with standing at [employer] for maybe 30 minutes, so that she had to go sit down. Roseanna will continue to benefit from physical therapy to progress HEP and follow closely for increasing pain when increasing frequency/duration or additional exercises. Physical Therapy Plan Frequency and Duration Frequency of Treatment 2x/Week Duration of treatment (weeks) 10 Plan of Care Start Date 01/27/23 Plan of Care End Date 04/07/23 Therapeutic Interventions Therapeutic Interventions Gait Training,Home Exercise Program,Joint Mobilizations, Manual Therapy,Neuromuscular Re-education,Self-Care/Home Management,Taping,Therapeutic Activities,Therapeutic Exercises Modalities Cold Pack/Ice Massage,Electric Stimulation,Hot Packs Next Visit Focus/Plan Next Note Type Treatment Note Next Visit Plan Next add hurdles, uneven surface gait. Review HEP especially making sure pt has good quad activation. POC: Recheck HEP (bringing band from home for use). Check response to step ups and shuttle recovery initiated last tx. Check if can add as HEP. start hurdles, uneven surface. POC: HEP for patellar positioning Plan of Care Dates Plan of Care Start Date 01/27/23 Plan of Care End Date 04/07/23 Electronically Signed by: Patricia Castillo, PT 03/04/232049 If you are in agreement with this Plan of Care, please return a signed and dated copy. I have reviewed this Plan of Care and certify that the skilled therapy services above are required to meet the patient?s needs. Physician Signature Date Printed Name and Credentials Clinical Instructor Signature Printed Name and Credentials
--- NOTE | 2023-03-06 10:57 | PT.OTN ---
Current Diagnoses Chondromalacia patellae, left knee (03/06/23) Prepatellar bursitis, left knee (03/06/23) Physical Therapy Treatment Note PT-OP-A Visit Information Start: 01/23/23 15:01 Freq: Status: Active Protocol: Document 03/06/23 07:34 AMB (Rec: 03/06/23 08:16 AMB [id number]) Out-Patient Physical Therapy Visit Information Visit Information Visit Type Treatment Note Visit Start Time 07:30 Visit Stop Time 08:15 Total Visit Minutes 45 Visit Number 11 PT-OP-B Current Condition Start: 01/23/23 15:01 Freq: Status: Active Protocol: Document 01/27/23 10:31 AMB (Rec: 01/27/23 11:22 AMB [id number]) Current Condition History of Current Condition Onset Date 2+years L knee pain Current Complaints L knee History of Current Condition Roseanna reports that over 2 years ago she was kneeling and felt a pop in her knee. She has tried multiple attempts at PT. She continues to have pain. She describes it as sharp pain with extended sitting, walking especially on uneven surfaces, standing in the kitchen can be painful. Medial and patellar knee pain. [place]y [place] the beach, not doing prior PT exercises as they increased pain. Prior Treatments and Tests 09/2020: MRI mild patellar tendonopathy, mild chondromalacia patella, minimal bursal fluid--possible mild bursitis. Reports got an inject at ortho that did not help. Prior PT. Personal Factors Other Personal Factors That May Effect Developmental disability, Therapy/Recovery lives with mom PT-OP-C Subjective Start: 01/23/23 15:01 Freq: Status: Active Protocol: Document 03/06/23 07:34 AMB (Rec: 03/06/23 08:16 AMB [id number]) OP-PT Subjective Patient Comments Patient Comments Pt reports no increased pain since last visit. Was sore last night but didn't interfere with sleep. PT-OP-J Posture/Palpation/Skin Start: 01/23/23 15:01 Freq: Status: Active Protocol: Document 01/27/23 10:30 AMB (Rec: 01/28/23 16:26 AMB [id number]) Posture Evaluation Comments Posture Comments Flat feet, tends to toe on in the left Palpation Assessment Location L knee Palpation Details Pain at medial patellar tendon PT-OP-K Range of Motion Start: 01/23/23 15:01 Freq: Status: Active Protocol: Document 01/27/23 10:30 AMB (Rec: 01/28/23 16:26 AMB [id number]) Knee Goniometric Range of Motion Knee Left Knee ROM WFL Yes Comments pt tends to be hypermobile PT-OP-M Strength Start: 01/23/23 15:01 Freq: Status: Active Protocol: Document 01/27/23 10:30 AMB (Rec: 01/28/23 16:26 AMB [id number]) Hip Strength Hip Manual Muscle Testing Right Flexion (L2) 4+ Good+ Extension (S1) 4+ Good+ Abduction 4+ Good+ Adduction 4+ Good+ Left Flexion (L2) 4+ Good+ Extension (S1) 4+ Good+ Abduction 4+ Good+ Adduction 4+ Good+ Knee Strength Knee Manual Muscle Testing Right Flexion (S2) 4+ Good+ Extension (L3) 4+ Good+ Left Flexion (S2) 4 Good Extension (L3) 4 Good PT-OP-Q Treatments Start: 01/23/23 15:01 Freq: Status: Active Protocol: Document 03/06/23 07:30 AMB (Rec: 03/07/23 10:54 AMB [id number]) Cardio Equipment Treadmill Duration (Minutes) 8 Speed 1.8>2.0 Incline 0 Other cued arm swing, L foot Ev neutral and foot clearance Therapeutic Exercises Supine Exercises SLR Supine Exercise Name HEP reviewed Side left Reps/Minutes 2x15 Comments cued quad control, not hyperextension but quad set first Sidelying Exercises hip abd Sidelying Exercise Name SLR- cue quad control first Reps/Minutes 2x10 clam Sidelying Exercise Name HEP reviewed Side left Resistance latex free green band around thighs Reps/Minutes 2x12 Comments good back alignment, cued ankle DF neutral Sitting Exercises HS curl Sitting Exercise Name reviewed HEP Side left Resistance latex free pink band around ankle/anchor low door Equipment Used latex free green Reps/Minutes 2x10 Comments cued slow con/ecc- painfree Standing Exercises mini squat Standing Exercise Name on blue foam-- hips back Reps/Minutes 2x10 hurdles Reps/Minutes 5' Comments good form, encouraged knee flex full squat Standing Exercise Name encouraged hips back positioning Comments educated when lifting cat get hips back Manual Therapy Treatment Joint Mobilizations patellar mob Direction medial, tilting posterior Grade II Body Position Supine Reps/Duration 2 min total Comments good feedback response PT-OP-T Assessment and Plan Start: 01/23/23 15:01 Freq: Status: Active Protocol: Document 03/06/23 07:34 AMB (Rec: 03/06/23 08:16 AMB [id number]) Physical Therapy Assessment Goals Two Impairment Pain Short Term Goal (STG) Roseanna will sit for 1 hour without knee pain. 02/18/23: pt stated hasn;t noticed but the ride here takes about 45min -1 hr and didn't to her her knees. WIll pay attention and report next tx. STG Duration 5 weeks progressing 02/18/23 Group Home Goal (LTG) Roseanna will ascend and descend a flight of stairs without knee pain. Apr 5: tends to have delayed pain onset LTG Duration 10 weeks One Impairment Strength Short Term Goal (STG) Roseanna will be independent for a HEP for LE strengthening. 02/09/23: HEP reviewed: side clamshell GTB, supine: bridge GTB, SLR, stand: TKE GTB, STS GTB, seated HS curl PinkTB. 02/11/23: increased resistance #3 TB blue TKE and HS curl. Added HS, piriformis, calf stretching and use rolling pin quad. STG Duration 5 weeks progressin02/11/23 Group Home Goal (LTG) Roseanna will show improved LE strength by performing a full squat without an increase in knee pain. Apr 5: not necessarily painful during, but increases pain aferward LTG Duration 10 weeks Assessment Summary Assessment Pt tolerated hurdles and foam surface well. Will need to review body mechanics concepts of try to avoid genu recurvatum in standing and avoiding extra pressure of forward knees positioning when squatting down in the future, encouraged hips back/glut activation in squatting. Physical Therapy Plan Frequency and Duration Frequency of Treatment 2x/Week Duration of treatment (weeks) 10 Plan of Care Start Date 01/27/23 Plan of Care End Date 04/07/23 Therapeutic Interventions Therapeutic Interventions Gait Training,Home Exercise Program,Joint Mobilizations, Manual Therapy,Neuromuscular Re-education,Self-Care/Home Management,Taping,Therapeutic Activities,Therapeutic Exercises Modalities Cold Pack/Ice Massage,Electric Stimulation,Hot Packs Next Visit Focus/Plan Next Note Type Treatment Note Next Visit Plan Review HEP especially making sure pt has good quad /glut activation. POC: Recheck HEP (bringing band from home for use). Check response to step ups and shuttle recovery initiated last tx. Check if can add as HEP. start hurdles, uneven surface. POC: HEP for patellar positioning
--- NOTE | 2023-03-09 09:47 | PT.OTN ---
Current Diagnoses Chondromalacia patellae, left knee (03/09/23) Prepatellar bursitis, left knee (03/09/23) Physical Therapy Treatment Note PT-OP-A Visit Information Start: 01/23/23 15:01 Freq: Status: Active Protocol: Document 03/09/23 09:02 AMB (Rec: 03/09/23 09:42 AMB [id number]) Out-Patient Physical Therapy Visit Information Visit Information Visit Type Treatment Note Visit Start Time 09:00 Visit Stop Time 09:45 Total Visit Minutes 45 Visit Number 12 PT-OP-B Current Condition Start: 01/23/23 15:01 Freq: Status: Active Protocol: Document 01/27/23 10:31 AMB (Rec: 01/27/23 11:22 AMB [id number]) Current Condition History of Current Condition Onset Date 2+years L knee pain Current Complaints L knee History of Current Condition Roseanna reports that over 2 years ago she was kneeling and felt a pop in her knee. She has tried multiple attempts at PT. She continues to have pain. She describes it as sharp pain with extended sitting, walking especially on uneven surfaces, standing in the kitchen can be painful. Medial and patellar knee pain. [place]y [place] the beach, not doing prior PT exercises as they increased pain. Prior Treatments and Tests 09/2020: MRI mild patellar tendonopathy, mild chondromalacia patella, minimal bursal fluid--possible mild bursitis. Reports got an inject at ortho that did not help. Prior PT. Personal Factors Other Personal Factors That May Effect Developmental disability, Therapy/Recovery lives with mom PT-OP-C Subjective Start: 01/23/23 15:01 Freq: Status: Active Protocol: Document 03/09/23 09:02 AMB (Rec: 03/09/23 09:42 AMB [id number]) OP-PT Subjective Patient Comments Patient Comments Achey at night, a little sore after last time at PT. PT-OP-J Posture/Palpation/Skin Start: 01/23/23 15:01 Freq: Status: Active Protocol: Document 01/27/23 10:30 AMB (Rec: 01/28/23 16:26 AMB [id number]) Posture Evaluation Comments Posture Comments Flat feet, tends to toe on in the left Palpation Assessment Location L knee Palpation Details Pain at medial patellar tendon PT-OP-K Range of Motion Start: 01/23/23 15:01 Freq: Status: Active Protocol: Document 01/27/23 10:30 AMB (Rec: 01/28/23 16:26 AMB [id number]) Knee Goniometric Range of Motion Knee Left Knee ROM WFL Yes Comments pt tends to be hypermobile PT-OP-M Strength Start: 01/23/23 15:01 Freq: Status: Active Protocol: Document 01/27/23 10:30 AMB (Rec: 01/28/23 16:26 AMB [id number]) Hip Strength Hip Manual Muscle Testing Right Flexion (L2) 4+ Good+ Extension (S1) 4+ Good+ Abduction 4+ Good+ Adduction 4+ Good+ Left Flexion (L2) 4+ Good+ Extension (S1) 4+ Good+ Abduction 4+ Good+ Adduction 4+ Good+ Knee Strength Knee Manual Muscle Testing Right Flexion (S2) 4+ Good+ Extension (L3) 4+ Good+ Left Flexion (S2) 4 Good Extension (L3) 4 Good PT-OP-Q Treatments Start: 01/23/23 15:01 Freq: Status: Active Protocol: Document 03/09/23 09:02 AMB (Rec: 03/09/23 09:42 AMB [id number]) Cardio Equipment Treadmill Duration (Minutes) 8 Speed 1.8>2.0 Incline 0 Other cued arm swing, L foot Ev neutral and foot clearance Therapeutic Exercises Supine Exercises 2 Supine Exercise Name active hamstring stretch Reps/Minutes 10x5 1 Supine Exercise Name single knee to chest Reps/Minutes 30x2 SLR Supine Exercise Name HEP reviewed Side left Reps/Minutes 2x15 Comments cued quad control, not hyperextension but quad set first Sidelying Exercises hip abd Sidelying Exercise Name SLR- cue quad control first Reps/Minutes 2x10 clam Sidelying Exercise Name HEP reviewed Side left Resistance latex free green band around thighs Reps/Minutes 2x12 Comments good back alignment, cued ankle DF neutral Standing Exercises side step Standing Exercise Name in mini squat Reps/Minutes 3x5 steps ea direction Comments consider for HEP if did not increase pain after mini squat Standing Exercise Name on blue foam-- hips back Reps/Minutes 2x10 Comments increased pain today step ups Standing Exercise Name repeated single leg fwd up/ bwd down Side bilateral Reps/Minutes x10 each LE Comments good knee with toes eccentric flexion, cuing only for which leg leading Manual Therapy Treatment Joint Mobilizations patellar mob Direction medial, tilting posterior Grade II Body Position Supine Reps/Duration 2 min total Comments good feedback response PT-OP-T Assessment and Plan Start: 01/23/23 15:01 Freq: Status: Active Protocol: Document 03/09/23 09:02 AMB (Rec: 03/09/23 09:42 AMB [id number]) Physical Therapy Assessment Goals Two Impairment Pain Short Term Goal (STG) Roseanna will sit for 1 hour without knee pain. 02/18/23: pt stated hasn;t noticed but the ride here takes about 45min -1 hr and didn't to her her knees. WIll pay attention and report next tx. STG Duration 5 weeks progressing 02/18/23 Dietitian Assistant Goal (LTG) Roseanna will ascend and descend a flight of stairs without knee pain. Apr 5: tends to have delayed pain onset LTG Duration 10 weeks One Impairment Strength Short Term Goal (STG) Roseanna will be independent for a HEP for LE strengthening. 02/09/23: HEP reviewed: side clamshell GTB, supine: bridge GTB, SLR, stand: TKE GTB, STS GTB, seated HS curl PinkTB. 02/11/23: increased resistance #3 TB blue TKE and HS curl. Added HS, piriformis, calf stretching and use rolling pin quad. STG Duration 5 weeks progressin02/11/23 Dietitian Assistant Goal (LTG) Roseanna will show improved LE strength by performing a full squat without an increase in knee pain. Apr 5: not necessarily painful during, but increases pain aferward LTG Duration 10 weeks Assessment Summary Assessment Pt is tolerating increased exercise during PT, but continue to need to watch increasing exercises to avoid significant joint pain s/p PT sessions. Physical Therapy Plan Frequency and Duration Frequency of Treatment 2x/Week Duration of treatment (weeks) 10 Plan of Care Start Date 01/27/23 Plan of Care End Date 04/07/23 Therapeutic Interventions Therapeutic Interventions Gait Training,Home Exercise Program,Joint Mobilizations, Manual Therapy,Neuromuscular Re-education,Self-Care/Home Management,Taping,Therapeutic Activities,Therapeutic Exercises Modalities Cold Pack/Ice Massage,Electric Stimulation,Hot Packs Next Visit Focus/Plan Next Note Type Treatment Note Next Visit Plan Review HEP especially making sure pt has good quad /glut activation. POC: Recheck HEP (bringing band from home for use). Check response to step ups and shuttle recovery initiated last tx. Check if can add as HEP. start hurdles, uneven surface. POC: HEP for patellar positioning
--- NOTE | 2023-03-11 18:43 | PT.OTN ---
Current Diagnoses Chondromalacia patellae, left knee (03/11/23) Prepatellar bursitis, left knee (03/11/23) Physical Therapy Treatment Note PT-OP-A Visit Information Start: 01/23/23 15:01 Freq: Status: Active Protocol: Document 03/11/23 09:55 AMB (Rec: 03/11/23 10:32 AMB [id number]) Out-Patient Physical Therapy Visit Information Visit Information Visit Type Treatment Note Visit Start Time 09:50 Visit Stop Time 10:30 Total Visit Minutes 40 Visit Number 13 PT-OP-B Current Condition Start: 01/23/23 15:01 Freq: Status: Active Protocol: Document 01/27/23 10:31 AMB (Rec: 01/27/23 11:22 AMB [id number]) Current Condition History of Current Condition Onset Date 2+years L knee pain Current Complaints L knee History of Current Condition Roseanna reports that over 2 years ago she was kneeling and felt a pop in her knee. She has tried multiple attempts at PT. She continues to have pain. She describes it as sharp pain with extended sitting, walking especially on uneven surfaces, standing in the kitchen can be painful. Medial and patellar knee pain. Difficulty walking on the beach, not doing prior PT exercises as they increased pain. Prior Treatments and Tests 09/2020: MRI mild patellar tendonopathy, mild chondromalacia patella, minimal bursal fluid--possible mild bursitis. Reports got an inject at ortho that did not help. Prior PT. Personal Factors Other Personal Factors That May Effect Developmental disability, Therapy/Recovery lives with mom PT-OP-C Subjective Start: 01/23/23 15:01 Freq: Status: Active Protocol: Document 03/11/23 09:55 AMB (Rec: 03/11/23 10:32 AMB [id number]) OP-PT Subjective Patient Comments Patient Comments Feeling like knee is getting better but concerned about squat exercise as she does notice increased discomfort PT-OP-J Posture/Palpation/Skin Start: 01/23/23 15:01 Freq: Status: Active Protocol: Document 01/27/23 10:30 AMB (Rec: 01/28/23 16:26 AMB [id number]) Posture Evaluation Comments Posture Comments Flat feet, tends to toe on in the left Palpation Assessment Location L knee Palpation Details Pain at medial patellar tendon PT-OP-K Range of Motion Start: 01/23/23 15:01 Freq: Status: Active Protocol: Document 01/27/23 10:30 AMB (Rec: 01/28/23 16:26 AMB [id number]) Knee Goniometric Range of Motion Knee Left Knee ROM WFL Yes Comments pt tends to be hypermobile PT-OP-M Strength Start: 01/23/23 15:01 Freq: Status: Active Protocol: Document 01/27/23 10:30 AMB (Rec: 01/28/23 16:26 AMB [id number]) Hip Strength Hip Manual Muscle Testing Right Flexion (L2) 4+ Good+ Extension (S1) 4+ Good+ Abduction 4+ Good+ Adduction 4+ Good+ Left Flexion (L2) 4+ Good+ Extension (S1) 4+ Good+ Abduction 4+ Good+ Adduction 4+ Good+ Knee Strength Knee Manual Muscle Testing Right Flexion (S2) 4+ Good+ Extension (L3) 4+ Good+ Left Flexion (S2) 4 Good Extension (L3) 4 Good PT-OP-Q Treatments Start: 01/23/23 15:01 Freq: Status: Active Protocol: Document 03/11/23 09:55 AMB (Rec: 03/11/23 10:32 AMB [id number]) Cardio Equipment Treadmill Duration (Minutes) 9 Speed 1.8>2.0 Incline 0 Other cued arm swing, L foot Ev neutral and foot clearance Therapeutic Exercises Supine Exercises SLR Supine Exercise Name HEP reviewed Side left Reps/Minutes 2x15 Comments cued quad control, not hyperextension but quad set first Sidelying Exercises hip abd Sidelying Exercise Name SLR- cue quad control first Reps/Minutes 2x10 clam Sidelying Exercise Name HEP reviewed Side left Resistance latex free green band around thighs Reps/Minutes 2x12 Comments good back alignment, cued ankle DF neutral Standing Exercises mini squat Standing Exercise Name on blue foam-- hips back Reps/Minutes 2x5 Comments increased pain today step ups Standing Exercise Name repeated single leg fwd up/ bwd down Side bilateral Reps/Minutes x10 each LE Comments good knee with toes eccentric flexion, cuing only for which leg leading PT-OP-T Assessment and Plan Start: 01/23/23 15:01 Freq: Status: Active Protocol: Document 03/11/23 09:55 AMB (Rec: 03/11/23 10:32 AMB [id number]) Physical Therapy Assessment Goals Two Impairment Pain Short Term Goal (STG) Roseanna will sit for 1 hour without knee pain. 02/18/23: pt stated hasn;t noticed but the ride here takes about 45min -1 hr and didn't to her her knees. WIll pay attention and report next tx. STG Duration 5 weeks progressing 02/18/23 Prison Goal (LTG) Roseanna will ascend and descend a flight of stairs without knee pain. Apr 5: tends to have delayed pain onset LTG Duration 10 weeks One Impairment Strength Short Term Goal (STG) Roseanna will be independent for a HEP for LE strengthening. 02/09/23: HEP reviewed: side clamshell GTB, supine: bridge GTB, SLR, stand: TKE GTB, STS GTB, seated HS curl PinkTB. 02/11/23: increased resistance #3 TB blue TKE and HS curl. Added HS, piriformis, calf stretching and use rolling pin quad. STG Duration 5 weeks progressin02/11/23 Prison Goal (LTG) Roseanna will show improved LE strength by performing a full squat without an increase in knee pain. Apr 5: not necessarily painful during, but increases pain aferward LTG Duration 10 weeks Assessment Summary Assessment Roseanna was encouraged to walk on the treadmill at home for 10 minutes and see how her knee responds, hoping to eventually progress to uneven terrain as hurdles and foam at PT have been fine. Added in hip abduction to HEP. REduced reps of sit to stands as that seemed to be irritating, reviewed form. Physical Therapy Plan Frequency and Duration Frequency of Treatment 2x/Week Duration of treatment (weeks) 10 Plan of Care Start Date 01/27/23 Plan of Care End Date 04/07/23 Therapeutic Interventions Therapeutic Interventions Gait Training,Home Exercise Program,Joint Mobilizations, Manual Therapy,Neuromuscular Re-education,Self-Care/Home Management,Taping,Therapeutic Activities,Therapeutic Exercises Modalities Cold Pack/Ice Massage,Electric Stimulation,Hot Packs Next Visit Focus/Plan Next Note Type Treatment Note Next Visit Plan Review HEP especially making sure pt has good quad /glut activation. POC: Recheck HEP (bringing band from home for use). Check response to step ups and shuttle recovery initiated last tx. Check if can add as HEP. start hurdles, uneven surface. POC: HEP for patellar positioning
--- NOTE | 2023-03-16 16:17 | PT.OTN ---
Current Diagnoses Chondromalacia patellae, left knee (03/16/23) Prepatellar bursitis, left knee (03/16/23) Physical Therapy Treatment Note PT-OP-A Visit Information Start: 01/23/23 15:01 Freq: Status: Active Protocol: Document 03/16/23 09:03 AMB (Rec: 03/16/23 09:49 AMB [id number]) Out-Patient Physical Therapy Visit Information Visit Information Visit Type Treatment Note Visit Start Time 09:00 Visit Stop Time 09:45 Total Visit Minutes 40 Visit Number 14 PT-OP-B Current Condition Start: 01/23/23 15:01 Freq: Status: Active Protocol: Document 01/27/23 10:31 AMB (Rec: 01/27/23 11:22 AMB [id number]) Current Condition History of Current Condition Onset Date 2+years L knee pain Current Complaints L knee History of Current Condition Roseanna reports that over 2 years ago she was kneeling and felt a pop in her knee. She has tried multiple attempts at PT. She continues to have pain. She describes it as sharp pain with extended sitting, walking especially on uneven surfaces, standing in the kitchen can be painful. Medial and patellar knee pain. Difficulty walking on the beach, not doing prior PT exercises as they increased pain. Prior Treatments and Tests 09/2020: MRI mild patellar tendonopathy, mild chondromalacia patella, minimal bursal fluid--possible mild bursitis. Reports got an inject at ortho that did not help. Prior PT. Personal Factors Other Personal Factors That May Effect Developmental disability, Therapy/Recovery lives with mom PT-OP-C Subjective Start: 01/23/23 15:01 Freq: Status: Active Protocol: Document 03/16/23 09:03 AMB (Rec: 03/16/23 09:49 AMB [id number]) OP-PT Subjective Patient Comments Patient Comments Walking around the house a lot over the weekend and did feel the knee a bit. PT-OP-J Posture/Palpation/Skin Start: 01/23/23 15:01 Freq: Status: Active Protocol: Document 01/27/23 10:30 AMB (Rec: 01/28/23 16:26 AMB [id number]) Posture Evaluation Comments Posture Comments Flat feet, tends to toe on in the left Palpation Assessment Location L knee Palpation Details Pain at medial patellar tendon PT-OP-K Range of Motion Start: 01/23/23 15:01 Freq: Status: Active Protocol: Document 01/27/23 10:30 AMB (Rec: 01/28/23 16:26 AMB [id number]) Knee Goniometric Range of Motion Knee Left Knee ROM WFL Yes Comments pt tends to be hypermobile PT-OP-M Strength Start: 01/23/23 15:01 Freq: Status: Active Protocol: Document 01/27/23 10:30 AMB (Rec: 01/28/23 16:26 AMB [id number]) Hip Strength Hip Manual Muscle Testing Right Flexion (L2) 4+ Good+ Extension (S1) 4+ Good+ Abduction 4+ Good+ Adduction 4+ Good+ Left Flexion (L2) 4+ Good+ Extension (S1) 4+ Good+ Abduction 4+ Good+ Adduction 4+ Good+ Knee Strength Knee Manual Muscle Testing Right Flexion (S2) 4+ Good+ Extension (L3) 4+ Good+ Left Flexion (S2) 4 Good Extension (L3) 4 Good PT-OP-Q Treatments Start: 01/23/23 15:01 Freq: Status: Active Protocol: Document 03/16/23 09:03 AMB (Rec: 03/16/23 09:49 AMB [id number]) Cardio Equipment Treadmill Duration (Minutes) 10 Speed 1.8>2.0 Incline 0 Other cued arm swing, L foot Ev neutral and foot clearance Therapeutic Exercises Supine Exercises 2 Supine Exercise Name active hamstring stretch Reps/Minutes 10x5 1 Supine Exercise Name single knee to chest Reps/Minutes 30x2 SLR Supine Exercise Name HEP reviewed Side left Reps/Minutes 2x15 Comments cued quad control, not hyperextension but quad set first bridge Supine Exercise Name reviewed HEP Side bilateral Resistance latex free green band around thighs Reps/Minutes 2x20 Comments cued feet // (tends turn in) Sidelying Exercises hip abd Sidelying Exercise Name SLR- cue quad control first Reps/Minutes 2x10 clam Sidelying Exercise Name HEP reviewed Side left Resistance latex free green band around thighs Reps/Minutes 2x12 Comments good back alignment, cued ankle DF neutral Standing Exercises side step Standing Exercise Name in mini squat Reps/Minutes 3x5 steps ea direction Comments consider for HEP if did not increase pain after mini squat Standing Exercise Name on blue foam-- hips back Reps/Minutes 2x5 Comments increased pain today PT-OP-T Assessment and Plan Start: 01/23/23 15:01 Freq: Status: Active Protocol: Document 03/16/23 09:03 AMB (Rec: 03/16/23 09:49 AMB [id number]) Physical Therapy Assessment Goals Two Impairment Pain Short Term Goal (STG) Roseanna will sit for 1 hour without knee pain. 02/18/23: pt stated hasn;t noticed but the ride here takes about 45min -1 hr and didn't to her her knees. WIll pay attention and report next tx. STG Duration 5 weeks progressing 02/18/23 Long-Term Goal (LTG) Roseanna will ascend and descend a flight of stairs without knee pain. Apr 5: tends to have delayed pain onset LTG Duration 10 weeks One Impairment Strength Short Term Goal (STG) Roseanna will be independent for a HEP for LE strengthening. 02/09/23: HEP reviewed: side clamshell GTB, supine: bridge GTB, SLR, stand: TKE GTB, STS GTB, seated HS curl PinkTB. 02/11/23: increased resistance #3 TB blue TKE and HS curl. Added HS, piriformis, calf stretching and use rolling pin quad. STG Duration 5 weeks progressin02/11/23 Long-Term Goal (LTG) Roseanna will show improved LE strength by performing a full squat without an increase in knee pain. Apr 5: not necessarily painful during, but increases pain aferward LTG Duration 10 weeks Assessment Summary Assessment Roseanna states that she walked on the treadmill on and Thursday, not over the weekend. Overall feels like she's rubbing the knee less. Is doing her HEP. Physical Therapy Plan Frequency and Duration Frequency of Treatment 2x/Week Duration of treatment (weeks) 10 Plan of Care Start Date 01/27/23 Plan of Care End Date 04/07/23 Therapeutic Interventions Therapeutic Interventions Gait Training,Home Exercise Program,Joint Mobilizations, Manual Therapy,Neuromuscular Re-education,Self-Care/Home Management,Taping,Therapeutic Activities,Therapeutic Exercises Modalities Cold Pack/Ice Massage,Electric Stimulation,Hot Packs Next Visit Focus/Plan Next Note Type Treatment Note Next Visit Plan Review HEP especially making sure pt has good quad /glut activation. POC: Recheck HEP (bringing band from home for use). Check response to step ups and shuttle recovery initiated last tx. Check if can add as HEP. start hurdles, uneven surface. POC: HEP for patellar positioning
--- NOTE | 2023-03-18 16:00 | PT.OTN ---
Current Diagnoses Chondromalacia patellae, left knee (03/18/23) Prepatellar bursitis, left knee (03/18/23) Physical Therapy Treatment Note PT-OP-A Visit Information Start: 01/23/23 15:01 Freq: Status: Active Protocol: Document 03/18/23 13:58 AMB (Rec: 03/18/23 14:10 AMB [id number]) Out-Patient Physical Therapy Visit Information Visit Information Visit Type Treatment Note Visit Start Time 13:50 Visit Stop Time 14:30 Total Visit Minutes 40 Visit Number 15 PT-OP-B Current Condition Start: 01/23/23 15:01 Freq: Status: Active Protocol: Document 01/27/23 10:31 AMB (Rec: 01/27/23 11:22 AMB [id number]) Current Condition History of Current Condition Onset Date 2+years L knee pain Current Complaints L knee History of Current Condition Roseanna reports that over 2 years ago she was kneeling and felt a pop in her knee. She has tried multiple attempts at PT. She continues to have pain. She describes it as sharp pain with extended sitting, walking especially on uneven surfaces, standing in the kitchen can be painful. Medial and patellar knee pain. [place]y walking [place] the beach, not doing prior PT exercises as they increased pain. Prior Treatments and Tests 09/2020: MRI mild patellar tendonopathy, mild chondromalacia patella, minimal bursal fluid--possible mild bursitis. Reports got an inject at ortho that did not help. Prior PT. Personal Factors Other Personal Factors That May Effect Developmental disability, Therapy/Recovery lives with mom PT-OP-C Subjective Start: 01/23/23 15:01 Freq: Status: Active Protocol: Document 03/18/23 13:58 AMB (Rec: 03/18/23 14:10 AMB [id number]) OP-PT Subjective Patient Comments Patient Comments [place] some pain int eh knee when squatting down low to reach the on switch for the treadmill at home yesterday. PT-OP-J Posture/Palpation/Skin Start: 01/23/23 15:01 Freq: Status: Active Protocol: Document 01/27/23 10:30 AMB (Rec: 01/28/23 16:26 AMB [id number]) Posture Evaluation Comments Posture Comments Flat feet, tends to toe on in the left Palpation Assessment Location L knee Palpation Details Pain at medial patellar tendon PT-OP-K Range of Motion Start: 01/23/23 15:01 Freq: Status: Active Protocol: Document 01/27/23 10:30 AMB (Rec: 01/28/23 16:26 AMB [id number]) Knee Goniometric Range of Motion Knee Left Knee ROM WFL Yes Comments pt tends to be hypermobile PT-OP-M Strength Start: 01/23/23 15:01 Freq: Status: Active Protocol: Document 01/27/23 10:30 AMB (Rec: 01/28/23 16:26 AMB [id number]) Hip Strength Hip Manual Muscle Testing Right Flexion (L2) 4+ Good+ Extension (S1) 4+ Good+ Abduction 4+ Good+ Adduction 4+ Good+ Left Flexion (L2) 4+ Good+ Extension (S1) 4+ Good+ Abduction 4+ Good+ Adduction 4+ Good+ Knee Strength Knee Manual Muscle Testing Right Flexion (S2) 4+ Good+ Extension (L3) 4+ Good+ Left Flexion (S2) 4 Good Extension (L3) 4 Good PT-OP-Q Treatments Start: 01/23/23 15:01 Freq: Status: Active Protocol: Document 03/18/23 13:58 AMB (Rec: 03/18/23 14:10 AMB [id number]) Cardio Equipment Treadmill Duration (Minutes) 10 Speed 1.8>2.0 Incline 0 Other cued arm swing, L foot Ev neutral and foot clearance Gym Equipment Shuttle Recovery Bilateral Squats Details with level 1 abd band Resistance #50 Shuttle Recovery Platform Stable Reps/Time 10 x 2 Therapeutic Exercises Supine Exercises 2 Supine Exercise Name active hamstring stretch Reps/Minutes 10x5 1 Supine Exercise Name single knee to chest Reps/Minutes 30x2 SLR Supine Exercise Name HEP reviewed Side left Reps/Minutes 2x15 Comments cued quad control, not hyperextension but quad set first bridge Supine Exercise Name reviewed HEP Side bilateral Resistance latex free green band around thighs Reps/Minutes 2x20 Comments cued feet // (tends turn in) Sidelying Exercises hip abd Sidelying Exercise Name SLR- cue quad control first Reps/Minutes 2x10 Standing Exercises hurdles Reps/Minutes 5' Comments good form, encouraged knee flex PT-OP-T Assessment and Plan Start: 01/23/23 15:01 Freq: Status: Active Protocol: Document 03/18/23 13:58 AMB (Rec: 03/18/23 14:10 AMB [id number]) Physical Therapy Assessment Goals Two Impairment Pain Short Term Goal (STG) Roseanna will sit for 1 hour without knee pain. 02/18/23: pt stated hasn;t noticed but the ride here takes about 45min -1 hr and didn't to her her knees. WIll pay attention and report next tx. STG Duration 5 weeks progressing 02/18/23 Penitentiary Goal (LTG) Roseanna will ascend and descend a flight of stairs without knee pain. Apr 5: tends to have delayed pain onset LTG Duration 10 weeks One Impairment Strength Short Term Goal (STG) Roseanna will be independent for a HEP for LE strengthening. 02/09/23: HEP reviewed: side clamshell GTB, supine: bridge GTB, SLR, stand: TKE GTB, STS GTB, seated HS curl PinkTB. 02/11/23: increased resistance #3 TB blue TKE and HS curl. Added HS, piriformis, calf stretching and use rolling pin quad. STG Duration 5 weeks progressin02/11/23 Penitentiary Goal (LTG) Roseanna will show improved LE strength by performing a full squat without an increase in knee pain. Apr 5: not necessarily painful during, but increases pain aferward LTG Duration 10 weeks Assessment Summary Assessment Roseanna tolerating increased exercises well. Continues to have most pain with squatting. Doing well with stair step ups as an alternate quad/glue strengthening option. Deep squats seem to be the most challenging. Physical Therapy Plan Frequency and Duration Frequency of Treatment 2x/Week Duration of treatment (weeks) 10 Plan of Care Start Date 01/27/23 Plan of Care End Date 04/07/23 Therapeutic Interventions Therapeutic Interventions Gait Training,Home Exercise Program,Joint Mobilizations, Manual Therapy,Neuromuscular Re-education,Self-Care/Home Management,Taping,Therapeutic Activities,Therapeutic Exercises Modalities Cold Pack/Ice Massage,Electric Stimulation,Hot Packs Next Visit Focus/Plan Next Note Type Treatment Note Next Visit Plan Review HEP especially making sure pt has good quad /glut activation. POC: Recheck HEP (bringing band from home for use). Check response to step ups and shuttle recovery initiated last tx. Check if can add as HEP. start hurdles, uneven surface. POC: HEP for patellar positioning
--- NOTE | 2023-03-25 10:30 | PT.OTN ---
Current Diagnoses Chondromalacia patellae, left knee (03/25/23) Prepatellar bursitis, left knee (03/25/23) Physical Therapy Treatment Note PT-OP-A Visit Information Start: 01/23/23 15:01 Freq: Status: Active Protocol: Document 03/25/23 09:45 AMB (Rec: 03/25/23 10:30 AMB [id number]) Out-Patient Physical Therapy Visit Information Visit Information Visit Type Treatment Note Visit Note Visit Start Time 13:50 Visit Stop Time 14:30 Total Visit Minutes 40 Visit Number 15 PT-OP-B Current Condition Start: 01/23/23 15:01 Freq: Status: Active Protocol: Document 01/27/23 10:31 AMB (Rec: 01/27/23 11:22 AMB [id number]) Current Condition History of Current Condition Onset Date 2+years L knee pain Current Complaints L knee History of Current Condition Roseanna reports that over 2 years ago she was kneeling and felt a pop in her knee. She has tried multiple attempts at PT. She continues to have pain. She describes it as sharp pain with extended sitting, walking especially on uneven surfaces, standing in the kitchen can be painful. Medial and patellar knee pain. Difficulty walking on the beach, not doing prior PT exercises as they increased pain. Prior Treatments and Tests 09/2020: MRI mild patellar tendonopathy, mild chondromalacia patella, minimal bursal fluid--possible mild bursitis. Reports got an inject at ortho that did not help. Prior PT. Personal Factors Other Personal Factors That May Effect Developmental disability, Therapy/Recovery lives with mom PT-OP-C Subjective Start: 01/23/23 15:01 Freq: Status: Active Protocol: Document 03/25/23 09:45 AMB (Rec: 03/25/23 10:30 AMB [id number]) OP-PT Subjective Patient Comments Patient Comments Has been walking on the treadmill , was sore one day, backed off a little and then, but reports has been sleeping better. PT-OP-J Posture/Palpation/Skin Start: 01/23/23 15:01 Freq: Status: Active Protocol: Document 01/27/23 10:30 AMB (Rec: 01/28/23 16:26 AMB [id number]) Posture Evaluation Comments Posture Comments Flat feet, tends to toe on in the left Palpation Assessment Location L knee Palpation Details Pain at medial patellar tendon PT-OP-K Range of Motion Start: 01/23/23 15:01 Freq: Status: Active Protocol: Document 01/27/23 10:30 AMB (Rec: 01/28/23 16:26 AMB [id number]) Knee Goniometric Range of Motion Knee Left Knee ROM WFL Yes Comments pt tends to be hypermobile PT-OP-M Strength Start: 01/23/23 15:01 Freq: Status: Active Protocol: Document 01/27/23 10:30 AMB (Rec: 01/28/23 16:26 AMB [id number]) Hip Strength Hip Manual Muscle Testing Right Flexion (L2) 4+ Good+ Extension (S1) 4+ Good+ Abduction 4+ Good+ Adduction 4+ Good+ Left Flexion (L2) 4+ Good+ Extension (S1) 4+ Good+ Abduction 4+ Good+ Adduction 4+ Good+ Knee Strength Knee Manual Muscle Testing Right Flexion (S2) 4+ Good+ Extension (L3) 4+ Good+ Left Flexion (S2) 4 Good Extension (L3) 4 Good PT-OP-Q Treatments Start: 01/23/23 15:01 Freq: Status: Active Protocol: Document 03/25/23 09:45 AMB (Rec: 03/25/23 10:30 AMB [id number]) Therapeutic Exercises Supine Exercises 2 Supine Exercise Name active hamstring stretch Reps/Minutes 10x5 1 Supine Exercise Name single knee to chest Reps/Minutes 30x2 Sidelying Exercises hip abd Sidelying Exercise Name SLR- cue quad control first Reps/Minutes 2x10 clam Sidelying Exercise Name HEP reviewed Side left Resistance latex free green band around thighs Reps/Minutes 2x12 Comments good back alignment, cued ankle DF neutral Sitting Exercises stretching Sitting Exercise Name reviewed HEP: HS, piriformis Side bilateral Reps/Minutes 30 Comments good feedback Standing Exercises side step Standing Exercise Name in mini squat Reps/Minutes 3x5 steps ea direction Comments HEP mini squat Standing Exercise Name on blue foam-- hips back Reps/Minutes 2x5 Comments increased pain today step ups Standing Exercise Name repeated single leg fwd up/ bwd down Side bilateral Reps/Minutes x10 each LE Comments good knee with toes eccentric flexion, cuing only for which leg leading PT-OP-T Assessment and Plan Start: 01/23/23 15:01 Freq: Status: Active Protocol: Document 03/25/23 09:45 AMB (Rec: 03/25/23 10:30 AMB [id number]) Physical Therapy Assessment Goals Two Impairment Pain Short Term Goal (STG) Roseanna will sit for 1 hour without knee pain. 02/18/23: pt stated hasn;t noticed but the ride here takes about 45min -1 hr and didn't to her her knees. WIll pay attention and report next tx. STG Duration 5 weeks progressing 02/18/23 Sugar Refinery Supervisor Goal (LTG) Roseanna will ascend and descend a flight of stairs without knee pain. Apr 5: tends to have delayed pain onset LTG Duration 10 weeks One Impairment Strength Short Term Goal (STG) Roseanna will be independent for a HEP for LE strengthening. 02/09/23: HEP reviewed: side clamshell GTB, supine: bridge GTB, SLR, stand: TKE GTB, STS GTB, seated HS curl PinkTB. 02/11/23: increased resistance #3 TB blue TKE and HS curl. Added HS, piriformis, calf stretching and use rolling pin quad. STG Duration 5 weeks progressin02/11/23 Sugar Refinery Supervisor Goal (LTG) Roseanna will show improved LE strength by performing a full squat without an increase in knee pain. Apr 5: not necessarily painful during, but increases pain aferward LTG Duration 10 weeks Assessment Summary Assessment Roseanna is doing well, progressed HEP today with monster walk, without band for now. Needed cues for form but then did well. Physical Therapy Plan Frequency and Duration Frequency of Treatment 2x/Week Duration of treatment (weeks) 10 Plan of Care Start Date 01/27/23 Plan of Care End Date 04/07/23 Therapeutic Interventions Therapeutic Interventions Gait Training,Home Exercise Program,Joint Mobilizations, Manual Therapy,Neuromuscular Re-education,Self-Care/Home Management,Taping,Therapeutic Activities,Therapeutic Exercises Modalities Cold Pack/Ice Massage,Electric Stimulation,Hot Packs Next Visit Focus/Plan Next Note Type Treatment Note Next Visit Plan Review HEP especially making sure pt has good quad /glut activation. POC: Recheck HEP (bringing band from home for use). Check response to step ups and shuttle recovery initiated last tx. Check if can add as HEP. start hurdles, uneven surface. POC: HEP for patellar positioning
--- NOTE | 2023-03-27 13:04 | PT.OTN ---
Current Diagnoses Chondromalacia patellae, left knee (03/27/23) Prepatellar bursitis, left knee (03/27/23) Physical Therapy Treatment Note PT-OP-A Visit Information Start: 01/23/23 15:01 Freq: Status: Active Protocol: Document 03/27/23 09:50 AMB (Rec: 03/27/23 10:35 AMB [id number]) Out-Patient Physical Therapy Visit Information Visit Information Visit Type Treatment Note Visit Start Time 09:50 Visit Stop Time 10:30 Total Visit Minutes 40 Visit Number 16 PT-OP-B Current Condition Start: 01/23/23 15:01 Freq: Status: Active Protocol: Document 01/27/23 10:31 AMB (Rec: 01/27/23 11:22 AMB [id number]) Current Condition History of Current Condition Onset Date 2+years L knee pain Current Complaints L knee History of Current Condition Roseanna reports that over 2 years ago she was kneeling and felt a pop in her knee. She has tried multiple attempts at PT. She continues to have pain. She describes it as sharp pain with extended sitting, walking especially on uneven surfaces, standing in the kitchen can be painful. Medial and patellar knee pain. Difficulty walking on the beach, not doing prior PT exercises as they increased pain. Prior Treatments and Tests 09/2020: MRI mild patellar tendonopathy, mild chondromalacia patella, minimal bursal fluid--possible mild bursitis. Reports got an inject at ortho that did not help. Prior PT. Personal Factors Other Personal Factors That May Effect Developmental disability, Therapy/Recovery lives with mom PT-OP-C Subjective Start: 01/23/23 15:01 Freq: Status: Active Protocol: Document 03/27/23 09:50 AMB (Rec: 03/27/23 10:35 AMB [id number]) OP-PT Subjective Patient Comments Patient Comments Last night felt something in the middle of the knee after being outside more. PT-OP-J Posture/Palpation/Skin Start: 01/23/23 15:01 Freq: Status: Active Protocol: Document 01/27/23 10:30 AMB (Rec: 01/28/23 16:26 AMB [id number]) Posture Evaluation Comments Posture Comments Flat feet, tends to toe on in the left Palpation Assessment Location L knee Palpation Details Pain at medial patellar tendon PT-OP-K Range of Motion Start: 01/23/23 15:01 Freq: Status: Active Protocol: Document 01/27/23 10:30 AMB (Rec: 01/28/23 16:26 AMB [id number]) Knee Goniometric Range of Motion Knee Left Knee ROM WFL Yes Comments pt tends to be hypermobile PT-OP-M Strength Start: 01/23/23 15:01 Freq: Status: Active Protocol: Document 01/27/23 10:30 AMB (Rec: 01/28/23 16:26 AMB [id number]) Hip Strength Hip Manual Muscle Testing Right Flexion (L2) 4+ Good+ Extension (S1) 4+ Good+ Abduction 4+ Good+ Adduction 4+ Good+ Left Flexion (L2) 4+ Good+ Extension (S1) 4+ Good+ Abduction 4+ Good+ Adduction 4+ Good+ Knee Strength Knee Manual Muscle Testing Right Flexion (S2) 4+ Good+ Extension (L3) 4+ Good+ Left Flexion (S2) 4 Good Extension (L3) 4 Good PT-OP-Q Treatments Start: 01/23/23 15:01 Freq: Status: Active Protocol: Document 03/27/23 09:50 AMB (Rec: 03/27/23 10:35 AMB [id number]) Cardio Equipment Treadmill Duration (Minutes) 10 Speed 1.8>2.0 Incline 0 Other cued arm swing, L foot Ev neutral and foot clearance Therapeutic Exercises Supine Exercises 2 Supine Exercise Name active hamstring stretch Reps/Minutes 10x5 1 Supine Exercise Name single knee to chest Reps/Minutes 30x2 SLR Supine Exercise Name HEP reviewed Side left Reps/Minutes 2x15 Comments cued quad control, not hyperextension but quad set first Sidelying Exercises hip abd Sidelying Exercise Name SLR- cue quad control first Reps/Minutes 2x10 Standing Exercises side step Standing Exercise Name in mini squat Resistance green band Reps/Minutes 3x5 steps ea direction Comments HEP mini squat Standing Exercise Name on blue foam-- hips back Reps/Minutes 2x5 Comments increased pain today step ups Standing Exercise Name repeated single leg fwd up/ bwd down Side bilateral Reps/Minutes x10 each LE Comments good knee with toes eccentric flexion, cuing only for which leg leading PT-OP-T Assessment and Plan Start: 01/23/23 15:01 Freq: Status: Active Protocol: Document 03/27/23 09:50 AMB (Rec: 03/27/23 10:35 KIRA [id number]) Physical Therapy Assessment Goals Two Impairment Pain Short Term Goal (STG) Roseanna will sit for 1 hour without knee pain. 02/18/23: pt stated hasn;t noticed but the ride here takes about 45min -1 hr and didn't to her her knees. WIll pay attention and report next tx. STG Duration 5 weeks progressing 02/18/23 Residential Goal (LTG) Roseanna will ascend and descend a flight of stairs without knee pain. Apr 5: tends to have delayed pain onset LTG Duration 10 weeks One Impairment Strength Short Term Goal (STG) Roseanna will be independent for a HEP for LE strengthening. 02/09/23: HEP reviewed: side clamshell GTB, supine: bridge GTB, SLR, stand: TKE GTB, STS GTB, seated HS curl PinkTB. 02/11/23: increased resistance #3 TB blue TKE and HS curl. Added HS, piriformis, calf stretching and use rolling pin quad. STG Duration 5 weeks progressin02/11/23 Residential Goal (LTG) Roseanna will show improved LE strength by performing a full squat without an increase in knee pain. Apr 5: not necessarily painful during, but increases pain aferward LTG Duration 10 weeks Assessment Summary Assessment Roseanna had a difficult time with the side stepping up stairs, did do well with band and side squat. Did have an episode of coughing that made her nauseous in the middle of therapy. Did recommend pt increasing to banded sidestep squats for HEP and trying to walk on the beach/outdoors for short duration niranjan guan. Physical Therapy Plan Frequency and Duration Frequency of Treatment 2x/Week Duration of treatment (weeks) 10 Plan of Care Start Date 01/27/23 Plan of Care End Date 04/07/23 Therapeutic Interventions Therapeutic Interventions Gait Training,Home Exercise Program,Joint Mobilizations, Manual Therapy,Neuromuscular Re-education,Self-Care/Home Management,Taping,Therapeutic Activities,Therapeutic Exercises Modalities Cold Pack/Ice Massage,Electric Stimulation,Hot Packs Next Visit Focus/Plan Next Note Type Treatment Note Next Visit Plan Review HEP especially making sure pt has good quad /glut activation. POC: Recheck HEP (bringing band from home for use). Check response to step ups and shuttle recovery initiated last tx. Check if can add as HEP. start hurdles, uneven surface. POC: HEP for patellar positioning
--- NOTE | 2023-04-01 16:18 | PT.OTN ---
Current Diagnoses Chondromalacia patellae, left knee (04/01/23) Prepatellar bursitis, left knee (04/01/23) Physical Therapy Treatment Note PT-OP-A Visit Information Start: 01/23/23 15:01 Freq: Status: Active Protocol: Document 04/01/23 10:54 AMB (Rec: 04/01/23 11:28 AMB [id number]) Out-Patient Physical Therapy Visit Information Visit Information Visit Type Progress Note Visit Note Visit Start Time 10:45 Visit Stop Time 11:30 Total Visit Minutes 40 Visit Number 17 PT-OP-B Current Condition Start: 01/23/23 15:01 Freq: Status: Active Protocol: Document 01/27/23 10:31 AMB (Rec: 01/27/23 11:22 AMB [id number]) Current Condition History of Current Condition Onset Date 2+years L knee pain Current Complaints L knee History of Current Condition Roseanna reports that over 2 years ago she was kneeling and felt a pop in her knee. She has tried multiple attempts at PT. She continues to have pain. She describes it as sharp pain with extended sitting, walking especially on uneven surfaces, standing in the kitchen can be painful. Medial and patellar knee pain. Difficulty walking on the beach, not doing prior PT exercises as they increased pain. Prior Treatments and Tests 09/2020: MRI mild patellar tendonopathy, mild chondromalacia patella, minimal bursal fluid--possible mild bursitis. Reports got an inject at ortho that did not help. Prior PT. Personal Factors Other Personal Factors That May Effect Developmental disability, Therapy/Recovery lives with mom PT-OP-C Subjective Start: 01/23/23 15:01 Freq: Status: Active Protocol: Document 04/01/23 10:54 AMB (Rec: 04/01/23 11:28 AMB [id number]) OP-PT Subjective Patient Comments Patient Comments Pt states sepreston fell on Thursday, didn't do exercises since then but is feeling ok today. PT-OP-J Posture/Palpation/Skin Start: 01/23/23 15:01 Freq: Status: Active Protocol: Document 01/27/23 10:30 AMB (Rec: 01/28/23 16:26 AMB [id number]) Posture Evaluation Comments Posture Comments Flat feet, tends to toe on in the left Palpation Assessment Location L knee Palpation Details Pain at medial patellar tendon PT-OP-K Range of Motion Start: 01/23/23 15:01 Freq: Status: Active Protocol: Document 01/27/23 10:30 AMB (Rec: 01/28/23 16:26 AMB [id number]) Knee Goniometric Range of Motion Knee Left Knee ROM WFL Yes Comments pt tends to be hypermobile PT-OP-M Strength Start: 01/23/23 15:01 Freq: Status: Active Protocol: Document 01/27/23 10:30 AMB (Rec: 01/28/23 16:26 AMB [id number]) Hip Strength Hip Manual Muscle Testing Right Flexion (L2) 4+ Good+ Extension (S1) 4+ Good+ Abduction 4+ Good+ Adduction 4+ Good+ Left Flexion (L2) 4+ Good+ Extension (S1) 4+ Good+ Abduction 4+ Good+ Adduction 4+ Good+ Knee Strength Knee Manual Muscle Testing Right Flexion (S2) 4+ Good+ Extension (L3) 4+ Good+ Left Flexion (S2) 4 Good Extension (L3) 4 Good PT-OP-Q Treatments Start: 01/23/23 15:01 Freq: Status: Active Protocol: Document 04/01/23 10:54 AMB (Rec: 04/01/23 11:28 AMB [id number]) Cardio Equipment Treadmill Duration (Minutes) 10 Speed 1.8>2.0 Incline 0 Other cued arm swing, L foot Ev neutral and foot clearance Therapeutic Exercises Supine Exercises 1 Supine Exercise Name single knee to chest Reps/Minutes 30x2 SLR Supine Exercise Name HEP reviewed Side left Reps/Minutes 2x15 Comments cued quad control, not hyperextension but quad set first Sidelying Exercises hip abd Sidelying Exercise Name SLR- cue quad control first Reps/Minutes 2x10 Comments pt reports mild hamstring discomfort with this Standing Exercises hamstring stretch Reps/Minutes 30x2 Comments on stair full squat Standing Exercise Name encouraged hips back positioning Comments educated when lifting cat get hips back PT-OP-T Assessment and Plan Start: 01/23/23 15:01 Freq: Status: Active Protocol: Document 04/01/23 10:54 AMB (Rec: 04/01/23 11:28 AMB [id number]) Physical Therapy Assessment Goals Two Impairment Pain Short Term Goal (STG) Roseanna will sit for 1 hour without knee pain. 5/3: During the day ok, but in evening more pain especially if sitting with maximal knee flexion. STG Duration 5 weeks progressing 04/01 [facility] Goal (LTG) Roseanna will ascend and descend a flight of stairs without knee pain. LTG Duration MET One Impairment Strength Short Term Goal (STG) Roseanna will be independent for a HEP for LE strengthening. 02/09/23: HEP reviewed: side clamshell GTB, supine: bridge GTB, SLR, stand: TKE GTB, STS GTB, seated HS curl PinkTB. 02/11/23: increased resistance #3 TB blue TKE and HS curl. Added HS, piriformis, calf stretching and use rolling pin quad. STG Duration 5 weeks progressin04/01/23 Mussel Opener Goal (LTG) Roseanna will show improved LE strength by performing a full squat without an increase in knee pain. Progress made- partial squat no pain. LTG Duration 10 weeks Assessment Summary Assessment Roseanna is doing well with her knee, deep squats continue to bother her knee. Stairs are improving. Oveall encouraging her in a gentle progression of activity, walking in the community more, doing more yardowork with her mom. Physical Therapy Plan Frequency and Duration Frequency of Treatment 2x/Week Duration of treatment (weeks) 10 Plan of Care Start Date 04/01/23 Plan of Care End Date 06/10/23 Therapeutic Interventions Therapeutic Interventions Gait Training,Home Exercise Program,Joint Mobilizations, Manual Therapy,Neuromuscular Re-education,Self-Care/Home Management,Taping,Therapeutic Activities,Therapeutic Exercises Modalities Cold Pack/Ice Massage,Electric Stimulation,Hot Packs Next Visit Focus/Plan Next Note Type Treatment Note Next Visit Plan Review HEP especially making sure pt has good quad /glut activation. POC: Recheck HEP (bringing band from home for use). Check response to step ups and shuttle recovery initiated last tx. Check if can add as HEP. start hurdles, uneven surface. POC: HEP for patellar positioning
--- NOTE | 2023-04-01 16:19 | PT.OPPOC ---
Physical, Occupational & Speech Therapy At [facility] Current Diagnoses Chondromalacia patellae, left knee (04/01/23) Prepatellar bursitis, left knee (04/01/23) Visit Care Team Role Provider Type MYRNA Meeks Attending Provider Advanced Building Guard Deputy Sheriff Family Provider Primary Care Provider Referring Provider Specialty: Family Practice Address: [address] [place] [address], [facility] [place], [facility] Email: [email or web address] Plan Of Care PT-OP-T Assessment and Plan Start: 01/23/23 15:01 Freq: Status: Active Protocol: Document 04/01/23 10:54 AMB (Rec: 04/01/23 11:28 AMB [id number]) Physical Therapy Assessment Goals Two Impairment Pain Short Term Goal (STG) Roseanna will sit for 1 hour without knee pain. 53: During the day ok, but in evening more pain especially if sitting with maximal knee flexion. STG Duration 5 weeks progressing 53 Snf Goal (LTG) Roseanna will ascend and descend a flight of stairs without knee pain. LTG Duration MET One Impairment Strength Short Term Goal (STG) Roseanna will be independent for a HEP for LE strengthening. 02/09/23: HEP reviewed: side clamshell GTB, supine: bridge GTB, SLR, stand: TKE GTB, STS GTB, seated HS curl PinkTB. 02/11/23: increased resistance #3 TB blue TKE and HS curl. Added HS, piriformis, calf stretching and use rolling pin quad. STG Duration 5 weeks progressin04/01/23 Snf Goal (LTG) Roseanna will show improved LE strength by performing a full squat without an increase in knee pain. Progress made- partial squat no pain. LTG Duration 10 weeks Assessment Summary Assessment Roseanna is doing well with her knee, deep squats continue to bother her knee. Stairs are improving. Oveall encouraging her in a gentle progression of activity, walking in the community more, doing more yardowork with her mom. Physical Therapy Plan Frequency and Duration Frequency of Treatment 2x/Week Duration of treatment (weeks) 10 Plan of Care Start Date 04/01/23 Plan of Care End Date 06/10/23 Therapeutic Interventions Therapeutic Interventions Gait Training,Home Exercise Program,Joint Mobilizations, Manual Therapy,Neuromuscular Re-education,Self-Care/Home Management,Taping,Therapeutic Activities,Therapeutic Exercises Modalities Cold Pack/Ice Massage,Electric Stimulation,Hot Packs Next Visit Focus/Plan Next Note Type Treatment Note Next Visit Plan Review HEP especially making sure pt has good quad /glut activation. POC: Recheck HEP (bringing band from home for use). Check response to step ups and shuttle recovery initiated last tx. Check if can add as HEP. start hurdles, uneven surface. POC: HEP for patellar positioning Plan of Care Dates Plan of Care Start Date 04/01/23 Plan of Care End Date 06/10/23 Electronically Signed by: Patricia Castillo, PT 04/02/23 [id number] If you are in agreement with this Plan of Care, please return a signed and dated copy. I have reviewed this Plan of Care and certify that the skilled therapy services above are required to meet the patient?s needs. Physician Signature Date Printed Name and Credentials Clinical Instructor Signature Printed Name and Credentials
--- NOTE | 2023-04-03 11:30 | PT.OTN ---
Current Diagnoses Chondromalacia patellae, left knee (04/03/23) Prepatellar bursitis, left knee (04/03/23) Physical Therapy Treatment Note PT-OP-A Visit Information Start: 01/23/23 15:01 Freq: Status: Active Protocol: Document 04/03/23 10:46 SP (Rec: 04/03/23 11:36 SP [id number]) Out-Patient Physical Therapy Visit Information Visit Information Visit Type Treatment Note Visit Note Visit Start Time 10:46 Visit Stop Time 11:30 Total Visit Minutes 44 Visit Number 18 Number of DONATIONS ATTENDANT Visits 1 Precautions Precautions *latex sensitivities with some adhesives. PT-OP-B Current Condition Start: 01/23/23 15:01 Freq: Status: Active Protocol: Document 01/27/23 10:31 AMB (Rec: 01/27/23 11:22 AMB [id number]) Current Condition History of Current Condition Onset Date 2+years L knee pain Current Complaints L knee History of Current Condition Roseanna reports that over 2 years ago she was kneeling and felt a pop in her knee. She has tried multiple attempts at PT. She continues to have pain. She describes it as sharp pain with extended sitting, walking especially on uneven surfaces, standing in the kitchen can be painful. Medial and patellar knee pain. Difficulty walking on the beach, not doing prior PT exercises as they increased pain. Prior Treatments and Tests 09/2020: MRI mild patellar tendonopathy, mild chondromalacia patella, minimal bursal fluid--possible mild bursitis. Reports got an inject at ortho that did not help. Prior PT. Personal Factors Other Personal Factors That May Effect Developmental disability, Therapy/Recovery lives with mom PT-OP-C Subjective Start: 01/23/23 15:01 Freq: Status: Active Protocol: Document 04/03/23 10:46 SP (Rec: 04/03/23 11:36 SP [id number]) OP-PT Subjective Patient Comments Patient Comments Pt reports She said hasn't really noticed discomfort lately but hasn't really been active since her fall last Sat tripping over uneven sidewalk . She has only been mini squat to draft roller picker her cat. Is compliant with HEP. PT-OP-J Posture/Palpation/Skin Start: 01/23/23 15:01 Freq: Status: Active Protocol: Document 01/27/23 10:30 AMB (Rec: 01/28/23 16:26 AMB [id number]) Posture Evaluation Comments Posture Comments Flat feet, tends to toe on in the left Palpation Assessment Location L knee Palpation Details Pain at medial patellar tendon PT-OP-K Range of Motion Start: 01/23/23 15:01 Freq: Status: Active Protocol: Document 01/27/23 10:30 AMB (Rec: 01/28/23 16:26 AMB [id number]) Knee Goniometric Range of Motion Knee Left Knee ROM WFL Yes Comments pt tends to be hypermobile PT-OP-M Strength Start: 01/23/23 15:01 Freq: Status: Active Protocol: Document 01/27/23 10:30 AMB (Rec: 01/28/23 16:26 AMB [id number]) Hip Strength Hip Manual Muscle Testing Right Flexion (L2) 4+ Good+ Extension (S1) 4+ Good+ Abduction 4+ Good+ Adduction 4+ Good+ Left Flexion (L2) 4+ Good+ Extension (S1) 4+ Good+ Abduction 4+ Good+ Adduction 4+ Good+ Knee Strength Knee Manual Muscle Testing Right Flexion (S2) 4+ Good+ Extension (L3) 4+ Good+ Left Flexion (S2) 4 Good Extension (L3) 4 Good PT-OP-Q Treatments Start: 01/23/23 15:01 Freq: Status: Active Protocol: Document 04/03/23 10:46 SP (Rec: 04/03/23 11:36 SP [id number]) Cardio Equipment Treadmill Duration (Minutes) 11 Speed 2>2.2 Incline 0 Other cued arm swing, L foot Ev neutral and foot clearance Therapeutic Exercises Supine Exercises stretching Supine Exercise Name Lizandro kessler 2. piriformis Side bilateral Reps/Minutes 30 each Comments good feedback stretch 2 Supine Exercise Name active hamstring stretch w/ ankle pump Side bilateral Equipment Used grasp behind knee Reps/Minutes 10x5 Comments good feedback Sidelying Exercises hip abd Sidelying Exercise Name SLR- cue quad control first Reps/Minutes 2x15 Comments pt reports mild hamstring discomfort with this Standing Exercises step ups Standing Exercise Name step ups- HEP reviewed Side bilateral Equipment Used floor near rail Reps/Minutes 2x10 each LE floor Comments cued L ankle EV neutral calf stretch Standing Exercise Name reviewed HEP Side bilateral Equipment Used bottom step, contact rail Reps/Minutes 30 SH Comments cued slow ease into stretch- good response Neuro Re-Education Treatment Balance Activities discs Details balance, mini lunge Surface 2 stagger stance Equipment 1 HR support light when needed Reps/Duration 2 min Comments intermittent light contact raill cued soft knee, feet flat BOSU Equipment BOSU Comments 1. DL balance- up to 16 sec 2. Step ups- light contact rail hurdles Equipment 4hurdles, 5 oval foam, 1 discs Reps/Duration 2 lapse each Comments fwd hurdles receiprocal step SBA fwd foam receiprocal step SBA fwd foam + hurdles, then + yellow disc- CGA, cued slow SLS onto yellow disc- light contact rail PT-OP-T Assessment and Plan Start: 01/23/23 15:01 Freq: Status: Active Protocol: Document 04/03/23 10:46 SP (Rec: 04/03/23 11:36 SP [id number]) Physical Therapy Assessment Goals Two Impairment Pain Short Term Goal (STG) Roseanna will sit for 1 hour without knee pain. 04/01: During the day ok, but in evening more pain especially if sitting with maximal knee flexion. STG Duration 5 weeks progressing 5 Correction Goal (LTG) Roseanna will ascend and descend a flight of stairs without knee pain. LTG Duration MET One Impairment Strength Short Term Goal (STG) Roseanna will be independent for a HEP for LE strengthening. 02/09/23: HEP reviewed: side clamshell GTB, supine: bridge GTB, SLR, stand: TKE GTB, STS GTB, seated HS curl PinkTB. 02/11/23: increased resistance #3 TB blue TKE and HS curl. Added HS, piriformis, calf stretching and use rolling pin quad. STG Duration 5 weeks progressin04/01/23 Enginehouse Brakeman Goal (LTG) Roseanna will show improved LE strength by performing a full squat without an increase in knee pain. Progress made- partial squat no pain. LTG Duration 10 weeks Assessment Summary Assessment Pt good feedback painfree during all ther ex. Cues for slow mobility during uneven step ups, WB between B flat feet uneven bosu, disc added today. Pt reported good challenge but painfree and maybe helpful get back to [employer] trails. Physical Therapy Plan Frequency and Duration Frequency of Treatment 2x/Week Duration of treatment (weeks) 10 Plan of Care Start Date 04/01/23 Plan of Care End Date 06/10/23 Therapeutic Interventions Therapeutic Interventions Gait Training,Home Exercise Program,Joint Mobilizations, Manual Therapy,Neuromuscular Re-education,Self-Care/Home Management,Taping,Therapeutic Activities,Therapeutic Exercises Modalities Cold Pack/Ice Massage,Electric Stimulation,Hot Packs Next Visit Focus/Plan Next Note Type Treatment Note Next Visit Plan Ask response to hurdles, foam, disc last tx. POC: Review HEP especially making sure pt has good quad / glut activation. POC: Recheck HEP (bringing band from home for use). Check response to step ups and shuttle recovery initiated last tx. Check if can add as HEP. start hurdles, uneven surface. POC: HEP for patellar positioning
--- NOTE | 2023-04-07 11:35 | PT.OTN ---
Current Diagnoses Chondromalacia patellae, left knee (04/07/23) Prepatellar bursitis, left knee (04/07/23) Physical Therapy Treatment Note PT-OP-A Visit Information Start: 01/23/23 15:01 Freq: Status: Active Protocol: Document 04/07/23 10:51 AMB (Rec: 04/07/23 11:35 AMB [id number]) Out-Patient Physical Therapy Visit Information Visit Information Visit Type Treatment Note Visit Note Visit Start Time 10:45 Visit Stop Time 11:30 Total Visit Minutes 45 Visit Number 19 PT-OP-B Current Condition Start: 01/23/23 15:01 Freq: Status: Active Protocol: Document 01/27/23 10:31 AMB (Rec: 01/27/23 11:22 AMB [id number]) Current Condition History of Current Condition Onset Date 2+years L knee pain Current Complaints L knee History of Current Condition Roseanna reports that over 2 years ago she was kneeling and felt a pop in her knee. She has tried multiple attempts at PT. She continues to have pain. She describes it as sharp pain with extended sitting, walking especially on uneven surfaces, standing in the kitchen can be painful. Medial and patellar knee pain. Difficulty walking on the beach, not doing prior PT exercises as they increased pain. Prior Treatments and Tests 09/2020: MRI mild patellar tendonopathy, mild chondromalacia patella, minimal bursal fluid--possible mild bursitis. Reports got an inject at ortho that did not help. Prior PT. Personal Factors Other Personal Factors That May Effect Developmental disability, Therapy/Recovery lives with mom PT-OP-C Subjective Start: 01/23/23 15:01 Freq: Status: Active Protocol: Document 04/07/23 10:51 AMB (Rec: 04/07/23 11:35 AMB [id number]) OP-PT Subjective Patient Comments Patient Comments Pt states obstacle course was a little sore. PT-OP-J Posture/Palpation/Skin Start: 01/23/23 15:01 Freq: Status: Active Protocol: Document 01/27/23 10:30 AMB (Rec: 01/28/23 16:26 AMB [id number]) Posture Evaluation Comments Posture Comments Flat feet, tends to toe on in the left Palpation Assessment Location L knee Palpation Details Pain at medial patellar tendon PT-OP-K Range of Motion Start: 01/23/23 15:01 Freq: Status: Active Protocol: Document 01/27/23 10:30 AMB (Rec: 01/28/23 16:26 AMB [id number]) Knee Goniometric Range of Motion Knee Left Knee ROM WFL Yes Comments pt tends to be hypermobile PT-OP-M Strength Start: 01/23/23 15:01 Freq: Status: Active Protocol: Document 01/27/23 10:30 AMB (Rec: 01/28/23 16:26 AMB [id number]) Hip Strength Hip Manual Muscle Testing Right Flexion (L2) 4+ Good+ Extension (S1) 4+ Good+ Abduction 4+ Good+ Adduction 4+ Good+ Left Flexion (L2) 4+ Good+ Extension (S1) 4+ Good+ Abduction 4+ Good+ Adduction 4+ Good+ Knee Strength Knee Manual Muscle Testing Right Flexion (S2) 4+ Good+ Extension (L3) 4+ Good+ Left Flexion (S2) 4 Good Extension (L3) 4 Good PT-OP-Q Treatments Start: 01/23/23 15:01 Freq: Status: Active Protocol: Document 04/07/23 10:51 AMB (Rec: 04/07/23 11:35 AMB [id number]) Cardio Equipment Treadmill Duration (Minutes) 12 Speed 2>2.2 Incline 0 Other cued arm swing, L foot Ev neutral and foot clearance Therapeutic Exercises Supine Exercises stretching Supine Exercise Name 1Matthew kessler 2. piriformis Side bilateral Reps/Minutes 30 each Comments good feedback stretch SLR Supine Exercise Name HEP reviewed Side left Reps/Minutes 2x15 Comments cued quad control, not hyperextension but quad set first Sidelying Exercises hip abd Sidelying Exercise Name SLR- cue quad control first Reps/Minutes 2x15 Comments pt reports mild hamstring discomfort with this Neuro Re-Education Treatment Balance Activities discs Details balance, mini lunge Surface 2 stagger stance Equipment 1 HR support light when needed Reps/Duration 2 min Comments intermittent light contact raill cued soft knee, feet flat BOSU Equipment BOSU Comments 1. DL balance- up to 16 sec 2. Step ups- light contact rail hurdles Equipment 4hurdles, Reps/Duration 4 laps Comments fwd hurdles receiprocal step SBA fwd foam receiprocal step SBA PT-OP-T Assessment and Plan Start: 01/23/23 15:01 Freq: Status: Active Protocol: Document 04/07/23 10:51 AMB (Rec: 04/07/23 11:35 AMB [id number]) Physical Therapy Assessment Goals Two Impairment Pain Short Term Goal (STG) Roseanna will sit for 1 hour without knee pain. 04/01: During the day ok, but in evening more pain especially if sitting with maximal knee flexion. STG Duration 5 weeks progressing 04/01 Intermediate Goal (LTG) Roseanna will ascend and descend a flight of stairs without knee pain. LTG Duration MET One Impairment Strength Short Term Goal (STG) Roseanna will be independent for a HEP for LE strengthening. 02/09/23: HEP reviewed: side clamshell GTB, supine: bridge GTB, SLR, stand: TKE GTB, STS GTB, seated HS curl PinkTB. 02/11/23: increased resistance #3 TB blue TKE and HS curl. Added HS, piriformis, calf stretching and use rolling pin quad. STG Duration 5 weeks progressin04/01/23 Manager Bilingual Goal (LTG) Roseanna will show improved LE strength by performing a full squat without an increase in knee pain. Progress made- partial squat no pain. LTG Duration 10 weeks Assessment Summary Assessment Encouraged Roseanna and mom in considering beach walk vs mowing lawn just partially. Pt is tolerating more uneven terrain with less knee irritation. Physical Therapy Plan Frequency and Duration Frequency of Treatment 2x/Week Duration of treatment (weeks) 10 Plan of Care Start Date 04/01/23 Plan of Care End Date 06/10/23 Therapeutic Interventions Therapeutic Interventions Gait Training,Home Exercise Program,Joint Mobilizations, Manual Therapy,Neuromuscular Re-education,Self-Care/Home Management,Taping,Therapeutic Activities,Therapeutic Exercises Modalities Cold Pack/Ice Massage,Electric Stimulation,Hot Packs Next Visit Focus/Plan Next Note Type Treatment Note Next Visit Plan Ask response to hurdles, foam, disc last tx. POC: Review HEP especially making sure pt has good quad / glut activation. POC: Recheck HEP (bringing band from home for use). Check response to step ups and shuttle recovery initiated last tx. Check if can add as HEP. start hurdles, uneven surface. POC: HEP for patellar positioning
--- NOTE | 2023-04-09 09:46 | PT.OTN ---
Current Diagnoses Chondromalacia patellae, left knee (04/09/23) Prepatellar bursitis, left knee (04/09/23) Physical Therapy Treatment Note PT-OP-A Visit Information Start: 01/23/23 15:01 Freq: Status: Active Protocol: Document 04/09/23 09:00 SP (Rec: 04/09/23 09:48 SP [id number]) Out-Patient Physical Therapy Visit Information Visit Information Visit Type Treatment Note Visit Note Mom attends tx. Visit Start Time 09:00 Visit Stop Time 09:46 Total Visit Minutes 46 Visit Number 20 Number of FAN BLADE ALIGNER Visits 1 Precautions Precautions *latex sensitivities with some adhesives. PT-OP-B Current Condition Start: 01/23/23 15:01 Freq: Status: Active Protocol: Document 01/27/23 10:31 AMB (Rec: 01/27/23 11:22 AMB [id number]) Current Condition History of Current Condition Onset Date 2+years L knee pain Current Complaints L knee History of Current Condition Roseanna reports that over 2 years ago she was kneeling and felt a pop in her knee. She has tried multiple attempts at PT. She continues to have pain. She describes it as sharp pain with extended sitting, walking especially on uneven surfaces, standing in the kitchen can be painful. Medial and patellar knee pain. Difficulty walking on the beach, not doing prior PT exercises as they increased pain. Prior Treatments and Tests 09/2020: MRI mild patellar tendonopathy, mild chondromalacia patella, minimal bursal fluid--possible mild bursitis. Reports got an inject at ortho that did not help. Prior PT. Personal Factors Other Personal Factors That May Effect Developmental disability, Therapy/Recovery lives with mom PT-OP-C Subjective Start: 01/23/23 15:01 Freq: Status: Active Protocol: Document 04/09/23 09:00 SP (Rec: 04/09/23 09:48 SP [id number]) OP-PT Subjective Patient Comments Patient Comments Pt reports did well after last tx, uneven and hurdles separate were ok. Pt was ableto mow lawn for 5 min without adverse affects. Pt and mom incorporating more time uneven ground outside as tolerated. PT-OP-J Posture/Palpation/Skin Start: 01/23/23 15:01 Freq: Status: Active Protocol: Document 01/27/23 10:30 AMB (Rec: 01/28/23 16:26 AMB [id number]) Posture Evaluation Comments Posture Comments Flat feet, tends to toe on in the left Palpation Assessment Location L knee Palpation Details Pain at medial patellar tendon PT-OP-K Range of Motion Start: 01/23/23 15:01 Freq: Status: Active Protocol: Document 01/27/23 10:30 AMB (Rec: 01/28/23 16:26 AMB [id number]) Knee Goniometric Range of Motion Knee Left Knee ROM WFL Yes Comments pt tends to be hypermobile PT-OP-M Strength Start: 01/23/23 15:01 Freq: Status: Active Protocol: Document 01/27/23 10:30 AMB (Rec: 01/28/23 16:26 AMB [id number]) Hip Strength Hip Manual Muscle Testing Right Flexion (L2) 4+ Good+ Extension (S1) 4+ Good+ Abduction 4+ Good+ Adduction 4+ Good+ Left Flexion (L2) 4+ Good+ Extension (S1) 4+ Good+ Abduction 4+ Good+ Adduction 4+ Good+ Knee Strength Knee Manual Muscle Testing Right Flexion (S2) 4+ Good+ Extension (L3) 4+ Good+ Left Flexion (S2) 4 Good Extension (L3) 4 Good PT-OP-Q Treatments Start: 01/23/23 15:01 Freq: Status: Active Protocol: Document 04/09/23 09:00 SP (Rec: 04/09/23 09:48 SP [id number]) Cardio Equipment Treadmill Duration (Minutes) 12 Speed 2.2> 2.3 last 4 min Incline 0>1 4 min>2 x2 min> 1 for 2 min> 0 4 min= 12 Other cued arm swing, L foot Ev neutral and foot clearance Therapeutic Exercises Supine Exercises 2 Supine Exercise Name active hamstring stretch w/ ankle pump Side bilateral Equipment Used grasp behind knee Reps/Minutes 10 AP repd Comments good feedback post knee active HS stretch SLR Supine Exercise Name HEP reviewed Side left Resistance B today 04/09 Reps/Minutes 2x20 Comments cued quad control and self corrections no hyperextension Sidelying Exercises hip abd Sidelying Exercise Name SLR- cue quad and neutral ankle EV Side left Reps/Minutes 2x20 Comments pt reports mild hamstring discomfort with this Gait Training Gait Activity stairs Description outdoor Device Used 0 Distance/Duration 7 stairs Treatment Focus receiprocal stepping, L foot EV neutral, foot clearance Comments cued core, safe slower pacing to allow L foot clearance, toe caught x1 but no LOB uneven terrain outside Description incline/decline, uneven gravel /lawn/angled landscaping Device Used 0 Level of Assistance SBA Treatment Focus knee/ankle stability, balance over uneven terrain, endurance uneven terrain Comments cued slow cautious stepping on lawn, angles terrain for safter knee/ankle support- no adverse affects/LOB or deviations. Neuro Re-Education Treatment Balance Activities uneven terrain outside Details lawn, curb Equipment curb Reps/Duration 5 min Comments 1. fwd 2. bkwd,side stepping lawn 30 ft x2 laps each 3. over back fwd/bwd/ lateral side stepping over curb traveling 30 ft x1 lap each *cued slow pacing for safety and ankle stability, over wt shift/ scissor step x2 but self recovery and no adverse affects. discs Details balance, mini lunge Surface 2 stagger stance Equipment 1 HR support light when needed Reps/Duration 2 min Comments intermittent light contact raill cued soft knee, feet flat *timed LLE fwd 8 sec, 14 sec RLE fwd 11 sec, 16 sec. BOSU Equipment BOSU Comments 1. DL balance- up to 11sec, 27 sec 2. Step ups- light contact rail- 10 reps LLE PT-OP-T Assessment and Plan Start: 01/23/23 15:01 Freq: Status: Active Protocol: Document 04/09/23 09:00 SP (Rec: 04/09/23 09:48 SP [id number]) Physical Therapy Assessment Goals Two Impairment Pain Short Term Goal (STG) Roseanna will sit for 1 hour without knee pain. 5/3: During the day ok, but in evening more pain especially if sitting with maximal knee flexion. STG Duration 5 weeks progressing 5/3 Stockroom Worker Goal (LTG) Roseanna will ascend and descend a flight of stairs without knee pain. LTG Duration MET One Impairment Strength Short Term Goal (STG) Roseanna will be independent for a HEP for LE strengthening. 02/09/23: HEP reviewed: side clamshell GTB, supine: bridge GTB, SLR, stand: TKE GTB, STS GTB, seated HS curl PinkTB. 02/11/23: increased resistance #3 TB blue TKE and HS curl. Added HS, piriformis, calf stretching and use rolling pin quad. STG Duration 5 weeks progressin04/01/23 Retirement Goal (LTG) Roseanna will show improved LE strength by performing a full squat without an increase in knee pain. Progress made- partial squat no pain. LTG Duration 10 weeks Assessment Summary Assessment Pt good response to uneven surface outside gravel/ landscaping/open lawn/ curb stepping today with safety ed for awareness of stepping and ankle/balance recovery over grass (hidden depressions), stepping over curb assimulation to roots on nearby trails with self recovery this tx. No adverse affects and pt stated feels little more confident for assisting mother in yard. Physical Therapy Plan Frequency and Duration Frequency of Treatment 2x/Week Duration of treatment (weeks) 10 Plan of Care Start Date 04/01/23 Plan of Care End Date 06/10/23 Therapeutic Interventions Therapeutic Interventions Gait Training,Home Exercise Program,Joint Mobilizations, Manual Therapy,Neuromuscular Re-education,Self-Care/Home Management,Taping,Therapeutic Activities,Therapeutic Exercises Modalities Cold Pack/Ice Massage,Electric Stimulation,Hot Packs Next Visit Focus/Plan Next Note Type Treatment Note Next Visit Plan Continue outdoor balance/ uneven activities to progress toward personal goal trail walks. POC: Review HEP especially making sure pt has good quad / glut activation. POC: Recheck HEP (bringing band from home for use). Check response to step ups and shuttle recovery initiated last tx. Check if can add as HEP. start hurdles, uneven surface. POC: HEP for patellar positioning
--- NOTE | 2023-04-14 12:52 | PT.OTN ---
Current Diagnoses Chondromalacia patellae, left knee (04/14/23) Prepatellar bursitis, left knee (04/14/23) Physical Therapy Treatment Note PT-OP-A Visit Information Start: 01/23/23 15:01 Freq: Status: Active Protocol: Document 04/14/23 10:51 AMB (Rec: 04/14/23 11:31 AMB [id number]) Out-Patient Physical Therapy Visit Information Visit Information Visit Type Treatment Note Visit Note Visit Start Time 10:45 Visit Stop Time 11:30 Total Visit Minutes 45 Visit Number 21 PT-OP-B Current Condition Start: 01/23/23 15:01 Freq: Status: Active Protocol: Document 01/27/23 10:31 AMB (Rec: 01/27/23 11:22 AMB [id number]) Current Condition History of Current Condition Onset Date 2+years L knee pain Current Complaints L knee History of Current Condition Roseanna reports that over 2 years ago she was kneeling and felt a pop in her knee. She has tried multiple attempts at PT. She continues to have pain. She describes it as sharp pain with extended sitting, walking especially on uneven surfaces, standing in the kitchen can be painful. Medial and patellar knee pain. Difficulty walking on the beach, not doing prior PT exercises as they increased pain. Prior Treatments and Tests 09/2020: MRI mild patellar tendonopathy, mild chondromalacia patella, minimal bursal fluid--possible mild bursitis. Reports got an inject at ortho that did not help. Prior PT. Personal Factors Other Personal Factors That May Effect Developmental disability, Therapy/Recovery lives with mom PT-OP-C Subjective Start: 01/23/23 15:01 Freq: Status: Active Protocol: Document 04/14/23 10:45 AMB (Rec: 04/14/23 12:00 AMB [id number]) OP-PT Subjective Patient Comments Patient Comments Pt and mom report she did well with walking [place]. PT-OP-J Posture/Palpation/Skin Start: 01/23/23 15:01 Freq: Status: Active Protocol: Document 01/27/23 10:30 AMB (Rec: 01/28/23 16:26 AMB [id number]) Posture Evaluation Comments Posture Comments Flat feet, tends to toe on in the left Palpation Assessment Location L knee Palpation Details Pain at medial patellar tendon PT-OP-K Range of Motion Start: 01/23/23 15:01 Freq: Status: Active Protocol: Document 01/27/23 10:30 AMB (Rec: 01/28/23 16:26 AMB [id number]) Knee Goniometric Range of Motion Knee Left Knee ROM WFL Yes Comments pt tends to be hypermobile PT-OP-M Strength Start: 01/23/23 15:01 Freq: Status: Active Protocol: Document 01/27/23 10:30 AMB (Rec: 01/28/23 16:26 AMB [id number]) Hip Strength Hip Manual Muscle Testing Right Flexion (L2) 4+ Good+ Extension (S1) 4+ Good+ Abduction 4+ Good+ Adduction 4+ Good+ Left Flexion (L2) 4+ Good+ Extension (S1) 4+ Good+ Abduction 4+ Good+ Adduction 4+ Good+ Knee Strength Knee Manual Muscle Testing Right Flexion (S2) 4+ Good+ Extension (L3) 4+ Good+ Left Flexion (S2) 4 Good Extension (L3) 4 Good PT-OP-Q Treatments Start: 01/23/23 15:01 Freq: Status: Active Protocol: Document 04/14/23 10:51 AMB (Rec: 04/14/23 11:31 AMB [id number]) Gym Equipment Shuttle Balance RED Reps/Duration 10 min Comments a/p and m/l, cues for soft knees, challenging Therapeutic Exercises Supine Exercises stretching Supine Exercise Name 1. victoria 2. piriformis Side bilateral Reps/Minutes 30 each Comments good feedback stretch Standing Exercises step ups Standing Exercise Name a/p and m/l Side bilateral Equipment Used floor near rail Reps/Minutes 2x10 each LE floor Comments cued L ankle EV neutral calf stretch Standing Exercise Name reviewed HEP Side bilateral Equipment Used bottom step, contact rail Reps/Minutes 30 SH Comments cued slow ease into stretch- good response sit to stand Standing Exercise Name HEP reviewed- arms front and discussed full sit/stand- was eccentric taps Equipment Used cable bench seat Comments good form Neuro Re-Education Treatment Balance Activities hurdles Equipment 4hurdles, Reps/Duration 4 laps Comments fwd hurdles receiprocal step SBA fwd foam receiprocal step SBA added 4 step PT-OP-T Assessment and Plan Start: 01/23/23 15:01 Freq: Status: Active Protocol: Document 04/14/23 10:51 AMB (Rec: 05/16/23 11:31 AMB [id number]) Physical Therapy Assessment Goals Two Impairment Pain Short Term Goal (STG) Roseanna will sit for 1 hour without knee pain. 04/01: During the day ok, but in evening more pain especially if sitting with maximal knee flexion. STG Duration 5 weeks progressing 04/01 Relief Man Goal (LTG) Roseanna will ascend and descend a flight of stairs without knee pain. LTG Duration MET One Impairment Strength Short Term Goal (STG) Roseanna will be independent for a HEP for LE strengthening. 02/09/23: HEP reviewed: side clamshell GTB, supine: bridge GTB, SLR, stand: TKE GTB, STS GTB, seated HS curl PinkTB. 02/11/23: increased resistance #3 TB blue TKE and HS curl. Added HS, piriformis, calf stretching and use rolling pin quad. STG Duration 5 weeks progressin04/01/23 Relief Man Goal (LTG) Roseanna will show improved LE strength by performing a full squat without an increase in knee pain. Progress made- partial squat no pain. LTG Duration 10 weeks Assessment Summary Assessment Pt did well with higher level balance challenges. Will follow up on tolerance to new exercises re: shuttle balance. Mom and pt will decide on how pt is doing over the next week to discuss [facility] scheduling. Physical Therapy Plan Frequency and Duration Frequency of Treatment 2x/Week Duration of treatment (weeks) 10 Plan of Care Start Date 04/01/23 Plan of Care End Date 06/10/23 Therapeutic Interventions Therapeutic Interventions Gait Training,Home Exercise Program,Joint Mobilizations, Manual Therapy,Neuromuscular Re-education,Self-Care/Home Management,Taping,Therapeutic Activities,Therapeutic Exercises Modalities Cold Pack/Ice Massage,Electric Stimulation,Hot Packs Next Visit Focus/Plan Next Note Type Treatment Note Next Visit Plan Continue outdoor balance/ uneven activities to progress toward personal goal trail walks. POC: Review HEP especially making sure pt has good quad / glut activation. POC: Recheck HEP (bringing band from home for use). Check response to step ups and shuttle recovery initiated last tx. Check if can add as HEP. start hurdles, uneven surface. POC: HEP for patellar positioning
--- NOTE | 2023-04-16 10:45 | PT.OTN ---
Current Diagnoses Chondromalacia patellae, left knee (04/16/23) Prepatellar bursitis, left knee (04/16/23) Physical Therapy Treatment Note PT-OP-A Visit Information Start: 01/23/23 15:01 Freq: Status: Active Protocol: Document 04/16/23 10:01 SP (Rec: 04/16/23 10:50 SP [id number]) Out-Patient Physical Therapy Visit Information Visit Information Visit Type Treatment Note Visit Note Visit Start Time 10:01 Visit Stop Time 10:45 Total Visit Minutes 44 Visit Number 22 Number of RIPRAP PLACER Visits 1 Precautions Precautions *latex sensitivities with some adhesives. PT-OP-B Current Condition Start: 01/23/23 15:01 Freq: Status: Active Protocol: Document 01/27/23 10:31 AMB (Rec: 01/27/23 11:22 AMB [id number]) Current Condition History of Current Condition Onset Date 2+years L knee pain Current Complaints L knee History of Current Condition Roseanna reports that over 2 years ago she was kneeling and felt a pop in her knee. She has tried multiple attempts at PT. She continues to have pain. She describes it as sharp pain with extended sitting, walking especially on uneven surfaces, standing in the kitchen can be painful. Medial and patellar knee pain. Difficulty walking on the beach, not doing prior PT exercises as they increased pain. Prior Treatments and Tests 09/2020: MRI mild patellar tendonopathy, mild chondromalacia patella, minimal bursal fluid--possible mild bursitis. Reports got an inject at ortho that did not help. Prior PT. Personal Factors Other Personal Factors That May Effect Developmental disability, Therapy/Recovery lives with mom PT-OP-C Subjective Start: 01/23/23 15:01 Freq: Status: Active Protocol: Document 04/16/23 10:01 SP (Rec: 04/16/23 10:50 SP [id number]) OP-PT Subjective Patient Comments Patient Comments Pt reports was sore in medial L knee after last tx, the balance board was very challenging and wonder if was to much. PT-OP-J Posture/Palpation/Skin Start: 01/23/23 15:01 Freq: Status: Active Protocol: Document 01/27/23 10:30 AMB (Rec: 01/28/23 16:26 AMB [id number]) Posture Evaluation Comments Posture Comments Flat feet, tends to toe on in the left Palpation Assessment Location L knee Palpation Details Pain at medial patellar tendon PT-OP-K Range of Motion Start: 01/23/23 15:01 Freq: Status: Active Protocol: Document 01/27/23 10:30 AMB (Rec: 01/28/23 16:26 AMB [id number]) Knee Goniometric Range of Motion Knee Left Knee ROM WFL Yes Comments pt tends to be hypermobile PT-OP-M Strength Start: 01/23/23 15:01 Freq: Status: Active Protocol: Document 01/27/23 10:30 AMB (Rec: 01/28/23 16:26 AMB [id number]) Hip Strength Hip Manual Muscle Testing Right Flexion (L2) 4+ Good+ Extension (S1) 4+ Good+ Abduction 4+ Good+ Adduction 4+ Good+ Left Flexion (L2) 4+ Good+ Extension (S1) 4+ Good+ Abduction 4+ Good+ Adduction 4+ Good+ Knee Strength Knee Manual Muscle Testing Right Flexion (S2) 4+ Good+ Extension (L3) 4+ Good+ Left Flexion (S2) 4 Good Extension (L3) 4 Good PT-OP-Q Treatments Start: 01/23/23 15:01 Freq: Status: Active Protocol: Document 04/16/23 10:01 SP (Rec: 04/16/23 10:50 SP [id number]) Therapeutic Exercises Sitting Exercises stretching Sitting Exercise Name reviewed HEP: HS, piriformis Side bilateral Reps/Minutes 30 Comments good feedback Standing Exercises hamstring stretch Standing Exercise Name HEP reviewed Side bilateral Equipment Used LE on 16, contact rail support Reps/Minutes 30x2 Comments cued straight back hip hinge side step Standing Exercise Name in mini squat Resistance green band ankles, mid thigh Reps/Minutes 20 ft x2 laps Comments cued knees over toes, not to large step calf stretch Standing Exercise Name reviewed HEP Side bilateral Equipment Used bottom step, contact rail Reps/Minutes 30 SH Comments cued slow ease into stretch- good response Neuro Re-Education Treatment Balance Activities rocker board Details WBOS, stagger Surface f/b/lateral Comments -wt shift -balloon volley in stagger w/ mom CGA no LOB, cued stable board COG hurdles Details fwd, lateral Equipment 4hurdles, 4 foam Reps/Duration 4 laps Comments 1. leg wt fwd/lateral w/ leg wt 4# receiprocal stepping 2. squat cross body ball cone transfer step to patterning PT-OP-T Assessment and Plan Start: 01/23/23 15:01 Freq: Status: Active Protocol: Document 04/16/23 10:01 SP (Rec: 04/16/23 10:50 SP [id number]) Physical Therapy Assessment Goals Two Impairment Pain Short Term Goal (STG) Roseanna will sit for 1 hour without knee pain. 53: During the day ok, but in evening more pain especially if sitting with maximal knee flexion. STG Duration 5 weeks progressing 04/01 Fpc Goal (LTG) Roseanna will ascend and descend a flight of stairs without knee pain. LTG Duration MET One Impairment Strength Short Term Goal (STG) Roseanna will be independent for a HEP for LE strengthening. 02/09/23: HEP reviewed: side clamshell GTB, supine: bridge GTB, SLR, stand: TKE GTB, STS GTB, seated HS curl PinkTB. 02/11/23: increased resistance #3 TB blue TKE and HS curl. Added HS, piriformis, calf stretching and use rolling pin quad. STG Duration 5 weeks progressin04/01/23 Fpc Goal (LTG) Roseanna will show improved LE strength by performing a full squat without an increase in knee pain. Progress made- partial squat no pain. LTG Duration 10 weeks Assessment Summary Assessment Pt good effort, stability. 1 wt shift retro balloon but rail recovery. occasional cues for L foot EV // w/ R. Good self corrections balance recovery slower pacing for stability. No pain throughout tx. Physical Therapy Plan Frequency and Duration Frequency of Treatment 2x/Week Duration of treatment (weeks) 10 Plan of Care Start Date 04/01/23 Plan of Care End Date 06/10/23 Therapeutic Interventions Therapeutic Interventions Gait Training,Home Exercise Program,Joint Mobilizations, Manual Therapy,Neuromuscular Re-education,Self-Care/Home Management,Taping,Therapeutic Activities,Therapeutic Exercises Modalities Cold Pack/Ice Massage,Electric Stimulation,Hot Packs Next Visit Focus/Plan Next Note Type Treatment Note Next Visit Plan Continue outdoor balance/ uneven activities to progress toward personal goal trail walks. POC: Review HEP especially making sure pt has good quad / glut activation. POC: Recheck HEP (bringing band from home for use). Check response to step ups and shuttle recovery initiated last tx. Check if can add as HEP. start hurdles, uneven surface. POC: HEP for patellar positioning
--- NOTE | 2023-04-20 11:34 | PT.OTN ---
Current Diagnoses Chondromalacia patellae, left knee (04/20/23) Prepatellar bursitis, left knee (04/20/23) Physical Therapy Treatment Note PT-OP-A Visit Information Start: 01/23/23 15:01 Freq: Status: Active Protocol: Document 04/20/23 10:46 AMB (Rec: 04/20/23 11:34 AMB [id number]) Out-Patient Physical Therapy Visit Information Visit Information Visit Type Treatment Note Visit Note Visit Start Time 10:45 Visit Stop Time 11:30 Total Visit Minutes 45 Visit Number 23 PT-OP-B Current Condition Start: 01/23/23 15:01 Freq: Status: Active Protocol: Document 01/27/23 10:31 AMB (Rec: 01/27/23 11:22 AMB [id number]) Current Condition History of Current Condition Onset Date 2+years L knee pain Current Complaints L knee History of Current Condition Roseanna reports that over 2 years ago she was kneeling and felt a pop in her knee. She has tried multiple attempts at PT. She continues to have pain. She describes it as sharp pain with extended sitting, walking especially on uneven surfaces, standing in the kitchen can be painful. Medial and patellar knee pain. [place]y walking [place] the beach, not doing prior PT exercises as they increased pain. Prior Treatments and Tests 09/2020: MRI mild patellar tendonopathy, mild chondromalacia patella, minimal bursal fluid--possible mild bursitis. Reports got an inject at ortho that did not help. Prior PT. Personal Factors Other Personal Factors That May Effect Developmental disability, Therapy/Recovery lives with mom PT-OP-C Subjective Start: 01/23/23 15:01 Freq: Status: Active Protocol: Document 04/20/23 10:46 AMB (Rec: 04/20/23 11:34 AMB [id number]) OP-PT Subjective Patient Comments Patient Comments Achiness in knee/burning after activity for a few minutes. PT-OP-J Posture/Palpation/Skin Start: 01/23/23 15:01 Freq: Status: Active Protocol: Document 01/27/23 10:30 AMB (Rec: 01/28/23 16:26 AMB [id number]) Posture Evaluation Comments Posture Comments Flat feet, tends to toe on in the left Palpation Assessment Location L knee Palpation Details Pain at medial patellar tendon PT-OP-K Range of Motion Start: 01/23/23 15:01 Freq: Status: Active Protocol: Document 01/27/23 10:30 AMB (Rec: 01/28/23 16:26 AMB [id number]) Knee Goniometric Range of Motion Knee Left Knee ROM WFL Yes Comments pt tends to be hypermobile PT-OP-M Strength Start: 01/23/23 15:01 Freq: Status: Active Protocol: Document 01/27/23 10:30 AMB (Rec: 01/28/23 16:26 AMB [id number]) Hip Strength Hip Manual Muscle Testing Right Flexion (L2) 4+ Good+ Extension (S1) 4+ Good+ Abduction 4+ Good+ Adduction 4+ Good+ Left Flexion (L2) 4+ Good+ Extension (S1) 4+ Good+ Abduction 4+ Good+ Adduction 4+ Good+ Knee Strength Knee Manual Muscle Testing Right Flexion (S2) 4+ Good+ Extension (L3) 4+ Good+ Left Flexion (S2) 4 Good Extension (L3) 4 Good PT-OP-Q Treatments Start: 01/23/23 15:01 Freq: Status: Active Protocol: Document 04/20/23 10:46 AMB (Rec: 04/20/23 11:34 AMB [id number]) Cardio Equipment Treadmill Duration (Minutes) 10 Speed 2.2> 2.3 last 4 min Incline 1 Other cued arm swing, L foot Ev neutral and foot clearance Therapeutic Exercises Supine Exercises stretching Supine Exercise Name 1. victoria 2. piriformis Side bilateral Reps/Minutes 30 each Comments good feedback stretch Standing Exercises mini squat Standing Exercise Name on blue foam-- hips back Reps/Minutes 2x5 Comments no increase in pain hurdles Reps/Minutes 5' Comments good form, encouraged knee flex step ups Standing Exercise Name a/p and m/l Side bilateral Equipment Used floor near rail Reps/Minutes 2x10 each LE floor Comments cued L ankle EV neutral Neuro Re-Education Treatment Balance Activities BOSU Equipment BOSU Comments DL, hands hovering over rails. PT-OP-T Assessment and Plan Start: 01/23/23 15:01 Freq: Status: Active Protocol: Document 04/20/23 10:46 AMB (Rec: 04/20/23 11:34 AMB [id number]) Physical Therapy Assessment Goals Two Impairment Pain Short Term Goal (STG) Roseanna will sit for 1 hour without knee pain. 5/3: During the day ok, but in evening more pain especially if sitting with maximal knee flexion. STG Duration 5 weeks progressing 04/01 Microfilm Processor Goal (LTG) Roseanna will ascend and descend a flight of stairs without knee pain. LTG Duration MET One Impairment Strength Short Term Goal (STG) Roseanna will be independent for a HEP for LE strengthening. 02/09/23: HEP reviewed: side clamshell GTB, supine: bridge GTB, SLR, stand: TKE GTB, STS GTB, seated HS curl PinkTB. 02/11/23: increased resistance #3 TB blue TKE and HS curl. Added HS, piriformis, calf stretching and use rolling pin quad. STG Duration 5 weeks progressin04/01/23 Fpc Goal (LTG) Roseanna will show improved LE strength by performing a full squat without an increase in knee pain. Progress made- partial squat no pain. LTG Duration 10 weeks Assessment Summary Assessment Changing to 1x/week in April to allow pt to assess how function is improving with less intervention. Pt is sleeping better, but does continue to have burning/ aching at times. Generally after activity. Physical Therapy Plan Frequency and Duration Frequency of Treatment 2x/Week Duration of treatment (weeks) 10 Plan of Care Start Date 04/01/23 Plan of Care End Date 06/10/23 Therapeutic Interventions Therapeutic Interventions Gait Training,Home Exercise Program,Joint Mobilizations, Manual Therapy,Neuromuscular Re-education,Self-Care/Home Management,Taping,Therapeutic Activities,Therapeutic Exercises Modalities Cold Pack/Ice Massage,Electric Stimulation,Hot Packs Next Visit Focus/Plan Next Note Type Treatment Note Next Visit Plan Continue outdoor balance/ uneven activities to progress toward personal goal trail walks. POC: Review HEP especially making sure pt has good quad / glut activation.
--- NOTE | 2023-04-22 14:30 | PT.OTN ---
Current Diagnoses Chondromalacia patellae, left knee (04/22/23) Prepatellar bursitis, left knee (04/22/23) Physical Therapy Treatment Note PT-OP-A Visit Information Start: 01/23/23 15:01 Freq: Status: Active Protocol: Document 04/22/23 10:07 AMB (Rec: 04/22/23 10:44 AMB [id number]) Out-Patient Physical Therapy Visit Information Visit Information Visit Type Treatment Note Visit Note Visit Start Time 10:00 Visit Stop Time 10:45 Total Visit Minutes 45 Visit Number 24 PT-OP-B Current Condition Start: 01/23/23 15:01 Freq: Status: Active Protocol: Document 01/27/23 10:31 AMB (Rec: 01/27/23 11:22 AMB [id number]) Current Condition History of Current Condition Onset Date 2+years L knee pain Current Complaints L knee History of Current Condition Roseanna reports that over 2 years ago she was kneeling and felt a pop in her knee. She has tried multiple attempts at PT. She continues to have pain. She describes it as sharp pain with extended sitting, walking especially on uneven surfaces, standing in the kitchen can be painful. Medial and patellar knee pain. Difficulty walking on the beach, not doing prior PT exercises as they increased pain. Prior Treatments and Tests 09/2020: MRI mild patellar tendonopathy, mild chondromalacia patella, minimal bursal fluid--possible mild bursitis. Reports got an inject at ortho that did not help. Prior PT. Personal Factors Other Personal Factors That May Effect Developmental disability, Therapy/Recovery lives with mom PT-OP-C Subjective Start: 01/23/23 15:01 Freq: Status: Active Protocol: Document 04/22/23 10:07 AMB (Rec: 04/22/23 10:44 AMB [id number]) OP-PT Subjective Patient Comments Patient Comments No pain to report. Did get outside yesterday without issue. PT-OP-J Posture/Palpation/Skin Start: 01/23/23 15:01 Freq: Status: Active Protocol: Document 01/27/23 10:30 AMB (Rec: 01/28/23 16:26 AMB [id number]) Posture Evaluation Comments Posture Comments Flat feet, tends to toe on in the left Palpation Assessment Location L knee Palpation Details Pain at medial patellar tendon PT-OP-K Range of Motion Start: 01/23/23 15:01 Freq: Status: Active Protocol: Document 01/27/23 10:30 AMB (Rec: 01/28/23 16:26 AMB [id number]) Knee Goniometric Range of Motion Knee Left Knee ROM WFL Yes Comments pt tends to be hypermobile PT-OP-M Strength Start: 01/23/23 15:01 Freq: Status: Active Protocol: Document 01/27/23 10:30 AMB (Rec: 01/28/23 16:26 AMB [id number]) Hip Strength Hip Manual Muscle Testing Right Flexion (L2) 4+ Good+ Extension (S1) 4+ Good+ Abduction 4+ Good+ Adduction 4+ Good+ Left Flexion (L2) 4+ Good+ Extension (S1) 4+ Good+ Abduction 4+ Good+ Adduction 4+ Good+ Knee Strength Knee Manual Muscle Testing Right Flexion (S2) 4+ Good+ Extension (L3) 4+ Good+ Left Flexion (S2) 4 Good Extension (L3) 4 Good PT-OP-Q Treatments Start: 01/23/23 15:01 Freq: Status: Active Protocol: Document 04/22/23 10:07 AMB (Rec: 04/22/23 10:44 AMB [id number]) Cardio Equipment Treadmill Duration (Minutes) 10 Speed 2.2> 2.5 last 2 min Incline 1 Other cued arm swing, L foot Ev neutral and foot clearance Therapeutic Exercises Supine Exercises stretching Supine Exercise Name 1Matthew kessler 2. piriformis Side bilateral Reps/Minutes 30 each Comments good feedback stretch Standing Exercises mini squat Standing Exercise Name on blue foam-- hips back Reps/Minutes 2x5 Comments no increase in pain hurdles Reps/Minutes 5' Comments good form, encouraged knee flex step ups Standing Exercise Name a/p and m/l Side bilateral Equipment Used floor near rail Reps/Minutes 2x10 each LE floor Comments cued L ankle EV neutral calf stretch Standing Exercise Name reviewed HEP Side bilateral Equipment Used bottom step, contact rail Reps/Minutes 30 SH Comments cued slow ease into stretch- good response Neuro Re-Education Treatment Balance Activities discs Details balance, mini lunge Surface 2 stagger stance Equipment 1 HR support light when needed Reps/Duration 2 min Comments intermittent light contact raill cued soft knee, feet flat BOSU Equipment BOSU Comments DL, hands hovering over rails. PT-OP-T Assessment and Plan Start: 01/23/23 15:01 Freq: Status: Active Protocol: Document 04/22/23 10:07 KIRA (Rec: 04/22/23 10:44 AMB [id number]) Physical Therapy Assessment Goals Two Impairment Pain Short Term Goal (STG) Roseanna will sit for 1 hour without knee pain. 53: During the day ok, but in evening more pain especially if sitting with maximal knee flexion. STG Duration 5 weeks progressing 04/01 Nursing Home Goal (LTG) Roseanna will ascend and descend a flight of stairs without knee pain. LTG Duration MET One Impairment Strength Short Term Goal (STG) Roseanna will be independent for a HEP for LE strengthening. 02/09/23: HEP reviewed: side clamshell GTB, supine: bridge GTB, SLR, stand: TKE GTB, STS GTB, seated HS curl PinkTB. 02/11/23: increased resistance #3 TB blue TKE and HS curl. Added HS, piriformis, calf stretching and use rolling pin quad. STG Duration 5 weeks progressin04/01/23 Nursing Home Goal (LTG) Roseanna will show improved LE strength by performing a full squat without an increase in knee pain. Progress made- partial squat no pain. LTG Duration 10 weeks Assessment Summary Assessment Pt tolerating exercises well. Physical Therapy Plan Frequency and Duration Frequency of Treatment 2x/Week Duration of treatment (weeks) 10 Plan of Care Start Date 04/01/23 Plan of Care End Date 06/10/23 Therapeutic Interventions Therapeutic Interventions Gait Training,Home Exercise Program,Joint Mobilizations, Manual Therapy,Neuromuscular Re-education,Self-Care/Home Management,Taping,Therapeutic Activities,Therapeutic Exercises Modalities Cold Pack/Ice Massage,Electric Stimulation,Hot Packs Next Visit Focus/Plan Next Note Type Treatment Note Next Visit Plan Continue outdoor balance/ uneven activities to progress toward personal goal trail walks. POC: Review HEP especially making sure pt has good quad / glut activation.
--- NOTE | 2023-04-28 15:46 | PT.OTN ---
Current Diagnoses Chondromalacia patellae, left knee (04/28/23) Prepatellar bursitis, left knee (04/28/23) Physical Therapy Treatment Note PT-OP-A Visit Information Start: 01/23/23 15:01 Freq: Status: Active Protocol: Document 04/28/23 10:03 AMB (Rec: 04/28/23 10:43 AMB [id number]) Out-Patient Physical Therapy Visit Information Visit Information Visit Type Treatment Note Visit Note Visit Start Time 10:00 Visit Stop Time 10:45 Total Visit Minutes 45 Visit Number 25 PT-OP-B Current Condition Start: 01/23/23 15:01 Freq: Status: Active Protocol: Document 01/27/23 10:31 AMB (Rec: 01/27/23 11:22 AMB [id number]) Current Condition History of Current Condition Onset Date 2+years L knee pain Current Complaints L knee History of Current Condition Roseanna reports that over 2 years ago she was kneeling and felt a pop in her knee. She has tried multiple attempts at PT. She continues to have pain. She describes it as sharp pain with extended sitting, walking especially on uneven surfaces, standing in the kitchen can be painful. Medial and patellar knee pain. Difficulty walking on the beach, not doing prior PT exercises as they increased pain. Prior Treatments and Tests 09/2020: MRI mild patellar tendonopathy, mild chondromalacia patella, minimal bursal fluid--possible mild bursitis. Reports got an inject at ortho that did not help. Prior PT. Personal Factors Other Personal Factors That May Effect Developmental disability, Therapy/Recovery lives with mom PT-OP-C Subjective Start: 01/23/23 15:01 Freq: Status: Active Protocol: Document 04/28/23 10:03 AMB (Rec: 04/28/23 10:43 AMB [id number]) OP-PT Subjective Patient Comments Patient Comments A couple of days did have some soreness, did go on a short walk. PT-OP-J Posture/Palpation/Skin Start: 01/23/23 15:01 Freq: Status: Active Protocol: Document 01/27/23 10:30 AMB (Rec: 01/28/23 16:26 AMB [id number]) Posture Evaluation Comments Posture Comments Flat feet, tends to toe on in the left Palpation Assessment Location L knee Palpation Details Pain at medial patellar tendon PT-OP-K Range of Motion Start: 01/23/23 15:01 Freq: Status: Active Protocol: Document 01/27/23 10:30 AMB (Rec: 01/28/23 16:26 AMB [id number]) Knee Goniometric Range of Motion Knee Left Knee ROM WFL Yes Comments pt tends to be hypermobile PT-OP-M Strength Start: 01/23/23 15:01 Freq: Status: Active Protocol: Document 01/27/23 10:30 AMB (Rec: 01/28/23 16:26 AMB [id number]) Hip Strength Hip Manual Muscle Testing Right Flexion (L2) 4+ Good+ Extension (S1) 4+ Good+ Abduction 4+ Good+ Adduction 4+ Good+ Left Flexion (L2) 4+ Good+ Extension (S1) 4+ Good+ Abduction 4+ Good+ Adduction 4+ Good+ Knee Strength Knee Manual Muscle Testing Right Flexion (S2) 4+ Good+ Extension (L3) 4+ Good+ Left Flexion (S2) 4 Good Extension (L3) 4 Good PT-OP-Q Treatments Start: 01/23/23 15:01 Freq: Status: Active Protocol: Document 04/28/23 10:03 AMB (Rec: 04/28/23 10:43 AMB [id number]) Cardio Equipment Treadmill Duration (Minutes) 10 Speed 2.2> 2.5 last 2 min Incline 2 Other cued arm swing, L foot Ev neutral and foot clearance Therapeutic Exercises Supine Exercises stretching Supine Exercise Name MirandaMatthew kessler 2. piriformis Side bilateral Reps/Minutes 30 each Comments good feedback stretch Sidelying Exercises hip abd Sidelying Exercise Name SLR- cue quad and neutral ankle EV Side left Reps/Minutes 2x20 Comments pt reports mild hamstring discomfort with this clam Sidelying Exercise Name HEP reviewed Side left Resistance latex free green band around thighs Reps/Minutes 2x12 Comments good back alignment, cued ankle DF neutral Standing Exercises mini lunge Standing Exercise Name on blue foam Reps/Minutes 2x10 hurdles Reps/Minutes 5' Comments good form, encouraged knee flex step ups Standing Exercise Name a/p and m/l Side bilateral Equipment Used floor near rail Reps/Minutes 2x10 each LE floor Comments cued L ankle EV neutral calf stretch Standing Exercise Name reviewed HEP Side bilateral Equipment Used bottom step, contact rail Reps/Minutes 30 SH Comments cued slow ease into stretch- good response PT-OP-T Assessment and Plan Start: 01/23/23 15:01 Freq: Status: Active Protocol: Document 04/28/23 10:03 KIRA (Rec: 04/28/23 10:43 AMB [id number]) Physical Therapy Assessment Goals Two Impairment Pain Short Term Goal (STG) Roseanna will sit for 1 hour without knee pain. 04/01: During the day ok, but in evening more pain especially if sitting with maximal knee flexion. STG Duration 5 weeks progressing 04/01 Child And Family Counselor Goal (LTG) Roseanna will ascend and descend a flight of stairs without knee pain. LTG Duration MET One Impairment Strength Short Term Goal (STG) Roseanna will be independent for a HEP for LE strengthening. 02/09/23: HEP reviewed: side clamshell GTB, supine: bridge GTB, SLR, stand: TKE GTB, STS GTB, seated HS curl PinkTB. 02/11/23: increased resistance #3 TB blue TKE and HS curl. Added HS, piriformis, calf stretching and use rolling pin quad. STG Duration 5 weeks progressin04/01/23 Child And Family Counselor Goal (LTG) Roseanna will show improved LE strength by performing a full squat without an increase in knee pain. Progress made- partial squat no pain. LTG Duration 10 weeks Assessment Summary Assessment Pt has not been walking on the treadmill at home, but has been trying to walk outside. Walking outside can increase knee pain for a few hours in the evening, but has not been noticing increased pain after PT. Physical Therapy Plan Frequency and Duration Frequency of Treatment 2x/Week Duration of treatment (weeks) 10 Plan of Care Start Date 04/01/23 Plan of Care End Date 06/10/23 Therapeutic Interventions Therapeutic Interventions Gait Training,Home Exercise Program,Joint Mobilizations, Manual Therapy,Neuromuscular Re-education,Self-Care/Home Management,Taping,Therapeutic Activities,Therapeutic Exercises Modalities Cold Pack/Ice Massage,Electric Stimulation,Hot Packs Next Visit Focus/Plan Next Note Type Treatment Note Next Visit Plan Continue outdoor balance/ uneven activities to progress toward personal goal trail walks. POC: Review HEP especially making sure pt has good quad / glut activation.
--- NOTE | 2023-05-06 11:30 | PT.OTN ---
Current Diagnoses Chondromalacia patellae, left knee (05/06/23) Prepatellar bursitis, left knee (05/06/23) Physical Therapy Treatment Note PT-OP-A Visit Information Start: 01/23/23 15:01 Freq: Status: Active Protocol: Document 05/06/23 10:48 SP (Rec: 05/06/23 11:41 SP [id number]) Out-Patient Physical Therapy Visit Information Visit Information Visit Type Treatment Note Visit Note Visit Start Time 10:48 Visit Stop Time 11:30 Total Visit Minutes 42 Visit Number 26 Number of ONLINE ADVERTISING MANAGER Visits 1 Precautions Precautions *latex sensitivities with some adhesives. PT-OP-B Current Condition Start: 01/23/23 15:01 Freq: Status: Active Protocol: Document 01/27/23 10:31 AMB (Rec: 01/27/23 11:22 AMB [id number]) Current Condition History of Current Condition Onset Date 2+years L knee pain Current Complaints L knee History of Current Condition Roseanna reports that over 2 years ago she was kneeling and felt a pop in her knee. She has tried multiple attempts at PT. She continues to have pain. She describes it as sharp pain with extended sitting, walking especially on uneven surfaces, standing in the kitchen can be painful. Medial and patellar knee pain. Difficulty walking [place] the beach, not doing prior PT exercises as they increased pain. Prior Treatments and Tests 09/2020: MRI mild patellar tendonopathy, mild chondromalacia patella, minimal bursal fluid--possible mild bursitis. Reports got an inject at ortho that did not help. Prior PT. Personal Factors Other Personal Factors That May Effect Developmental disability, Therapy/Recovery lives with mom PT-OP-C Subjective Start: 01/23/23 15:01 Freq: Status: Active Protocol: Document 05/06/23 10:48 SP (Rec: 05/06/23 11:41 SP [id number]) OP-PT Subjective Patient Comments Patient Comments Pt reports felt pain lateral L knee when bending down to slate picker the laundry basket and achiness. Pt reports she has been walking around house outside and [place] doing well no issues to report. PT-OP-J Posture/Palpation/Skin Start: 01/23/23 15:01 Freq: Status: Active Protocol: Document 01/27/23 10:30 AMB (Rec: 01/28/23 16:26 AMB [id number]) Posture Evaluation Comments Posture Comments Flat feet, tends to toe on in the left Palpation Assessment Location L knee Palpation Details Pain at medial patellar tendon PT-OP-K Range of Motion Start: 01/23/23 15:01 Freq: Status: Active Protocol: Document 01/27/23 10:30 AMB (Rec: 01/28/23 16:26 AMB [id number]) Knee Goniometric Range of Motion Knee Left Knee ROM WFL Yes Comments pt tends to be hypermobile PT-OP-M Strength Start: 01/23/23 15:01 Freq: Status: Active Protocol: Document 01/27/23 10:30 AMB (Rec: 01/28/23 16:26 AMB [id number]) Hip Strength Hip Manual Muscle Testing Right Flexion (L2) 4+ Good+ Extension (S1) 4+ Good+ Abduction 4+ Good+ Adduction 4+ Good+ Left Flexion (L2) 4+ Good+ Extension (S1) 4+ Good+ Abduction 4+ Good+ Adduction 4+ Good+ Knee Strength Knee Manual Muscle Testing Right Flexion (S2) 4+ Good+ Extension (L3) 4+ Good+ Left Flexion (S2) 4 Good Extension (L3) 4 Good PT-OP-Q Treatments Start: 01/23/23 15:01 Freq: Status: Active Protocol: Document 05/06/23 10:48 SP (Rec: 05/06/23 11:41 SP [id number]) Cardio Equipment Treadmill Duration (Minutes) 11 Speed 2.2> 2.5 last 2 min Incline 2 Other occasional cue L foot EV neutral slightly to neutral- improving Therapeutic Exercises Supine Exercises stretching Supine Exercise Name 1Matthew kessler 2. piriformis Side bilateral Reps/Minutes 30 each Comments good feedback stretch 2 Supine Exercise Name active hamstring stretch w/ ankle pump Side bilateral Equipment Used grasp behind knee Reps/Minutes 10 AP repd Comments good feedback post knee active HS stretch bridge Supine Exercise Name reviewed HEP Side bilateral Resistance latex free green band around thighs Reps/Minutes 5 Sh x20 Comments cued feet // (tends turn in) Standing Exercises mini lunge Standing Exercise Name on blue foam Reps/Minutes 2x10 mini squat Standing Exercise Name on blue foam and floor-- hips back Equipment Used carrying box 5# DB, Reps/Minutes 2x5 Comments medial L knee pain, went away floor with cue L>R knee track lateral w/midft step ups Standing Exercise Name a/p and m/l Side bilateral Equipment Used 8 step + blue foam Reps/Minutes 2x10 each LE each direction Comments occasional L ankle EV neutral Neuro Re-Education Treatment Balance Activities uneven obstacle course Details blue mat, pods w/ mat covering , wedge Reps/Duration x6 laps Comments SBA, lateral wt shifts, self balance recovery, painfree Self-Care/Home Management Treatment Education Patient Education Body Mechanics,Joint Protection,Pain Management Caregiver Education Spoke with mom end tx regarding SOB and little light headed, recovery with aerobic stepping and possible donned N95 mask for awareness for home. Safe BP. Other Education Time spent discussion use pillow between B LEs for alignment support on L knee, use stretching/rolling pin for massage if feeling pain and performing ther ex when feeling achiness to assist activity might reduce/make go away. Time spent on proper mechanics of picking up items, laundry basket, improved cue lateral knee tracking withmid ft. PT-OP-T Assessment and Plan Start: 01/23/23 15:01 Freq: Status: Active Protocol: Document 05/06/23 10:48 SP (Rec: 05/06/23 11:41 SP [id number]) Physical Therapy Assessment Goals Two Impairment Pain Short Term Goal (STG) Roseanna will sit for 1 hour without knee pain. 5/3: During the day ok, but in evening more pain especially if sitting with maximal knee flexion. STG Duration 5 weeks progressing 04/01 Refrigeration Operator Goal (LTG) Roseanna will ascend and descend a flight of stairs without knee pain. LTG Duration MET One Impairment Strength Short Term Goal (STG) Roseanna will be independent for a HEP for LE strengthening. 02/09/23: HEP reviewed: side clamshell GTB, supine: bridge GTB, SLR, stand: TKE GTB, STS GTB, seated HS curl PinkTB. 02/11/23: increased resistance #3 TB blue TKE and HS curl. Added HS, piriformis, calf stretching and use rolling pin quad. STG Duration 5 weeks progressin04/01/23 Refrigeration Operator Goal (LTG) Roseanna will show improved LE strength by performing a full squat without an increase in knee pain. Progress made- partial squat no pain. LTG Duration 10 weeks Assessment Summary Assessment Pt tires quickly, + SOB and felt little light headed with elevated lateral step ups, required seated then supine rest, assessed BP RUE 136/87 with HR 101. Pt recovered pretty quickly supine activities and able continue uneven mobility. Improved body mechanics L knee tracking with cues. Pt good strategies self care suggestions written in binder for self recall and mom (family support) home reminders. Physical Therapy Plan Frequency and Duration Frequency of Treatment 2x/Week Duration of treatment (weeks) 10 Plan of Care Start Date 04/01/23 Plan of Care End Date 06/10/23 Therapeutic Interventions Therapeutic Interventions Gait Training,Home Exercise Program,Joint Mobilizations, Manual Therapy,Neuromuscular Re-education,Self-Care/Home Management,Taping,Therapeutic Activities,Therapeutic Exercises Modalities Cold Pack/Ice Massage,Electric Stimulation,Hot Packs Next Visit Focus/Plan Next Note Type Treatment Note Next Visit Plan Continue outdoor balance/ uneven activities to progress toward personal goal trail walks. POC: Review HEP especially making sure pt has good quad / glut activation.
--- NOTE | 2023-05-13 10:46 | PT.OTN ---
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) Prepatellar bursitis, left knee (05/13/23) Physical Therapy Treatment Note PT-OP-A Visit Information Start: 01/23/23 15:01 Freq: Status: Active Protocol: Document 05/13/23 09:47 [facility] (Rec: 05/13/23 10:30 AM[facility] [id number]) Out-Patient Physical Therapy Visit Information Visit Information Visit Type Progress Note Visit Note Visit Start Time 09:50 Visit Stop Time 10:30 Total Visit Minutes 40 Visit Number 27 PT-OP-B Current Condition Start: 01/23/23 15:01 Freq: Status: Active Protocol: Document 01/27/23 10:31 AMB (Rec: 01/27/23 11:22 AMB [id number]) Current Condition History of Current Condition Onset Date 2+years L knee pain Current Complaints L knee History of Current Condition Roseanna reports that over 2 years ago she was kneeling and felt a pop in her knee. She has tried multiple attempts at PT. She continues to have pain. She describes it as sharp pain with extended sitting, walking especially on uneven surfaces, standing in the kitchen can be painful. Medial and patellar knee pain. Difficulty walking on the beach, not doing prior PT exercises as they increased pain. Prior Treatments and Tests 09/2020: MRI mild patellar tendonopathy, mild chondromalacia patella, minimal bursal fluid--possible mild bursitis. Reports got an inject at ortho that did not help. Prior PT. Personal Factors Other Personal Factors That May Effect Developmental disability, Therapy/Recovery lives with mom PT-OP-C Subjective Start: 01/23/23 15:01 Freq: Status: Active Protocol: Document 05/13/23 09:47 [facility] (Rec: 05/13/23 10:30 AMH [id number]) OP-PT Subjective Patient Comments Patient Comments Pt reports overall her knee has gotten better She is sleeping better and the pain overall is reduced with sitting. Rosenana states she was sore in her abdominal muscles after last visit and had some medial knee pain with the squats and box lift Patient Reported Progress Improving PT-OP-J Posture/Palpation/Skin Start: 01/23/23 15:01 Freq: Status: Active Protocol: Document 01/27/23 10:30 AMB (Rec: 01/28/23 16:26 AMB [id number]) Posture Evaluation Comments Posture Comments Flat feet, tends to toe on in the left Palpation Assessment Location L knee Palpation Details Pain at medial patellar tendon PT-OP-K Range of Motion Start: 01/23/23 15:01 Freq: Status: Active Protocol: Document 01/27/23 10:30 AMB (Rec: 01/28/23 16:26 AMB [id number]) Knee Goniometric Range of Motion Knee Left Knee ROM WFL Yes Comments pt tends to be hypermobile PT-OP-M Strength Start: 01/23/23 15:01 Freq: Status: Active Protocol: Document 01/27/23 10:30 AMB (Rec: 01/28/23 16:26 AMB [id number]) Hip Strength Hip Manual Muscle Testing Right Flexion (L2) 4+ Good+ Extension (S1) 4+ Good+ Abduction 4+ Good+ Adduction 4+ Good+ Left Flexion (L2) 4+ Good+ Extension (S1) 4+ Good+ Abduction 4+ Good+ Adduction 4+ Good+ Knee Strength Knee Manual Muscle Testing Right Flexion (S2) 4+ Good+ Extension (L3) 4+ Good+ Left Flexion (S2) 4 Good Extension (L3) 4 Good PT-OP-Q Treatments Start: 01/23/23 15:01 Freq: Status: Active Protocol: Document 05/13/23 09:47 [facility] (Rec: 05/13/23 10:30 [facility] [id number]) Cardio Equipment Treadmill Duration (Minutes) 8 Speed 2.2> 2.5 last 2 min Incline 2 Other occasional cue L foot EV neutral slightly to neutral- improving Therapeutic Exercises Supine Exercises stretching Supine Exercise Name Lizandro kessler 2. piriformis Side bilateral Reps/Minutes 30 each Comments good feedback stretch 2 Supine Exercise Name active hamstring stretch w/ ankle pump Side bilateral Equipment Used grasp behind knee Reps/Minutes 10 AP repd Comments good feedback post knee active HS stretch bridge Supine Exercise Name reviewed HEP Side bilateral Resistance latex free green band around thighs Reps/Minutes 5 Sh x20 Comments cued feet // (tends turn in) Standing Exercises mini squats with theraband around thights for slight hip abduction Reps/Minutes x 10 reps mini lunge Standing Exercise Name on floor only Reps/Minutes 2x10 mini squat Standing Exercise Name on floor only due to knee pain last visit Equipment Used 5.5 medicine ball Reps/Minutes 2 x 10 Comments no c/o pain, pt was cued to engage gluteus medius for knee alignement calf stretch Standing Exercise Name reviewed HEP Side bilateral Equipment Used bottom step, contact rail Reps/Minutes 30 SH Comments cued slow ease into stretch- good response PT-OP-T Assessment and Plan Start: 01/23/23 15:01 Freq: Status: Active Protocol: Document 05/13/23 09:47 [facility] (Rec: 05/13/23 10:30 [facility] [id number]) Physical Therapy Assessment Goals Two Impairment Pain Short Term Goal (STG) Roseanna will sit for 1 hour without knee pain. 05/13/23 pt notes no c/o pain with sitting STG Duration 5 weeks progressing 04/01 Senior Living Goal (LTG) Roseanna will ascend and descend a flight of stairs without knee pain. LTG Duration MET One Impairment Strength Short Term Goal (STG) Roseanna will be independent for a HEP for LE strengthening. 02/09/23: HEP reviewed: side clamshell GTB, supine: bridge GTB, SLR, stand: TKE GTB, STS GTB, seated HS curl PinkTB. 02/11/23: increased resistance #3 TB blue TKE and HS curl. Added HS, piriformis, calf stretching and use rolling pin quad. STG Duration 5 weeks progressin04/01/23 Senior Living Goal (LTG) Roseanna will show improved LE strength by performing a full squat without an increase in knee pain. Progress made- partial squat no pain. Great progress, able to squat without pain but with added weight pt notes pain. LTG Duration 10 weeks Progress Towards Goals Progress Towards Goals Progressing Toward Goals Progress Comments good progress towards goals with pain decreasing overall. Pt has no pain without resistance for standing squats but does experience medial knee discomfort with added weight greater than 5 lbs. Assessment Summary Assessment Roseanna is progressing with her strength and flexibility. She has been working on her HEP. She no longer has pain with stairs and sitting does not increase knee pain. She is able to perform body resistance for closed chair exercises without pain. With the addition of weight this gets more challanging for her. Roseanna did experience some delayed onset muscle soreness after last visit with additional resistance. I described to her what this was and she notes her muscle soreness decreased after a few days. She does still require cueing for knee alignment with her exercises program. She would benefit from continued PT to continue to work on resistance training and proper form Physical Therapy Plan Frequency and Duration Frequency of Treatment 2x/Week Duration of treatment (weeks) 8 Plan of Care Start Date 05/13/23 Plan of Care End Date 07/08/23 Therapeutic Interventions Therapeutic Interventions Gait Training,Home Exercise Program,Joint Mobilizations, Manual Therapy,Neuromuscular Re-education,Self-Care/Home Management,Taping,Therapeutic Activities,Therapeutic Exercises Modalities Cold Pack/Ice Massage,Electric Stimulation,Hot Packs Next Visit Focus/Plan Next Visit Plan Continue outdoor balance/ uneven activities to progress toward personal goal trail walks. POC: Review HEP especially making sure pt has good quad / glut activation.
--- NOTE | 2023-05-13 10:47 | PT.OPPOC ---
Physical, Occupational & Speech Therapy At [facility] 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) Prepatellar bursitis, left knee (05/13/23) Visit Care Team Role Provider Type MYRNA Meeks Attending Provider Advanced Film Flat Inspector Family Provider Primary Care Provider Referring Provider Specialty: Family Practice Address: [address] [place] [address], [facility] [place], [facility] Email: [email or web address] Plan Of Care PT-OP-T Assessment and Plan Start: 01/23/23 15:01 Freq: Status: Active Protocol: Document 05/13/23 09:47 [facility] (Rec: 05/13/23 10:30 [facility] [id number]) Physical Therapy Assessment Goals Two Impairment Pain Short Term Goal (STG) Roseanna will sit for 1 hour without knee pain. 05/13/23 pt notes no c/o pain with sitting STG Duration 5 weeks progressing 04/01 Performance Improvement Specialist Goal (LTG) Roseanna will ascend and descend a flight of stairs without knee pain. LTG Duration MET One Impairment Strength Short Term Goal (STG) Roseanna will be independent for a HEP for LE strengthening. 02/09/23: HEP reviewed: side clamshell GTB, supine: bridge GTB, SLR, stand: TKE GTB, STS GTB, seated HS curl PinkTB. 02/11/23: increased resistance #3 TB blue TKE and HS curl. Added HS, piriformis, calf stretching and use rolling pin quad. STG Duration 5 weeks progressin04/01/23 Nursing Home Goal (LTG) Roseanna will show improved LE strength by performing a full squat without an increase in knee pain. Progress made- partial squat no pain. Great progress, able to squat without pain but with added weight pt notes pain. LTG Duration 10 weeks Progress Towards Goals Progress Towards Goals Progressing Toward Goals Progress Comments good progress towards goals with pain decreasing overall. Pt has no pain without resistance for standing squats but does experience medial knee discomfort with added weight greater than 5 lbs. Assessment Summary Assessment Roseanna is progressing with her strength and flexibility. She has been working on her HEP. She no longer has pain with stairs and sitting does not increase knee pain. She is able to perform body resistance for closed chair exercises without pain. With the addition of weight this gets more challenging for her. Roseanna did experience some delayed onset muscle soreness after last visit with additional resistance. I described to her what this was and she notes her muscle soreness decreased after a few days. She does still require cueing for knee alignment with her exercises program. She would benefit from continued PT to continue to work on resistance training and proper form Physical Therapy Plan Frequency and Duration Frequency of Treatment 2x/Week Duration of treatment (weeks) 8 Plan of Care Start Date 05/13/23 Plan of Care End Date 07/08/23 Therapeutic Interventions Therapeutic Interventions Gait Training,Home Exercise Program,Joint Mobilizations, Manual Therapy,Neuromuscular Re-education,Self-Care/Home Management,Taping,Therapeutic Activities,Therapeutic Exercises Modalities Cold Pack/Ice Massage,Electric Stimulation,Hot Packs Next Visit Focus/Plan Next Visit Plan Continue outdoor balance/ uneven activities to progress toward personal goal trail walks. POC: Review HEP especially making sure pt has good quad / glut activation. Plan of Care Dates Plan of Care Start Date 05/13/23 Plan of Care End Date 07/08/23 Electronically Signed by: Laya Nguyen, PT 05/13/23 7532 If you are in agreement with this Plan of Care, please return a signed and dated copy. I have reviewed this Plan of Care and certify that the skilled therapy services above are required to meet the patient?s needs. Physician Signature Date Printed Name and Credentials Clinical Instructor Signature Printed Name and Credentials
--- NOTE | 2023-05-20 15:40 | PT.OTN ---
Current Diagnoses Chondromalacia patellae, left knee (05/20/23) Prepatellar bursitis, left knee (05/20/23) Physical Therapy Treatment Note PT-OP-A Visit Information Start: 01/23/23 15:01 Freq: Status: Active Protocol: Document 05/20/23 10:50 AMB (Rec: 05/20/23 11:31 AMB [id number]) Out-Patient Physical Therapy Visit Information Visit Information Visit Type Treatment Note Visit Note Visit Start Time 10:50 Visit Stop Time 11:30 Total Visit Minutes 40 Visit Number 28 PT-OP-B Current Condition Start: 01/23/23 15:01 Freq: Status: Active Protocol: Document 01/27/23 10:31 AMB (Rec: 01/27/23 11:22 AMB [id number]) Current Condition History of Current Condition Onset Date 2+years L knee pain Current Complaints L knee History of Current Condition Roseanna reports that over 2 years ago she was kneeling and felt a pop in her knee. She has tried multiple attempts at PT. She continues to have pain. She describes it as sharp pain with extended sitting, walking especially on uneven surfaces, standing in the kitchen can be painful. Medial and patellar knee pain. Difficulty walking [place] the beach, not doing prior PT exercises as they increased pain. Prior Treatments and Tests 09/2020: MRI mild patellar tendonopathy, mild chondromalacia patella, minimal bursal fluid--possible mild bursitis. Reports got an inject at ortho that did not help. Prior PT. Personal Factors Other Personal Factors That May Effect Developmental disability, Therapy/Recovery lives with mom PT-OP-C Subjective Start: 01/23/23 15:01 Freq: Status: Active Protocol: Document 05/20/23 10:50 AMB (Rec: 05/20/23 11:31 AMB [id number]) OP-PT Subjective Patient Comments Patient Comments Otherwise knee has been feeling good, but did have some delayed pain above the knee after doing squats. PT-OP-J Posture/Palpation/Skin Start: 01/23/23 15:01 Freq: Status: Active Protocol: Document 01/27/23 10:30 AMB (Rec: 01/28/23 16:26 AMB [id number]) Posture Evaluation Comments Posture Comments Flat feet, tends to toe on in the left Palpation Assessment Location L knee Palpation Details Pain at medial patellar tendon PT-OP-K Range of Motion Start: 01/23/23 15:01 Freq: Status: Active Protocol: Document 01/27/23 10:30 AMB (Rec: 01/28/23 16:26 AMB [id number]) Knee Goniometric Range of Motion Knee Left Knee ROM WFL Yes Comments pt tends to be hypermobile PT-OP-M Strength Start: 01/23/23 15:01 Freq: Status: Active Protocol: Document 01/27/23 10:30 AMB (Rec: 01/28/23 16:26 AMB [id number]) Hip Strength Hip Manual Muscle Testing Right Flexion (L2) 4+ Good+ Extension (S1) 4+ Good+ Abduction 4+ Good+ Adduction 4+ Good+ Left Flexion (L2) 4+ Good+ Extension (S1) 4+ Good+ Abduction 4+ Good+ Adduction 4+ Good+ Knee Strength Knee Manual Muscle Testing Right Flexion (S2) 4+ Good+ Extension (L3) 4+ Good+ Left Flexion (S2) 4 Good Extension (L3) 4 Good PT-OP-Q Treatments Start: 01/23/23 15:01 Freq: Status: Active Protocol: Document 05/20/23 10:50 AMB (Rec: 05/20/23 11:31 AMB [id number]) Cardio Equipment Treadmill Duration (Minutes) 8 Speed 2.2> 2.5 last 2 min Incline 2 Other occasional cue L foot EV neutral slightly to neutral- improving Therapeutic Exercises Supine Exercises SLR Supine Exercise Name HEP reviewed Side left Resistance B today Reps/Minutes 2x20 Comments cued quad control and self corrections no hyperextension Standing Exercises mini squats with theraband around thights for slight hip abduction Reps/Minutes x 10 reps mini lunge Reps/Minutes 2x10 hurdles Reps/Minutes 5' Comments good form, encouraged knee flex full squat Standing Exercise Name encouraged hips back positioning Comments educated when lifting cat get hips back wall slides Standing Exercise Name HEP review Reps/Minutes 10SH x5 reps Comments good quad fac,cued glut fac if needed able last 10 sec, painfree step ups Standing Exercise Name a/p and m/l Side bilateral Equipment Used 8 step + blue foam Reps/Minutes 2x10 each LE each direction Comments occasional L ankle EV neutral PT-OP-T Assessment and Plan Start: 01/23/23 15:01 Freq: Status: Active Protocol: Document 05/20/23 10:50 AMB (Rec: 05/20/23 11:31 AMB [id number]) Physical Therapy Assessment Goals Two Impairment Pain Short Term Goal (STG) Roseanna will sit for 1 hour without knee pain. 05/13/23 pt notes no c/o pain with sitting STG Duration 5 weeks progressing 04/01 Principal Consultant Goal (LTG) Roseanna will ascend and descend a flight of stairs without knee pain. LTG Duration MET One Impairment Strength Short Term Goal (STG) Roseanna will be independent for a HEP for LE strengthening. 02/09/23: HEP reviewed: side clamshell GTB, supine: bridge GTB, SLR, stand: TKE GTB, STS GTB, seated HS curl PinkTB. 02/11/23: increased resistance #3 TB blue TKE and HS curl. Added HS, piriformis, calf stretching and use rolling pin quad. STG Duration 5 weeks progressin04/01/23 Principal Consultant Goal (LTG) Roseanna will show improved LE strength by performing a full squat without an increase in knee pain. Progress made- partial squat no pain. Great progress, able to squat without pain but with added weight pt notes pain. LTG Duration 10 weeks Assessment Summary Assessment Roseanna feels like she will be ready for discharge soon. She needs to be more consistent with her treadmill, but did just get a bike and is looking forward to riding that. Encouraged Roseanna that muscle pain after exercising is ok. Physical Therapy Plan Frequency and Duration Frequency of Treatment 2x/Week Duration of treatment (weeks) 8 Plan of Care Start Date 05/13/23 Plan of Care End Date 07/08/23 Therapeutic Interventions Therapeutic Interventions Gait Training,Home Exercise Program,Joint Mobilizations, Manual Therapy,Neuromuscular Re-education,Self-Care/Home Management,Taping,Therapeutic Activities,Therapeutic Exercises Modalities Cold Pack/Ice Massage,Electric Stimulation,Hot Packs Next Visit Focus/Plan Next Note Type Discharge Summary Next Visit Plan Continue outdoor balance/ uneven activities to progress toward personal goal trail walks. POC: Review HEP especially making sure pt has good quad / glut activation.
--- NOTE | 2023-05-26 15:39 | PT.OTN ---
Current Diagnoses Chondromalacia patellae, left knee (05/26/23) Prepatellar bursitis, left knee (05/26/23) Physical Therapy Treatment Note PT-OP-A Visit Information Start: 01/23/23 15:01 Freq: Status: Active Protocol: Document 05/26/23 09:06 AMB (Rec: 05/26/23 09:54 AMB [id number]) Out-Patient Physical Therapy Visit Information Visit Information Visit Type Treatment Note Visit Start Time 09:00 Visit Stop Time 09:45 Total Visit Minutes 40 Visit Number 29 PT-OP-B Current Condition Start: 01/23/23 15:01 Freq: Status: Active Protocol: Document 01/27/23 10:31 AMB (Rec: 01/27/23 11:22 AMB [id number]) Current Condition History of Current Condition Onset Date 2+years L knee pain Current Complaints L knee History of Current Condition Roseanna reports that over 2 years ago she was kneeling and felt a pop in her knee. She has tried multiple attempts at PT. She continues to have pain. She describes it as sharp pain with extended sitting, walking especially on uneven surfaces, standing in the kitchen can be painful. Medial and patellar knee pain. [place]y [place] the beach, not doing prior PT exercises as they increased pain. Prior Treatments and Tests 09/2020: MRI mild patellar tendonopathy, mild chondromalacia patella, minimal bursal fluid--possible mild bursitis. Reports got an inject at ortho that did not help. Prior PT. Personal Factors Other Personal Factors That May Effect Developmental disability, Therapy/Recovery lives with mom PT-OP-C Subjective Start: 01/23/23 15:01 Freq: Status: Active Protocol: Document 05/26/23 09:06 AMB (Rec: 05/26/23 09:54 AMB [id number]) OP-PT Subjective Patient Comments Patient Comments Roseanna reports her knee hasn't really been bothering her. Patient Reported Progress Improving PT-OP-J Posture/Palpation/Skin Start: 01/23/23 15:01 Freq: Status: Active Protocol: Document 01/27/23 10:30 AMB (Rec: 01/28/23 16:26 AMB [id number]) Posture Evaluation Comments Posture Comments Flat feet, tends to toe on in the left Palpation Assessment Location L knee Palpation Details Pain at medial patellar tendon PT-OP-K Range of Motion Start: 01/23/23 15:01 Freq: Status: Active Protocol: Document 01/27/23 10:30 AMB (Rec: 01/28/23 16:26 AMB [id number]) Knee Goniometric Range of Motion Knee Left Knee ROM WFL Yes Comments pt tends to be hypermobile PT-OP-M Strength Start: 01/23/23 15:01 Freq: Status: Active Protocol: Document 01/27/23 10:30 AMB (Rec: 01/28/23 16:26 AMB [id number]) Hip Strength Hip Manual Muscle Testing Right Flexion (L2) 4+ Good+ Extension (S1) 4+ Good+ Abduction 4+ Good+ Adduction 4+ Good+ Left Flexion (L2) 4+ Good+ Extension (S1) 4+ Good+ Abduction 4+ Good+ Adduction 4+ Good+ Knee Strength Knee Manual Muscle Testing Right Flexion (S2) 4+ Good+ Extension (L3) 4+ Good+ Left Flexion (S2) 4 Good Extension (L3) 4 Good PT-OP-Q Treatments Start: 01/23/23 15:01 Freq: Status: Active Protocol: Document 05/26/23 09:06 AMB (Rec: 05/26/23 09:54 AMB [id number]) Therapeutic Exercises Supine Exercises SLR Supine Exercise Name HEP reviewed Side left Resistance B today Reps/Minutes 2x20 Comments cued quad control and self corrections no hyperextension Sidelying Exercises hip abd Sidelying Exercise Name SLR- cue quad and neutral ankle EV Side left Reps/Minutes 2x20 Comments pt reports mild hamstring discomfort with this IT band stretch Reps/Minutes 30'x2 clam Sidelying Exercise Name HEP reviewed Side left Resistance latex free green band around thighs Reps/Minutes 2x12 Comments good back alignment, cued ankle DF neutral Standing Exercises side step Standing Exercise Name in mini squat Resistance green band ankles, mid thigh Reps/Minutes 20 ft x2 laps Comments cued knees over toes, not to large step mini squat Standing Exercise Name on floor only due to knee pain last visit Equipment Used 5.5 medicine ball Reps/Minutes 2 x 10 Comments no c/o pain, pt was cued to engage gluteus medius for knee alignement hurdles Reps/Minutes 5' Comments good form, encouraged knee flex step ups Standing Exercise Name a/p and m/l Side bilateral Equipment Used 8 step + blue foam Reps/Minutes 2x10 each LE each direction Comments occasional L ankle EV neutral sit to stand Standing Exercise Name HEP reviewed- arms front and discussed full sit/stand- was eccentric taps Equipment Used cable bench seat Comments good form PT-OP-T Assessment and Plan Start: 01/23/23 15:01 Freq: Status: Active Protocol: Document 05/26/23 09:06 AMB (Rec: 05/26/23 09:54 AMB [id number]) Physical Therapy Assessment Goals Two Impairment Pain Short Term Goal (STG) Roseanna will sit for 1 hour without knee pain. 05/13/23 pt notes no c/o pain with sitting STG Duration MET Financial Service Representative Goal (LTG) Roseanna will ascend and descend a flight of stairs without knee pain. LTG Duration MET One Impairment Strength Short Term Goal (STG) Roseanna will be independent for a HEP for LE strengthening. 02/09/23: HEP reviewed: side clamshell GTB, supine: bridge GTB, SLR, stand: TKE GTB, STS GTB, seated HS curl PinkTB. 02/11/23: increased resistance #3 TB blue TKE and HS curl. Added HS, piriformis, calf stretching and use rolling pin quad. STG Duration MET Longterm Goal (LTG) Roseanna will show improved LE strength by performing a full squat without an increase in knee pain. Progress made- partial squat no pain. Great progress, able to squat without pain but with added weight pt notes pain. LTG Duration MET Assessment Summary Assessment Roseanna reports that her knee is overall feeling better. Due to her learning disability, it is difficult for her to fully assess the pain, but her mother and she agree that the pain is significantly better than it was and Roseanna is able to to be more functional. She knows that she will need to continue her HEP in the [facility]. Physical Therapy Plan Frequency and Duration Frequency of Treatment 2x/Week Duration of treatment (weeks) 8 Plan of Care Start Date 05/13/23 Plan of Care End Date 07/08/23 Therapeutic Interventions Therapeutic Interventions Gait Training,Home Exercise Program,Joint Mobilizations, Manual Therapy,Neuromuscular Re-education,Self-Care/Home Management,Taping,Therapeutic Activities,Therapeutic Exercises Modalities Cold Pack/Ice Massage,Electric Stimulation,Hot Packs
== END 2023-07-10 13:30 ==
LOC: PHYS 09:00
PROVIDERS: Family Provider Internal Medicine; PCP Internal Medicine; Referring Provider Internal Medicine; Visit Provider Internal Medicine
DX: M70.42 Prepatellar bursitis, left knee (principal); M22.42 Chondromalacia patellae, left knee
CPT/HCPCS: 97110; 97112; 97116; 97140; 97161; 97535

== ENCOUNTER 2023-06-11 06:28 | Day surgery (SDC) | payer MEDICARE, MEDICAID, SELFPAY ==
[2023-06-05 13:20] VITALS: BMI 37.9
[2023-06-11 07:15] VITALS: BP 150/90; PULSE 110; RESP 16; TEMP 36.7; O2SAT 100; BMI 37.9
[2023-06-11] MEDS: LACTATED RINGERS 1,000 ML 100 ML IV (07:19)
--- NOTE | 2023-06-11 07:20 | SUR.OPER ---
Lithotomy on padded OR bed, head on pillow, arms secured on padded arm boards at <90 degrees abduction. Legs secured in padded yellow fins stirrups.
--- NOTE | 2023-06-11 07:42 | PM.GYNOP.1 ---
Operative Date/Time/Diagnoses Date of procedure: 06/11/23 Time of procedure: 08:41 Pre-op diagnosis: Left labia minora hypertrophy Post-op diagnosis: same Procedure & Clinicians Procedure: Procedures Operation Date: 06/11/23 07:45 Actual Procedure Side Surgeon p Labiaplasty Left Martha Duffy MD Indications: Left labia minora hypertrophy Surgeon: Martha Duffy Anesthesia Type: MAC +/- Operative Notes Findings: Left labia stretches out to 5-6 cm from the vulva Closure Type: primary Specimen(s): none Estimated blood loss (mL): 5 Blood products transfused: none Procedure in detail: After informed consent was obtained, the patient was taken to the operating room where she was placed in the dorsal supine position. After adequate IV sedation, the patient was placed in the dorsal lithotomy position, and prepped and draped in the usual sterile fashion. A time-out was performed. 10 cc of 0.5% Marcaine with epinephrine were injected at the base of the left labia minora. Using the Metzenbaum scissors, the excess labia was excised. Using 3-0 chromic on an FH needle, simple interrupted sutures were placed to close the defect. Hemostasis was achieved. Sponge, lap, and instrument counts were correct x2. The patient tolerated the procedure well, and was taken to PACU in stable condition. Complications: none Post-operative Condition: stable Disposition: PACU Plan for aftercare: Home after recovery
--- NOTE | 2023-06-11 07:42 | PM.GYNHP.1 ---
History of Present Illness History of Present Illness Narrative: Roseanna Barry is a 42 year old female G0 with left labial hypertrophy. She presents for left labiaplasty. [facility] Medical History (Updated 07/02/21 @ 09:06 by Brandyn Choudhury MD) Hypertriglyceridemia Mental retardation Painful menstrual periods Personal history of ovarian cyst Seasonal allergies Surgical History History of skin surgery (~04/04/15) Family History Father Seasonal allergies Grandfather Age: 96 RA (rheumatoid arthritis) Hypertension Congestive heart failure Grandmother Age: 94 Diabetes mellitus Hypertension Mother Age: 70 Hypothyroidism Osteopenia Social History household members: family Smoking Status: Never smoker alcohol intake: never Meds Home Medications and Allergies Home Medications Medication Instructions Recorded Confirmed Type CA PANTOTHENATE/FOLIC ACID/VIT 1 tab PO ##0 09/25/11 04/06/23 History (MULTIVITAMIN) Fish Oil (#OMEGA 3) 2,000 mg PO DAILY ##0 09/25/11 06/11/23 History fluticasone propionate 50 See Rx Instructions intranasal 08/18/18 06/11/23 Rx mcg/actuation nasal DAILY #16 grams spray,suspension sertraline 25 mg tablet 25 mg PO DAILY 04/06/23 06/11/23 History alprazolam 0.25 mg tablet (Xanax) 0.25 mg PO DAILY #1 tab 05/08/23 06/11/23 Rx Allergies Allergy/AdvReac Type Severity Reaction Status Date / Time No Known Drug Allergies Allergy Verified 06/11/23 07:04 Exam Vital Signs (past 8 hours): - 06/11/23 07:15 Temperature 98.1 F Pulse Rate 110 H Respiratory Rate 16 Blood Pressure 150/90 H Pulse Oximetry 100 Oxygen Delivery Method Room Air Oxygen Delivery Method Room Air Narrative Exam Narrative: Generally: Patient not very verbal. Developmentally delayed HEENT: No thyromegaly, no anterior cervical or supraclavicular lymphadenopathy. Lungs:Clear to auscultation bilaterally, no wheezes. Cardiovascular: Regular rate and rhythm, no murmurs, rubs, or gallops. Abdomen: No scars. No hepatosplenomegaly. No masses palpable. External genitalia: Labia minora 5+ cm. Right labia minora atrophic. Vagina: Deferred Cervix: Deferred Bimanual exam: Deferred Extremities: No edema Assessment & Plan Assessment & Plan narrative: Assessment: 42-year-old 0 with left labial hypertrophy Developmentally delayed Plan: Left labiaplasty The risks, benefits, and alternatives to the procedure were explained to the patient and her mother. The risks including bleeding and infection. They understand these risks and agrees to proceed. A full par Q was held and consent form was signed. Time Spent With Patient Time with patient: less than 30 minutes
--- NOTE | 2023-06-11 07:49 | PM.PREOP ---
Pre-operative Note COVID-19 Criteria for continued procedure: Non-surgical alternatives not available or appropriate per current SOC Interval Note History & Physical reviewed/Exam performed by Physician: Yes Changes to H&P: No H&P completed within 30 days and has changed as indicated here:: 06/11/23
[2023-06-11] MEDS: CEFAZOLIN 2 GM/100 ML PREMIX 100 ML IV (07:52)
[2023-06-11] MEDS: BUPIVACAINE 0.5% (PF) 30 ML, EPINEPHrine 0.15 MG INJ (08:28)
[2023-06-11 08:37] VITALS: BP 131/80; PULSE 111; RESP 15; TEMP 36.5; O2SAT 96
[2023-06-11 08:43] VITALS: BP 134/80; PULSE 108; RESP 16; O2SAT 97
[2023-06-11 08:47] VITALS: BP 133/87; PULSE 111; RESP 14; O2SAT 98
[2023-06-11 08:53] VITALS: BP 136/80; PULSE 104; RESP 14; TEMP 36.6; O2SAT 99
== END 2023-06-11 09:19 | disposition home or self-care (01) ==
PROVIDERS: Family Provider Internal Medicine; PCP Internal Medicine; Referring Provider Obstetrics & Gynecology; Visit Provider Obstetrics & Gynecology
PROC: (CPT 56620; principal; 2023-06-11 07:45)
DX: N90.60 Unspecified hypertrophy of vulva (principal)
CPT/HCPCS: 56620; J0171; J0690; J1170; J2250; J2405; J2704; J3010

== ENCOUNTER → 2023-08-20 14:52 | Outpatient (CLI) | payer MEDICARE, MEDICAID, SELFPAY ==
--- NOTE | 2023-08-20 | DI.MG.S_ITS ---
BILATERAL DIGITAL SCREENING MAMMOGRAM 3D/2D WITH CAD: 08/20/2023 CLINICAL: Routine screening. Comparison is made to exam dated: 08/19/2022 mammogram - [facility]. There are scattered areas of fibroglandular density in both breasts (category b / 25%-50% glandular tissue). Current study was also evaluated with a Computer Aided Detection (CAD) system. No significant masses, calcifications, or other findings are seen in either breast. There has been no significant interval change. IMPRESSION: NEGATIVE There is no mammographic evidence of malignancy. A 1 year screening mammogram is recommended. Based on the Tyrer Cuzick model (a risk assessment model) the patient's lifetime risk is 9.5% and her 10 year risk is 1.3%. According to the ACR, ACS, and NCCN guidelines, an annual breast MRI exam along with mammogram is recommended if the patient's lifetime risk is 20% or greater. This exam was interpreted at Station ID: [id number]. NOTE: For mammograms, a report in lay terms will be sent to the patient. Approximately 15% of breast malignancies will not be visualized mammographically. In the management of a palpable breast mass, a negative mammogram must not discourage biopsy of a clinically suspicious lesion. Electronically Signed By: Jayden parikh/kim:08/21/2023 12:56:12 letter sent: Normal Exam ACR BI-RADS Category 1: Negative [id number]
== END ==
PROVIDERS: Family Provider Internal Medicine; PCP Internal Medicine; Referring Provider Internal Medicine; Visit Provider Internal Medicine
DX: Z12.31 Encounter for screening mammogram for malignant neoplasm of breast (principal)
CPT/HCPCS: 77063; 77067

== ENCOUNTER → 2023-09-04 08:34 | Outpatient (CLI) | payer MEDICARE, MEDICAID, SELFPAY ==
--- NOTE | 2023-09-04 | DI.MRI.S_ITS ---
PROCEDURE: MR KNEE LT WO CON INDICATIONS: Pain in left knee TECHNIQUE: Noncontrast sagittal PD fast spin echo and T2 fast spin echo with fat saturation, sagittal 3-D FLASH with fat saturation; coronal T1 spin echo and PD fast spin echo with fat saturation, and axial PD fast spin echo with fat saturation through the knee. COMPARISON: [facility], MR, MR KNEE LT WO CON, 10/03/2020, 11:00. FINDINGS: Image quality: Excellent. Menisci: The medial and lateral menisci demonstrate normal morphology and internal signal. There is low-grade partial-thickness tear involving posterior lateral meniscal root ligament. Cruciate ligaments: The anterior cruciate ligament appears thickened. The posterior cruciate ligament is intact. Medial structures: The medial collateral ligament appears intact. The posterior oblique ligament, semimembranosus tendon insertions, oblique popliteal ligament, and meniscocapsular junction appear intact. Visualized portions of the pes anserinus tendons appear normal. No abnormal bursal fluid. Lateral structures: The lateral collateral ligament, long and short heads of the biceps femoris tendon appear intact. The popliteus tendon appears normal; the popliteofibular ligament appears intact. Iliotibial band appears normal. Anterior structures: The quadriceps and patellar tendons appear intact. Patellar alignment is normal. No femoral trochlear dysplasia or ventral trochlear prominence. No edema in the infrapatellar fat pad. Bones and cartilage: No bone marrow contusions or fractures. The cartilage of the medial and lateral femorotibial compartments appears normal in thickness. Low-grade chondromalacia patella is seen involving both medial and lateral facet of patella cartilage. Joint space: There is small knee joint fluid. No Cowart's cyst. Normal appearing synovial plicae are incidentally noted. IMPRESSION: 1. Low-grade ACL sprain. No ACL rupture. The PCL is intact. 2. No evidence of focal meniscal tear. Low-grade partial-thickness tear involving posterior lateral meniscal root ligament. 3. Low-grade chondromalacia patella. No fracture or dislocation. Small joint effusion, no loose bodies. Dictated by: Munir Peoples M.D. on 09/04/2023 at 11:39 Approved by: Munir Peoples M.D. on 09/04/2023 at 11:50
== END ==
PROVIDERS: Family Provider Internal Medicine; PCP Internal Medicine; Referring Provider Internal Medicine; Visit Provider Internal Medicine
DX: M25.562 Pain in left knee (principal); G89.29 Other chronic pain; S83.512A Sprain of anterior cruciate ligament of left knee, initial encounter; S83.8X2A Sprain of other specified parts of left knee, initial encounter; M94.262 Chondromalacia, left knee; M25.462 Effusion, left knee
CPT/HCPCS: 73721

== ENCOUNTER → 2023-10-28 14:13 | Outpatient (CLI) | payer MEDICARE, MEDICAID, SELFPAY ==
--- NOTE | 2023-10-28 | DI.RAD.S_ITS ---
PROCEDURE: XR ANKLE LT MIN 3V INDICATIONS: injury of left ankle TECHNIQUE: 3 views of the ankle were acquired. COMPARISON: [facility], , ANKLE 3 VIEWS RIGHT, 08/28/2017, 15:27. FINDINGS: Bones: No fractures or dislocations. Ankle mortise is normally aligned. No suspicious bony lesions. Soft tissues: No tibiotalar joint effusion. Achilles tendon appears normal. IMPRESSION: No acute bony abnormality or significant effusion. Dictated by: Dylan Shepard M.D. on 10/28/2023 at 16:54 Approved by: Dylan Shepard M.D. on 10/28/2023 at 16:55
== END ==
PROVIDERS: Family Provider Internal Medicine; PCP Internal Medicine; Referring Provider Internal Medicine; Visit Provider Internal Medicine
DX: S99.912A Unspecified injury of left ankle, initial encounter (principal)
CPT/HCPCS: 73610

== ENCOUNTER 2023-12-23 12:15 | Outpatient (RCR) | payer MEDICARE, MEDICAID, SELFPAY ==
--- NOTE | 2023-09-24 16:35 | PT.OIE ---
Current Diagnoses Chondromalacia patellae, left knee (09/24/23) Past Medical History (Last Updated 07/02/21 @ 09:06 by Brandyn Choudhury MD) Hypertriglyceridemia Mental retardation Painful menstrual periods Personal history of ovarian cyst Seasonal allergies Past Surgical History (Last Reviewed 07/02/21 @ 08:57 by Brandyn Choudhury MD) History of skin surgery (~04/04/15) Visit Care Team Role Provider Type MYRNA Meeks Attending Provider Advanced Production Worker Family Provider Primary Care Provider Referring Provider Specialty: Family Practice Address: [address] [place] [address], [facility] Email: [email or web address] Physical Therapy Initial Evaluation PT-OP-A Visit Information Start: 09/24/23 15:45 Freq: Status: Active Protocol: Document 09/24/23 16:23 ED (Rec: 09/24/23 16:35 ED [id number]) Out-Patient Physical Therapy Visit Information Visit Information Visit Type Initial Evaluation Visit Start Time 15:50 Visit Stop Time 16:30 Total Visit Minutes 40 Visit Number 1 Evaluation Information Evaluation Date 09/24/23 PT-OP-B Current Condition Start: 09/24/23 15:45 Freq: Status: Active Protocol: Document 09/24/23 16:23 ED (Rec: 09/24/23 16:35 ED [id number]) Current Condition History of Current Condition Onset Date [id number] Current Complaints L knee pain History of Current Condition Pt states that just before COVID, she knelt on her knee and felt a pop and pain in her L knee. She has had rehabilitation for it before and it helped; this was earlier this year. She is accompanied by her mother today who states that she has a difficult time following through with her exercises. She states that walking is painful and sometimes squating is. She has a TM but doesn't use it. She states the pain is along her L joint line below her patella. Denies major changes in strength or ROM in her L LE. Treatment Goals Patient/Caregiver Goals Improve walking ability and stairs PT-OP-C Subjective Start: 09/24/23 15:45 Freq: Status: Active Protocol: Document 09/24/23 16:23 ED (Rec: 09/24/23 16:35 ED [id number]) Patient Questionnaires Lower Extremity Functional Scale LEFS Score 37 / 80 LEFS Impairment 40 to 59% Impaired (Score 32- 47) OP-PT Pain Assessment Location L knee Intensity 4 Scale Used Numeric (0 - 10) Description Sharp Frequency Occasional Pain Aggravating Factors Changing Position,Activity, Exercise,Standing,Sitting, Walking,Stair Climbing PT-OP-K Range of Motion Start: 09/24/23 15:45 Freq: Status: Active Protocol: Document 09/24/23 16:23 ED (Rec: 09/24/23 16:35 ED [id number]) Knee Goniometric Range of Motion Knee Left Knee ROM WFL Yes Patient Position Supine Flexion Active (degrees) 120 Flexion Passive (degrees) 0 PT-OP-L Special Tests Start: 09/24/23 15:45 Freq: Status: Active Protocol: Document 09/24/23 16:23 ED (Rec: 09/24/23 16:35 ED [id number]) Special Tests Knee Special Tests Chris Test Test Results + PT-OP-M Strength Start: 09/24/23 15:45 Freq: Status: Active Protocol: Document 09/24/23 16:23 ED (Rec: 09/24/23 16:35 ED [id number]) Knee Strength Knee Manual Muscle Testing Left Flexion (S2) 4 Good Extension (L3) 4 Good PT-OP-T Assessment and Plan Start: 09/24/23 15:45 Freq: Status: Active Protocol: Document 09/24/23 16:23 ED (Rec: 09/24/23 16:35 ED [id number]) Physical Therapy Assessment Rehab Potential Rehabilitation Potential Good Evaluation Complexity Number of Personal Factors/Comorbidities 1-2 Number of Body Systems Impaired 3 Clinical Presentation at Evaluation Stable Impairments Impairments Activity Tolerance,Functional Activities,Functional Mobility ,Gait,Pain Goals LEFS Impairment LEFS Impairment IE: 37 / 80 Drying Frame Operator Goal (LTG) Pt will improve LEFS score by >9 points (MCID) to a score > 46/80. LTG Duration 6-8 weeks walking tolerance Impairment walking tolerance Short Term Goal (STG) Pt will be able to ambulate for 10-15 minutes c/o knee pain. STG Duration 3 weeks Alf Goal (LTG) Pt will be able to ambulate for 30 minutes c/o knee pain. LTG Duration 6-8 weeks % improvement Impairment % improvement Short Term Goal (STG) Pt will report 25% improvement in symptoms. STG Duration 3 weeks Drying Frame Operator Goal (LTG) Pt will report 50% improvement in symptoms. LTG Duration 6-8 weeks HEP Impairment HEP Short Term Goal (STG) Pt will report performing HEP >3 days/week. STG Duration 3 weeks Drying Frame Operator Goal (LTG) Pt will report performing HEP >3 days/week. LTG Duration 6-8 weeks Assessment Summary Assessment Pt reported to PT d/t chronic L knee pain. Her complaints and presentation are consistent with a meniscus tear. Pt did not demonstrate a loss of ROM or strength in her L LE during evaluation today; strength and ROM were comparable to opposite knee. Educated patient and mother on POC with focus on improving the L knee joints tolerance to activities such as walking, squatting, and stair climbing through consistent strengthening, weight bearing, and ROM exercises. PT provided patient initial HEP of: hip bridges, single leg heel raises, knee extensions, and staggered squats. She was able to perform all movements today without knee pain. Physical Therapy Plan Frequency and Duration Frequency of Treatment 2x/Week Duration of treatment (weeks) 10 Plan of Care Start Date 09/24/23 Plan of Care End Date 12/23/23 Therapeutic Interventions Therapeutic Interventions Balance Training,Gait Training ,Home Exercise Program,Manual Therapy,Neuromuscular Re- education,Patient/Caregiver Education,Soft Tissue Mobilization,Taping, Therapeutic Activities, Therapeutic Exercises Modalities Electric Stimulation,Hot Packs Next Visit Focus/Plan Next Note Type Treatment Note Next Visit Plan bike, (LAQ, heel raise, squat, bridge), TM, leg press
--- NOTE | 2023-09-24 16:35 | PT.OPPOC ---
Physical, Occupational & Speech Therapy At [facility] Current Diagnoses Chondromalacia patellae, left knee (09/24/23) Visit Care Team Role Provider Type MYRNA Meeks Attending Provider Advanced Overhead Cleaner Maintainer Family Provider Primary Care Provider Referring Provider Specialty: Family Practice Address: [address] [place] [address], [id number] Email: [email or web address] Plan Of Care PT-OP-T Assessment and Plan Start: 09/24/23 15:45 Freq: Status: Active Protocol: Document 09/24/23 16:23 ED (Rec: 09/24/23 16:35 ED [id number]) Physical Therapy Assessment Rehab Potential Rehabilitation Potential Good Evaluation Complexity Number of Personal Factors/Comorbidities 1-2 Number of Body Systems Impaired 3 Clinical Presentation at Evaluation Stable Impairments Impairments Activity Tolerance,Functional Activities,Functional Mobility ,Gait,Pain Goals LEFS Impairment LEFS Impairment IE: 37 / 80 Assembly Associate Goal (LTG) Pt will improve LEFS score by >9 points (MCID) to a score > 46/80. LTG Duration 6-8 weeks walking tolerance Impairment walking tolerance Short Term Goal (STG) Pt will be able to ambulate for 10-15 minutes c/o knee pain. STG Duration 3 weeks Jail Goal (LTG) Pt will be able to ambulate for 30 minutes c/o knee pain. LTG Duration 6-8 weeks % improvement Impairment % improvement Short Term Goal (STG) Pt will report 25% improvement in symptoms. STG Duration 3 weeks Jail Goal (LTG) Pt will report 50% improvement in symptoms. LTG Duration 6-8 weeks HEP Impairment HEP Short Term Goal (STG) Pt will report performing HEP >3 days/week. STG Duration 3 weeks Assembly Associate Goal (LTG) Pt will report performing HEP >3 days/week. LTG Duration 6-8 weeks Assessment Summary Assessment Pt reported to PT d/t chronic L knee pain. Her complaints and presentation are consistent with a meniscus tear. Pt did not demonstrate a loss of ROM or strength in her L LE during evaluation today; strength and ROM were comparable to opposite knee. Educated patient and mother on POC with focus on improving the L knee joints tolerance to activities such as walking, squatting, and stair climbing through consistent strengthening, weight bearing, and ROM exercises. PT provided patient initial HEP of: hip bridges, single leg heel raises, knee extensions, and staggered squats. She was able to perform all movements today without knee pain. Physical Therapy Plan Frequency and Duration Frequency of Treatment 2x/Week Duration of treatment (weeks) 10 Plan of Care Start Date 09/24/23 Plan of Care End Date 12/23/23 Therapeutic Interventions Therapeutic Interventions Balance Training,Gait Training ,Home Exercise Program,Manual Therapy,Neuromuscular Re- education,Patient/Caregiver Education,Soft Tissue Mobilization,Taping, Therapeutic Activities, Therapeutic Exercises Modalities Electric Stimulation,Hot Packs Next Visit Focus/Plan Next Note Type Treatment Note Next Visit Plan bike, (LAQ, heel raise, squat, bridge), TM, leg press Plan of Care Dates Plan of Care Start Date 09/24/23 Plan of Care End Date 12/23/23 Electronically Signed by: Wade Hammond, PT 09/24/23 0495 If you are in agreement with this Plan of Care, please return a signed and dated copy. I have reviewed this Plan of Care and certify that the skilled therapy services above are required to meet the patient?s needs. Physician Signature Date Printed Name and Credentials Clinical Instructor Signature Printed Name and Credentials
--- NOTE | 2023-09-30 14:14 | PT.OTN ---
Current Diagnoses Chondromalacia patellae, left knee (09/30/23) Physical Therapy Treatment Note PT-OP-A Visit Information Start: 09/24/23 15:45 Freq: Status: Active Protocol: Document 09/30/23 14:09 ED (Rec: 09/30/23 14:14 ED [id number]) Out-Patient Physical Therapy Visit Information Visit Information Visit Type Treatment Note Visit Note 12/18 before KX modifier required Visit Start Time 13:30 Visit Stop Time 14:10 Total Visit Minutes 40 Visit Number 2 PT-OP-B Current Condition Start: 09/24/23 15:45 Freq: Status: Active Protocol: Document 09/24/23 16:23 ED (Rec: 09/24/23 16:35 ED [id number]) Current Condition History of Current Condition Onset Date [id number] Current Complaints L knee pain History of Current Condition Pt states that just before COVID, she knelt on her knee and felt a pop and pain in her L knee. She has had rehabilitation for it before and it helped; this was earlier this year. She is accompanied by her mother today who states that she has a difficult time following through with her exercises. She states that walking is painful and sometimes squating is. She has a TM but doesn't use it. She states the pain is along her L joint line below her patella. Denies major changes in strength or ROM in her L LE. Treatment Goals Patient/Caregiver Goals Improve walking ability and stairs PT-OP-C Subjective Start: 09/24/23 15:45 Freq: Status: Active Protocol: Document 09/30/23 14:09 ED (Rec: 09/30/23 14:14 ED [id number]) OP-PT Subjective Patient Comments Patient Comments Pt states she was able to perform all the exercises of her HEP w/o knee pain. States that when she was walking on the TM that she could hear her knee sounds and is wondering about that. PT-OP-K Range of Motion Start: 09/24/23 15:45 Freq: Status: Active Protocol: Document 09/24/23 16:23 ED (Rec: 09/24/23 16:35 ED [id number]) Knee Goniometric Range of Motion Knee Left Knee ROM WFL Yes Patient Position Supine Flexion Active (degrees) 120 Flexion Passive (degrees) 0 PT-OP-L Special Tests Start: 09/24/23 15:45 Freq: Status: Active Protocol: Document 09/24/23 16:23 ED (Rec: 09/24/23 16:35 ED [id number]) Special Tests Knee Special Tests Chris Test Test Results + PT-OP-M Strength Start: 09/24/23 15:45 Freq: Status: Active Protocol: Document 09/24/23 16:23 ED (Rec: 09/24/23 16:35 ED [id number]) Knee Strength Knee Manual Muscle Testing Left Flexion (S2) 4 Good Extension (L3) 4 Good PT-OP-Q Treatments Start: 09/24/23 15:45 Freq: Status: Active Protocol: Document 09/30/23 14:09 ED (Rec: 09/30/23 14:14 ED [id number]) Cardio Equipment Bicycle (Upright) Duration (Minutes) 5 Resistance 3 Treadmill Duration (Minutes) 8 Speed 2.0 Incline 1 Therapeutic Exercises Supine Exercises bridges Supine Exercise Name hip bridge Reps/Minutes 1x10 each Comments normal, feet elevated, single leg Sitting Exercises knee extension Sitting Exercise Name knee extension Resistance L2 Equipment Used machine Reps/Minutes 3x12 Comments 90'' rest between sets Standing Exercises heel cord stretch Standing Exercise Name ANAI calf stretch Reps/Minutes 3x60'' heel raise Standing Exercise Name captain adkins heel raise Reps/Minutes 2x12 Comments cues required Therapeutic Activity Therapeutic Activity squat Name squat Reps/Minutes 3x15 Comments 1x15 no weight 2x15 10# PT-OP-T Assessment and Plan Start: 09/24/23 15:45 Freq: Status: Active Protocol: Document 09/30/23 14:09 ED (Rec: 09/30/23 14:14 ED [id number]) Physical Therapy Assessment Goals LEFS Impairment LEFS Impairment IE: 37 / 80 Fdc Goal (LTG) Pt will improve LEFS score by >9 points (MCID) to a score > 46/80. LTG Duration 6-8 weeks walking tolerance Impairment walking tolerance Short Term Goal (STG) Pt will be able to ambulate for 10-15 minutes c/o knee pain. STG Duration 3 weeks Fdc Goal (LTG) Pt will be able to ambulate for 30 minutes c/o knee pain. LTG Duration 6-8 weeks % improvement Impairment % improvement Short Term Goal (STG) Pt will report 25% improvement in symptoms. STG Duration 3 weeks French Polisher Goal (LTG) Pt will report 50% improvement in symptoms. LTG Duration 6-8 weeks HEP Impairment HEP Short Term Goal (STG) Pt will report performing HEP >3 days/week. STG Duration 3 weeks Fdc Goal (LTG) Pt will report performing HEP >3 days/week. LTG Duration 6-8 weeks Assessment Summary Assessment Pt able to perform all movements today comfortably and denied pain during or after exercises. Worked on multiple muscle groups of legs performing bridges, heel raises, squats, and knee extensions. Ended with TM walk to improve tolerance to walking. Physical Therapy Plan Frequency and Duration Frequency of Treatment 2x/Week Duration of treatment (weeks) 10 Plan of Care Start Date 09/24/23 Plan of Care End Date 12/23/23 Therapeutic Interventions Therapeutic Interventions Balance Training,Gait Training ,Home Exercise Program,Manual Therapy,Neuromuscular Re- education,Patient/Caregiver Education,Soft Tissue Mobilization,Taping, Therapeutic Activities, Therapeutic Exercises Modalities Electric Stimulation,Hot Packs Next Visit Focus/Plan Next Note Type Treatment Note Next Visit Plan bike, (LAQ, heel raise, squat, bridge), TM, leg press, step ups
--- NOTE | 2023-10-02 08:41 | PT.OTN ---
Current Diagnoses Chondromalacia patellae, left knee (10/02/23) Physical Therapy Treatment Note PT-OP-A Visit Information Start: 09/24/23 15:45 Freq: Status: Active Protocol: Document 10/02/23 08:36 ED (Rec: 10/02/23 08:41 ED [id number]) Out-Patient Physical Therapy Visit Information Visit Information Visit Type Treatment Note Visit Note 01/18 before KX modifier required Visit Start Time 07:50 Visit Stop Time 08:30 Total Visit Minutes 40 Visit Number 3 PT-OP-B Current Condition Start: 09/24/23 15:45 Freq: Status: Active Protocol: Document 09/24/23 16:23 ED (Rec: 09/24/23 16:35 ED [id number]) Current Condition History of Current Condition Onset Date [id number] Current Complaints L knee pain History of Current Condition Pt states that just before COVID, she knelt on her knee and felt a pop and pain in her L knee. She has had rehabilitation for it before and it helped; this was earlier this year. She is accompanied by her mother today who states that she has a difficult time following through with her exercises. She states that walking is painful and sometimes squating is. She has a TM but doesn't use it. She states the pain is along her L joint line below her patella. Denies major changes in strength or ROM in her L LE. Treatment Goals Patient/Caregiver Goals Improve walking ability and stairs PT-OP-C Subjective Start: 09/24/23 15:45 Freq: Status: Active Protocol: Document 10/02/23 08:36 ED (Rec: 10/02/23 08:41 ED [id number]) OP-PT Subjective Patient Comments Patient Comments Pt notes that her L knee pain/ discomfort is most noticeable when she is lying down. Denies having knee in pain following last PT session. PT-OP-K Range of Motion Start: 09/24/23 15:45 Freq: Status: Active Protocol: Document 09/24/23 16:23 ED (Rec: 09/24/23 16:35 ED [id number]) Knee Goniometric Range of Motion Knee Left Knee ROM WFL Yes Patient Position Supine Flexion Active (degrees) 120 Flexion Passive (degrees) 0 PT-OP-L Special Tests Start: 09/24/23 15:45 Freq: Status: Active Protocol: Document 09/24/23 16:23 ED (Rec: 09/24/23 16:35 ED [id number]) Special Tests Knee Special Tests Chris Test Test Results + PT-OP-M Strength Start: 09/24/23 15:45 Freq: Status: Active Protocol: Document 09/24/23 16:23 ED (Rec: 09/24/23 16:35 ED [id number]) Knee Strength Knee Manual Muscle Testing Left Flexion (S2) 4 Good Extension (L3) 4 Good PT-OP-Q Treatments Start: 09/24/23 15:45 Freq: Status: Active Protocol: Document 10/02/23 08:36 ED (Rec: 10/02/23 08:41 ED [id number]) Cardio Equipment Bicycle (Upright) Duration (Minutes) 5 Resistance 3 Treadmill Duration (Minutes) 5 Speed 1.0 Incline 1 Other retro walking Therapeutic Exercises Supine Exercises leg press Supine Exercise Name leg press Side left Resistance 50# Reps/Minutes 2x20 Sitting Exercises knee extension Sitting Exercise Name knee extension Resistance L2 Equipment Used machine Reps/Minutes 3x12 Comments 90'' rest between sets; some knee pain when at L3 Standing Exercises banded walk Standing Exercise Name lateral band walk Resistance turquoise Equipment Used loop band Reps/Minutes 3x10' heel cord stretch Standing Exercise Name ANAI calf stretch Reps/Minutes 3x60'' heel raise Standing Exercise Name nicholas adkins heel raise Reps/Minutes 2x12 Comments cues required Therapeutic Activity Therapeutic Activity hinge Name hinge Reps/Minutes 3x10 Comments 10# squat Name squat Reps/Minutes 3x15 Comments 1x15 no weight 2x15 10# PT-OP-T Assessment and Plan Start: 09/24/23 15:45 Freq: Status: Active Protocol: Document 10/02/23 08:36 ED (Rec: 10/02/23 08:41 ED [id number]) Physical Therapy Assessment Goals LEFS Impairment LEFS Impairment IE: 37 / 80 Body Component Engineer Goal (LTG) Pt will improve LEFS score by >9 points (MCID) to a score > 46/80. LTG Duration 6-8 weeks walking tolerance Impairment walking tolerance Short Term Goal (STG) Pt will be able to ambulate for 10-15 minutes c/o knee pain. STG Duration 3 weeks Detention Goal (LTG) Pt will be able to ambulate for 30 minutes c/o knee pain. LTG Duration 6-8 weeks % improvement Impairment % improvement Short Term Goal (STG) Pt will report 25% improvement in symptoms. STG Duration 3 weeks Detention Goal (LTG) Pt will report 50% improvement in symptoms. LTG Duration 6-8 weeks HEP Impairment HEP Short Term Goal (STG) Pt will report performing HEP >3 days/week. STG Duration 3 weeks Detention Goal (LTG) Pt will report performing HEP >3 days/week. LTG Duration 6-8 weeks Assessment Summary Assessment Pt reported some knee pain during the deep flexion ROM when performing the unilateral leg press otherwise everything else felt okay. Her mother scheduled additional visits and stated that she is enjoying her doing more strengthening work. Physical Therapy Plan Frequency and Duration Frequency of Treatment 2x/Week Duration of treatment (weeks) 10 Plan of Care Start Date 09/24/23 Plan of Care End Date 12/23/23 Therapeutic Interventions Therapeutic Interventions Balance Training,Gait Training ,Home Exercise Program,Manual Therapy,Neuromuscular Re- education,Patient/Caregiver Education,Soft Tissue Mobilization,Taping, Therapeutic Activities, Therapeutic Exercises Modalities Electric Stimulation,Hot Packs Next Visit Focus/Plan Next Note Type Treatment Note Next Visit Plan bike, (LAQ, heel raise, squat, bridge), TM, leg press, step ups
--- NOTE | 2023-10-06 11:28 | PT.OTN ---
Current Diagnoses Chondromalacia patellae, left knee (10/06/23) Physical Therapy Treatment Note PT-OP-A Visit Information Start: 09/24/23 15:45 Freq: Status: Active Protocol: Document 10/06/23 10:39 NM (Rec: 10/06/23 11:28 NM [id number]) Out-Patient Physical Therapy Visit Information Visit Information Visit Type Treatment Note Visit Note 02/15 before KX modifier required Visit Start Time 10:35 Visit Stop Time 11:17 Total Visit Minutes 42 Visit Number 4 PT-OP-B Current Condition Start: 09/24/23 15:45 Freq: Status: Active Protocol: Document 09/24/23 16:23 ED (Rec: 09/24/23 16:35 ED [id number]) Current Condition History of Current Condition Onset Date [id number] Current Complaints L knee pain History of Current Condition Pt states that just before COVID, she knelt on her knee and felt a pop and pain in her L knee. She has had rehabilitation for it before and it helped; this was earlier this year. She is accompanied by her mother today who states that she has a difficult time following through with her exercises. She states that walking is painful and sometimes squating is. She has a TM but doesn't use it. She states the pain is along her L joint line below her patella. Denies major changes in strength or ROM in her L LE. Treatment Goals Patient/Caregiver Goals Improve walking ability and stairs PT-OP-C Subjective Start: 09/24/23 15:45 Freq: Status: Active Protocol: Document 10/06/23 10:39 NM (Rec: 10/06/23 11:28 NM [id number]) OP-PT Subjective Patient Comments Patient Comments Pt states that she is doing well and feels that the weights are really helping her knee. She reports compliance with her HEP. Patient Reported Progress Improving PT-OP-K Range of Motion Start: 09/24/23 15:45 Freq: Status: Active Protocol: Document 09/24/23 16:23 ED (Rec: 09/24/23 16:35 ED [id number]) Knee Goniometric Range of Motion Knee Left Knee ROM WFL Yes Patient Position Supine Flexion Active (degrees) 120 Flexion Passive (degrees) 0 PT-OP-L Special Tests Start: 09/24/23 15:45 Freq: Status: Active Protocol: Document 09/24/23 16:23 ED (Rec: 09/24/23 16:35 ED [id number]) Special Tests Knee Special Tests Chris Test Test Results + PT-OP-M Strength Start: 09/24/23 15:45 Freq: Status: Active Protocol: Document 09/24/23 16:23 ED (Rec: 09/24/23 16:35 ED [id number]) Knee Strength Knee Manual Muscle Testing Left Flexion (S2) 4 Good Extension (L3) 4 Good PT-OP-Q Treatments Start: 09/24/23 15:45 Freq: Status: Active Protocol: Document 10/06/23 10:39 NM (Rec: 10/06/23 11:28 NM [id number]) Cardio Equipment Bicycle (Upright) Duration (Minutes) 5 Resistance 3 Treadmill Duration (Minutes) 5 Speed 1.0 Incline 1.0 Other retro walking, cues remain upright and not hold on except to stabilize prn Therapeutic Exercises Supine Exercises leg press Supine Exercise Name leg press Side left Resistance 50# Reps/Minutes 2x20 Sitting Exercises knee extension Sitting Exercise Name knee extension Resistance L3 Equipment Used machine Reps/Minutes 3x12 Comments 60 rest between sets; no knee Standing Exercises step up Side left Equipment Used 1 set 8, 2 sets 12 Reps/Minutes 3x12 Comments cues/add tb to prevent knee valgus banded walk Standing Exercise Name lateral band walk Resistance turquoise Equipment Used loop band Reps/Minutes 3x10' heel cord stretch Standing Exercise Name ANAI calf stretch Reps/Minutes 1x60'' heel raise Standing Exercise Name single leg heel raise Resistance body weight Equipment Used at stairs Reps/Minutes 2x12 Comments cues required, demos PT-OP-T Assessment and Plan Start: 09/24/23 15:45 Freq: Status: Active Protocol: Document 10/06/23 10:39 NM (Rec: 10/06/23 11:28 NM [id number]) Physical Therapy Assessment Rehab Potential Rehabilitation Potential Good Goals LEFS Impairment LEFS Impairment IE: 37 / 80 Retirement Goal (LTG) Pt will improve LEFS score by >9 points (MCID) to a score > 46/80. LTG Duration 6-8 weeks walking tolerance Impairment walking tolerance Short Term Goal (STG) Pt will be able to ambulate for 10-15 minutes c/o knee pain. STG Duration 3 weeks Retirement Goal (LTG) Pt will be able to ambulate for 30 minutes c/o knee pain. LTG Duration 6-8 weeks % improvement Impairment % improvement Short Term Goal (STG) Pt will report 25% improvement in symptoms. STG Duration 3 weeks Gang Saw Operator Goal (LTG) Pt will report 50% improvement in symptoms. LTG Duration 6-8 weeks HEP Impairment HEP Short Term Goal (STG) Pt will report performing HEP >3 days/week. STG Duration 3 weeks Retirement Goal (LTG) Pt will report performing HEP >3 days/week. LTG Duration 6-8 weeks Assessment Summary Assessment Pt tolerated treatment well with no knee pain throughout the session. She continues to tolerate hip/knee strengthening exercises well, but requires consistent cues for correct execution and to prevent compensations ( especially knee valgus) during exercises. Pt would benefit from continued PT to continue strengthening her knee, increase ROM and overall functional mobility to improve quality of life and pain management. Physical Therapy Plan Frequency and Duration Frequency of Treatment 2x/Week Duration of treatment (weeks) 10 Plan of Care Start Date 09/24/23 Plan of Care End Date 12/23/23 Therapeutic Interventions Therapeutic Interventions Balance Training,Gait Training ,Home Exercise Program,Manual Therapy,Neuromuscular Re- education,Patient/Caregiver Education,Soft Tissue Mobilization,Taping, Therapeutic Activities, Therapeutic Exercises Modalities Electric Stimulation,Hot Packs Next Visit Focus/Plan Next Note Type Treatment Note Next Visit Plan Bike, TM, leg press, step ups. Progress strengthening exercises as tolerated. Initiate some balance training
--- NOTE | 2023-10-12 11:15 | PT.OTN ---
Current Diagnoses Chondromalacia patellae, left knee (10/12/23) Physical Therapy Treatment Note PT-OP-A Visit Information Start: 09/24/23 15:45 Freq: Status: Active Protocol: Document 10/12/23 10:34 SP (Rec: 10/12/23 11:23 SP [id number]) Out-Patient Physical Therapy Visit Information Visit Information Visit Type Treatment Note Visit Note 03/18 before KX modifier required Visit Start Time 10:34 Visit Stop Time 11:15 Total Visit Minutes 41 Visit Number 5 Number of DATA TECHNICAL LEAD Visits 1 Evaluation Information Evaluation Date 09/24/23 PT-OP-B Current Condition Start: 09/24/23 15:45 Freq: Status: Active Protocol: Document 09/24/23 16:23 ED (Rec: 09/24/23 16:35 ED [id number]) Current Condition History of Current Condition Onset Date [id number] Current Complaints L knee pain History of Current Condition Pt states that just before COVID, she knelt on her knee and felt a pop and pain in her L knee. She has had rehabilitation for it before and it helped; this was earlier this year. She is accompanied by her mother today who states that she has a difficult time following through with her exercises. She states that walking is painful and sometimes squating is. She has a TM but doesn't use it. She states the pain is along her L joint line below her patella. Denies major changes in strength or ROM in her L LE. Treatment Goals Patient/Caregiver Goals Improve walking ability and stairs PT-OP-C Subjective Start: 09/24/23 15:45 Freq: Status: Active Protocol: Document 10/12/23 10:34 SP (Rec: 10/12/23 11:23 SP [id number]) OP-PT Subjective Patient Comments Patient Comments Pt reports her L knee feeling better with strengthening. Patient Reported Progress Improving PT-OP-K Range of Motion Start: 09/24/23 15:45 Freq: Status: Active Protocol: Document 09/24/23 16:23 ED (Rec: 09/24/23 16:35 ED [id number]) Knee Goniometric Range of Motion Knee Left Knee ROM WFL Yes Patient Position Supine Flexion Active (degrees) 120 Flexion Passive (degrees) 0 PT-OP-L Special Tests Start: 09/24/23 15:45 Freq: Status: Active Protocol: Document 09/24/23 16:23 ED (Rec: 09/24/23 16:35 ED [id number]) Special Tests Knee Special Tests Chris Test Test Results + PT-OP-M Strength Start: 09/24/23 15:45 Freq: Status: Active Protocol: Document 09/24/23 16:23 ED (Rec: 09/24/23 16:35 ED [id number]) Knee Strength Knee Manual Muscle Testing Left Flexion (S2) 4 Good Extension (L3) 4 Good PT-OP-Q Treatments Start: 09/24/23 15:45 Freq: Status: Active Protocol: Document 10/12/23 10:34 SP (Rec: 10/12/23 11:23 SP [id number]) Cardio Equipment Bicycle (Upright) Duration (Minutes) 5 Resistance 3 Seat Position 4 Other RPMs Treadmill Duration (Minutes) 5 Speed 1.0 Incline 1.0 Other retro walking, good stability, safe ARNULFO, feet alignment Therapeutic Exercises Supine Exercises leg press Supine Exercise Name leg press Side left Resistance 50# (1 teal/1 dark blue band) Equipment Used added YTB around thighs Reps/Minutes 2x20 Comments cued knee with mid foot, slow eccentric control Sitting Exercises knee extension Sitting Exercise Name knee extension Resistance L3 Equipment Used machine Reps/Minutes 3x15 Comments 60 rest between sets; no knee pain Standing Exercises stationary lunges Standing Exercise Name initiated in PT- painfree reported Side bilateral Equipment Used PRN contact rail Reps/Minutes 3x5 reps Comments cues for normal stance width ARNULFO, knees with behind forefoot step up Standing Exercise Name mirror front for self knee alignment Side left Resistance added tb thighs to prevent knee valgus Equipment Used 1 set 8, 2 sets 12 Reps/Minutes 3x12 Comments cues/add tb to prevent knee valgus banded walk Standing Exercise Name lateral band walk Resistance turquoise Equipment Used loop band ankles Reps/Minutes 3x10ft Neuro Re-Education Treatment Balance Activities incline/decline hill Details c/ + s/ 3 hurdles Equipment 4 step, 2 set wooden wedges, blue mat over, 2 laps over/ back, +3 hurdles Reps/Duration 4 min total Comments *little off balance but improves with sets *cued increase hip ER/B feet parallel (tends to toe in). hurdles Details fwd,bwd, lateral R and L Surface floor Reps/Duration 2 laps each direction Comments receiprocal stepping fwd, SBA good stability, occ cues slower pacing. PT-OP-T Assessment and Plan Start: 09/24/23 15:45 Freq: Status: Active Protocol: Document 10/12/23 10:34 SP (Rec: 10/12/23 11:23 SP [id number]) Physical Therapy Assessment Goals LEFS Impairment LEFS Impairment IE: 37 / 80 Party Plan Sales Consultant Goal (LTG) Pt will improve LEFS score by >9 points (MCID) to a score > 46/80. LTG Duration 6-8 weeks walking tolerance Impairment walking tolerance Short Term Goal (STG) Pt will be able to ambulate for 10-15 minutes c/o knee pain. STG Duration 3 weeks Party Plan Sales Consultant Goal (LTG) Pt will be able to ambulate for 30 minutes c/o knee pain. LTG Duration 6-8 weeks % improvement Impairment % improvement Short Term Goal (STG) Pt will report 25% improvement in symptoms. STG Duration 3 weeks Group Home Goal (LTG) Pt will report 50% improvement in symptoms. LTG Duration 6-8 weeks HEP Impairment HEP Short Term Goal (STG) Pt will report performing HEP >3 days/week. STG Duration 3 weeks Party Plan Sales Consultant Goal (LTG) Pt will report performing HEP >3 days/week. LTG Duration 6-8 weeks Assessment Summary Assessment Pt tolerated ther ex and reintroduction to balance activities today with no reports of knee pain. No adverse reports to stationary lunges introduction for strengthening, of ok response will add to HEP next tx. Physical Therapy Plan Frequency and Duration Frequency of Treatment 2x/Week Duration of treatment (weeks) 10 Plan of Care Start Date 09/24/23 Plan of Care End Date 12/23/23 Therapeutic Interventions Therapeutic Interventions Balance Training,Gait Training ,Home Exercise Program,Manual Therapy,Neuromuscular Re- education,Patient/Caregiver Education,Soft Tissue Mobilization,Taping, Therapeutic Activities, Therapeutic Exercises Modalities Electric Stimulation,Hot Packs Next Visit Focus/Plan Next Note Type Treatment Note Next Visit Plan Check response to added balance and stationary lunge in PT only last tx. POC: Bike, TM, leg press, step ups. Progress strengthening exercises as tolerated. Initiate some balance training
--- NOTE | 2023-10-14 11:15 | PT.OTN ---
Current Diagnoses Chondromalacia patellae, left knee (10/14/23) Physical Therapy Treatment Note PT-OP-A Visit Information Start: 09/24/23 15:45 Freq: Status: Active Protocol: Document 10/14/23 10:33 SP (Rec: 10/14/23 11:23 SP [id number]) Out-Patient Physical Therapy Visit Information Visit Information Visit Type Treatment Note Visit Note 04/17 before KX modifier required Visit Start Time 10:33 Visit Stop Time 11:15 Total Visit Minutes 42 Visit Number 6 Number of EXTENSION SERVICE AGENT Visits 2 Evaluation Information Evaluation Date 09/24/23 PT-OP-B Current Condition Start: 09/24/23 15:45 Freq: Status: Active Protocol: Document 09/24/23 16:23 ED (Rec: 09/24/23 16:35 ED [id number]) Current Condition History of Current Condition Onset Date [id number] Current Complaints L knee pain History of Current Condition Pt states that just before COVID, she knelt on her knee and felt a pop and pain in her L knee. She has had rehabilitation for it before and it helped; this was earlier this year. She is accompanied by her mother today who states that she has a difficult time following through with her exercises. She states that walking is painful and sometimes squating is. She has a TM but doesn't use it. She states the pain is along her L joint line below her patella. Denies major changes in strength or ROM in her L LE. Treatment Goals Patient/Caregiver Goals Improve walking ability and stairs PT-OP-C Subjective Start: 09/24/23 15:45 Freq: Status: Active Protocol: Document 10/14/23 10:33 SP (Rec: 10/14/23 11:23 SP [id number]) OP-PT Subjective Patient Comments Patient Comments Pt reports her L knee was sore (not pain) after last tx. Painfree upon arrival. Pt is going out of town for 12 days to visit family for the s. Pt stated forgot binder today. PT-OP-K Range of Motion Start: 09/24/23 15:45 Freq: Status: Active Protocol: Document 09/24/23 16:23 ED (Rec: 09/24/23 16:35 ED [id number]) Knee Goniometric Range of Motion Knee Left Knee ROM WFL Yes Patient Position Supine Flexion Active (degrees) 120 Flexion Passive (degrees) 0 PT-OP-L Special Tests Start: 09/24/23 15:45 Freq: Status: Active Protocol: Document 09/24/23 16:23 ED (Rec: 09/24/23 16:35 ED [id number]) Special Tests Knee Special Tests Chris Test Test Results + PT-OP-M Strength Start: 09/24/23 15:45 Freq: Status: Active Protocol: Document 09/24/23 16:23 ED (Rec: 09/24/23 16:35 ED [id number]) Knee Strength Knee Manual Muscle Testing Left Flexion (S2) 4 Good Extension (L3) 4 Good PT-OP-Q Treatments Start: 09/24/23 15:45 Freq: Status: Active Protocol: Document 10/14/23 10:33 SP (Rec: 10/14/23 11:23 SP [id number]) Cardio Equipment Bicycle (Upright) Duration (Minutes) 5 Resistance 3>4 Seat Position 4 Other 50RPMs Gym Equipment Shuttle Recovery Unilateral Squats Details SL squat- cue knee alignment/ mid foot heel press post chain fac Resistance #50 (old band) Shuttle Recovery Platform Stable Reps/Time 10 x 3 Bilateral Squats Details YTB around thighs Resistance #50 (1 new band)>75 # next Shuttle Recovery Platform Stable Reps/Time 2x20 reps Therapeutic Exercises Sitting Exercises self STMs Sitting Exercise Name reviewed instructed in past: quad, hs, calf, ITB Side bilateral Equipment Used rolling pin Reps/Minutes 2 min total Comments good response massage to L leg Standing Exercises HS stretch Standing Exercise Name added to HEP between step up sets Side bilateral Reps/Minutes 30 x2 Comments good response. stationary lunges Standing Exercise Name HEP reviewed: painfree reported Side bilateral Equipment Used PRN contact rail- use lines on floor for hip width ARNULFO Reps/Minutes 2x5 reps Comments cues for normal stance width ARNULFO, knees with behind forefoot step up Standing Exercise Name mirror front for self knee alignment Side left Resistance added tb thighs to prevent knee valgus Equipment Used 1 set 10 reps: 8 step, 2 sets 12 reps: 12 step Comments cues as needed for knee lateral shift with mid foot descent back heel cord stretch Standing Exercise Name bottom step Side bilateral Reps/Minutes 1x60'' Comments individual heel raise Standing Exercise Name single leg heel raise Side bilateral Resistance body weight AROM Equipment Used off bottom step, contact rail Reps/Minutes 2x 30 sec Comments cues required, demos PT-OP-T Assessment and Plan Start: 09/24/23 15:45 Freq: Status: Active Protocol: Document 10/14/23 10:33 SP (Rec: 10/14/23 11:23 SP [id number]) Physical Therapy Assessment Goals LEFS Impairment LEFS Impairment IE: 37 / 80 Clinical Cytogeneticist Goal (LTG) Pt will improve LEFS score by >9 points (MCID) to a score > 46/80. LTG Duration 6-8 weeks walking tolerance Impairment walking tolerance Short Term Goal (STG) Pt will be able to ambulate for 10-15 minutes c/o knee pain. STG Duration 3 weeks Clinical Cytogeneticist Goal (LTG) Pt will be able to ambulate for 30 minutes c/o knee pain. LTG Duration 6-8 weeks % improvement Impairment % improvement Short Term Goal (STG) Pt will report 25% improvement in symptoms. STG Duration 3 weeks Clinical Cytogeneticist Goal (LTG) Pt will report 50% improvement in symptoms. LTG Duration 6-8 weeks HEP Impairment HEP Short Term Goal (STG) Pt will report performing HEP >3 days/week. STG Duration 3 weeks Clinical Cytogeneticist Goal (LTG) Pt will report performing HEP >3 days/week. LTG Duration 6-8 weeks Assessment Summary Assessment Pt cues for L>R knee lateral midline alignment during shuttle recovery, descend back down and mini lunges with good feedback pain free all ther ex. Pt good response to review stretching and self STMs for reduce soreness post activity. Pt better understanding cues use of flip lines to help WBOS during mini lunges. Reminded pt to bring her binder of exercises on vacation and when returns for recall support, usually does. Physical Therapy Plan Frequency and Duration Frequency of Treatment 2x/Week Duration of treatment (weeks) 10 Plan of Care Start Date 09/24/23 Plan of Care End Date 12/23/23 Therapeutic Interventions Therapeutic Interventions Balance Training,Gait Training ,Home Exercise Program,Manual Therapy,Neuromuscular Re- education,Patient/Caregiver Education,Soft Tissue Mobilization,Taping, Therapeutic Activities, Therapeutic Exercises Modalities Electric Stimulation,Hot Packs Next Visit Focus/Plan Next Note Type Treatment Note Next Visit Plan HEP review if needed: mini lunge. Check added more appts, see if with PT for 10th visit PN. HEP: Bike, TM, leg press, step ups, band walk, mini lunge. POC: Progress strengthening exercises as tolerated. Initiate some balance training
--- NOTE | 2023-10-26 12:28 | PT.OTN ---
Current Diagnoses Chondromalacia patellae, left knee (10/26/23) Physical Therapy Treatment Note PT-OP-A Visit Information Start: 09/24/23 15:45 Freq: Status: Active Protocol: Document 10/26/23 09:54 NM (Rec: 10/26/23 10:30 NM [id number]) Out-Patient Physical Therapy Visit Information Visit Information Visit Type Treatment Note Visit Note 05/18 before KX modifier PN next visit Visit Start Time 09:45 Visit Stop Time 10:30 Total Visit Minutes 45 Visit Number 7 Number of MODEL MAKER FIBERGLASS Visits 2 PT-OP-B Current Condition Start: 09/24/23 15:45 Freq: Status: Active Protocol: Document 09/24/23 16:23 ED (Rec: 09/24/23 16:35 ED [id number]) Current Condition History of Current Condition Onset Date [id number] Current Complaints L knee pain History of Current Condition Pt states that just before COVID, she knelt on her knee and felt a pop and pain in her L knee. She has had rehabilitation for it before and it helped; this was earlier this year. She is accompanied by her mother today who states that she has a difficult time following through with her exercises. She states that walking is painful and sometimes squating is. She has a TM but doesn't use it. She states the pain is along her L joint line below her patella. Denies major changes in strength or ROM in her L LE. Treatment Goals Patient/Caregiver Goals Improve walking ability and stairs PT-OP-C Subjective Start: 09/24/23 15:45 Freq: Status: Active Protocol: Document 10/26/23 09:54 NM (Rec: 10/26/23 10:30 NM [id number]) OP-PT Subjective Patient Comments Patient Comments Pt reports that her L knee is not sore today. She did sprain her L ankle (inversion) last week when she slipped on a step. She reports that she has not been doing her exercises due to her ankle pain; however , today she does not have any ankle or knee pain. PT-OP-K Range of Motion Start: 09/24/23 15:45 Freq: Status: Active Protocol: Document 09/24/23 16:23 ED (Rec: 09/24/23 16:35 ED [id number]) Knee Goniometric Range of Motion Knee Left Knee ROM WFL Yes Patient Position Supine Flexion Active (degrees) 120 Flexion Passive (degrees) 0 PT-OP-L Special Tests Start: 09/24/23 15:45 Freq: Status: Active Protocol: Document 09/24/23 16:23 ED (Rec: 09/24/23 16:35 ED [id number]) Special Tests Knee Special Tests Chris Test Test Results + PT-OP-M Strength Start: 09/24/23 15:45 Freq: Status: Active Protocol: Document 09/24/23 16:23 ED (Rec: 09/24/23 16:35 ED [id number]) Knee Strength Knee Manual Muscle Testing Left Flexion (S2) 4 Good Extension (L3) 4 Good PT-OP-Q Treatments Start: 09/24/23 15:45 Freq: Status: Active Protocol: Document 10/26/23 09:54 NM (Rec: 10/26/23 10:30 NM [id number]) Cardio Equipment Treadmill Duration (Minutes) 6 Speed 2.0 Incline 1.5 Other fwd walking, increased incline , no progression because ankle injury Gym Equipment Shuttle Recovery Unilateral Squats Details cues to decrease knee valgus, prevent locking knees Resistance 62# (2 [employer], 1 fields) Shuttle Recovery Platform Stable Reps/Time 2x15 Bilateral Squats Details YTB around thighs, cues for hip abd to prevent knee valgus Resistance 75# (3 navy) Shuttle Recovery Platform Stable Reps/Time 2x20 Therapeutic Exercises Standing Exercises HS stretch Standing Exercise Name cont next time stationary lunges Standing Exercise Name cue knee over toes to increase ROM, quad activity Side bilateral Equipment Used PRN rail contact with LLE leading, mild sway Reps/Minutes 2x8 reps Comments cues for normal stance width ARNULFO, knees with behind forefoot step up Side left Resistance manual assist to prevent knee hyperext and vc to prevent knee valgus Equipment Used 8 steps Comments cues for foot placement, prevent knee hyperext Therapeutic Activity Therapeutic Activity hinge Name Re-initiated today Reps/Minutes x5 with 10# db Comments lift (straight leg) with 10# db to promote hamstring strengthening and lengthening. Wall behind pt for tactile cue to promote hinge. Pt with difficulty performing hinge without squat. Became light headed after a few reps, so terminated activity for today > moved to supine Will revisit next time PT-OP-T Assessment and Plan Start: 09/24/23 15:45 Freq: Status: Active Protocol: Document 10/26/23 09:54 NM (Rec: 10/26/23 10:30 NM [id number]) Physical Therapy Assessment Goals LEFS Impairment LEFS Impairment IE: 37 / 80 Shelter Goal (LTG) Pt will improve LEFS score by >9 points (MCID) to a score > 46/80. LTG Duration 6-8 weeks walking tolerance Impairment walking tolerance Short Term Goal (STG) Pt will be able to ambulate for 10-15 minutes c/o knee pain. STG Duration 3 weeks Shelter Goal (LTG) Pt will be able to ambulate for 30 minutes c/o knee pain. LTG Duration 6-8 weeks % improvement Impairment % improvement Short Term Goal (STG) Pt will report 25% improvement in symptoms. STG Duration 3 weeks Shelter Goal (LTG) Pt will report 50% improvement in symptoms. LTG Duration 6-8 weeks HEP Impairment HEP Short Term Goal (STG) Pt will report performing HEP >3 days/week. STG Duration 3 weeks Pcm[employer] Specialist Goal (LTG) Pt will report performing HEP >3 days/week. LTG Duration 6-8 weeks Assessment Summary Assessment Pt tolerated treatment well with no increases in knee or ankle pain. Tmt focus on hip abd, quad and glute strengthening today. Pt requires frequent cues to limit knee valgus and to prevent knee hyperextension. Will continue to progress with single leg strengthening, balance as tolerated. Encouraged knee over toes during lunge today to promote greater knee ROM and quad activation; pt has improved balance with increased repetitions. Initiated lift today to lengthen and strengthen hamstrings/glutes; pt demos difficulty with hip hinge and will continue to address in future sessions. Toward the end of the session, pt reported feeling very clammy and lightheaded; she was moved to a supine position on a table with her legs elevated. Her symptoms resolved after 2-3 minutes in supine. She states that she did not eat breakfast prior to attending PT (she normally does), and she thinks that is why she felt bad. PT discussed event with pt and mom who agreed it was probably related to blood sugar. Pt would benefit from skilled PT to strengthen BLE, improve balance, and endurance in order to improve activity tolerance and return to PLOF. Physical Therapy Plan Frequency and Duration Frequency of Treatment 2x/Week Duration of treatment (weeks) 10 Plan of Care Start Date 10/26/23 Plan of Care End Date 12/23/23 Therapeutic Interventions Therapeutic Interventions Balance Training,Gait Training ,Home Exercise Program,Manual Therapy,Neuromuscular Re- education,Patient/Caregiver Education,Soft Tissue Mobilization,Taping, Therapeutic Activities, Therapeutic Exercises Modalities Electric Stimulation,Hot Packs Next Visit Focus/Plan Next Note Type Progress Note Next Visit Plan HEP: Bike, TM, leg press, step ups, band walk, mini lunge. POC: Progress strengthening exercises as tolerated. Initiate some balance training
--- NOTE | 2023-10-28 11:53 | PT.OTN ---
Current Diagnoses Chondromalacia patellae, left knee (10/28/23) Physical Therapy Treatment Note PT-OP-A Visit Information Start: 09/24/23 15:45 Freq: Status: Active Protocol: Document 10/28/23 10:40 NM (Rec: 10/28/23 11:20 NM [id number]) Out-Patient Physical Therapy Visit Information Visit Information Visit Type Treatment Note Visit Note PN today (30 days) KX modifier required for rest of 2022 (per chart) Visit Start Time 10:33 Visit Stop Time 11:15 Total Visit Minutes 42 Visit Number 8 Number of SHELLFISH WEIGHER Visits 2 PT-OP-B Current Condition Start: 09/24/23 15:45 Freq: Status: Active Protocol: Document 09/24/23 16:23 ED (Rec: 09/24/23 16:35 ED [id number]) Current Condition History of Current Condition Onset Date [id number] Current Complaints L knee pain History of Current Condition Pt states that just before COVID, she knelt on her knee and felt a pop and pain in her L knee. She has had rehabilitation for it before and it helped; this was earlier this year. She is accompanied by her mother today who states that she has a difficult time following through with her exercises. She states that walking is painful and sometimes squating is. She has a TM but doesn't use it. She states the pain is along her L joint line below her patella. Denies major changes in strength or ROM in her L LE. Treatment Goals Patient/Caregiver Goals Improve walking ability and stairs PT-OP-C Subjective Start: 09/24/23 15:45 Freq: Status: Active Protocol: Document 10/28/23 10:40 NM (Rec: 10/28/23 11:20 NM [id number]) OP-PT Subjective Patient Comments Patient Comments Pt reports no L knee pain and slight ankle pain. She is looking to go to the doctor to address her ankle. PT-OP-K Range of Motion Start: 09/24/23 15:45 Freq: Status: Active Protocol: Document 09/24/23 16:23 ED (Rec: 09/24/23 16:35 ED [id number]) Knee Goniometric Range of Motion Knee Left Knee ROM WFL Yes Patient Position Supine Flexion Active (degrees) 120 Flexion Passive (degrees) 0 PT-OP-L Special Tests Start: 09/24/23 15:45 Freq: Status: Active Protocol: Document 09/24/23 16:23 ED (Rec: 09/24/23 16:35 ED [id number]) Special Tests Knee Special Tests Chris Test Test Results + PT-OP-M Strength Start: 09/24/23 15:45 Freq: Status: Active Protocol: Document 09/24/23 16:23 ED (Rec: 09/24/23 16:35 ED [id number]) Knee Strength Knee Manual Muscle Testing Left Flexion (S2) 4 Good Extension (L3) 4 Good PT-OP-Q Treatments Start: 09/24/23 15:45 Freq: Status: Active Protocol: Document 10/28/23 10:40 NM (Rec: 10/28/23 11:20 NM [id number]) Cardio Equipment Recumbent Bicycle Duration (Minutes) 6 Seat Position 5 Therapeutic Exercises Standing Exercises Single leg squat Standing Exercise Name re-attempt next session Side left Equipment Used chair on R side for UE support , chair behind for cue Reps/Minutes 1x8 Comments demos trendelenberg; difficulty stab pelvis; knee valgus stationary lunges Standing Exercise Name 1. reverse lunges, 2. lateral lunges Side bilateral Equipment Used no UE support Reps/Minutes 2x10 reps ea Comments cues for knee over toes step up Standing Exercise Name 1. fwd step up, 2. lateral step up Side left Resistance lvl 3 [place] tb around thighs for hp abd Equipment Used 8 step; mirror for visual cues Reps/Minutes 2x12 ea Comments cues for no hip/trunk rotation PT-OP-T Assessment and Plan Start: 09/24/23 15:45 Freq: Status: Active Protocol: Document 10/28/23 10:40 NM (Rec: 10/28/23 11:20 NM [id number]) Physical Therapy Assessment Rehab Potential Rehabilitation Potential Good Evaluation Complexity Number of Personal Factors/Comorbidities 1-2 Number of Body Systems Impaired 3 Clinical Presentation at Evaluation Stable Impairments Impairments Activity Tolerance,Functional Activities,Functional Mobility ,Gait,Pain Goals LEFS Impairment LEFS Impairment IE: 37 / 80 Prison Goal (LTG) Pt will improve LEFS score by >9 points (MCID) to a score > 46/80. NOT MET 10/28/23: LEFS score 35/80 LTG Duration 6-8 weeks walking tolerance Impairment walking tolerance Short Term Goal (STG) Pt will be able to ambulate for 10-15 minutes c/o knee pain. MET 10/28/23 STG Duration 3 weeks Prison Goal (LTG) Pt will be able to ambulate for 30 minutes c/o knee pain. PARTIALLY MET 10/28/23: per pt and mom, pt can ambulate about 25 min without knee pain LTG Duration 6-8 weeks % improvement Impairment % improvement Short Term Goal (STG) Pt will report 25% improvement in symptoms. MET 10/28/23 STG Duration 3 weeks Powerhouse Helper Goal (LTG) Pt will report 50% improvement in symptoms. PARTIALLY MET 10/28/23: Pt reports 40% improvement in symptoms LTG Duration 6-8 weeks HEP Impairment HEP Short Term Goal (STG) Pt will report performing HEP >3 days/week. NOT MET 10/27/23 STG Duration 3 weeks Powerhouse Helper Goal (LTG) Pt will report performing HEP >3 days/week. LTG Duration 6-8 weeks Assessment Summary Assessment Pt tolerated session well, no reports of increased knee or ankle pain. Pt has not been compliant with HEP in past few weeks due to travel and recent L ankle injury. Tmt focus on glute and quad strengthening. Progressed resistance exercises including reverse/lateral lunges, hip abd touchdowns from a box, and a single leg squat. She reports that these new exercises are challenging but doable. Trialed single leg squat with a chair for UE support and mirror for visual cues; pt demos trendelenberg pattern and knee valgus during motion, but has no knee pain. Will continue to strengthen and progress toward higher level activities strengthening as tolerated. Pt requires frequent cues for correct execution but is agreeable/ motivated to improve. She is progressing toward her goals and verbalizes that improvement. Pt would benefit from skilled PT to address impairments in LLE strength, LLE mobility, and activity tolerance to return to PLOF and improve QOL. Physical Therapy Plan Frequency and Duration Frequency of Treatment 2x/Week Duration of treatment (weeks) 10 Plan of Care Start Date 09/24/23 Plan of Care End Date 12/23/23 Therapeutic Interventions Therapeutic Interventions Balance Training,Gait Training ,Home Exercise Program,Manual Therapy,Neuromuscular Re- education,Patient/Caregiver Education,Soft Tissue Mobilization,Taping, Therapeutic Activities, Therapeutic Exercises Modalities Electric Stimulation,Hot Packs Next Visit Focus/Plan Next Note Type Treatment Note Next Visit Plan Progress LE strengthening ( quad, glute); initiate more higher level/single leg activity. Balance training as tolerated
--- NOTE | 2023-10-28 12:03 | PT.OPPN ---
Current Diagnoses Chondromalacia patellae, left knee (10/28/23) Physical Therapy Progress Note PT-OP-A Visit Information Start: 09/24/23 15:45 Freq: Status: Active Protocol: Document 10/28/23 10:40 NM (Rec: 10/28/23 12:03 NM [id number]) Out-Patient Physical Therapy Visit Information Visit Information Visit Type Progress Note Visit Note PN today (30 days) KX modifier required for rest of 2022 (per chart) Visit Start Time 10:33 Visit Stop Time 11:15 Total Visit Minutes 42 Visit Number 8 Number of ASSISTANT WINEMAKER Visits 2 Evaluation Information Evaluation Date 09/24/23 PT-OP-B Current Condition Start: 09/24/23 15:45 Freq: Status: Active Protocol: Document 09/24/23 16:23 ED (Rec: 09/24/23 16:35 ED [id number]) Current Condition History of Current Condition Onset Date [id number] Current Complaints L knee pain History of Current Condition Pt states that just before COVID, she knelt on her knee and felt a pop and pain in her L knee. She has had rehabilitation for it before and it helped; this was earlier this year. She is accompanied by her mother today who states that she has a difficult time following through with her exercises. She states that walking is painful and sometimes squating is. She has a TM but doesn't use it. She states the pain is along her L joint line below her patella. Denies major changes in strength or ROM in her L LE. Treatment Goals Patient/Caregiver Goals Improve walking ability and stairs PT-OP-C Subjective Start: 09/24/23 15:45 Freq: Status: Active Protocol: Document 10/28/23 10:40 NM (Rec: 10/28/23 12:03 NM [id number]) OP-PT Subjective Patient Comments Patient Comments Pt reports no L knee pain and slight ankle pain. She is looking to go to the doctor to address her ankle. PT-OP-K Range of Motion Start: 09/24/23 15:45 Freq: Status: Active Protocol: Document 09/24/23 16:23 ED (Rec: 09/24/23 16:35 ED [id number]) Knee Goniometric Range of Motion Knee Measured in Degrees Left Knee ROM WFL Yes Patient Position Supine Flexion Active (degrees) 120 Flexion Passive (degrees) 0 PT-OP-L Special Tests Start: 09/24/23 15:45 Freq: Status: Active Protocol: Document 09/24/23 16:23 ED (Rec: 09/24/23 16:35 ED [id number]) Special Tests Knee Special Tests Chris Test Test Results + PT-OP-M Strength Start: 09/24/23 15:45 Freq: Status: Active Protocol: Document 09/24/23 16:23 ED (Rec: 09/24/23 16:35 ED [id number]) Knee Strength Knee Manual Muscle Testing Left Flexion (S2) 4 Good Extension (L3) 4 Good PT-OP-T Assessment and Plan Start: 09/24/23 15:45 Freq: Status: Active Protocol: Document 10/28/23 10:40 NM (Rec: 10/28/23 12:03 NM [id number]) Physical Therapy Assessment Rehab Potential Rehabilitation Potential Good Evaluation Complexity Number of Personal Factors/Comorbidities 1-2 Number of Body Systems Impaired 3 Clinical Presentation at Evaluation Stable Impairments Impairments Activity Tolerance,Functional Activities,Functional Mobility ,Gait,Pain Goals LEFS Impairment LEFS Impairment IE: 37 / 80 Noodle Press Operator Goal (LTG) Pt will improve LEFS score by >9 points (MCID) to a score > 46/80. NOT MET 10/28/23: LEFS score 35/80 LTG Duration 6-8 weeks walking tolerance Impairment walking tolerance Short Term Goal (STG) Pt will be able to ambulate for 10-15 minutes c/o knee pain. MET 10/28/23 STG Duration 3 weeks Noodle Press Operator Goal (LTG) Pt will be able to ambulate for 30 minutes c/o knee pain. PARTIALLY MET 10/28/23: per pt and mom, pt can ambulate about 25 min without knee pain LTG Duration 6-8 weeks % improvement Impairment % improvement Short Term Goal (STG) Pt will report 25% improvement in symptoms. MET 10/28/23 STG Duration 3 weeks Noodle Press Operator Goal (LTG) Pt will report 50% improvement in symptoms. PARTIALLY MET 10/28/23: Pt reports 40% improvement in symptoms LTG Duration 6-8 weeks HEP Impairment HEP Short Term Goal (STG) Pt will report performing HEP >3 days/week. NOT MET 10/27/23 STG Duration 3 weeks Noodle Press Operator Goal (LTG) Pt will report performing HEP >3 days/week. LTG Duration 6-8 weeks Assessment Summary Assessment Pt is progressing toward goals , but progress is slow. Overall, pt reports improvement in symptoms and activity since beginning PT. Pt is occasionally compliant with HEP; she currently reports difficulty with performing activities due to ankle pain (recent injury). During sessions, pt is able to perform all activities without complaints of pain. Treatments are focusing on L glute/quad strengthening to promote better mechanical alignment during activity and to improve tolerance to exercise. Pt demos improvements in endurance, strength, and overall body mechanics since IE; however, she continues to fatigue easily and demo compensations due to weak hips/quad and core . Future sessions will focus on BLE strengthening with good form, single limb exercises, and balance exercises will be initiated. Pt would benefit from skilled PT to address impairments in LLE strength, LLE mobility, and activity tolerance to return to PLOF and improve QOL. Physical Therapy Plan Frequency and Duration Frequency of Treatment 2x/Week Duration of treatment (weeks) 10 Plan of Care Start Date 09/24/23 Plan of Care End Date 12/23/23 Therapeutic Interventions Therapeutic Interventions Balance Training,Gait Training ,Home Exercise Program,Manual Therapy,Neuromuscular Re- education,Patient/Caregiver Education,Soft Tissue Mobilization,Taping, Therapeutic Activities, Therapeutic Exercises Modalities Electric Stimulation,Hot Packs Next Visit Focus/Plan Next Note Type Treatment Note Next Visit Plan Progress LE strengthening ( quad, glute); initiate more higher level/single leg activity. Balance training as tolerated
--- NOTE | 2023-11-04 10:30 | PT.OTN ---
Current Diagnoses Chondromalacia patellae, left knee (11/04/23) Physical Therapy Treatment Note PT-OP-A Visit Information Start: 09/24/23 15:45 Freq: Status: Active Protocol: Document 11/04/23 09:52 SP (Rec: 11/04/23 10:33 SP [id number]) Out-Patient Physical Therapy Visit Information Visit Information Visit Type Treatment Note Visit Note 01/09 post PN KX modifier required for rest of 2022 (per chart) Visit Start Time 09:52 Visit Stop Time 10:30 Total Visit Minutes 38 Visit Number 9 Number of MULTIPLE DRUM SANDER Visits 1 Evaluation Information Evaluation Date 09/24/23 PT-OP-B Current Condition Start: 09/24/23 15:45 Freq: Status: Active Protocol: Document 09/24/23 16:23 ED (Rec: 09/24/23 16:35 ED [id number]) Current Condition History of Current Condition Onset Date [id number] Current Complaints L knee pain History of Current Condition Pt states that just before COVID, she knelt on her knee and felt a pop and pain in her L knee. She has had rehabilitation for it before and it helped; this was earlier this year. She is accompanied by her mother today who states that she has a difficult time following through with her exercises. She states that walking is painful and sometimes squating is. She has a TM but doesn't use it. She states the pain is along her L joint line below her patella. Denies major changes in strength or ROM in her L LE. Treatment Goals Patient/Caregiver Goals Improve walking ability and stairs PT-OP-C Subjective Start: 09/24/23 15:45 Freq: Status: Active Protocol: Document 11/04/23 09:52 SP (Rec: 11/04/23 10:33 SP [id number]) OP-PT Subjective Patient Comments Patient Comments Pt report she saw Dr Murillo about her L ankle pain and stated sprain and willing to put in referral for PT if feels needed. PT-OP-K Range of Motion Start: 09/24/23 15:45 Freq: Status: Active Protocol: Document 09/24/23 16:23 ED (Rec: 09/24/23 16:35 ED [id number]) Knee Goniometric Range of Motion Knee Left Knee ROM WFL Yes Patient Position Supine Flexion Active (degrees) 120 Flexion Passive (degrees) 0 PT-OP-L Special Tests Start: 09/24/23 15:45 Freq: Status: Active Protocol: Document 09/24/23 16:23 ED (Rec: 09/24/23 16:35 ED [id number]) Special Tests Knee Special Tests Chris Test Test Results + PT-OP-M Strength Start: 09/24/23 15:45 Freq: Status: Active Protocol: Document 09/24/23 16:23 ED (Rec: 09/24/23 16:35 ED [id number]) Knee Strength Knee Manual Muscle Testing Left Flexion (S2) 4 Good Extension (L3) 4 Good PT-OP-Q Treatments Start: 09/24/23 15:45 Freq: Status: Active Protocol: Document 11/04/23 09:52 SP (Rec: 11/04/23 10:33 SP [id number]) Cardio Equipment Recumbent Bicycle Duration (Minutes) 6 Resistance 5 Seat Position 5 Therapeutic Exercises Supine Exercises single leg bridge Supine Exercise Name added to HEP Side bilateral Resistance AROM Reps/Minutes 2x10 Comments tactile cues ankle ER neutral bridges Supine Exercise Name hip bridge Reps/Minutes 1x10 each Comments normal, feet elevated, single leg Standing Exercises stationary lunges Standing Exercise Name Stationary 1. reverse lunges, 2. lateral lunges Side bilateral Equipment Used no UE support Reps/Minutes 2x10 reps ea Comments improved self corrections ankle and knee aignment banded walk Standing Exercise Name lateral band walk Side bilateral Resistance aqua Equipment Used loop band ankles Reps/Minutes 3x10ft Comments cued ankle alignment // heel raise Standing Exercise Name Bilateral and single Side bilateral Resistance body weight AROM Equipment Used off bottom step, contact rail Reps/Minutes 10 Comments tactile cues and demo follow, ankle neutral- no pronation cave PT-OP-T Assessment and Plan Start: 09/24/23 15:45 Freq: Status: Active Protocol: Document 11/04/23 09:52 SP (Rec: 11/04/23 10:33 SP [id number]) Physical Therapy Assessment Goals LEFS Impairment LEFS Impairment IE: 37 / 80 Survey Crew Chief Goal (LTG) Pt will improve LEFS score by >9 points (MCID) to a score > 46/80. NOT MET 10/28/23: LEFS score 35/80 LTG Duration 6-8 weeks walking tolerance Impairment walking tolerance Short Term Goal (STG) Pt will be able to ambulate for 10-15 minutes c/o knee pain. MET 10/28/23 STG Duration 3 weeks [facility] Goal (LTG) Pt will be able to ambulate for 30 minutes c/o knee pain. PARTIALLY MET 10/28/23: per pt and mom, pt can ambulate about 25 min without knee pain LTG Duration 6-8 weeks % improvement Impairment % improvement Short Term Goal (STG) Pt will report 25% improvement in symptoms. MET 10/28/23 STG Duration 3 weeks [facility] Goal (LTG) Pt will report 50% improvement in symptoms. PARTIALLY MET 10/28/23: Pt reports 40% improvement in symptoms LTG Duration 6-8 weeks HEP Impairment HEP Short Term Goal (STG) Pt will report performing HEP >3 days/week. NOT MET 10/27/23 STG Duration 3 weeks [facility] Goal (LTG) Pt will report performing HEP >3 days/week. LTG Duration 6-8 weeks Assessment Summary Assessment Pt improved hip abd and gluteal effort this tx with less cues required for knee alignment with mid foot. She reponded well to ther ex and no reports of R ankle discomfort with all ther ex. She states physican putting in referral for her ankle but unsure can do same time. demonstrates good level pelvis during single leg bridge with reports muscle tiring. Ask how Ktaping along medial forefoot/posterior medial maleollus to mid medial tibia. She understands remove if adverse affects otherwise can wear up to 2 days for ankle stability support. Physical Therapy Plan Frequency and Duration Frequency of Treatment 2x/Week Duration of treatment (weeks) 10 Plan of Care Start Date 09/24/23 Plan of Care End Date 12/23/23 Therapeutic Interventions Therapeutic Interventions Balance Training,Gait Training ,Home Exercise Program,Manual Therapy,Neuromuscular Re- education,Patient/Caregiver Education,Soft Tissue Mobilization,Taping, Therapeutic Activities, Therapeutic Exercises Modalities Electric Stimulation,Hot Packs Next Visit Focus/Plan Next Note Type Treatment Note Next Visit Plan Progress LE strengthening ( quad, glute); initiate more higher level/single leg activity. Balance training as tolerated Next tx: trial uneven split squat, SLS RDL, star taps.
--- NOTE | 2023-11-06 12:03 | PT.OTN ---
Current Diagnoses Chondromalacia patellae, left knee (11/06/23) Physical Therapy Treatment Note PT-OP-A Visit Information Start: 09/24/23 15:45 Freq: Status: Active Protocol: Document 11/06/23 08:17 NM (Rec: 11/06/23 09:00 NM [id number]) Out-Patient Physical Therapy Visit Information Visit Information Visit Type Treatment Note Visit Note 01/09 post PN KX modifier required for rest of 2022 (per chart) Visit Start Time 08:15 Visit Stop Time 09:00 Total Visit Minutes 45 Visit Number 10 Evaluation Information Evaluation Date 09/24/23 PT-OP-B Current Condition Start: 09/24/23 15:45 Freq: Status: Active Protocol: Document 09/24/23 16:23 ED (Rec: 09/24/23 16:35 ED [id number]) Current Condition History of Current Condition Onset Date [id number] Current Complaints L knee pain History of Current Condition Pt states that just before COVID, she knelt on her knee and felt a pop and pain in her L knee. She has had rehabilitation for it before and it helped; this was earlier this year. She is accompanied by her mother today who states that she has a difficult time following through with her exercises. She states that walking is painful and sometimes squating is. She has a TM but doesn't use it. She states the pain is along her L joint line below her patella. Denies major changes in strength or ROM in her L LE. Treatment Goals Patient/Caregiver Goals Improve walking ability and stairs PT-OP-C Subjective Start: 09/24/23 15:45 Freq: Status: Active Protocol: Document 11/06/23 08:17 NM (Rec: 11/06/23 09:00 NM [id number]) OP-PT Subjective Patient Comments Patient Comments Pt reports that she is having less knee pain overall. She only has knee pain with squatting (e.g. getting stuff out of the dryer) and she is sleeping better. Her mom said they saw the Dr regarding her ankle and they are trying to get a new referral for her ankle. PT-OP-K Range of Motion Start: 09/24/23 15:45 Freq: Status: Active Protocol: Document 09/24/23 16:23 ED (Rec: 09/24/23 16:35 ED [id number]) Knee Goniometric Range of Motion Knee Left Knee ROM WFL Yes Patient Position Supine Flexion Active (degrees) 120 Flexion Passive (degrees) 0 PT-OP-L Special Tests Start: 09/24/23 15:45 Freq: Status: Active Protocol: Document 09/24/23 16:23 ED (Rec: 09/24/23 16:35 ED [id number]) Special Tests Knee Special Tests Chris Test Test Results + PT-OP-M Strength Start: 09/24/23 15:45 Freq: Status: Active Protocol: Document 09/24/23 16:23 ED (Rec: 09/24/23 16:35 ED [id number]) Knee Strength Knee Manual Muscle Testing Left Flexion (S2) 4 Good Extension (L3) 4 Good PT-OP-Q Treatments Start: 09/24/23 15:45 Freq: Status: Active Protocol: Document 11/06/23 08:17 NM (Rec: 11/06/23 09:00 NM [id number]) Cardio Equipment Bicycle (Upright) Duration (Minutes) 4 Resistance 4 Seat Position 4 Therapeutic Exercises Standing Exercises heel touch Standing Exercise Name 2 finger support for balance Side left Equipment Used 8 step with foam at base to touch with foot Reps/Minutes 2x5 Comments cue for no hip drop, sit back Single leg squat Standing Exercise Name using slider under R foot Side left Equipment Used 1. lateral, 2. fwd; chair behind for target Reps/Minutes 2x5 ea Comments cues for glute activation/sit twd chair step up Standing Exercise Name fwd step up > contralateral hip flex Side bilateral Equipment Used 8 step Reps/Minutes 2x8 ea Comments for SL strength, balance, ankle stab; cues for no knee valgus banded walk Standing Exercise Name 1. lateral steps, 2. fwd/bwd steps Side bilateral Resistance teal band Equipment Used around feet Reps/Minutes 2x30 ea (~1 step ea direction ) Comments cues to maintain squat, fatigues easily Therapeutic Activity Therapeutic Activity squat Name Squat retraining; teal tb around knees for hip abd and to dec knee valgus Reps/Minutes 8 min Comments 1. Squat hold 4x30 @90 deg Then stand from squat to mixing picker tender crate with 8# db inside ( laundry), hold x5 in upright position, then squat to place crate back on floor, x5 min total 2. Simulated with dryer in clinic, repeated x3 min; band removed, able to perform without knee collapse with min -no cueing PT-OP-T Assessment and Plan Start: 09/24/23 15:45 Freq: Status: Active Protocol: Document 11/06/23 08:17 NM (Rec: 11/06/23 09:00 NM [id number]) Physical Therapy Assessment Goals LEFS Impairment LEFS Impairment IE: 37 / 80 Custodial Goal (LTG) Pt will improve LEFS score by >9 points (MCID) to a score > 46/80. NOT MET 10/28/23: LEFS score 35/80 LTG Duration 6-8 weeks walking tolerance Impairment walking tolerance Short Term Goal (STG) Pt will be able to ambulate for 10-15 minutes c/o knee pain. MET 10/28/23 STG Duration 3 weeks Custodial Goal (LTG) Pt will be able to ambulate for 30 minutes c/o knee pain. PARTIALLY MET 10/28/23: per pt and mom, pt can ambulate about 25 min without knee pain LTG Duration 6-8 weeks % improvement Impairment % improvement Short Term Goal (STG) Pt will report 25% improvement in symptoms. MET 10/28/23 STG Duration 3 weeks Custodial Goal (LTG) Pt will report 50% improvement in symptoms. PARTIALLY MET 10/28/23: Pt reports 40% improvement in symptoms LTG Duration 6-8 weeks HEP Impairment HEP Short Term Goal (STG) Pt will report performing HEP >3 days/week. NOT MET 10/27/23 STG Duration 3 weeks Custodial Goal (LTG) Pt will report performing HEP >3 days/week. LTG Duration 6-8 weeks Assessment Summary Assessment Pt demos improved hip abd and glute control during squat and band walks. She is able to perform without knee valgus for 6/10 reps with min to no cueing. Progressed hip abd strengthening to include heel touches off 8 step to foam pad on floor; able to perform with min cues and min R hip drop. She fatigues easily and requires frequent cues to improve glute activation to decrease strain on knee. Portion of tmt time spend on performing a functional squat during activities like unloading the dryer, when pt reports having knee pain. She is able to perform a squat when an isometric hold in the descended position, then mixing picker tender a weighted crate with minimal knee valgus with cueing. Improves with repetition. PT instructed pt to practice same motion at home. Pt is seeking a referral for her R ankle pain s/p ankle sprain from a few weeks ago. Will continue to progress BLE strengthening (moy hip) and balance as tolerated. Pt would benefit from skilled intervention to continue to progress BLE strength, balance , and activity tolerance to improve QOL, decrease symptoms , and increase endurance. Physical Therapy Plan Frequency and Duration Frequency of Treatment 2x/Week Duration of treatment (weeks) 10 Plan of Care Start Date 09/24/23 Plan of Care End Date 12/23/23 Therapeutic Interventions Therapeutic Interventions Balance Training,Gait Training ,Home Exercise Program,Manual Therapy,Neuromuscular Re- education,Patient/Caregiver Education,Soft Tissue Mobilization,Taping, Therapeutic Activities, Therapeutic Exercises Modalities Electric Stimulation,Hot Packs Next Visit Focus/Plan Next Note Type Treatment Note Next Visit Plan Progress LE strengthening ( quad, glute); initiate more higher level/single leg activity. Balance training as tolerated (careful with ankle) Next tx: trial uneven split squat, SLS RDL, star taps.
--- NOTE | 2023-11-10 12:06 | PT.OTN ---
Current Diagnoses Chondromalacia patellae, left knee (11/10/23) Physical Therapy Treatment Note PT-OP-A Visit Information Start: 09/24/23 15:45 Freq: Status: Active Protocol: Document 11/10/23 09:04 NM (Rec: 11/10/23 09:08 NM [id number]) Out-Patient Physical Therapy Visit Information Visit Information Visit Type Treatment Note Visit Note 3 post PN KX modifier required for rest of 2022 Visit Start Time 09:00 Visit Stop Time 09:45 Total Visit Minutes 45 Visit Number 11 Evaluation Information Evaluation Date 09/24/23 PT-OP-B Current Condition Start: 09/24/23 15:45 Freq: Status: Active Protocol: Document 09/24/23 16:23 ED (Rec: 09/24/23 16:35 ED [id number]) Current Condition History of Current Condition Onset Date [id number] Current Complaints L knee pain History of Current Condition Pt states that just before COVID, she knelt on her knee and felt a pop and pain in her L knee. She has had rehabilitation for it before and it helped; this was earlier this year. She is accompanied by her mother today who states that she has a difficult time following through with her exercises. She states that walking is painful and sometimes squating is. She has a TM but doesn't use it. She states the pain is along her L joint line below her patella. Denies major changes in strength or ROM in her L LE. Treatment Goals Patient/Caregiver Goals Improve walking ability and stairs PT-OP-C Subjective Start: 09/24/23 15:45 Freq: Status: Active Protocol: Document 11/10/23 09:04 NM (Rec: 11/10/23 09:10 NM [id number]) OP-PT Subjective Patient Comments Patient Comments Pt reports 2/10 pain near her L patella after the last session. She reports compliance with her HEP and states she is doing her exercises every day. Patient Reported Progress Improving PT-OP-K Range of Motion Start: 09/24/23 15:45 Freq: Status: Active Protocol: Document 09/24/23 16:23 ED (Rec: 09/24/23 16:35 ED [id number]) Knee Goniometric Range of Motion Knee Left Knee ROM WFL Yes Patient Position Supine Flexion Active (degrees) 120 Flexion Passive (degrees) 0 PT-OP-L Special Tests Start: 10/26/23 15:45 Freq: Status: Active Protocol: Document 09/24/23 16:23 ED (Rec: 09/24/23 16:35 ED [id number]) Special Tests Knee Special Tests Chris Test Test Results + PT-OP-M Strength Start: 09/24/23 15:45 Freq: Status: Active Protocol: Document 09/24/23 16:23 ED (Rec: 09/24/23 16:35 ED [id number]) Knee Strength Knee Manual Muscle Testing Left Flexion (S2) 4 Good Extension (L3) 4 Good PT-OP-Q Treatments Start: 09/24/23 15:45 Freq: Status: Active Protocol: Document 11/10/23 09:04 NM (Rec: 11/10/23 09:08 NM [id number]) Cardio Equipment Elliptical Duration (Minutes) 5 Resistance 2 Other warm up Therapeutic Exercises Sitting Exercises self STMs Sitting Exercise Name plantar fascia Side left Equipment Used [employer] ball Reps/Minutes 30 Comments reports relief upon completion Standing Exercises Eccentric step down Standing Exercise Name for PFPS symptoms Side left Equipment Used 4 step Reps/Minutes 1x15 Comments for eccentric step down control, knee over toe; reports less patellar pain Kickstant RDL Standing Exercise Name contra toe on ground behind pt for balance Side bilateral Resistance 8# Equipment Used cone in front for target Reps/Minutes 2x5 Comments cues for hip hinge, cues to keep weight closer to body for HS activation heel touch Standing Exercise Name 2 finger support for balance Side left Equipment Used 4 step due to ankle pain Reps/Minutes 2x8 Comments cue no R hip drop, sit back for glute activation Neuro Re-Education Treatment Balance Activities Cone taps Surface stable Reps/Duration 2x10 rep ea Comments 1. fwd cone tap with R foot, L foot in SLS; R foot cued to not return to ground. Able to perform mild ankle instability 2. lateral cone tap with R foot, L foot in SLS; R foot cued not to return to ground 3. backward cone tap with R foot, L foot in SLS; R foot cued not to return to ground Pt demos mod instability with SL ARNULFO but is able to correct most of the time with fewer instances of R foot touching ground to balance. PT-OP-T Assessment and Plan Start: 09/24/23 15:45 Freq: Status: Active Protocol: Document 11/10/23 09:04 NM (Rec: 11/10/23 09:08 NM [id number]) Physical Therapy Assessment Goals LEFS Impairment LEFS Impairment IE: 37 / 80 Mcfp Goal (LTG) Pt will improve LEFS score by >9 points (MCID) to a score > 46/80. NOT MET 10/28/23: LEFS score 35/80 LTG Duration 6-8 weeks walking tolerance Impairment walking tolerance Short Term Goal (STG) Pt will be able to ambulate for 10-15 minutes c/o knee pain. MET 10/28/23 STG Duration 3 weeks [facility] Goal (LTG) Pt will be able to ambulate for 30 minutes c/o knee pain. PARTIALLY MET 10/28/23: per pt and mom, pt can ambulate about 25 min without knee pain LTG Duration 6-8 weeks % improvement Impairment % improvement Short Term Goal (STG) Pt will report 25% improvement in symptoms. MET 10/28/23 STG Duration 3 weeks [facility] Goal (LTG) Pt will report 50% improvement in symptoms. PARTIALLY MET 10/28/23: Pt reports 40% improvement in symptoms LTG Duration 6-8 weeks HEP Impairment HEP Short Term Goal (STG) Pt will report performing HEP >3 days/week. NOT MET 10/27/23 STG Duration 3 weeks [facility] Goal (LTG) Pt will report performing HEP >3 days/week. LTG Duration 6-8 weeks Assessment Summary Assessment Pt presents with greater knee and ankle pain than in previous sessions, but only 2/ 10 with no increases during session. Continued with heel taps with single limb squat to promote hip/quad strength. Progressed to 3 way squat with opposite foot on slider to promote an isolated L squat and ankle stability while maintaining balance and limiting strain on L ankle. Initiated single limb balance training on LLE on a stable surface with dynamic movement of contralateral leg to change ARNULFO; pt cued to perform movements slowly for control and to limit perturbations at this time. HEP with B squats and heel touches issued for glute strengthening. Pt would benefit from skilled PT intervention to address impairments in L knee/ankle strength, endurance, balance, proprioception in order to return to PLOF and improve activity tolerance. Physical Therapy Plan Frequency and Duration Frequency of Treatment 2x/Week Duration of treatment (weeks) 10 Plan of Care Start Date 09/24/23 Plan of Care End Date 12/23/23 Therapeutic Interventions Therapeutic Interventions Balance Training,Gait Training ,Home Exercise Program,Manual Therapy,Neuromuscular Re- education,Patient/Caregiver Education,Soft Tissue Mobilization,Taping, Therapeutic Activities, Therapeutic Exercises Modalities Electric Stimulation,Hot Packs Next Visit Focus/Plan Next Note Type Treatment Note Next Visit Plan Progress LE strengthening ( quad, glute); initiate more higher level/single leg activity. Balance training as tolerated (careful with ankle) Next tx: trial uneven split squat, SLS RDL, star taps.
--- NOTE | 2023-11-12 09:43 | PT.OTN ---
Current Diagnoses Chondromalacia patellae, left knee (11/12/23) Physical Therapy Treatment Note PT-OP-A Visit Information Start: 09/24/23 15:45 Freq: Status: Active Protocol: Document 11/12/23 09:11 NM (Rec: 11/12/23 09:43 NM [id number]) Out-Patient Physical Therapy Visit Information Visit Information Visit Type Treatment Note Visit Note 03/09 post PN KX modifier for rest of 2022 Visit Start Time 09:00 Visit Stop Time 09:45 Total Visit Minutes 45 Visit Number 12 Evaluation Information Evaluation Date 09/24/23 PT-OP-B Current Condition Start: 09/24/23 15:45 Freq: Status: Active Protocol: Document 09/24/23 16:23 ED (Rec: 09/24/23 16:35 ED [id number]) Current Condition History of Current Condition Onset Date [id number] Current Complaints L knee pain History of Current Condition Pt states that just before COVID, she knelt on her knee and felt a pop and pain in her L knee. She has had rehabilitation for it before and it helped; this was earlier this year. She is accompanied by her mother today who states that she has a difficult time following through with her exercises. She states that walking is painful and sometimes squating is. She has a TM but doesn't use it. She states the pain is along her L joint line below her patella. Denies major changes in strength or ROM in her L LE. Treatment Goals Patient/Caregiver Goals Improve walking ability and stairs PT-OP-C Subjective Start: 09/24/23 15:45 Freq: Status: Active Protocol: Document 11/12/23 09:11 NM (Rec: 11/12/23 09:43 NM [id number]) OP-PT Subjective Patient Comments Patient Comments Pt reports soreness in L knee near patellar tendon but no pain. She has been compliant with her HEP. Mom and PT discussed about cutting down PT to 1x/wk vs discharging in future sessions. PT-OP-K Range of Motion Start: 09/24/23 15:45 Freq: Status: Active Protocol: Document 09/24/23 16:23 ED (Rec: 09/24/23 16:35 ED [id number]) Knee Goniometric Range of Motion Knee Left Knee ROM WFL Yes Patient Position Supine Flexion Active (degrees) 120 Flexion Passive (degrees) 0 PT-OP-L Special Tests Start: 09/24/23 15:45 Freq: Status: Active Protocol: Document 09/24/23 16:23 ED (Rec: 09/24/23 16:35 ED [id number]) Special Tests Knee Special Tests Chris Test Test Results + PT-OP-M Strength Start: 09/24/23 15:45 Freq: Status: Active Protocol: Document 09/24/23 16:23 ED (Rec: 09/24/23 16:35 ED [id number]) Knee Strength Knee Manual Muscle Testing Left Flexion (S2) 4 Good Extension (L3) 4 Good PT-OP-Q Treatments Start: 09/24/23 15:45 Freq: Status: Active Protocol: Document 11/12/23 09:11 NM (Rec: 11/12/23 09:43 NM [id number]) Cardio Equipment Elliptical Duration (Minutes) 5 Resistance 4 Other warm up Therapeutic Exercises Standing Exercises Standing Clam Standing Exercise Name standing on 1 leg Side bilateral Resistance teal band around thighs Reps/Minutes 2x15 Comments cues for slight knee bend and glute activation Kickstant RDL Standing Exercise Name contra toe on ground behind pt for balance Side bilateral Resistance 8# Equipment Used cone in front for target Reps/Minutes 2x10 Comments better hinge today and balance ; unable to SL RDL heel touch Standing Exercise Name 1 finger support Side left Equipment Used 4 step Reps/Minutes 2x8 Comments cue no R hip drop, sit back for glute activation stationary lunges Standing Exercise Name Fwd and reverse lunges Side bilateral Resistance 8# db ea hand Reps/Minutes 1x15 ea Comments difficulty with reverse lunge, no LOB Neuro Re-Education Treatment Balance Activities Squats Details bilateral, 1 stick for UE support Surface unstable Equipment bosu blue side up Reps/Duration 1x8 Comments Cues for bottom shifting back, no knee valgus. Pt demos difficulty and reports a challenge; however she is able to perform squats with mild sway and using ankle strategy to stay upright. Cone taps Surface stable Reps/Duration 15 reps ea Comments Cone tap standing on LLE, tapping with R foot. Cones placed at 12,6,3 o'clock PT-OP-T Assessment and Plan Start: 09/24/23 15:45 Freq: Status: Active Protocol: Document 11/12/23 09:11 NM (Rec: 11/12/23 09:43 NM [id number]) Physical Therapy Assessment Goals LEFS Impairment LEFS Impairment IE: 37 / 80 Alf Goal (LTG) Pt will improve LEFS score by >9 points (MCID) to a score > 46/80. NOT MET 10/28/23: LEFS score 35/80 LTG Duration 6-8 weeks walking tolerance Impairment walking tolerance Short Term Goal (STG) Pt will be able to ambulate for 10-15 minutes c/o knee pain. MET 10/28/23 STG Duration 3 weeks Alf Goal (LTG) Pt will be able to ambulate for 30 minutes c/o knee pain. PARTIALLY MET 10/28/23: per pt and mom, pt can ambulate about 25 min without knee pain LTG Duration 6-8 weeks % improvement Impairment % improvement Short Term Goal (STG) Pt will report 25% improvement in symptoms. MET 10/28/23 STG Duration 3 weeks Radarman Goal (LTG) Pt will report 50% improvement in symptoms. PARTIALLY MET 10/28/23: Pt reports 40% improvement in symptoms LTG Duration 6-8 weeks HEP Impairment HEP Short Term Goal (STG) Pt will report performing HEP >3 days/week. NOT MET 10/27/23 STG Duration 3 weeks Alf Goal (LTG) Pt will report performing HEP >3 days/week. LTG Duration 6-8 weeks Assessment Summary Assessment Pt demos improved L single limb and staggered balance during RDLs and cone taps. She has less of a R hip drop, indicating improved L hip glute med strength. Progressed to single leg standing clams for further glute med strength . Added bosu squats to challenge balance and BLE strength; pt able to perform with difficulty and requires cues to prevent knee valgus and to promote better glute activation to offload knee. PT , pt, and family began discussions about decreasing frequency or looking at discharging near next PN as pt is progressing well. Also discussed incorporating more ambulation outside of PT to improve endurance. Pt would benefit from skilled PT to address BLE strength impairments and activity tolerance to return to independent BLE exercise and PLOF. Physical Therapy Plan Frequency and Duration Frequency of Treatment 2x/Week Duration of treatment (weeks) 10 Plan of Care Start Date 09/24/23 Plan of Care End Date 12/23/23 Therapeutic Interventions Therapeutic Interventions Balance Training,Gait Training ,Home Exercise Program,Manual Therapy,Neuromuscular Re- education,Patient/Caregiver Education,Soft Tissue Mobilization,Taping, Therapeutic Activities, Therapeutic Exercises Modalities Electric Stimulation,Hot Packs Next Visit Focus/Plan Next Note Type Treatment Note Next Visit Plan Progress LE strengthening ( quad, glute); initiate more higher level/single leg activity. Balance training as tolerated (careful with ankle) Next tx: trial uneven split squat, SLS RDL, star taps.
--- NOTE | 2023-11-16 09:45 | PT.OTN ---
Current Diagnoses Chondromalacia patellae, left knee (11/16/23) Pain in left knee (11/16/23) Pain in left ankle and joints of left foot (11/16/23) Physical Therapy Treatment Note PT-OP-A Visit Information Start: 09/24/23 15:45 Freq: Status: Active Protocol: Document 11/16/23 09:02 SP (Rec: 11/16/23 09:48 SP [id number]) Out-Patient Physical Therapy Visit Information Visit Information Visit Type Treatment Note Visit Note 04/08 post PN KX modifier for rest of 2022 Visit Start Time 09:02 Visit Stop Time 09:45 Total Visit Minutes 42 Visit Number 13 Number of DRUM MAKER Visits 1 Evaluation Information Evaluation Date 09/24/23 PT-OP-B Current Condition Start: 09/24/23 15:45 Freq: Status: Active Protocol: Document 09/24/23 16:23 ED (Rec: 09/24/23 16:35 ED [id number]) Current Condition History of Current Condition Onset Date [id number] Current Complaints L knee pain History of Current Condition Pt states that just before COVID, she knelt on her knee and felt a pop and pain in her L knee. She has had rehabilitation for it before and it helped; this was earlier this year. She is accompanied by her mother today who states that she has a difficult time following through with her exercises. She states that walking is painful and sometimes squating is. She has a TM but doesn't use it. She states the pain is along her L joint line below her patella. Denies major changes in strength or ROM in her L LE. Treatment Goals Patient/Caregiver Goals Improve walking ability and stairs PT-OP-C Subjective Start: 09/24/23 15:45 Freq: Status: Active Protocol: Document 11/16/23 09:02 SP (Rec: 11/16/23 09:48 SP [id number]) OP-PT Subjective Patient Comments Patient Comments Pt reports still getting sometimes throbbing pain over L anterolateral tibia but unsure what was doing PT-OP-K Range of Motion Start: 09/24/23 15:45 Freq: Status: Active Protocol: Document 09/24/23 16:23 ED (Rec: 09/24/23 16:35 ED [id number]) Knee Goniometric Range of Motion Knee Left Knee ROM WFL Yes Patient Position Supine Flexion Active (degrees) 120 Flexion Passive (degrees) 0 PT-OP-L Special Tests Start: 09/24/23 15:45 Freq: Status: Active Protocol: Document 09/24/23 16:23 ED (Rec: 09/24/23 16:35 ED [id number]) Special Tests Knee Special Tests Chris Test Test Results + PT-OP-M Strength Start: 09/24/23 15:45 Freq: Status: Active Protocol: Document 09/24/23 16:23 ED (Rec: 09/24/23 16:35 ED [id number]) Knee Strength Knee Manual Muscle Testing Left Flexion (S2) 4 Good Extension (L3) 4 Good PT-OP-Q Treatments Start: 09/24/23 15:45 Freq: Status: Active Protocol: Document 11/16/23 09:02 SP (Rec: 11/16/23 09:48 SP [id number]) Cardio Equipment Elliptical Duration (Minutes) 5 Resistance 4 Other warm up Therapeutic Exercises Supine Exercises stretch Supine Exercise Name reviewed past encounter HEP Side bilateral Reps/Minutes 60 sec each -cool down Comments 1. HS /c AP 2. Fig 4 3. piriformis single leg bridge Supine Exercise Name HEP reviewed Side bilateral Resistance AROM Reps/Minutes 2x10 Comments verbal cues ankle EV neutral Standing Exercises glut med lift Standing Exercise Name initiated in PT Side bilateral Resistance opp ankle behind stance knee Equipment Used hip lift side facing wall Reps/Minutes 2x10 Comments good glut med/ER work. Standing Clam Standing Exercise Name standing on 1 leg Side bilateral Resistance teal band around thighs Equipment Used light contact post for stability Reps/Minutes 2x15 Comments cues for slight knee bend and glute activation Kickstant RDL Standing Exercise Name contra toe on ground behind pt for balance Side bilateral Resistance 10# (1 DB) Equipment Used 12 block step Reps/Minutes 2x10 Comments better hinge today and balance ; unable to SL RDL heel touch Standing Exercise Name 1 finger support Side bilateral Resistance PRN contact rail Equipment Used 4 step fwd decline step Reps/Minutes 2x10 Comments cue no R hip drop, sit back for glute activation, ankle neutral stationary lunges Standing Exercise Name 1. Fwd 2. reverse lunges Side bilateral Resistance 1. AROM 2. 8# db ea hand Reps/Minutes 2x10 AROM, x10 /c wt Comments difficulty with reverse lunge, no LOB PT-OP-T Assessment and Plan Start: 09/24/23 15:45 Freq: Status: Active Protocol: Document 11/16/23 09:02 SP (Rec: 11/16/23 09:48 SP [id number]) Physical Therapy Assessment Goals LEFS Impairment LEFS Impairment IE: 37 / 80 Care Home Goal (LTG) Pt will improve LEFS score by >9 points (MCID) to a score > 46/80. NOT MET 10/28/23: LEFS score 35/80 LTG Duration 6-8 weeks walking tolerance Impairment walking tolerance Short Term Goal (STG) Pt will be able to ambulate for 10-15 minutes c/o knee pain. MET 10/28/23 STG Duration 3 weeks Ring Spinner Goal (LTG) Pt will be able to ambulate for 30 minutes c/o knee pain. PARTIALLY MET 10/28/23: per pt and mom, pt can ambulate about 25 min without knee pain LTG Duration 6-8 weeks % improvement Impairment % improvement Short Term Goal (STG) Pt will report 25% improvement in symptoms. MET 10/28/23 STG Duration 3 weeks Ring Spinner Goal (LTG) Pt will report 50% improvement in symptoms. PARTIALLY MET 10/28/23: Pt reports 40% improvement in symptoms LTG Duration 6-8 weeks HEP Impairment HEP Short Term Goal (STG) Pt will report performing HEP >3 days/week. NOT MET 10/27/23 STG Duration 3 weeks Ring Spinner Goal (LTG) Pt will report performing HEP >3 days/week. LTG Duration 6-8 weeks Assessment Summary Assessment Pt good response, painfree through out all ther ex today. Requires cuing for knee alignment with mid foot during many of exercises with slower pacing improved stability. She tires quickly but improved SLS RDLs today. Physical Therapy Plan Frequency and Duration Frequency of Treatment 2x/Week Duration of treatment (weeks) 10 Plan of Care Start Date 09/24/23 Plan of Care End Date 12/23/23 Therapeutic Interventions Therapeutic Interventions Balance Training,Gait Training ,Home Exercise Program,Manual Therapy,Neuromuscular Re- education,Patient/Caregiver Education,Soft Tissue Mobilization,Taping, Therapeutic Activities, Therapeutic Exercises Modalities Electric Stimulation,Hot Packs Next Visit Focus/Plan Next Note Type Treatment Note Next Visit Plan Progress LE strengthening ( quad, glute); initiate more higher level/single leg activity. Balance training as tolerated (careful with ankle) Next tx: trial uneven split squat, SLS RDL, star taps.
--- NOTE | 2023-11-18 09:45 | PT.OTN ---
Current Diagnoses Chondromalacia patellae, left knee (11/18/23) Pain in left knee (11/18/23) Pain in left ankle and joints of left foot (11/18/23) Physical Therapy Treatment Note PT-OP-A Visit Information Start: 09/24/23 15:45 Freq: Status: Active Protocol: Document 11/18/23 09:00 SP (Rec: 11/18/23 09:50 SP [id number]) Out-Patient Physical Therapy Visit Information Visit Information Visit Type Treatment Note Visit Note 05/09 post PN KX modifier for rest of 2022 Visit Start Time 09:00 Visit Stop Time 09:45 Total Visit Minutes 45 Visit Number 14 Number of CONFIDENTIAL INVESTIGATOR Visits 2 Evaluation Information Evaluation Date 09/24/23 PT-OP-B Current Condition Start: 09/24/23 15:45 Freq: Status: Active Protocol: Document 09/24/23 16:23 ED (Rec: 09/24/23 16:35 ED [id number]) Current Condition History of Current Condition Onset Date [id number] Current Complaints L knee pain History of Current Condition Pt states that just before COVID, she knelt on her knee and felt a pop and pain in her L knee. She has had rehabilitation for it before and it helped; this was earlier this year. She is accompanied by her mother today who states that she has a difficult time following through with her exercises. She states that walking is painful and sometimes squating is. She has a TM but doesn't use it. She states the pain is along her L joint line below her patella. Denies major changes in strength or ROM in her L LE. Treatment Goals Patient/Caregiver Goals Improve walking ability and stairs PT-OP-C Subjective Start: 09/24/23 15:45 Freq: Status: Active Protocol: Document 11/18/23 09:00 SP (Rec: 11/18/23 09:50 SP [id number]) OP-PT Subjective Patient Comments Patient Comments Pt reports her knee had no pain since last tx. She reports notices her L ankle hurts more when stretches but alot moving around. She is aware that PT should have gotten a referral to also rehab her L ankle. PT-OP-K Range of Motion Start: 09/24/23 15:45 Freq: Status: Active Protocol: Document 09/24/23 16:23 ED (Rec: 09/24/23 16:35 ED [id number]) Knee Goniometric Range of Motion Knee Left Knee ROM WFL Yes Patient Position Supine Flexion Active (degrees) 120 Flexion Passive (degrees) 0 PT-OP-L Special Tests Start: 09/24/23 15:45 Freq: Status: Active Protocol: Document 09/24/23 16:23 ED (Rec: 09/24/23 16:35 ED [id number]) Special Tests Knee Special Tests Chris Test Test Results + PT-OP-M Strength Start: 09/24/23 15:45 Freq: Status: Active Protocol: Document 09/24/23 16:23 ED (Rec: 09/24/23 16:35 ED [id number]) Knee Strength Knee Manual Muscle Testing Left Flexion (S2) 4 Good Extension (L3) 4 Good PT-OP-Q Treatments Start: 09/24/23 15:45 Freq: Status: Active Protocol: Document 11/18/23 09:00 SP (Rec: 11/18/23 09:50 SP [id number]) Cardio Equipment Elliptical Duration (Minutes) 5 Resistance 4 Other warm up Therapeutic Exercises Supine Exercises single leg bridge Supine Exercise Name HEP reviewed Side bilateral Resistance AROM Reps/Minutes 2x15 Comments verbal cues ankle EV neutral positioning bridges Supine Exercise Name hip bridge Resistance ABD against GTB- trialed in PT 12/20 Reps/Minutes 5 SH x5 Comments verbal cues ankle EV neutral and maintain lift Sitting Exercises squats Sitting Exercise Name weighted Resistance 5# DB held chest and out front Equipment Used 24 box step Reps/Minutes chest 2x10, front 2x5 reps Comments cued ankle and knee alignment Standing Exercises stationary lunges Standing Exercise Name SLS high knee <> reverse lunges Side bilateral Resistance AROM Equipment Used prn rail Reps/Minutes 2x10 Comments cues for ft and knee alignment step up Standing Exercise Name 1. fwd step up > contralateral hip flex AROM 2. resisted abd step up/back d Side bilateral Resistance GTB around thighs Equipment Used 8 step, use mirror Reps/Minutes 2x10 ea Comments for SL strength, balance, ankle stab; cues for lateral shift knee neutral banded walk Standing Exercise Name 1. lateral steps, 2. fwd/bwd steps Side bilateral Resistance burns pa[place] #3 TB Equipment Used around feet Reps/Minutes 20 ft x3 laps Comments cues to maintain squat, ankle fwd neutral, fatigues easily PT-OP-T Assessment and Plan Start: 09/24/23 15:45 Freq: Status: Active Protocol: Document 11/18/23 09:00 SP (Rec: 11/18/23 09:50 SP [id number]) Physical Therapy Assessment Goals LEFS Impairment LEFS Impairment IE: 37 / 80 Mud Mixer Operator Goal (LTG) Pt will improve LEFS score by >9 points (MCID) to a score > 46/80. NOT MET 10/28/23: LEFS score 35/80 LTG Duration 6-8 weeks walking tolerance Impairment walking tolerance Short Term Goal (STG) Pt will be able to ambulate for 10-15 minutes c/o knee pain. MET 10/28/23 STG Duration 3 weeks Mud Mixer Operator Goal (LTG) Pt will be able to ambulate for 30 minutes c/o knee pain. PARTIALLY MET 10/28/23: per pt and mom, pt can ambulate about 25 min without knee pain LTG Duration 6-8 weeks % improvement Impairment % improvement Short Term Goal (STG) Pt will report 25% improvement in symptoms. MET 10/28/23 STG Duration 3 weeks Correction Goal (LTG) Pt will report 50% improvement in symptoms. PARTIALLY MET 10/28/23: Pt reports 40% improvement in symptoms LTG Duration 6-8 weeks HEP Impairment HEP Short Term Goal (STG) Pt will report performing HEP >3 days/week. NOT MET 10/27/23 STG Duration 3 weeks Correction Goal (LTG) Pt will report performing HEP >3 days/week. LTG Duration 6-8 weeks Assessment Summary Assessment Pt good effort throughout tx with no reports of pain. Continued cues for foot // forward and knee alignment with and behind mid foot during SLS high knee lift alternating with reverse lunges, good carryover recognition corrections including mini range with LLE posteriorly reports painfre. Pt demonstrates improved ankle alignment and reports painfree with band positioning over midfoot, noted increased hip abd knee alignment during resisted side stepping end of tx. CONFIDENTIAL INVESTIGATOR condensed HEP HOs in binder. Physical Therapy Plan Frequency and Duration Frequency of Treatment 2x/Week Duration of treatment (weeks) 10 Plan of Care Start Date 09/24/23 Plan of Care End Date 12/23/23 Therapeutic Interventions Therapeutic Interventions Balance Training,Gait Training ,Home Exercise Program,Manual Therapy,Neuromuscular Re- education,Patient/Caregiver Education,Soft Tissue Mobilization,Taping, Therapeutic Activities, Therapeutic Exercises Modalities Electric Stimulation,Hot Packs Next Visit Focus/Plan Next Note Type Treatment Note Next Visit Plan Progress LE strengthening ( quad, glute); initiate more higher level/single leg activity. Balance training as tolerated (careful with ankle) Next tx: trial uneven split squat, SLS RDL, star taps.
--- NOTE | 2023-11-25 13:34 | PT.OTN ---
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) Pain in left knee (11/25/23) Pain in left ankle and joints of left foot (11/25/23) Physical Therapy Treatment Note PT-OP-A Visit Information Start: 09/24/23 15:45 Freq: Status: Active Protocol: Document 11/25/23 09:49 NM (Rec: 11/25/23 10:27 NM [id number]) Out-Patient Physical Therapy Visit Information Visit Information Visit Type Progress Note Visit Note KX modifier for rest of 2022 Visit Start Time 09:45 Visit Stop Time 10:30 Total Visit Minutes 45 Visit Number 15 Evaluation Information Evaluation Date 09/24/23 PT-OP-B Current Condition Start: 09/24/23 15:45 Freq: Status: Active Protocol: Document 09/24/23 16:23 ED (Rec: 09/24/23 16:35 ED [id number]) Current Condition History of Current Condition Onset Date [id number] Current Complaints L knee pain History of Current Condition Pt states that just before COVID, she knelt on her knee and felt a pop and pain in her L knee. She has had rehabilitation for it before and it helped; this was earlier this year. She is accompanied by her mother today who states that she has a difficult time following through with her exercises. She states that walking is painful and sometimes squating is. She has a TM but doesn't use it. She states the pain is along her L joint line below her patella. Denies major changes in strength or ROM in her L LE. Treatment Goals Patient/Caregiver Goals Improve walking ability and stairs PT-OP-C Subjective Start: 09/24/23 15:45 Freq: Status: Active Protocol: Document 11/25/23 09:49 NM (Rec: 11/25/23 10:27 NM [id number]) OP-PT Subjective Patient Comments Patient Comments Pt reports that after last session she had 5/10 L knee pain at her patellar tendon. However, she reports that while she still has pain (2/10 ) at this session. PT-OP-K Range of Motion Start: 09/24/23 15:45 Freq: Status: Active Protocol: Document 11/25/23 09:49 NM (Rec: 11/25/23 12:00 NM [id number]) Knee Goniometric Range of Motion Knee Left Knee ROM WFL Yes Patient Position Supine Flexion Active (degrees) 135 Extension Active (degrees) 0 Comments IE: knee flex: 120 deg PT-OP-L Special Tests Start: 09/24/23 15:45 Freq: Status: Active Protocol: Document 09/24/23 16:23 ED (Rec: 09/24/23 16:35 ED [id number]) Special Tests Knee Special Tests Chris Test Test Results + PT-OP-M Strength Start: 09/24/23 15:45 Freq: Status: Active Protocol: Document 11/25/23 09:49 NM (Rec: 11/25/23 12:00 NM [id number]) Knee Strength Knee Manual Muscle Testing Left Flexion (S2) 5 Normal Extension (L3) 4+ Good+ Comments IE: knee flex: 4/5 knee ext: 4/5 PT-OP-Q Treatments Start: 09/24/23 15:45 Freq: Status: Active Protocol: Document 11/25/23 09:49 NM (Rec: 11/25/23 10:27 NM [id number]) Therapeutic Exercises Sitting Exercises squats Sitting Exercise Name weighted- 1.isometric hold, 2. B squat Resistance 8# db at chest in front Equipment Used large green sb behind pt on wall Reps/Minutes 1. 10x10, 2. 1x10 to 16 box Comments no patellar pain reported knee extension Sitting Exercise Name LAQ Side bilateral Resistance Lvl 4 cables Equipment Used machine Reps/Minutes 2x10x3 Comments cues for slow eccentric control, full knee ext; no pain reported Standing Exercises Single Leg RDL Side bilateral Resistance 5# db Equipment Used to 24 stool Reps/Minutes 1x5 ea Comments mod sway, but good hip hinge. Able to maintain SLS Kickstant RDL Standing Exercise Name contra toe on ground behind pt for balance Side bilateral Resistance 10# (1 DB) Equipment Used 12 block step Reps/Minutes 2x10 Comments better hinge today and balance ; cue for no hyperext stationary lunges Standing Exercise Name SLS high knee <> reverse lunges Side bilateral Resistance AROM Equipment Used prn rail Reps/Minutes 2x8 Comments cues for ft and knee alignment heel cord stretch Side bilateral Equipment Used ANAI Reps/Minutes 1x30 Comments for reported plantar fascia tightness with SL RDL PT-OP-T Assessment and Plan Start: 09/24/23 15:45 Freq: Status: Active Protocol: Document 11/25/23 09:49 NM (Rec: 11/25/23 10:27 NM [id number]) Physical Therapy Assessment Goals LEFS Impairment LEFS Impairment IE: 37 / 80 [facility] Goal (LTG) Pt will improve LEFS score by >9 points (MCID) to a score > 46/80. NOT MET 11/25/23: 34/80 NOT MET 10/28/23: LEFS score 35/80 LTG Duration 6-8 weeks NOT MET walking tolerance Impairment walking tolerance Short Term Goal (STG) Pt will be able to ambulate for 10-15 minutes c/o knee pain. MET 10/28/23 STG Duration 3 weeks [facility] Goal (LTG) Pt will be able to ambulate for 30 minutes c/o knee pain. MET 11/25/23: Per pt and mom, pt can ambulate 30 min without knee pain PARTIALLY MET 10/28/23: per pt and mom, pt can ambulate about 25 min without knee pain LTG Duration 6-8 weeks MET % improvement Impairment % improvement Short Term Goal (STG) Pt will report 25% improvement in symptoms. MET 10/28/23 STG Duration 3 weeks [facility] Goal (LTG) Pt will report 50% improvement in symptoms. MET 11/25/23: Pt reports 50% improvement in symptoms PARTIALLY MET 10/28/23: Pt reports 40% improvement in symptoms LTG Duration 6-8 weeks MET HEP Impairment HEP Short Term Goal (STG) Pt will report performing HEP >3 days/week. MET 11/25/23: reports compliance alternating exercises 5x/wk NOT MET 10/27/23 STG Duration 3 weeks [facility] Goal (LTG) Pt will report performing HEP >3 days/week. MET 11/25/23: reports compliance alternating exercises 5x/wk LTG Duration 6-8 weeks MET Progress Towards Goals Progress Towards Goals Progressing Toward Goals,Slow Progress due to Activity Tolerance,Goals Met Progress Comments Pt has met 3/4 goals. She continues to report that she is unable to participate in ADLs and recreational activities without pain Assessment Summary Assessment Pt reports no pain during exercise today in session; however, presents to clinic today reporting that she had 5 /10 knee pain after last session. Tmt focus today on progressing glute and quad strengthening. Began session with isometric squat and LAQ to limit pain at patellar tendon. Continued with reverse lunge to single leg high knee , single leg RDL. No pain reported at end of session. Pt demos improved single leg balance with RDL compared to previous attempts, but she does demo mod trunk and ankle sway. HEP not updated as pt has extensive list. Pt would benefit from skilled PT to address limitations in LLE strength and activity tolerance. Physical Therapy Plan Frequency and Duration Frequency of Treatment 2x/Week Duration of treatment (weeks) 10 Plan of Care Start Date 09/24/23 Plan of Care End Date 12/23/23 Therapeutic Interventions Therapeutic Interventions Balance Training,Gait Training ,Home Exercise Program,Manual Therapy,Neuromuscular Re- education,Patient/Caregiver Education,Soft Tissue Mobilization,Taping, Therapeutic Activities, Therapeutic Exercises Modalities Electric Stimulation,Hot Packs Next Visit Focus/Plan Next Note Type Treatment Note Next Visit Plan Progress LE strengthening ( quad, glute); initiate more higher level/single leg activity. Balance training as tolerated (careful with ankle) Next tx: trial uneven split squat, SLS RDL, star taps or around the world taps, curtsey lunge/squat. Possible patellar tendon mobilization to decrease pain
--- NOTE | 2023-11-25 13:35 | PT.OPPN ---
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) Pain in left knee (11/25/23) Pain in left ankle and joints of left foot (11/25/23) Physical Therapy Progress Note PT-OP-A Visit Information Start: 09/24/23 15:45 Freq: Status: Active Protocol: Document 11/25/23 09:49 NM (Rec: 11/25/23 10:27 NM [id number]) Out-Patient Physical Therapy Visit Information Visit Information Visit Type Progress Note Visit Note KX modifier for rest of 2022 Visit Start Time 09:45 Visit Stop Time 10:30 Total Visit Minutes 45 Visit Number 15 Evaluation Information Evaluation Date 09/24/23 PT-OP-B Current Condition Start: 09/24/23 15:45 Freq: Status: Active Protocol: Document 09/24/23 16:23 ED (Rec: 09/24/23 16:35 ED [id number]) Current Condition History of Current Condition Onset Date [id number] Current Complaints L knee pain History of Current Condition Pt states that just before COVID, she knelt on her knee and felt a pop and pain in her L knee. She has had rehabilitation for it before and it helped; this was earlier this year. She is accompanied by her mother today who states that she has a difficult time following through with her exercises. She states that walking is painful and sometimes squating is. She has a TM but doesn't use it. She states the pain is along her L joint line below her patella. Denies major changes in strength or ROM in her L LE. Treatment Goals Patient/Caregiver Goals Improve walking ability and stairs PT-OP-C Subjective Start: 09/24/23 15:45 Freq: Status: Active Protocol: Document 11/25/23 09:49 NM (Rec: 11/25/23 10:27 NM [id number]) OP-PT Subjective Patient Comments Patient Comments Pt reports that after last session she had 5/10 L knee pain at her patellar tendon. However, she reports that while she still has pain (2/10 ) at this session. PT-OP-K Range of Motion Start: 09/24/23 15:45 Freq: Status: Active Protocol: Document 11/25/23 09:49 NM (Rec: 11/25/23 12:00 NM [id number]) Knee Goniometric Range of Motion Knee Measured in Degrees Left Knee ROM WFL Yes Patient Position Supine Flexion Active (degrees) 135 Extension Active (degrees) 0 Comments IE: knee flex: 120 deg PT-OP-L Special Tests Start: 09/24/23 15:45 Freq: Status: Active Protocol: Document 09/24/23 16:23 ED (Rec: 09/24/23 16:35 ED [id number]) Special Tests Knee Special Tests Chris Test Test Results + PT-OP-M Strength Start: 09/24/23 15:45 Freq: Status: Active Protocol: Document 11/25/23 09:49 NM (Rec: 11/25/23 12:00 NM [id number]) Knee Strength Knee Manual Muscle Testing Left Flexion (S2) 5 Normal Extension (L3) 4+ Good+ Comments IE: knee flex: 4/5 knee ext: 4/5 PT-OP-T Assessment and Plan Start: 09/24/23 15:45 Freq: Status: Active Protocol: Document 11/25/23 09:49 NM (Rec: 11/25/23 10:27 NM [id number]) Physical Therapy Assessment Goals LEFS Impairment LEFS Impairment IE: 37 / 80 [facility] Goal (LTG) Pt will improve LEFS score by >9 points (MCID) to a score > 46/80. NOT MET 11/25/23: 34/80 NOT MET 10/28/23: LEFS score 35/80 LTG Duration 6-8 weeks NOT MET walking tolerance Impairment walking tolerance Short Term Goal (STG) Pt will be able to ambulate for 10-15 minutes c/o knee pain. MET 10/28/23 STG Duration 3 weeks Echometer Engineer Goal (LTG) Pt will be able to ambulate for 30 minutes c/o knee pain. MET 11/25/23: Per pt and mom, pt can ambulate 30 min without knee pain LTG Duration 6-8 weeks MET % improvement Impairment % improvement Short Term Goal (STG) Pt will report 25% improvement in symptoms. MET 10/28/23 STG Duration 3 weeks [facility] Goal (LTG) Pt will report 50% improvement in symptoms. MET 11/25/23: Pt reports 50% improvement in symptoms LTG Duration 6-8 weeks MET HEP Impairment HEP Short Term Goal (STG) Pt will report performing HEP >3 days/week. MET 11/25/23: reports compliance alternating exercises 5x/wk NOT MET 10/27/23 STG Duration 3 weeks [facility] Goal (LTG) Pt will report performing HEP >3 days/week. MET 11/25/23: reports compliance alternating exercises 5x/wk LTG Duration 6-8 weeks MET Progress Towards Goals Progress Towards Goals Progressing Toward Goals,Slow Progress due to Activity Tolerance,Goals Met Progress Comments Pt has met 3/4 goals. She continues to report that she is unable to participate in ADLs and recreational activities without pain Assessment Summary Assessment Pt has been seen in clinic x14 visits since IE for L knee pain. Pt had an injury to her L ankle in mid-September, which limited her ability to progress with loaded exercises and balance activities. Since last PN, pt reports improvement in activity tolerance, ambulation distance , and symptom management. She has met 3/4 goals. At this time, pt continues to report L knee pain, specifically with initiating knee flex, which limits her ability to participate fully in ADLs and recreational activities as reported on her LEFS. Pt reports improved compliance with HEP, alternating exercises to prevent being overwhelmed. Pt would benefit from skilled PT to address limitations in R knee strength , ROM, balance, gait, and endurance in order to return to PLOF and decrease overall pain symptoms for improved QOL . Physical Therapy Plan Frequency and Duration Frequency of Treatment 2x/Week Duration of treatment (weeks) 10 Plan of Care Start Date 09/24/23 Plan of Care End Date 12/23/23 Therapeutic Interventions Therapeutic Interventions Balance Training,Gait Training ,Home Exercise Program,Manual Therapy,Neuromuscular Re- education,Patient/Caregiver Education,Soft Tissue Mobilization,Taping, Therapeutic Activities, Therapeutic Exercises Modalities Electric Stimulation,Hot Packs Next Visit Focus/Plan Next Note Type Treatment Note Next Visit Plan Progress LE strengthening ( quad, glute); initiate more higher level/single leg activity. Balance training as tolerated (careful with ankle) Next tx: trial uneven split squat, SLS RDL, star taps or around the world taps, curtsey lunge/squat. Possible patellar tendon mobilization to decrease pain
--- NOTE | 2023-12-04 09:45 | PT.OTN ---
Current Diagnoses Chondromalacia patellae, left knee (12/04/23) Pain in left knee (12/04/23) Pain in left ankle and joints of left foot (12/04/23) Physical Therapy Treatment Note PT-OP-A Visit Information Start: 09/24/23 15:45 Freq: Status: Active Protocol: Document 12/04/23 09:02 SP (Rec: 12/04/23 10:32 SP [id number]) Out-Patient Physical Therapy Visit Information Visit Information Visit Type Treatment Note Visit Start Time 09:02 Visit Stop Time 09:45 Total Visit Minutes 43 Visit Number 16 Number of QUESTIONED DOCUMENTS EXAMINER Visits 1 Evaluation Information Evaluation Date 09/24/23 PT-OP-B Current Condition Start: 09/24/23 15:45 Freq: Status: Active Protocol: Document 09/24/23 16:23 ED (Rec: 09/24/23 16:35 ED [id number]) Current Condition History of Current Condition Onset Date [id number] Current Complaints L knee pain History of Current Condition Pt states that just before COVID, she knelt on her knee and felt a pop and pain in her L knee. She has had rehabilitation for it before and it helped; this was earlier this year. She is accompanied by her mother today who states that she has a difficult time following through with her exercises. She states that walking is painful and sometimes squating is. She has a TM but doesn't use it. She states the pain is along her L joint line below her patella. Denies major changes in strength or ROM in her L LE. Treatment Goals Patient/Caregiver Goals Improve walking ability and stairs PT-OP-C Subjective Start: 09/24/23 15:45 Freq: Status: Active Protocol: Document 12/04/23 09:02 SP (Rec: 12/04/23 10:32 SP [id number]) OP-PT Subjective Patient Comments Patient Comments Pt reports her L knee felt ok after last tx and doing those exercises but was more bother some just doing around the house activities. She could remember exactly what was doing. PT-OP-K Range of Motion Start: 09/24/23 15:45 Freq: Status: Active Protocol: Document 11/25/23 09:49 NM (Rec: 11/25/23 12:00 NM [id number]) Knee Goniometric Range of Motion Knee Left Knee ROM WFL Yes Patient Position Supine Flexion Active (degrees) 135 Extension Active (degrees) 0 Comments IE: knee flex: 120 deg PT-OP-L Special Tests Start: 09/24/23 15:45 Freq: Status: Active Protocol: Document 09/24/23 16:23 ED (Rec: 09/24/23 16:35 ED [id number]) Special Tests Knee Special Tests Chris Test Test Results + PT-OP-M Strength Start: 09/24/23 15:45 Freq: Status: Active Protocol: Document 11/25/23 09:49 NM (Rec: 11/25/23 12:00 NM [id number]) Knee Strength Knee Manual Muscle Testing Left Flexion (S2) 5 Normal Extension (L3) 4+ Good+ Comments IE: knee flex: 4/5 knee ext: 4/5 PT-OP-Q Treatments Start: 09/24/23 15:45 Freq: Status: Active Protocol: Document 12/04/23 09:02 SP (Rec: 12/04/23 10:32 SP [id number]) Therapeutic Exercises Sitting Exercises knee extension Sitting Exercise Name LAQ: HEP reviewed Side bilateral Resistance 6# leg wt (has home) Equipment Used seated fully back inc Reps/Minutes 15 reps, 15 reps at 3 hold Comments good slow eccentric control, full knee ext; no pain reported Standing Exercises uneven stationary lunge Side bilateral Equipment Used 1 foot on yellow disc/8 step, contact stair rail PRN Reps/Minutes 2x10 each LE Comments cued knee lateral neutral alignment Single Leg RDL Side bilateral Resistance 5# db Equipment Used to 24 stool Reps/Minutes 1x5 ea Comments mod sway, but good hip hinge. Able to maintain SLS Kickstant RDL Standing Exercise Name contra toe on ground behind pt for balance Side bilateral Resistance 10# (1 DB) Equipment Used 12 block step Reps/Minutes 2x10 Comments better hinge today and balance ; cue for no hyperext stationary lunges Standing Exercise Name SLS high knee <> reverse lunges Side bilateral Resistance AROM Equipment Used prn rail Reps/Minutes 2x8 Comments cues for ft and knee alignment heel cord stretch Standing Exercise Name pre/post SLS activitites Side bilateral Equipment Used off step Reps/Minutes 60 Comments for reported plantar fascia tightness with SL RDL Neuro Re-Education Treatment Balance Activities SLS Details added to HEP: 1. SLS for time 2. SLS ball toss Surface floor Equipment basketball toss Reps/Duration 3 reps x5-10 sec, instruct progress to 30 sec if can, ball toss Comments improved SLS ball toss post SLS for time, cues for elongated posturing/core/ glut /soft knee and try to keep trunk centered over stationary foot. Painfree reported. Cone taps Details pod taps- added to HEP Surface stable Reps/Duration 15 reps ea Comments Cone tap standing on LLE, tapping with R foot. Cones placed at 12,6,3 o'clock Improved hip hinge, knee with mid and behind forefoot post cues. PT-OP-T Assessment and Plan Start: 09/24/23 15:45 Freq: Status: Active Protocol: Document 12/04/23 09:02 SP (Rec: 12/04/23 10:32 SP [id number]) Physical Therapy Assessment Goals LEFS Impairment LEFS Impairment IE: 37 / 80 [facility] Goal (LTG) Pt will improve LEFS score by >9 points (MCID) to a score > 46/80. NOT MET 11/25/23: 34/80 NOT MET 10/28/23: LEFS score 35/80 LTG Duration 6-8 weeks NOT MET walking tolerance Impairment walking tolerance Short Term Goal (STG) Pt will be able to ambulate for 10-15 minutes c/o knee pain. MET 10/28/23 STG Duration 3 weeks Early Childhood Associate Goal (LTG) Pt will be able to ambulate for 30 minutes c/o knee pain. MET 11/25/23: Per pt and mom, pt can ambulate 30 min without knee pain PARTIALLY MET 10/28/23: per pt and mom, pt can ambulate about 25 min without knee pain LTG Duration 6-8 weeks MET % improvement Impairment % improvement Short Term Goal (STG) Pt will report 25% improvement in symptoms. MET 10/28/23 STG Duration 3 weeks Early Childhood Associate Goal (LTG) Pt will report 50% improvement in symptoms. MET 11/25/23: Pt reports 50% improvement in symptoms PARTIALLY MET 10/28/23: Pt reports 40% improvement in symptoms LTG Duration 6-8 weeks MET HEP Impairment HEP Short Term Goal (STG) Pt will report performing HEP >3 days/week. MET 11/25/23: reports compliance alternating exercises 5x/wk NOT MET 10/27/23 STG Duration 3 weeks [facility] Goal (LTG) Pt will report performing HEP >3 days/week. MET 11/25/23: reports compliance alternating exercises 5x/wk LTG Duration 6-8 weeks MET Assessment Summary Assessment QUESTIONED DOCUMENTS EXAMINER reminded write down on a calender in a binder what doing if feel pain for problem solving why experiencing. Pt improved L knee quad tiring resisted LAQ and SLS stability star pod taps with corrections body and knee positioning post cues. She continues to be challenged with stability RDL but painfree, ducation encouragement to continue to perform and understands but feels weird to be off balance in soft knee bent hip hinge activity. Good tolerance uneven front stationary lunges . No pain end tx. Physical Therapy Plan Frequency and Duration Frequency of Treatment 2x/Week Duration of treatment (weeks) 10 Plan of Care Start Date 09/24/23 Plan of Care End Date 12/23/23 Therapeutic Interventions Therapeutic Interventions Balance Training,Gait Training ,Home Exercise Program,Manual Therapy,Neuromuscular Re- education,Patient/Caregiver Education,Soft Tissue Mobilization,Taping, Therapeutic Activities, Therapeutic Exercises Modalities Electric Stimulation,Hot Packs Next Visit Focus/Plan Next Note Type Treatment Note Next Visit Plan Continue SLS hip hinge RDL. Progress LE strengthening ( quad, glute); initiate more higher level/single leg activity. Balance training as tolerated (careful with ankle) Next tx: trial uneven split squat, SLS RDL, star taps or around the world taps, curtsey lunge/squat. Possible patellar tendon mobilization to decrease pain
--- NOTE | 2023-12-07 11:16 | PT.OTN ---
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) Pain in left knee (12/07/23) Pain in left ankle and joints of left foot (12/07/23) Physical Therapy Treatment Note PT-OP-A Visit Information Start: 09/24/23 15:45 Freq: Status: Active Protocol: Document 12/07/23 10:36 SP (Rec: 12/07/23 11:31 SP [id number]) Out-Patient Physical Therapy Visit Information Visit Information Visit Type Treatment Note Visit Start Time 10:36 Visit Stop Time 11:16 Total Visit Minutes 40 Visit Number 17 Number of CLINICAL OPERATIONS SPECIALIST Visits 2 Evaluation Information Evaluation Date 09/24/23 PT-OP-B Current Condition Start: 09/24/23 15:45 Freq: Status: Active Protocol: Document 09/24/23 16:23 ED (Rec: 09/24/23 16:35 ED [id number]) Current Condition History of Current Condition Onset Date 4525-1313 Current Complaints L knee pain History of Current Condition Pt states that just before COVID, she knelt on her knee and felt a pop and pain in her L knee. She has had rehabilitation for it before and it helped; this was earlier this year. She is accompanied by her mother today who states that she has a difficult time following through with her exercises. She states that walking is painful and sometimes squating is. She has a TM but doesn't use it. She states the pain is along her L joint line below her patella. Denies major changes in strength or ROM in her L LE. Treatment Goals Patient/Caregiver Goals Improve walking ability and stairs PT-OP-C Subjective Start: 09/24/23 15:45 Freq: Status: Active Protocol: Document 12/07/23 10:36 SP (Rec: 12/07/23 11:31 SP [id number]) OP-PT Subjective Patient Comments Patient Comments Pt reports and mom in waiting room stated pt having more L patellar tendon and medial pain after tx and into later evening and notices limiting self mobility. She mentioned her L ankle moving around and feeling little better, on verge healing. PT-OP-K Range of Motion Start: 09/24/23 15:45 Freq: Status: Active Protocol: Document 11/25/23 09:49 NM (Rec: 11/25/23 12:00 NM [id number]) Knee Goniometric Range of Motion Knee Left Knee ROM WFL Yes Patient Position Supine Flexion Active (degrees) 135 Extension Active (degrees) 0 Comments IE: knee flex: 120 deg PT-OP-L Special Tests Start: 09/24/23 15:45 Freq: Status: Active Protocol: Document 09/24/23 16:23 ED (Rec: 09/24/23 16:35 ED [id number]) Special Tests Knee Special Tests Chris Test Test Results + PT-OP-M Strength Start: 09/24/23 15:45 Freq: Status: Active Protocol: Document 11/25/23 09:49 NM (Rec: 11/25/23 12:00 NM [id number]) Knee Strength Knee Manual Muscle Testing Left Flexion (S2) 5 Normal Extension (L3) 4+ Good+ Comments IE: knee flex: 4/5 knee ext: 4/5 PT-OP-Q Treatments Start: 09/24/23 15:45 Freq: Status: Active Protocol: Document 12/07/23 10:36 SP (Rec: 12/07/23 11:31 SP [id number]) Therapeutic Exercises Supine Exercises stretch Supine Exercise Name reviewed past encounter HEP Side bilateral Equipment Used HEP stretching for knee pain recovery Reps/Minutes 60 sec each Comments 1. HS /c AP 2. Fig 4 3. piriformis 4. Nigel stretch single leg bridge Supine Exercise Name HEP reviewed Side bilateral Resistance AROM Reps/Minutes x10, 12 Comments verbal cues ankle EV neutral positioning Sidelying Exercises hip abd Sidelying Exercise Name reviewed a past HEP Side bilateral Reps/Minutes x20 Comments tactile target to Sitting Exercises squats Sitting Exercise Name weighted- 1.isometric hold, 2. B squat Resistance 7# DB at chest in front Equipment Used back to wall Reps/Minutes 1. 10x10, 2.x10 to 16 box squat tap Comments no patellar pain reported, good quad/glut effort knee extension Sitting Exercise Name LAQ: quad strengthening Review [[[[[[[[[[[[[[[ Side bilateral Resistance 6# leg wt (has home) Equipment Used seated fully back inc Reps/Minutes 15 reps, 15 reps at 3 hold Comments good slow eccentric control, full knee ext; no pain reported Standing Exercises heel cord stretch Standing Exercise Name HEP stretching for knee pain recovery Side bilateral Equipment Used off step Reps/Minutes 60 Comments for reported plantar fascia tightness with SL RDL Manual Therapy Treatment Soft Tissue Mobilization L quad Mobilization Type Strumming Intensity/Depth Moderate Body Position Supine Comments LLE extension into flexion- good response, painfree Joint Mobilizations L tibialfemoral jt Direction A<> P Grade II Body Position Supine Comments LLE extension into flexion- good response, painfree L patellar tendon Direction med/lat/inf/sup Grade II Body Position Supine PT-OP-T Assessment and Plan Start: 09/24/23 15:45 Freq: Status: Active Protocol: Document 12/07/23 10:36 SP (Rec: 12/07/23 11:31 SP [id number]) Physical Therapy Assessment Goals LEFS Impairment LEFS Impairment IE: 37 / 80 Fpc Goal (LTG) Pt will improve LEFS score by >9 points (MCID) to a score > 46/80. NOT MET 11/25/23: 34/80 NOT MET 10/28/23: LEFS score 35/80 LTG Duration 6-8 weeks NOT MET walking tolerance Impairment walking tolerance Short Term Goal (STG) Pt will be able to ambulate for 10-15 minutes c/o knee pain. MET 10/28/23 STG Duration 3 weeks Compliance Auditor Goal (LTG) Pt will be able to ambulate for 30 minutes c/o knee pain. MET 11/25/23: Per pt and mom, pt can ambulate 30 min without knee pain PARTIALLY MET 10/28/23: per pt and mom, pt can ambulate about 25 min without knee pain LTG Duration 6-8 weeks MET % improvement Impairment % improvement Short Term Goal (STG) Pt will report 25% improvement in symptoms. MET 10/28/23 STG Duration 3 weeks Compliance Auditor Goal (LTG) Pt will report 50% improvement in symptoms. MET 11/25/23: Pt reports 50% improvement in symptoms PARTIALLY MET 10/28/23: Pt reports 40% improvement in symptoms LTG Duration 6-8 weeks MET HEP Impairment HEP Short Term Goal (STG) Pt will report performing HEP >3 days/week. MET 11/25/23: reports compliance alternating exercises 5x/wk NOT MET 10/27/23 STG Duration 3 weeks Fpc Goal (LTG) Pt will report performing HEP >3 days/week. MET 11/25/23: reports compliance alternating exercises 5x/wk LTG Duration 6-8 weeks MET Assessment Summary Assessment Pt reports no pain with ther ex this tx, mainly focused on DL stance. Time spent review of stretching HEP and use of CP for needs with pain. Also reminded to write down if feeling pain, what doing at that time to problem solve. Physical Therapy Plan Frequency and Duration Frequency of Treatment 2x/Week Duration of treatment (weeks) 10 Plan of Care Start Date 09/24/23 Plan of Care End Date 12/23/23 Therapeutic Interventions Therapeutic Interventions Balance Training,Gait Training ,Home Exercise Program,Manual Therapy,Neuromuscular Re- education,Patient/Caregiver Education,Soft Tissue Mobilization,Taping, Therapeutic Activities, Therapeutic Exercises Modalities Electric Stimulation,Hot Packs Next Visit Focus/Plan Next Note Type Treatment Note Next Visit Plan Assess response to manual, stretching, strengthening progression. Next appt: Continue SLS hip hinge RDL. Progress LE strengthening ( quad, glute); initiate more higher level/single leg activity. Balance training as tolerated (careful with ankle) Next tx: trial uneven split squat, SLS RDL, star taps or around the world taps, curtsey lunge/squat. Possible patellar tendon mobilization to decrease pain
--- NOTE | 2023-12-09 14:08 | PT.OTN ---
Current Diagnoses Chondromalacia patellae, left knee (12/09/23) Pain in left knee (12/09/23) Pain in left ankle and joints of left foot (12/09/23) Physical Therapy Treatment Note PT-OP-A Visit Information Start: 09/24/23 15:45 Freq: Status: Active Protocol: Document 12/09/23 09:07 NM (Rec: 12/09/23 09:47 NM [id number]) Out-Patient Physical Therapy Visit Information Visit Information Visit Type Treatment Note Visit Start Time 09:05 Visit Stop Time 09:45 Total Visit Minutes 40 Visit Number 18 Evaluation Information Evaluation Date 09/24/23 PT-OP-B Current Condition Start: 09/24/23 15:45 Freq: Status: Active Protocol: Document 09/24/23 16:23 ED (Rec: 09/24/23 16:35 ED [id number]) Current Condition History of Current Condition Onset Date [id number] Current Complaints L knee pain History of Current Condition Pt states that just before COVID, she knelt on her knee and felt a pop and pain in her L knee. She has had rehabilitation for it before and it helped; this was earlier this year. She is accompanied by her mother today who states that she has a difficult time following through with her exercises. She states that walking is painful and sometimes squating is. She has a TM but doesn't use it. She states the pain is along her L joint line below her patella. Denies major changes in strength or ROM in her L LE. Treatment Goals Patient/Caregiver Goals Improve walking ability and stairs PT-OP-C Subjective Start: 09/24/23 15:45 Freq: Status: Active Protocol: Document 12/09/23 09:07 NM (Rec: 12/09/23 09:47 NM [id number]) OP-PT Subjective Patient Comments Patient Comments Pt reports achiness in her L knee when coming to stand from the couch yesterday and during walking; however resolved shortly. She also reports a sharp pain along the anterior knee near the patella. Pt reports good pain relief after manual therapy last session. PT-OP-K Range of Motion Start: 09/24/23 15:45 Freq: Status: Active Protocol: Document 11/25/23 09:49 NM (Rec: 11/25/23 12:00 NM [id number]) Knee Goniometric Range of Motion Knee Left Knee ROM WFL Yes Patient Position Supine Flexion Active (degrees) 135 Extension Active (degrees) 0 Comments IE: knee flex: 120 deg PT-OP-L Special Tests Start: 09/24/23 15:45 Freq: Status: Active Protocol: Document 09/24/23 16:23 ED (Rec: 09/24/23 16:35 ED [id number]) Special Tests Knee Special Tests Chris Test Test Results + PT-OP-M Strength Start: 09/24/23 15:45 Freq: Status: Active Protocol: Document 11/25/23 09:49 NM (Rec: 11/25/23 12:00 NM [id number]) Knee Strength Knee Manual Muscle Testing Left Flexion (S2) 5 Normal Extension (L3) 4+ Good+ Comments IE: knee flex: 4/5 knee ext: 4/5 PT-OP-Q Treatments Start: 09/24/23 15:45 Freq: Status: Active Protocol: Document 12/09/23 09:07 NM (Rec: 12/09/23 09:47 NM [id number]) Therapeutic Exercises Sidelying Exercises hip abd Sidelying Exercise Name pt review due to report of knee pain yesterday Side bilateral Reps/Minutes 1x10 ea Comments cues for hip Ir for greater glute medius Sitting Exercises squats Sitting Exercise Name AROM to 16 step Resistance 10# db Equipment Used good glute activation Reps/Minutes 2x15 Comments demos no knee valgus; cues to prevent hyperext with band behind knees Standing Exercises uneven stationary lunge Side bilateral Equipment Used 1 foot on yellow disc/8 step, contact stair rail PRN Reps/Minutes 2x10 each LE Comments cued knee lateral neutral alignment; no knee hyperext Single Leg RDL Side bilateral Resistance 5# tball Equipment Used to 24 surface Reps/Minutes 1x8 ea Comments cue for hip hinge; mod sway but improved control L>R Eccentric step down Standing Exercise Name 1. eccentric step back, 2. eccentric step fwd Side bilateral Equipment Used 1. 8 step, 2. 6 step prn rail use Reps/Minutes 1x10 ea Comments cues for control, no knee hyperext heel cord stretch Standing Exercise Name post SLS activity Side bilateral Equipment Used ANAI Reps/Minutes 60 Comments for reported plantar fascia tightness with SL RDL Neuro Re-Education Treatment Balance Activities SLS Details 1. SLS for time 2. SLS ball toss Surface floor Equipment basketball toss Reps/Duration 4 reps x20 sec, ball toss x4 min total Comments Improved SLS, up tp 20 sec now ; able to correct for LOB with ankle strategy and occasional hip. Pt reports practicing at home. Demos improved SLS ball toss post SLS for time, cues for elongated posturing/core/ glut/soft knee and try to keep trunk centered over stationary foot. During ball toss, pt moving to various locations around pt for pt to maintain ARNULFO as changing. Cone taps Details pod taps- added to HEP Surface stable Reps/Duration 5 reps ea Comments Cone tap standing on LLE, tapping with R foot. Cones placed at from 12-6 o'clock Improved hip hinge, knee with mid and behind forefoot post cues. PT-OP-T Assessment and Plan Start: 09/24/23 15:45 Freq: Status: Active Protocol: Document 12/09/23 09:07 NM (Rec: 12/09/23 09:47 NM [id number]) Physical Therapy Assessment Goals LEFS Impairment LEFS Impairment IE: 37 / 80 Nursing Home Goal (LTG) Pt will improve LEFS score by >9 points (MCID) to a score > 46/80. NOT MET 11/25/23: 34/80 NOT MET 10/28/23: LEFS score 35/80 LTG Duration 6-8 weeks NOT MET walking tolerance Impairment walking tolerance Short Term Goal (STG) Pt will be able to ambulate for 10-15 minutes c/o knee pain. MET 10/28/23 STG Duration 3 weeks Nursing Home Goal (LTG) Pt will be able to ambulate for 30 minutes c/o knee pain. MET 11/25/23: Per pt and mom, pt can ambulate 30 min without knee pain PARTIALLY MET 10/28/23: per pt and mom, pt can ambulate about 25 min without knee pain LTG Duration 6-8 weeks MET % improvement Impairment % improvement Short Term Goal (STG) Pt will report 25% improvement in symptoms. MET 10/28/23 STG Duration 3 weeks Nursing Home Goal (LTG) Pt will report 50% improvement in symptoms. MET 11/25/23: Pt reports 50% improvement in symptoms PARTIALLY MET 10/28/23: Pt reports 40% improvement in symptoms LTG Duration 6-8 weeks MET HEP Impairment HEP Short Term Goal (STG) Pt will report performing HEP >3 days/week. MET 11/25/23: reports compliance alternating exercises 5x/wk NOT MET 10/27/23 STG Duration 3 weeks Nursing Home Goal (LTG) Pt will report performing HEP >3 days/week. MET 11/25/23: reports compliance alternating exercises 5x/wk LTG Duration 6-8 weeks MET Assessment Summary Assessment Pt tolerated session well, but pt reports instances of L plantar fascia pain with single leg activities. Pt requires consistent cues to limit knee hyperextension in stance and during activity in order to decrease strain to knee ligaments and to promote improved quad activation for stability. PT used band behind pt knees as tactile cue to limit knee hyperext as pt returns to standing from squat from lower depth; improved soft knees with band. Initiated eccentric step down and eccentric step back to target glute and quad; pt reports no knee ache or pain, but requires verbal/tactile cues to for control, to limit knee valgus and to limit knee hyperext. Progressed single leg balance activities to include greater repetitions during clock cone taps. Pt continues to demo mild-mod sway with single leg activities but requires less assistance from her contralateral foot compared to previous sessions. Reviewed pt's HEP that she had difficulty with; pt has no pain with sidelying hip abd in clinic, unlike yesterday like she reports at home. Pt performing exercise correctly. Added elevated split squat to HEP. Pt would benefit from skilled PT to progressively load BLE, progress into more single leg strengthening in order to improve activity tolerance, decrease pain symptoms, and promote greater independence with exercise. Physical Therapy Plan Frequency and Duration Frequency of Treatment 2x/Week Duration of treatment (weeks) 10 Plan of Care Start Date 09/24/23 Plan of Care End Date 12/23/23 Therapeutic Interventions Therapeutic Interventions Balance Training,Gait Training ,Home Exercise Program,Manual Therapy,Neuromuscular Re- education,Patient/Caregiver Education,Soft Tissue Mobilization,Taping, Therapeutic Activities, Therapeutic Exercises Modalities Electric Stimulation,Hot Packs Next Visit Focus/Plan Next Note Type Treatment Note Next Visit Plan Assess response to manual, stretching, strengthening progression. Next appt: Continue SLS hip hinge RDL. Eccentric step down and back Progress LE strengthening ( quad, glute); initiate more higher level/single leg activity. Balance training as tolerated (careful with ankle) . Next tx: trial uneven split squat, SLS RDL, star taps or around the world taps, curtsey lunge/squat. Possible patellar tendon mobilization to decrease pain
--- NOTE | 2023-12-16 11:13 | PT.OTN ---
Current Diagnoses Chondromalacia patellae, left knee (12/16/23) Pain in left knee (12/16/23) Pain in left ankle and joints of left foot (12/16/23) Physical Therapy Treatment Note PT-OP-A Visit Information Start: 09/24/23 15:45 Freq: Status: Active Protocol: Document 12/16/23 10:19 SP (Rec: 12/16/23 11:23 SP [id number]) Out-Patient Physical Therapy Visit Information Visit Information Visit Type Treatment Note Visit Start Time 10:20 Visit Stop Time 11:13 Total Visit Minutes 53 Visit Number 19 Number of BOX GLUER Visits 1 Evaluation Information Evaluation Date 09/24/23 PT-OP-B Current Condition Start: 09/24/23 15:45 Freq: Status: Active Protocol: Document 09/24/23 16:23 ED (Rec: 09/24/23 16:35 ED [id number]) Current Condition History of Current Condition Onset Date [id number] Current Complaints L knee pain History of Current Condition Pt states that just before COVID, she knelt on her knee and felt a pop and pain in her L knee. She has had rehabilitation for it before and it helped; this was earlier this year. She is accompanied by her mother today who states that she has a difficult time following through with her exercises. She states that walking is painful and sometimes squating is. She has a TM but doesn't use it. She states the pain is along her L joint line below her patella. Denies major changes in strength or ROM in her L LE. Treatment Goals Patient/Caregiver Goals Improve walking ability and stairs PT-OP-C Subjective Start: 09/24/23 15:45 Freq: Status: Active Protocol: Document 12/16/23 10:19 SP (Rec: 12/16/23 11:23 SP [id number]) OP-PT Subjective Patient Comments Patient Comments Pt reported L knee better, only noticed little discomf PT-OP-K Range of Motion Start: 09/24/23 15:45 Freq: Status: Active Protocol: Document 11/25/23 09:49 NM (Rec: 11/25/23 12:00 NM [id number]) Knee Goniometric Range of Motion Knee Left Knee ROM WFL Yes Patient Position Supine Flexion Active (degrees) 135 Extension Active (degrees) 0 Comments IE: knee flex: 120 deg PT-OP-L Special Tests Start: 09/24/23 15:45 Freq: Status: Active Protocol: Document 09/24/23 16:23 ED (Rec: 09/24/23 16:35 ED [id number]) Special Tests Knee Special Tests Chris Test Test Results + PT-OP-M Strength Start: 09/24/23 15:45 Freq: Status: Active Protocol: Document 11/25/23 09:49 NM (Rec: 11/25/23 12:00 NM [id number]) Knee Strength Knee Manual Muscle Testing Left Flexion (S2) 5 Normal Extension (L3) 4+ Good+ Comments IE: knee flex: 4/5 knee ext: 4/5 PT-OP-Q Treatments Start: 09/24/23 15:45 Freq: Status: Active Protocol: Document 12/16/23 10:19 SP (Rec: 12/16/23 11:23 SP [id number]) Cardio Equipment Bicycle (Upright) Duration (Minutes) 6 Resistance 4 Seat Position 4 Therapeutic Exercises Sitting Exercises squats Sitting Exercise Name AROM to 16 step Resistance 10# db, GTb behind knees therapist anchor Equipment Used good glute & quad activation Reps/Minutes 2x15 Comments demos no knee valgus, deep sit hip hinge, soft knee stand/no hyperext Standing Exercises uneven stationary lunge Side bilateral Equipment Used 1 ft on folded towel& laundry basket against wall/chair PRN support side Reps/Minutes 2x12 each LE Comments cued knee lateral neutral alignment; no knee hyperext, control bend Single Leg RDL Side bilateral Resistance 45cm tball Equipment Used to 8 step Reps/Minutes x10 reps each Comments L>R weakeness, cued keep stance full foot floor Eccentric step down Standing Exercise Name 1. eccentric step back, 2. eccentric step fwd Side bilateral Equipment Used 1. 8 step, 2. 6 step prn rail use Reps/Minutes 1x15 ea Comments improved knee lateral shift midline, no hyperext into stand heel cord stretch Standing Exercise Name post SLS activity Side bilateral Resistance rail support Equipment Used rolled up towel under forefoot (home set up) Reps/Minutes 60 Comments for reported plantar fascia tightness with SL RDL Neuro Re-Education Treatment Balance Activities SLS Details 1. SLS for time 2. SLS ball toss Surface floor Equipment 45cm tball toss/catch Reps/Duration 2. ball toss x4 min total Comments 1. LLE: 7, 25 RLE: 14, 26 Discussed when can bal SLS 30 then try let eyes move and maintain balance, progression. Self-Care/Home Management Treatment Education Patient Education Body Mechanics,Joint Protection,Pain Management Caregiver Education Discussion with pt and mom, pt continue perform harder HEP progressed to at home: SLS, uneven mini lunge, wt squat, RDL and limit allow opp LE contact floor, both verbalized will work on better. WIll bring binder for use if needed answer questions, cuing written, next appt last appt. Other Education Time spent discussion use use CP pain knee/plantarfascia and manual MFR if needed and comfort- good understanding. PT-OP-T Assessment and Plan Start: 09/24/23 15:45 Freq: Status: Active Protocol: Document 12/16/23 10:19 SP (Rec: 12/16/23 11:23 SP [id number]) Physical Therapy Assessment Goals LEFS Impairment LEFS Impairment IE: 37 / 80 Shelter Goal (LTG) Pt will improve LEFS score by >9 points (MCID) to a score > 46/80. NOT MET 11/25/23: 34/80 NOT MET 10/28/23: LEFS score 35/80 LTG Duration 6-8 weeks NOT MET walking tolerance Impairment walking tolerance Short Term Goal (STG) Pt will be able to ambulate for 10-15 minutes c/o knee pain. MET 10/28/23 STG Duration 3 weeks Shelter Goal (LTG) Pt will be able to ambulate for 30 minutes c/o knee pain. MET 11/25/23: Per pt and mom, pt can ambulate 30 min without knee pain PARTIALLY MET 10/28/23: per pt and mom, pt can ambulate about 25 min without knee pain LTG Duration 6-8 weeks MET % improvement Impairment % improvement Short Term Goal (STG) Pt will report 25% improvement in symptoms. MET 10/28/23 STG Duration 3 weeks Shelter Goal (LTG) Pt will report 50% improvement in symptoms. MET 11/25/23: Pt reports 50% improvement in symptoms PARTIALLY MET 10/28/23: Pt reports 40% improvement in symptoms LTG Duration 6-8 weeks MET HEP Impairment HEP Short Term Goal (STG) Pt will report performing HEP >3 days/week. MET 11/25/23: reports compliance alternating exercises 5x/wk NOT MET 10/27/23 STG Duration 3 weeks Dementia Program Director Goal (LTG) Pt will report performing HEP >3 days/week. MET 11/25/23: reports compliance alternating exercises 5x/wk LTG Duration 6-8 weeks MET Assessment Summary Assessment Pt improved self corrections alignment foot/knee with mini lunges, RDL but ed seriousness and cues for allow body time to center stabilize before putting opp LE down recovery balance to give self progression strength, verbalized understanding. Pt report no knee pain end tx, good understanding stretching, manual and modalities if needed support. Physical Therapy Plan Frequency and Duration Frequency of Treatment 2x/Week Duration of treatment (weeks) 10 Plan of Care Start Date 09/24/23 Plan of Care End Date 12/23/23 Therapeutic Interventions Therapeutic Interventions Balance Training,Gait Training ,Home Exercise Program,Manual Therapy,Neuromuscular Re- education,Patient/Caregiver Education,Soft Tissue Mobilization,Taping, Therapeutic Activities, Therapeutic Exercises Modalities Electric Stimulation,Hot Packs Next Visit Focus/Plan Next Note Type Discharge Summary Next Visit Plan Assess/finalize HEP, continue ed performing progressive balance activities SLS and center recovery before putting opp LE down.
--- NOTE | 2023-12-21 10:30 | PT.OTN ---
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) Pain in left knee (12/21/23) Pain in left ankle and joints of left foot (12/21/23) Physical Therapy Treatment Note PT-OP-A Visit Information Start: 09/24/23 15:45 Freq: Status: Active Protocol: Document 12/21/23 09:48 SP (Rec: 12/21/23 10:35 SP [id number]) Out-Patient Physical Therapy Visit Information Visit Information Visit Type Treatment Note Visit Start Time 09:48 Visit Stop Time 10:30 Total Visit Minutes 42 Visit Number 20 Number of AIRFLIGHT ATTENDANTS SUPERVISOR Visits 2 Evaluation Information Evaluation Date 09/24/23 PT-OP-B Current Condition Start: 09/24/23 15:45 Freq: Status: Active Protocol: Document 09/24/23 16:23 ED (Rec: 09/24/23 16:35 ED [id number]) Current Condition History of Current Condition Onset Date [id number] Current Complaints L knee pain History of Current Condition Pt states that just before COVID, she knelt on her knee and felt a pop and pain in her L knee. She has had rehabilitation for it before and it helped; this was earlier this year. She is accompanied by her mother today who states that she has a difficult time following through with her exercises. She states that walking is painful and sometimes squating is. She has a TM but doesn't use it. She states the pain is along her L joint line below her patella. Denies major changes in strength or ROM in her L LE. Treatment Goals Patient/Caregiver Goals Improve walking ability and stairs PT-OP-C Subjective Start: 09/24/23 15:45 Freq: Status: Active Protocol: Document 12/21/23 09:48 SP (Rec: 12/21/23 10:35 SP [id number]) OP-PT Subjective Patient Comments Patient Comments Pt reports little L knee pain noted when walking and pivoted on L foot. Did try stretching which helped. PT-OP-K Range of Motion Start: 09/24/23 15:45 Freq: Status: Active Protocol: Document 11/25/23 09:49 NM (Rec: 11/25/23 12:00 NM [id number]) Knee Goniometric Range of Motion Knee Left Knee ROM WFL Yes Patient Position Supine Flexion Active (degrees) 135 Extension Active (degrees) 0 Comments IE: knee flex: 120 deg PT-OP-L Special Tests Start: 09/24/23 15:45 Freq: Status: Active Protocol: Document 09/24/23 16:23 ED (Rec: 09/24/23 16:35 ED [id number]) Special Tests Knee Special Tests Chris Test Test Results + PT-OP-M Strength Start: 09/24/23 15:45 Freq: Status: Active Protocol: Document 11/25/23 09:49 NM (Rec: 11/25/23 12:00 NM [id number]) Knee Strength Knee Manual Muscle Testing Left Flexion (S2) 5 Normal Extension (L3) 4+ Good+ Comments IE: knee flex: 4/5 knee ext: 4/5 PT-OP-Q Treatments Start: 09/24/23 15:45 Freq: Status: Active Protocol: Document 12/21/23 09:48 SP (Rec: 12/21/23 10:35 SP [id number]) Therapeutic Exercises Standing Exercises Eccentric step down Standing Exercise Name lateral step down Side bilateral Equipment Used 1. 8 step, 2. 6 step prn rail use Reps/Minutes 1x15 ea Comments improved knee lateral shift midline, no hyperext into stand Single leg squat Standing Exercise Name bahamian split squat Side bilateral Equipment Used chair front stab PRN Reps/Minutes 2x10 Comments cued stance LE knee behind toes, shld width apart HS stretch Side bilateral Reps/Minutes 30 x2 each LE Comments cool down stationary lunges Standing Exercise Name stationary lunge- HEP5 Side bilateral Resistance AROM Equipment Used near rail not needed Reps/Minutes 2x10 Comments good self knee alignment corrections banded walk Standing Exercise Name 1. lateral steps, 2. fwd/bwd steps Side bilateral Resistance [place] gree #3 TB Equipment Used around ankles Reps/Minutes 20 ft x3 laps Comments cues to maintain squat, ankle fwd neutral, good hip abd tiring heel cord stretch Standing Exercise Name post SLS activity Side bilateral Resistance rail support Equipment Used bottom step Reps/Minutes 30 x2 Comments cool down Neuro Re-Education Treatment Balance Activities SLS Details SLS for time Surface floor Equipment 45cm tball toss/catch Reps/Duration x4 min total Comments 1. LLE: 30 RLE: 30 Found looking at item and use of timer helped stability. 2. SLS ball toss, cued trunk midline over stance LE PT-OP-T Assessment and Plan Start: 09/24/23 15:45 Freq: Status: Active Protocol: Document 12/21/23 09:48 SP (Rec: 12/21/23 10:35 SP [id number]) Physical Therapy Assessment Goals LEFS Impairment LEFS Impairment IE: 37 / 80 Technology Project Manager Goal (LTG) Pt will improve LEFS score by >9 points (MCID) to a score > 46/80. NOT MET 11/25/23: 34/80 NOT MET 10/28/23: LEFS score 35/80 LTG Duration 6-8 weeks NOT MET walking tolerance Impairment walking tolerance Short Term Goal (STG) Pt will be able to ambulate for 10-15 minutes c/o knee pain. MET 10/28/23 STG Duration 3 weeks Technology Project Manager Goal (LTG) Pt will be able to ambulate for 30 minutes c/o knee pain. MET 11/25/23: Per pt and mom, pt can ambulate 30 min without knee pain PARTIALLY MET 10/28/23: per pt and mom, pt can ambulate about 25 min without knee pain LTG Duration 6-8 weeks MET % improvement Impairment % improvement Short Term Goal (STG) Pt will report 25% improvement in symptoms. MET 10/28/23 STG Duration 3 weeks Jail Goal (LTG) Pt will report 50% improvement in symptoms. MET 11/25/23: Pt reports 50% improvement in symptoms PARTIALLY MET 10/28/23: Pt reports 40% improvement in symptoms LTG Duration 6-8 weeks MET HEP Impairment HEP Short Term Goal (STG) Pt will report performing HEP >3 days/week. MET 11/25/23: reports compliance alternating exercises 5x/wk NOT MET 10/27/23 STG Duration 3 weeks Jail Goal (LTG) Pt will report performing HEP >3 days/week. MET 11/25/23: reports compliance alternating exercises 5x/wk LTG Duration 6-8 weeks MET Assessment Summary Assessment Tx focused on HEP review with good muscle tiring response, painfree and proper use flow sheet for accountable and performing 3-4 ex per day. Education for importance of keeping up with strengthening and flexibility cool down and knee alignment for support carryover proper form, verbalized understanding and improved self corrections, painfree end tx. Physical Therapy Plan Frequency and Duration Frequency of Treatment 2x/Week Duration of treatment (weeks) 10 Plan of Care Start Date 09/24/23 Plan of Care End Date 12/23/23 Therapeutic Interventions Therapeutic Interventions Balance Training,Gait Training ,Home Exercise Program,Manual Therapy,Neuromuscular Re- education,Patient/Caregiver Education,Soft Tissue Mobilization,Taping, Therapeutic Activities, Therapeutic Exercises Modalities Electric Stimulation,Hot Packs Next Visit Focus/Plan Next Note Type Discharge Summary Next Visit Plan Assess/finalize HEP, continue ed performing progressive balance activities SLS and center recovery before putting opp LE down.
--- NOTE | 2023-12-22 10:30 | PT.OTN ---
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) Pain in left knee (12/21/23) Pain in left ankle and joints of left foot (12/21/23) Physical Therapy Treatment Note PT-OP-A Visit Information Start: 09/24/23 15:45 Freq: Status: Active Protocol: Document 12/21/23 09:48 SP (Rec: 12/21/23 10:35 SP [id number]) Out-Patient Physical Therapy Visit Information Visit Information Visit Type Treatment Note Visit Start Time 09:48 Visit Stop Time 10:30 Total Visit Minutes 42 Visit Number 20 Number of PROP CUTTER Visits 2 Evaluation Information Evaluation Date 09/24/23 PT-OP-B Current Condition Start: 09/24/23 15:45 Freq: Status: Active Protocol: Document 09/24/23 16:23 ED (Rec: 09/24/23 16:35 ED [id number]) Current Condition History of Current Condition Onset Date [id number] Current Complaints L knee pain History of Current Condition Pt states that just before COVID, she knelt on her knee and felt a pop and pain in her L knee. She has had rehabilitation for it before and it helped; this was earlier this year. She is accompanied by her mother today who states that she has a difficult time following through with her exercises. She states that walking is painful and sometimes squating is. She has a TM but doesn't use it. She states the pain is along her L joint line below her patella. Denies major changes in strength or ROM in her L LE. Treatment Goals Patient/Caregiver Goals Improve walking ability and stairs PT-OP-C Subjective Start: 09/24/23 15:45 Freq: Status: Active Protocol: Document 12/21/23 09:48 SP (Rec: 12/21/23 10:35 SP [id number]) OP-PT Subjective Patient Comments Patient Comments Pt reports little L knee pain noted when walking and pivoted on L foot. Did try stretching which helped. PT-OP-K Range of Motion Start: 09/24/23 15:45 Freq: Status: Active Protocol: Document 11/25/23 09:49 NM (Rec: 11/25/23 12:00 NM [id number]) Knee Goniometric Range of Motion Knee Left Knee ROM WFL Yes Patient Position Supine Flexion Active (degrees) 135 Extension Active (degrees) 0 Comments IE: knee flex: 120 deg PT-OP-L Special Tests Start: 09/24/23 15:45 Freq: Status: Active Protocol: Document 09/24/23 16:23 ED (Rec: 09/24/23 16:35 ED [id number]) Special Tests Knee Special Tests Chris Test Test Results + PT-OP-M Strength Start: 09/24/23 15:45 Freq: Status: Active Protocol: Document 11/25/23 09:49 NM (Rec: 11/25/23 12:00 NM [id number]) Knee Strength Knee Manual Muscle Testing Left Flexion (S2) 5 Normal Extension (L3) 4+ Good+ Comments IE: knee flex: 4/5 knee ext: 4/5 PT-OP-Q Treatments Start: 09/24/23 15:45 Freq: Status: Active Protocol: Document 12/21/23 09:48 SP (Rec: 12/21/23 10:35 SP [id number]) Therapeutic Exercises Standing Exercises Eccentric step down Standing Exercise Name lateral step down Side bilateral Equipment Used 1. 8 step, 2. 6 step prn rail use Reps/Minutes 1x15 ea Comments improved knee lateral shift midline, no hyperext into stand Single leg squat Standing Exercise Name american split squat Side bilateral Equipment Used chair front stab PRN Reps/Minutes 2x10 Comments cued stance LE knee behind toes, shld width apart HS stretch Side bilateral Reps/Minutes 30 x2 each LE Comments cool down stationary lunges Standing Exercise Name stationary lunge- HEP5 Side bilateral Resistance AROM Equipment Used near rail not needed Reps/Minutes 2x10 Comments good self knee alignment corrections banded walk Standing Exercise Name 1. lateral steps, 2. fwd/bwd steps Side bilateral Resistance elem gree #3 TB Equipment Used around ankles Reps/Minutes 20 ft x3 laps Comments cues to maintain squat, ankle fwd neutral, good hip abd tiring heel cord stretch Standing Exercise Name post SLS activity Side bilateral Resistance rail support Equipment Used bottom step Reps/Minutes 30 x2 Comments cool down Neuro Re-Education Treatment Balance Activities SLS Details SLS for time Surface floor Equipment 45cm tball toss/catch Reps/Duration x4 min total Comments 1. LLE: 30 RLE: 30 Found looking at item and use of timer helped stability. 2. SLS ball toss, cued trunk midline over stance LE PT-OP-T Assessment and Plan Start: 09/24/23 15:45 Freq: Status: Active Protocol: Document 12/21/23 09:48 SP (Rec: 12/21/23 10:35 SP [id number]) Physical Therapy Assessment Goals LEFS Impairment LEFS Impairment IE: 37 / 80 Pull Over Machine Operator Goal (LTG) Pt will improve LEFS score by >9 points (MCID) to a score > 46/80. NOT MET 11/25/23: 34/80 NOT MET 10/28/23: LEFS score 35/80 LTG Duration 6-8 weeks NOT MET walking tolerance Impairment walking tolerance Short Term Goal (STG) Pt will be able to ambulate for 10-15 minutes c/o knee pain. MET 10/28/23 STG Duration 3 weeks Pull Over Machine Operator Goal (LTG) Pt will be able to ambulate for 30 minutes c/o knee pain. MET 11/25/23: Per pt and mom, pt can ambulate 30 min without knee pain PARTIALLY MET 10/28/23: per pt and mom, pt can ambulate about 25 min without knee pain LTG Duration 6-8 weeks MET % improvement Impairment % improvement Short Term Goal (STG) Pt will report 25% improvement in symptoms. MET 10/28/23 STG Duration 3 weeks Penitentiary Goal (LTG) Pt will report 50% improvement in symptoms. MET 11/25/23: Pt reports 50% improvement in symptoms PARTIALLY MET 10/28/23: Pt reports 40% improvement in symptoms LTG Duration 6-8 weeks MET HEP Impairment HEP Short Term Goal (STG) Pt will report performing HEP >3 days/week. MET 11/25/23: reports compliance alternating exercises 5x/wk NOT MET 10/27/23 STG Duration 3 weeks Penitentiary Goal (LTG) Pt will report performing HEP >3 days/week. MET 11/25/23: reports compliance alternating exercises 5x/wk LTG Duration 6-8 weeks MET Assessment Summary Assessment Tx focused on HEP review with good muscle tiring response, painfree and proper use flow sheet for accountable and performing 3-4 ex per day. Education for importance of keeping up with strengthening and flexibility cool down and knee alignment for support carryover proper form, verbalized understanding and improved self corrections, painfree end tx. Physical Therapy Plan Frequency and Duration Frequency of Treatment 2x/Week Duration of treatment (weeks) 10 Plan of Care Start Date 09/24/23 Plan of Care End Date 12/23/23 Therapeutic Interventions Therapeutic Interventions Balance Training,Gait Training ,Home Exercise Program,Manual Therapy,Neuromuscular Re- education,Patient/Caregiver Education,Soft Tissue Mobilization,Taping, Therapeutic Activities, Therapeutic Exercises Modalities Electric Stimulation,Hot Packs Next Visit Focus/Plan Next Note Type Discharge Summary Next Visit Plan Assess/finalize HEP, continue ed performing progressive balance activities SLS and center recovery before putting opp LE down.
--- NOTE | 2023-12-23 15:51 | PT.OTN ---
Current Diagnoses Chondromalacia patellae, left knee (12/23/23) Pain in left knee (12/23/23) Pain in left ankle and joints of left foot (12/23/23) Physical Therapy Treatment Note PT-OP-A Visit Information Start: 09/24/23 15:45 Freq: Status: Active Protocol: Document 12/23/23 12:19 NM (Rec: 12/23/23 13:07 NM [id number]) Out-Patient Physical Therapy Visit Information Visit Information Visit Type Discharge Summary Visit Start Time 12:17 Visit Stop Time 13:00 Visit Number 21 Evaluation Information Evaluation Date 09/24/23 PT-OP-B Current Condition Start: 09/24/23 15:45 Freq: Status: Active Protocol: Document 09/24/23 16:23 ED (Rec: 09/24/23 16:35 ED [id number]) Current Condition History of Current Condition Onset Date [id number] Current Complaints L knee pain History of Current Condition Pt states that just before COVID, she knelt on her knee and felt a pop and pain in her L knee. She has had rehabilitation for it before and it helped; this was earlier this year. She is accompanied by her mother today who states that she has a difficult time following through with her exercises. She states that walking is painful and sometimes squating is. She has a TM but doesn't use it. She states the pain is along her L joint line below her patella. Denies major changes in strength or ROM in her L LE. Treatment Goals Patient/Caregiver Goals Improve walking ability and stairs PT-OP-C Subjective Start: 09/24/23 15:45 Freq: Status: Active Protocol: Document 12/23/23 12:19 NM (Rec: 12/23/23 13:07 NM [id number]) OP-PT Subjective Patient Comments Patient Comments Pt reports no knee pain recently with activity. She went with over HEP last session with AUTOMATIC DATA PROCESSING PLANNER in preparation for discharge. PT-OP-K Range of Motion Start: 09/24/23 15:45 Freq: Status: Active Protocol: Document 12/23/23 12:19 NM (Rec: 12/23/23 13:07 NM [id number]) Knee Goniometric Range of Motion Knee Left Knee ROM WFL Yes Patient Position Supine Flexion Active (degrees) 135 Extension Active (degrees) 0 Comments IE: knee flex: 120 deg PT-OP-L Special Tests Start: 09/24/23 15:45 Freq: Status: Active Protocol: Document 09/24/23 16:23 ED (Rec: 09/24/23 16:35 ED [id number]) Special Tests Knee Special Tests Chris Test Test Results + PT-OP-M Strength Start: 09/24/23 15:45 Freq: Status: Active Protocol: Document 12/23/23 12:19 NM (Rec: 12/23/23 13:07 NM [id number]) Knee Strength Knee Manual Muscle Testing Left Flexion (S2) 5 Normal Extension (L3) 5 Normal Comments IE: knee flex: 4/5 knee ext: 4/5 PT-OP-Q Treatments Start: 09/24/23 15:45 Freq: Status: Active Protocol: Document 12/23/23 12:19 NM (Rec: 12/23/23 13:07 NM [id number]) Therapeutic Exercises Supine Exercises single leg bridge Side bilateral Resistance AROM Equipment Used mat on floor Reps/Minutes 1x10 ea LE with 2 hold Comments good hip lift; reviewed HEP Sitting Exercises squats Sitting Exercise Name AROM to 16 step Side bilateral Resistance 4# theraball Equipment Used standing on foam Reps/Minutes 2x10 Comments demos no knee valgus, good hip hinge and deep sit; no pain Standing Exercises uneven stationary lunge Standing Exercise Name split squat Side bilateral Equipment Used front leg elevated on airex foam pad Reps/Minutes 2x10 ea LE Comments cued neutral knee over foot; no pain; shaky but no LOB Single Leg RDL Side bilateral Resistance 4# tball Equipment Used to 8 step Reps/Minutes 1x10 reps each Comments L>R weakness, cued keep stance full foot floor Eccentric step down Standing Exercise Name lateral step down Side bilateral Equipment Used 6 step prn rail use Reps/Minutes 1x15 ea Comments improved knee lateral shift midline, no hyperext into stand Neuro Re-Education Treatment Balance Activities SLS Details SLS for time with ball passing back and forth Surface floor Equipment 4# tball passing back and forth btwn hands Reps/Duration 4x30 Comments Standing on LLE then RLE for 4x30 Cone taps Details Y cone formation with SL squat > opp foot tap Surface stable Reps/Duration 1x8 ea LE Comments Cones in Y formation: pt standing on SLS then perform mini-squat, reaching fwd with opposite foot to tap cone fwd, then bwd to ea side. Pt demos improved SLS compared to previous sessions, and small squat without LOB. Cued to maintain SLS over reaching for cone to prevent LOB. Self-Care/Home Management Treatment Education Patient Education Body Mechanics,Home Exercise Program,Joint Protection,Pain Management,Safety Other Education Educated pt and mom on continuing with HEP after discharge to maximize PT gains . Final HEP review; did not add exercises as pt has plethora. Discussion to continue with higher level HEP as tolerated. Emphasized to follow up with PCP if pain symptoms return. PT-OP-T Assessment and Plan Start: 09/24/23 15:45 Freq: Status: Active Protocol: Document 12/23/23 12:19 NM (Rec: 12/23/23 13:07 NM [id number]) Physical Therapy Assessment Goals LEFS Impairment LEFS Impairment IE: 37 / 80 Jail Goal (LTG) Pt will improve LEFS score by >9 points (MCID) to a score > 46/80. MET 12/23/23: 67/80 NOT MET 11/25/23: 34/80 NOT MET 10/28/23: LEFS score 35/80 LTG Duration 6-8 weeks MET walking tolerance Impairment walking tolerance Short Term Goal (STG) Pt will be able to ambulate for 10-15 minutes c/o knee pain. MET 10/28/23 STG Duration 3 weeks Jail Goal (LTG) Pt will be able to ambulate for 30 minutes c/o knee pain. MET 11/25/23: Per pt and mom, pt can ambulate 30 min without knee pain PARTIALLY MET 10/28/23: per pt and mom, pt can ambulate about 25 min without knee pain LTG Duration 6-8 weeks MET % improvement Impairment % improvement Short Term Goal (STG) Pt will report 25% improvement in symptoms. MET 10/28/23 STG Duration 3 weeks Jail Goal (LTG) Pt will report 50% improvement in symptoms. MET 11/25/23: Pt reports 50% improvement in symptoms PARTIALLY MET 10/28/23: Pt reports 40% improvement in symptoms LTG Duration 6-8 weeks MET HEP Impairment HEP Short Term Goal (STG) Pt will report performing HEP >3 days/week. MET 11/25/23: reports compliance alternating exercises 5x/wk NOT MET 10/27/23 STG Duration 3 weeks Business Process Specialist Goal (LTG) Pt will report performing HEP >3 days/week. MET 11/25/23: reports compliance alternating exercises 5x/wk LTG Duration 6-8 weeks MET Progress Towards Goals Progress Towards Goals Goals Met Progress Comments All goals met; improved LLE strength, ROM, and balance Assessment Summary Assessment Treatment focus on reviewing HEP with good execution, modification options if pt does have pain, and use of flow sheet for accountable independent exercises. Pt demos improved tolerance with single leg stance and squats without LOB. Pt able to consistently perform SLS for 30 without LOB or touching opposite foot down, decreased trunk sway. Continued with split squat, single leg RDL, single leg bridge, and eccentric 6 lateral step down for further BLE glute and quad strengthening to offload knee. Pt requires fewer cues for execution and fewer compensations at her hip. Pt has been seen since August 2023 for L knee pain. She reports that she is able to perform most ADLs/IADLs without knee pain or difficulty; she continues to have limitations with higher level activities (e.g. running ) but pt does not often perform those. Pt has met all goals, including increased L knee strength, now 5/5. Now, LEFS score is 67/80, a marked improvement compared to last assessment in October. PT and pt/pt's mom discussed discharge today with HEP for independent exercise. PT, pt, and pt's mom in agreement. Pt safe to discharge to indepedent exercise. PT instructed pt and pt's mom to follow up with PCP if symptoms change or return; both verbalize understanding. Physical Therapy Plan Frequency and Duration Frequency of Treatment 2x/Week Duration of treatment (weeks) 10 Plan of Care Start Date 09/24/23 Plan of Care End Date 12/23/23 Therapeutic Interventions Therapeutic Interventions Balance Training,Gait Training ,Home Exercise Program,Manual Therapy,Neuromuscular Re- education,Patient/Caregiver Education,Soft Tissue Mobilization,Taping, Therapeutic Activities, Therapeutic Exercises Modalities Electric Stimulation,Hot Packs Discharge Physical Therapy Discharge Reasons Goals Met Discharge Comments Pt has met all goals, has minimal prn knee pain, and is safe to progress to independent exercise Next Visit Focus/Plan Next Visit Plan Discharge from PT
== END 2023-12-30 13:01 | disposition home or self-care (01) ==
LOC: PHYS 12:15
PROVIDERS: Family Provider Internal Medicine; PCP Internal Medicine; Referring Provider Internal Medicine; Visit Provider Internal Medicine
DX: M22.42 Chondromalacia patellae, left knee (principal); M25.562 Pain in left knee; M25.572 Pain in left ankle and joints of left foot
CPT/HCPCS: 97110; 97112; 97140; 97162; 97530; 97535

== ENCOUNTER → 2024-02-05 06:38 | Outpatient (CLI) | payer MEDICARE, MEDICAID, SELFPAY ==
--- NOTE | 2024-02-05 06:40 | DI.US.S_ITS ---
PROCEDURE: US PELVIC COMPLETE INDICATIONS: RLQ PAIN; DYSMENORRHEA TECHNIQUE: Real-time scanning was performed of the pelvic organs, with image documentation. Additional endovaginal scanning was necessary due to incomplete visualization of the adnexal and endometrial structures by transabdominal scanning. COMPARISON: [facility], US, US PELVIC COMPLETE, 06/27/2021, 10:44. FINDINGS: Uterus: Uterus is anteverted and normal in size at 6.6 x 5.4 x 5.7 cm. The myometrium is heterogeneous. The endometrium measures 4.6 mm combined thickness. Mid anterior intramural fibroid measuring 2.9 x 3.2 x 3.3 cm. Ovaries: The right ovary measures 1.4 x 1.4 x 1.2 cm, with a calculated ovarian volume of 1.1 cc. Complex right ovarian cyst measuring 9 mm. The left ovary measures 1.4 x 2.0 x 1.4 cm, with a calculated ovarian volume of 2.0 cc. The ovaries have a normal sonographic appearance. Less than 12 follicles can be seen in each ovary. No adnexal masses are seen. Other: No pathologic free abdominal or pelvic fluid. Appendix is not seen. IMPRESSION: 1. Intramural fibroid measuring 3.3 cm. 2. Complex right ovarian cyst measuring 9 mm. Recommend 6-12 week follow-up ultrasound. 3. Endometrial echo complex is normal in thickness. 4. Appendix is not seen. We strive to produce accurate, complete, and clear reports of imaging services. To assist us in improving patient care, this report was composed using standard report templates and voice recognition software. Therefore, it may contain abnormal punctuation, insertions and/or omissions. Occasional wrong-word or sound-alike substitutions may occur. Though we review the report and make efforts to correct it, we do recommend that the report be read carefully in proper context to recognize any text inaccuracies. Dictated by: Shaw Toribio M.D. on 02/05/2024 at 8:42 Approved by: Shaw Toribio M.D. on 02/05/2024 at 8:45
== END ==
LOC: US 06:39
PROVIDERS: Family Provider Internal Medicine; PCP Internal Medicine; Referring Provider Internal Medicine; Visit Provider Internal Medicine
DX: D25.1 Intramural leiomyoma of uterus (principal); N83.291 Other ovarian cyst, right side; R10.31 Right lower quadrant pain
CPT/HCPCS: 76830; 76856; 93976

== ENCOUNTER → 2024-05-17 10:13 | Outpatient (CLI) | payer MEDICARE, MEDICAID, SELFPAY ==
--- NOTE | 2024-05-17 10:14 | DI.US.S_ITS ---
PROCEDURE: US PELVIC COMPLETE INDICATIONS: ovarian cyst, right side rlq pain TECHNIQUE: Real-time scanning was performed of the pelvic organs, with image documentation. Additional endovaginal scanning was necessary due to incomplete visualization of the adnexal and endometrial structures by transabdominal scanning. COMPARISON: [facility], US, US PELVIC COMPLETE, 02/05/2024, 6:52. FINDINGS: Uterus: Uterus is anteverted and normal in size at 6.9 x 3.7 x 5.0 cm. The myometrium is heterogeneous. The endometrium measures 8 mm combined thickness. There is a left posterior intramural focus of heterogeneous echogenicity measuring 3.9 x 3.2 x 3.3 cm. Ovaries: The right ovary measures 3.5 x 1.6 x 2.6 cm, with a calculated ovarian volume of 7.6 cc. The left ovary measures 2.7 x 1.5 x 1.6 cm, with a calculated ovarian volume of 3.4 cc. The ovaries have a normal sonographic appearance. Less than 12 follicles can be seen in each ovary. No adnexal masses are seen. Other: No pathologic free abdominal or pelvic fluid. IMPRESSION: Focus of heterogeneous echogenicity within the uterus suggestive of fibroid. Previous focus of echogenicity within the right ovary is no longer visualized. We strive to produce accurate, complete, and clear reports of imaging services. To assist us in improving patient care, this report was composed using standard report templates and voice recognition software. Therefore, it may contain abnormal punctuation, insertions and/or omissions. Occasional wrong-word or sound-alike substitutions may occur. Though we review the report and make efforts to correct it, we do recommend that the report be read carefully in proper context to recognize any text inaccuracies. Dictated by: Olinda Cheng M.D. on 05/17/2024 at 16:05 Approved by: Olinda Cheng M.D. on 05/17/2024 at 16:07
== END ==
PROVIDERS: Family Provider Internal Medicine; PCP Internal Medicine; Referring Provider Internal Medicine; Visit Provider Internal Medicine
DX: N83.201 Unspecified ovarian cyst, right side (principal); R10.31 Right lower quadrant pain
CPT/HCPCS: 76856

== ENCOUNTER → 2024-08-22 10:50 | Outpatient (CLI) | payer MEDICARE, MEDICAID, SELFPAY ==
--- NOTE | 2024-08-22 10:51 | DI.MG.S_ITS ---
BILATERAL DIGITAL SCREENING MAMMOGRAM 3D/2D WITH CAD: 08/22/2024 CLINICAL: Routine screening. Comparison is made to exams dated: 08/20/2023 mammogram and 08/19/2022 mammogram - [facility]. The breasts are almost entirely fatty (category a/<25% glandular tissue). Current study was also evaluated with a Computer Aided Detection (CAD) system. No significant masses, calcifications, or other findings are seen in either breast. There has been no significant interval change. IMPRESSION: NEGATIVE There is no mammographic evidence of malignancy. A 1 year screening mammogram is recommended. Based on the Tyrer Cuzick model (a risk assessment model) the patient's lifetime risk is 6.3% and her 10 year risk is 0.9%. According to the ACR, ACS, and NCCN guidelines, an annual breast MRI exam along with mammogram is recommended if the patient's lifetime risk is 20% or greater. This exam was interpreted at Station ID: [id number]. NOTE: For mammograms, a report in lay terms will be sent to the patient. Approximately 15% of breast malignancies will not be visualized mammographically. In the management of a palpable breast mass, a negative mammogram must not discourage biopsy of a clinically suspicious lesion. Electronically Signed By: Isamar Loza M.D., Ph.D. [email or web address]:08/23/2024 09:29:56 letter sent: Normal Exam ACR BI-RADS Category 1: Negative
== END ==
LOC: MAMMO 10:51
PROVIDERS: Family Provider Internal Medicine; PCP Internal Medicine; Referring Provider Internal Medicine; Visit Provider Internal Medicine
DX: Z12.31 Encounter for screening mammogram for malignant neoplasm of breast (principal); R92.313 Mammographic fatty tissue density, bilateral breasts
CPT/HCPCS: 77063; 77067

== ENCOUNTER → 2025-08-23 11:29 | Outpatient (CLI) | payer MEDICARE, MEDICAID, SELFPAY ==
--- NOTE | 2025-08-23 11:34 | DI.MG.S_ITS ---
MM screening mammo BI: 08/23/2025. BI-RADS: 1 CLINICAL: 44-year old female for bilateral screening mammogram. Tyrer-Cuzick lifetime risk of 6.8%. No personal or first-degree family history of breast cancer. PRIOR EXAMS 08/22/2024, 08/20/2023, 08/19/2022. MAMMOGRAPHY TECHNIQUE: 2D and 3D (tomosynthesis) digital mammographic views obtained, with additional images as needed for full coverage. Current study was also evaluated with a Computer Aided Detection (CAD) system. DENSITY A. The breasts are almost entirely fatty. MAMMOGRAPHY FINDINGS Bilateral: No suspicious mass, asymmetry, microcalcification, or other abnormality seen. IMPRESSION: * No evidence of malignancy. RECOMMENDATIONS Bilateral * Annual screening mammography. OVERALL ASSESSMENT CATEGORY BI-RADS-1: Negative. The [employer] recommends annual screening mammography beginning at age 40 for women with average risk of breast cancer. ELECTRONICALLY SIGNED: Ayala Anna M.D. on 08/23/2025 at 04:11:59 PM PT Interpreting Station ID: [id number]
== END ==
LOC: MAMMO 11:31
PROVIDERS: Family Provider Internal Medicine; PCP Registered Nurse; Referring Provider Registered Nurse; Visit Provider Registered Nurse
DX: Z12.31 Encounter for screening mammogram for malignant neoplasm of breast (principal)
CPT/HCPCS: 77063; 77067